=== PATIENT | male | born 1990 | race Caucasian/White ===

== ENCOUNTER 2016-10-19 13:28 | Observation (INO) | payer OTHER ==
[2016-10-19] MEDS ORDERED: SODIUM CHLORIDE 0.9% 1,000 ML IV STA ×2 (14:02)
[2016-10-19] MEDS ORDERED: ONDANSETRON 4 MG/2 ML VIAL IVP STA (14:02)
[2016-10-19] MEDS ORDERED: HYDROmorphone 1 MG/ML 1 ML SYRINGE IVP STA ×2 (14:02→15:07)
--- NOTE | 2016-10-19 14:09 | ED ---
General Adult HPI - General Chief complaint: Abdominal Pain Stated complaint: poss kidney stones-revisit Time Seen by Provider: 10/19/16 14:00 Source: patient, family, RN notes reviewed, old records reviewed Mode of arrival: ambulatory Limitations: no limitations - History of Present Illness Initial comments: Patient is a 26-year-old male significant past medical history for hemophilia A , who presents emergency room today with chief complaint of a kidney stone increased pain. He does admit that he's been having hematuria and increased left-sided flank pain. States he had a CAT scan performed recently showing kidney stone. Patient admits to symptoms of nausea vomiting. He denies any other complaints currently. Patient denies any recent fever, chills, shortness of breath, chest pain, numbness or tingling, dysuria, constipation or diarrhea, headaches or visual changes, or any other complaints. - Related Data Previous Rx's Medication Instructions Recorded HYDROcodone/APAP 10-325MG [[place] 1 tab PO Q4HR PRN #30 tab 10/10/16 10-325] Ondansetron Odt [Zofran Odt] 4 mg PO Q8HR PRN #20 tab 10/10/16 Tamsulosin HCl [Flomax] 0.4 mg PO DAILY #30 cap.er.24h 10/10/16 Allergies Allergy/AdvReac Type Severity Reaction Status Date / Time aspirin AdvReac Unknown Verified 10/19/16 13:46 NSAIDS (Non-Steroidal AdvReac Unknown Verified 10/19/16 13:46 Anti-Inflamma Review of Systems ROS Statement: Those systems with pertinent positive or pertinent negative responses have been documented in the HPI. ROS Other: All systems not noted in ROS Statement are negative. Past Medical History Additional Past Medical History / Comment(s): hemophelia A History of Any Multi-Drug Resistant Organisms: None Reported Past Surgical History: No Surgical Hx Reported Additional Past Surgical History / Comment(s): HEMOPHILIA Past Psychological History: ADD/ADHD, Anxiety, Bipolar, Depression Smoking Status: Current every day smoker Past Alcohol Use History: None Reported Additional Past Alcohol Use History / Comment(s): Patient is a smoker of 2 packs per day since he was 13 years of age. He uses marijuana all the time and does not have a medical marijuana card. He states he has used methamphetamines at 15 years of age and heroin one time 6 months ago. He states he drinks 1-2 drinks about 1 time per month. Past Drug Use History: None Reported - Past Family History Father Additional Family Medical History / Comment(s): Father is 37 years of age and patient does not know any medical history on him. Mother Additional Family Medical History / Comment(s): Mother is alive at age 49 with history of pulmonary hypertension. Brother(s) Additional Family Medical History / Comment(s): He has 2 brothers with no major medical problems. He has 6 sisters with no major medical problems. He has a grandfather and cousins with hemophilia. General Exam - General Exam Comments Initial Comments: General: The patient is awake and alert, in mild distress unable to find comfortable position. Eye: Pupils are equal, round and reactive to light, extra-ocular movements are intact. No nystagmus. There is normal conjunctiva bilaterally. No signs of icterus. Ears, nose, mouth and throat: There are moist mucous membranes and no oral lesions. Neck: The neck is supple, there is no tenderness or JVD. Cardiovascular: There is a regular rate and rhythm. No murmur, rub or gallop is appreciated. Respiratory: Lungs are clear to auscultation, respirations are non-labored, breath sounds are equal. No wheezes, stridor, rales, or rhonchi. Gastrointestinal: Normal appearance abdomen. Normal bowel sounds. Abdomen soft on palpation. Does have tenderness across the lower abdomen and left flank. No rebound tenderness. Musculoskeletal: Normal ROM, no tenderness. Strength 5/5. Sensation intact. Pulses equal bilaterally 2+. Neurological: A&O x 3. CN II-XII intact, There are no obvious motor or sensory deficits. Coordination appears grossly intact. Speech is normal. Skin: Skin is warm and dry and no rashes or lesions are noted. Psychiatric: Cooperative, appropriate mood & affect, normal judgment. Limitations: no limitations Course Vital Signs 10/19/16 10/19/16 13:45 15:22 Temperature 97.8 F 97.6 F Pulse Rate 73 67 Respiratory 20 16 Rate Blood Pressure 128/91 138/87 O2 Sat by Pulse 100 97 Oximetry Medical Decision Making - Medical Decision Making Patient reexamined at this time feeling better after pain medication. Patient' s labs been reviewed stable hemoglobin. Patient's urinalysis does show large amount of blood. Patient admits to hematuria over the last 2 days. Patient does have a 5 mm stone left side seen a CAT scan performed on 10/10/2016. Case discussed and seen by attending physician Dr. Barragan who did discuss case with on -call urologist Dr. Rodriguez who will admit the patient for his pain. - Lab Data Result diagrams: 10/19/16 14:35 10/19/16 14:35 Lab Results 10/19/16 10/19/16 10/19/16 Range/Units 14:35 14:35 14:35 WBC 9.3 (3.8-10.6) k/uL RBC 4.57 (4.30-5.90) m/uL Hgb 14.3 (13.0-17.5) gm/dL Hct 43.3 (39.0-53.0) % MCV 94.6 (80.0-100.0) fL MCH 31.2 (25.0-35.0) pg MCHC 33.0 (31.0-37.0) g/dL RDW 12.4 (11.5-15.5) % Plt Count 206 (150-450) k/uL Neutrophils % 73 % Lymphocytes % 18 % Monocytes % 6 % Eosinophils % 2 % Basophils % 0 % Neutrophils # 6.8 (1.3-7.7) k/uL Lymphocytes # 1.7 (1.0-4.8) k/uL Monocytes # 0.5 (0-1.0) k/uL Eosinophils # 0.2 (0-0.7) k/uL Basophils # 0.0 (0-0.2) k/uL PT 11.8 (9.0-12.0) sec INR 1.2 (<1.1) APTT 64.3 H (22.0-30.0) sec Sodium 143 (137-145) mmol/L Potassium 4.0 (3.5-5.1) mmol/L Chloride 105 (98-107) mmol/L Carbon Dioxide 28 (22-30) mmol/L Anion Gap 10 mmol/L BUN 16 (9-20) mg/dL Creatinine 0.94 (0.66-1.25) mg/dL Est GFR (MDRD) Af Amer >60 (>60 ml/min/1.73 sqM) Est GFR (MDRD) Non-Af >60 (>60 ml/min/1.73 sqM) Glucose 99 (74-99) mg/dL Calcium 9.6 (8.4-10.2) mg/dL Total Bilirubin 1.0 (0.2-1.3) mg/dL AST 30 (17-59) U/L ALT 46 (21-72) U/L Alkaline Phosphatase 81 (38-126) U/L Total Protein 7.6 (6.3-8.2) g/dL Albumin 4.5 (3.5-5.0) g/dL Amylase <30 L (30-110) U/L Lipase 30 (23-300) U/L Urine Color Urine Appearance (Clear) Urine pH (5.0-8.0) Ur Specific [place] (1.001-1.035) Urine Protein (Negative) Urine Glucose (UA) (Negative) Urine Ketones (Negative) Urine Blood (Negative) Urine Nitrate (Negative) Urine Bilirubin (Negative) Urine Urobilinogen (<2.0) mg/dL Ur Leukocyte Esterase (Negative) Urine RBC (0-5) /hpf Urine Mucus (None) /hpf 10/19/16 Range/Units 14:35 WBC (3.8-10.6) k/uL RBC (4.30-5.90) m/uL Hgb (13.0-17.5) gm/dL Hct (39.0-53.0) % MCV (80.0-100.0) fL MCH (25.0-35.0) pg MCHC (31.0-37.0) g/dL RDW (11.5-15.5) % Plt Count (150-450) k/uL Neutrophils % % Lymphocytes % % Monocytes % % Eosinophils % % Basophils % % Neutrophils # (1.3-7.7) k/uL Lymphocytes # (1.0-4.8) k/uL Monocytes # (0-1.0) k/uL Eosinophils # (0-0.7) k/uL Basophils # (0-0.2) k/uL PT (9.0-12.0) sec INR (<1.1) APTT (22.0-30.0) sec Sodium (137-145) mmol/L Potassium (3.5-5.1) mmol/L Chloride (98-107) mmol/L Carbon Dioxide (22-30) mmol/L Anion Gap mmol/L BUN (9-20) mg/dL Creatinine (0.66-1.25) mg/dL Est GFR (MDRD) Af Amer (>60 ml/min/1.73 sqM) Est GFR (MDRD) Non-Af (>60 ml/min/1.73 sqM) Glucose (74-99) mg/dL Calcium (8.4-10.2) mg/dL Total Bilirubin (0.2-1.3) mg/dL AST (17-59) U/L ALT (21-72) U/L Alkaline Phosphatase (38-126) U/L Total Protein (6.3-8.2) g/dL Albumin (3.5-5.0) g/dL Amylase (30-110) U/L Lipase (23-300) U/L Urine Color Light Red Urine Appearance Cloudy (Clear) Urine pH 8.5 H (5.0-8.0) Ur Specific [place] 1.015 (1.001-1.035) Urine Protein 1+ H (Negative) Urine Glucose (UA) Negative (Negative) Urine Ketones Negative (Negative) Urine Blood Large H (Negative) Urine Nitrate Negative (Negative) Urine Bilirubin Negative (Negative) Urine Urobilinogen <2.0 (<2.0) mg/dL Ur Leukocyte Esterase Negative (Negative) Urine RBC >182 H (0-5) /hpf Urine Mucus Rare H (None) /hpf Disposition Clinical Impression: Hemophilia, Kidney stone on left side, Nausea & vomiting, Intractable pain Disposition: ADMITTED IP TO THIS [facility] Condition: Stable Time of Disposition: 15:38
[2016-10-19 14:53] LABS: Basophils % (A) 0 %; Eosinophils # (A) 0.2 k/uL (0-0.7); Eosinophils % (A) 2 %; HCT 43.3 % (39.0-53.0); HDW 2.52; HGB 14.3 gm/dL (13.0-17.5); Luc # (Auto) 0.16; Luc % (Auto) 2; Lymphocytes # (A) 1.7 k/uL (1.0-4.8); Lymphocytes % (A) 18 %; MCH 31.2 pg (25.0-35.0); MCV 94.6 fL (80.0-100.0); Mean Platelet Volume 7.3; Monocytes # (A) 0.5 k/uL (0-1.0); Monocytes % (A) 6 %; Neutrophils # (A) 6.8 k/uL (1.3-7.7); Neutrophils % (A) 73 %; RBC 4.57 m/uL (4.30-5.90); RDW 12.4 % (11.5-15.5); WBC 9.3 k/uL (3.8-10.6)
[2016-10-19 14:58] LABS: Appearance,Urine Cloudy (Clear); Bilirubin,Urine Negative (Negative); Glucose,Urine (UA) Negative (Negative); Ketones,Urine Negative (Negative); Leukocyte Esterase,Urine Negative (Negative); Mucus,Urine Rare /hpf; Nitrite,Urine Negative (Negative); PH, Urine 8.5 (5.0-8.0); Particle Count 12235; Protein,Urine 1+ (Negative); RBC,Urine >182 /hpf (0-5); Specific Gravity,Urine 1.015 (1.001-1.035); UA Billing (MACRO vs. MICRO) MICRO; Urobilinogen,Urine <2.0 mg/dL (<2.0)
[2016-10-19 15:01] LABS: ALT 46 U/L (21-72); AST 30 U/L (17-59); Alkaline Phosphatase 81 U/L (38-126); Amylase <30 U/L (30-110); Anion Gap 10 mmol/L; Blood Urea Nitrogen 16 mg/dL (9-20); Calcium 9.6 mg/dL (8.4-10.2); Carbon Dioxide 28 mmol/L (22-30); Chloride 105 mmol/L (98-107); Glucose 99 mg/dL (74-99); Non-African American GFR(MDRD) >60 (>60 ml/min/1.73 sqM); Sodium 143 mmol/L (137-145); Total Protein 7.6 g/dL (6.3-8.2)
--- NOTE | 2016-10-19 15:04 | XR ---
EXAMINATION TYPE: XR KUB DATE OF EXAM: 10/19/2016 2:57 PM CLINICAL HISTORY: Increasing abdominal pain worse on left side. Known bilateral kidney stones. TECHNIQUE: Single supine KUB image of the abdomen is obtained. COMPARISON: Abdominal x-ray and CT abdomen and pelvis from October 10, 2016 FINDINGS: Scattered gas is seen in non-distended small bowel loops. Gas and fecal material is seen in non-distended colon. Small calculi seen on recent CT are less well seen on plain films is small si ze. There is probable stable 3 mm calculus lower pole level right kidney at inferior L2 vertebral bod y level . Left mid ureter calculus on CT is not definitively seen on plain films. Increasing overlie fecal material is seen on today's study making evaluation suboptimal. Lung bases are clear. Osseous structures are intact. IMPRESSION: Stable lower pole 3 mm right renal calculus. Additional renal and left ureter calculi are less well s een on plain films due to small size and overlying fecal debris.
[2016-10-19 15:32] LABS: INR 1.2 (<1.1); Prothrombin Time 11.8 sec (9.0-12.0)
[2016-10-19 15:35] LABS: Partial Thromboplastin Time 64.3 sec (22.0-30.0)
[2016-10-19] MEDS ORDERED: SODIUM CHLORIDE 0.9% 1,000 ML IV ONE (15:38)
[2016-10-19] MEDS ORDERED: ONDANSETRON 4 MG/2 ML VIAL IVP PRN (15:38)
[2016-10-19] MEDS ORDERED: HYDROmorphone 1 MG/ML 1 ML SYRINGE IV PRN (15:38)
[2016-10-19] MEDS ORDERED: NALOXONE 0.4 MG/ML 1 ML VIAL IV PRN (15:38)
[2016-10-19 16:18] VITALS: RESP 18
[2016-10-19 16:32] VITALS: BMI 20.8
[2016-10-19] MEDS: LORazepam 2 MG/ML SYRINGE IV PRN ×2 (16:54→22:44)
[2016-10-19] MEDS: HYDROmorphone 1 MG/ML 1 ML SYRINGE IV PRN ×3 (20:16→23:46)
[2016-10-19] MEDS ORDERED: TAMSULOSIN 0.4 MG CAP.ER.24H PO STA (20:58)
[2016-10-20] MEDS: HYDROmorphone 1 MG/ML 1 ML SYRINGE IV PRN ×4 (01:43→08:22)
[2016-10-20] MEDS: LORazepam 2 MG/ML SYRINGE IV PRN (03:44)
[2016-10-20 07:28] VITALS: BP 111/56; PULSE 68; TEMP 97.8
[2016-10-20 07:31] LABS: Basophils % (A) 0 %; CHCM 33.3; Eosinophils # (A) 0.2 k/uL (0-0.7); Eosinophils % (A) 3 %; Luc % (Auto) 3
[2016-10-20 07:38] LABS: INR 1.2 (<1.1); Prothrombin Time 11.9 sec (9.0-12.0)
[2016-10-20 08:16] LABS: ALT 38 U/L (21-72); AST 18 U/L (17-59); Alkaline Phosphatase 68 U/L (38-126); Anion Gap 7 mmol/L; Blood Urea Nitrogen 13 mg/dL (9-20); CH 31.3; Calcium 9.1 mg/dL (8.4-10.2); Carbon Dioxide 28 mmol/L (22-30); Chloride 108 mmol/L (98-107); Glucose 90 mg/dL (74-99); HCT 37.1 % (39.0-53.0); HDW 2.49; HGB 12.5 gm/dL (13.0-17.5); Lymphocytes # (A) 2.7 k/uL (1.0-4.8); Lymphocytes % (A) 33 %; MCH 31.7 pg (25.0-35.0); MCHC 33.5 g/dL (31.0-37.0); MCV 94.4 fL (80.0-100.0); Mean Platelet Volume 6.7; Monocytes # (A) 0.5 k/uL (0-1.0); Monocytes % (A) 6 %; Neutrophils # (A) 4.5 k/uL (1.3-7.7); Neutrophils % (A) 55 %; Non-African American GFR(MDRD) >60 (>60 ml/min/1.73 sqM); Potassium 4.3 mmol/L (3.5-5.1); RBC 3.93 m/uL (4.30-5.90); RDW 12.4 % (11.5-15.5); Sodium 143 mmol/L (137-145); Total Protein 6.2 g/dL (6.3-8.2); WBC 8.1 k/uL (3.8-10.6); WBC (Perox) 8.51
[2016-10-20] MEDS ORDERED: TAMSULOSIN 0.4 MG CAP.ER.24H PO SCH (11:00)
--- NOTE | 2016-10-20 13:21 | HP ---
DATE OF ADMISSION: 10/19/2016 ADMITTING DIAGNOSIS: Left ureteral calculus with left flank pain. Patient is a 26-year-old male admitted through the emergency room yesterday afternoon for treatment of severe left flank pain secondary to a left ureteral calculus. The patient's pain began on 10/09 and was located in his left flank and was associated with nausea and vomiting. He presented to the emergency room on 10/10 where he was evaluated and a noncontrast CT scan of the abdomen and pelvis identified a 3.5 x 4 x 5 mm calculus in the left ureter at approximately the L5 level. The patient's pain improved and he was discharged on Flomax and [place]. He says that his pain was tolerable with [place] until yesterday when it increased again in severity. The pain initially was in the left flank, but has now switched somewhat to the left lower quadrant. The patient did have some gross hematuria on 10/18 and 10/19, but this has resolved today. He continues to have severe left flank and left lower quadrant pain which he describes as a 7 to 10/10. He no longer has nausea or vomiting. Patient has had no fever or chills. He has no previous history of urolithiasis and there is no family history of kidney stones. 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 basis. He has a history of ADD/ADHD, anxiety and bipolar disease. He was on no medications prior to 10/10. He has no allergies, but has been instructed not to take aspirin or NSAIDs due to his hemophilia. He has never undergone a surgical procedure. There is no history of rheumatic fever, tuberculosis or hepatitis. However, the patient says that he has a girlfriend with hepatitis C. REVIEW OF SYSTEMS: No history of seizures, asthma, shortness of breath, chest pains, palpitations, or rectal bleeding. He says his bowels have been moving normally. SOCIAL HISTORY: Patient is single and says he lives with his parents. He has smoked for approximately 10 years and currently smokes 1-1/2 packs per day. He says he does not drink alcoholic beverages and denies IV drug use. FAMILY HISTORY: A cousin has hemophilia. Physical exam reveals a well-developed, 26-year-old male who appears to be in moderate discomfort, afebrile. Blood pressure 110/56. HEENT: No scleral icterus. No supraclavicular or cervical adenopathy. CHEST: Clear bilaterally. CARDIAC: Regular rhythm. No murmur. ABDOMEN: Soft. No hepatosplenomegaly. No suprapubic tenderness. No significant left flank pain to palpation. GENITALIA: Both testicles are descended. No hernias noted. Laboratory evaluation includes a hemoglobin of 9,300. BUN 16, creatinine 0.94. Urinalysis showed greater than 182 red blood cells per high-powered field. I personally reviewed the patient's CT scan. In addition to the left ureteral calculus, he has at least 2 nonobstructive calculi in the left kidney measuring less than 1 mm in size. He has a 2.5 to 3 mm calculus in the lower pole of the right kidney and 2 calculi in the mid-portion of the right kidney measuring approximately 1.5 and 2.5 to 3 mm in diameter. IMPRESSION: 1. Left flank pain secondary to left ureteral calculus-the patient's pain location has changed somewhat since the onset and it is possible that his calculus is migrating closer to his bladder. 2. Hemophilia A. 3. Attention Deficit Disorder/Attention Deficit Hyperactivity Disorder syndrome. 4. Bipolar disorder. PLAN: Patient will be continued on analgesics and Flomax in hopes that the calculus will pass spontaneously but if it does not by tomorrow, then left ureteroscopy with lithotripsy may be considered. Due to the patient's history of hemophilia A, it is likely that he will require a dose of recombinant antihemophilia factor prior to elective surgery. KRANTHI
--- NOTE | 2016-12-02 20:46 | P.DS ---
Providers Date of admission: 10/19/16 15:38 Attending physician: Lev Rodriguez Consults: 10/19/16 23:02 Consult Physician Routine Consulting Provider: Dale Alarcon Consult Reason/Comments: Hemophilic meds Do you want consulting provider notified?: Yes, Notify in am Primary care physician: Stated None Patient Condition at Discharge: Stable Plan - Discharge Summary Discharge Medication List HYDROcodone/APAP 10-325MG [[place] 10-325] 1 tab PO Q4HR PRN #30 tab 10/10/16 [Rx] Ondansetron Odt [Zofran Odt] 4 mg PO Q8HR PRN #20 tab 10/10/16 [Rx] Tamsulosin HCl [Flomax] 0.4 mg PO DAILY #30 cap.er.24h 10/10/16 [Rx] Recombinate 3,200 units IV DAILY PRN 10/19/16 [History] Follow up Appointment(s)/Referral(s): None,Stated [Primary Care Provider] - 1-2 days Discharge Disposition: Left Against Medical Advice
== END 2016-10-20 10:35 | disposition left against medical advice (07) ==
LOC: EC 13:28 → 3OBS 15:38
PROVIDERS: ADMIT Urology; ATTEND Urology
DX: N20.1 Calculus of ureter (principal); D66 Hereditary factor VIII deficiency; F90.9 Attention-deficit hyperactivity disorder, unspecified type; F31.9 Bipolar disorder, unspecified; F17.200 Nicotine dependence, unspecified, uncomplicated; F41.9 Anxiety disorder, unspecified; F12.90 Cannabis use, unspecified, uncomplicated; Z79.899 Other long term (current) drug therapy
CPT/HCPCS: 99285; 96374; 96375; 96376; 96361; 36415; 80053 ×2; 82150; 83690; 85025 ×2; 85610 ×2; 85730; 81001; 87086; 74000; G0378 ×2; J2060 ×2; J2405; J1170 ×2

== ENCOUNTER 2016-12-30 08:52 | Inpatient (IN) | payer OTHER ==
[2016-12-30] MEDS ORDERED: ONDANSETRON 4 MG/2 ML VIAL IVP STA (09:02)
[2016-12-30] MEDS ORDERED: SODIUM CHLORIDE 0.9% 1,000 ML IV STA ×2 (09:02)
--- NOTE | 2016-12-30 09:04 | ED ---
General Adult HPI <Brian Boateng - Last Filed: 12/30/16 12:28> - General Source: patient, RN notes reviewed Mode of arrival: ambulatory Limitations: no limitations <Landon Wiggins - Last Filed: 12/30/16 12:37> - General Chief complaint: Abdominal Pain Stated complaint: eye pain Time Seen by Provider: 12/30/16 08:59 - History of Present Illness Initial comments: Patient 26-year-old male significant past medical history for hemophilia A, who presents emergency room today with chief complaint of abdominal pain with nausea vomiting over the last 2 days. Patient does admit to a pressure-like pain middle of his abdomen. Currently rates as 03/22. Denies any radiation. Patient states that his had several episodes of nausea vomiting. Denies any signs of blood in the emesis. States never had similar symptoms in the past. Patient mother at bedside stating that she's noticed that his skin appears to be a yellow color. Patient denies any recent fever, chills, shortness of breath , chest pain, back pain, numbness or tingling, dysuria or hematuria, constipation or diarrhea, headaches or visual changes, or any other complaints. (Landon Wiggins) - Related Data Home Medications Medication Instructions Recorded Confirmed Recombinate 2,500 - 3,200 units IV MOTH PRN 10/19/16 12/30/16 Acetaminophen [Tylenol] 500 mg PO Q4-6H PRN 12/30/16 12/30/16 Allergies Allergy/AdvReac Type Severity Reaction Status Date / Time aspirin AdvReac Unknown Verified 12/30/16 09:20 NSAIDS (Non-Steroidal AdvReac Unknown Verified 12/30/16 09:20 Anti-Inflamma Review of Systems ROS Other: All systems not noted in ROS Statement are negative. <Brian Boateng - Last Filed: 12/30/16 12:28> ROS Other: All systems not noted in ROS Statement are negative. <Landon Wiggins - Last Filed: 12/30/16 12:37> ROS Statement: Those systems with pertinent positive or pertinent negative responses have been documented in the HPI. Past Medical History Past Medical History: Hyperlipidemia Additional Past Medical History / Comment(s): hemophelia A History of Any Multi-Drug Resistant Organisms: None Reported Past Surgical History: No Surgical Hx Reported Additional Past Surgical History / Comment(s): HEMOPHILIA Past Psychological History: ADD/ADHD, Anxiety, Bipolar, Depression Smoking Status: Current every day smoker Past Alcohol Use History: Rare Additional Past Alcohol Use History / Comment(s): Patient is a smoker of 2 packs per day since he was 13 years of age. He uses marijuana all the time and does not have a medical marijuana card. He states he has used methamphetamines at 15 years of age and heroin one time 6 months ago. He states he drinks 1-2 drinks about 1 time per month. Past Drug Use History: None Reported - Past Family History Father Additional Family Medical History / Comment(s): Father is 37 years of age and patient does not know any medical history on him. Mother Additional Family Medical History / Comment(s): Mother is alive at age 49 with history of pulmonary hypertension. Brother(s) Additional Family Medical History / Comment(s): He has 2 brothers with no major medical problems. He has 6 sisters with no major medical problems. He has a grandfather and cousins with hemophilia. <Landon Wiggins - Last Filed: 12/30/16 12:37> General Exam <Brian Boateng - Last Filed: 12/30/16 12:28> Limitations: no limitations <Landon Wiggins - Last Filed: 12/30/16 12:37> - General Exam Comments Initial Comments: General: The patient is awake and alert, in no distress, and does not appear acutely ill. Eye: Pupils are equal, round and reactive to light, extra-ocular movements are intact. No nystagmus. There is normal conjunctiva bilaterally. + icterus. Ears, nose, mouth and throat: There are moist mucous membranes and no oral lesions. Neck: The neck is supple, there is no tenderness or JVD. Cardiovascular: There is a regular rate and rhythm. No murmur, rub or gallop is appreciated. Respiratory: Lungs are clear to auscultation, respirations are non-labored, breath sounds are equal. No wheezes, stridor, rales, or rhonchi. Gastrointestinal: Soft, non-distended, non-tender abdomen without masses or organomegaly noted. There is no rebound or guarding present. No CVA tenderness. Bowel sounds are unremarkable. Musculoskeletal: Normal ROM, no tenderness. Strength 5/5. Sensation intact. Pulses equal bilaterally 2+. Neurological: A&O x 3. CN II-XII intact, There are no obvious motor or sensory deficits. Coordination appears grossly intact. Speech is normal. Skin: Skin is warm and dry and no rashes or lesions are noted. Mild jaundice Psychiatric: Cooperative, appropriate mood & affect, normal judgment. (Landon Wiggins) Course <Brian Boateng - Last Filed: 12/30/16 12:28> <Landon Wiggins - Last Filed: 12/30/16 12:37> Vital Signs 12/30/16 12/30/16 12/30/16 08:54 11:26 12:34 Temperature 99.0 F 97.4 F L Pulse Rate 73 62 62 Respiratory 20 18 18 Rate Blood Pressure 143/87 127/57 113/68 O2 Sat by Pulse 98 96 97 Oximetry - Reevaluation(s) Reevaluation #1: 12/30/16 12:28 Patient reexamined by myself, Dr. Boateng. Patient does have a jaundiced appearance. Abdomen is soft with right upper quadrant tenderness. Patient updated on results and plan. Case discussed with surgery, Dr. Maria who recommends medical admission and GI consult. Dr. Dugan has been paged for admission. (Brian Boateng) Medical Decision Making - Lab Data Result diagrams: 12/30/16 09:25 12/30/16 09:25 <Brian Boateng - Last Filed: 12/30/16 12:28> - Lab Data Result diagrams: 12/30/16 09:25 12/30/16 09:25 <Landon Wiggins - Last Filed: 12/30/16 12:37> - Lab Data Lab Results 12/30/16 12/30/16 Range/Units 09:25 09:25 WBC 7.5 (3.8-10.6) k/uL RBC 5.06 (4.30-5.90) m/uL Hgb 15.3 (13.0-17.5) gm/dL Hct 48.7 (39.0-53.0) % MCV 96.2 (80.0-100.0) fL MCH 30.3 (25.0-35.0) pg MCHC 31.5 (31.0-37.0) g/dL RDW 14.5 (11.5-15.5) % Plt Count 267 (150-450) k/uL Neutrophils % (Manual) 61.0 % Lymphocytes % (Manual) 29.0 % Monocytes % (Manual) 7.0 % Eosinophils % (Manual) 3.0 % Neutrophils # (Manual) 4.6 (1.3-7.7) k/uL Lymphocytes # (Manual) 2.2 (1.0-4.8) k/uL Monocytes # (Manual) 0.5 (0-1.0) k/uL Eosinophils # (Manual) 0.2 (0-0.7) k/uL Nucleated RBCs 0 (0-0) /100 WBC Poikilocytosis (manual Present Anisocytosis (manual) Present Target Cells Present Sodium 139 (137-145) mmol/L Potassium 4.4 (3.5-5.1) mmol/L Chloride 100 (98-107) mmol/L Carbon Dioxide 28 (22-30) mmol/L Anion Gap 11 mmol/L BUN 13 (9-20) mg/dL Creatinine 0.83 (0.66-1.25) mg/dL Est GFR (MDRD) Af Amer >60 (>60 ml/min/1.73 sqM) Est GFR (MDRD) Non-Af >60 (>60 ml/min/1.73 sqM) Glucose 102 H (74-99) mg/dL Calcium 9.4 (8.4-10.2) mg/dL Total Bilirubin 8.8 H (0.2-1.3) mg/dL AST 1491 H (17-59) U/L ALT 2549 H (21-72) U/L Alkaline Phosphatase 198 H (38-126) U/L Total Protein 8.2 (6.3-8.2) g/dL Albumin 4.1 (3.5-5.0) g/dL Amylase 53 (30-110) U/L Lipase 55 (23-300) U/L Disposition <Brian Boateng - Last Filed: 12/30/16 12:28> Time of Disposition: 12:27 <Landon Wiggins - Last Filed: 12/30/16 12:37> Clinical Impression: Acute cholecystitis, Elevated liver enzymes Disposition: ADMITTED IP TO THIS [facility] Condition: Stable
[2016-12-30 09:40] LABS: Aty Lym Flag Slight; CH 30.5; CHCM 31.9; HCT 48.7 % (39.0-53.0); HDW 2.27; HGB 15.3 gm/dL (13.0-17.5); MCH 30.3 pg (25.0-35.0); MCHC 31.5 g/dL (31.0-37.0); MCV 96.2 fL (80.0-100.0); Mean Platelet Volume 6.6; RBC 5.06 m/uL (4.30-5.90); RDW 14.5 % (11.5-15.5); WBC 7.5 k/uL (3.8-10.6); WBC (Perox) 7.54
--- NOTE | 2016-12-30 09:44 | XR ---
EXAMINATION TYPE: XR KUB DATE OF EXAM: 12/30/2016 9:37 AM CLINICAL HISTORY: Increased abdominal pain worse on left side. Only diagnosed bilateral kidney stones per patient. TECHNIQUE: 2 upright KUB images of the abdomen are obtained. COMPARISON: CT abdomen and pelvis October 10, 2016. Abdominal x-ray October 19, 2016 FINDINGS: Scattered gas is seen in non-distended small bowel loops. Gas and fecal material is seen in non-distended colon. There is stable 3 mm calculus lower pole level right kidney. Smaller calculi scattered throughout left kidney are less well seen on x-ray. Lung bases are clear. Visualized osseo us structures are intact. IMPRESSION: Stable 3 mm lower pole right renal calculus. There are smaller but more numerous calculi in left kidn ey on recent CT not clearly seen on x-ray due to size and overlying colonic fecal material.
[2016-12-30 09:51] LABS: Alkaline Phosphatase 198 U/L (38-126); Amylase 53 U/L (30-110); Anion Gap 11 mmol/L; Blood Urea Nitrogen 13 mg/dL (9-20); Calcium 9.4 mg/dL (8.4-10.2); Carbon Dioxide 28 mmol/L (22-30); Chloride 100 mmol/L (98-107); Glucose 102 mg/dL (74-99); Non-African American GFR(MDRD) >60 (>60 ml/min/1.73 sqM); Potassium 4.4 mmol/L (3.5-5.1); Sodium 139 mmol/L (137-145); Total Bilirubin 8.8 mg/dL (0.2-1.3); Total Protein 8.2 g/dL (6.3-8.2)
[2016-12-30 10:41] LABS: ALT 2549 U/L (21-72); AST 1491 U/L (17-59)
[2016-12-30 10:52] LABS: Add Differential Manual Differential
[2016-12-30 10:55] LABS: Nucleated Red Blood Cells 0 /100 WBC (0-0); Total Cells Counted 100
[2016-12-30 11:00] LABS: Target Cells Present
--- NOTE | 2016-12-30 11:45 | US ---
EXAMINATION TYPE: US abdomen limited DATE OF EXAM: 12/30/2016 11:11 AM COMPARISON: NONE CLINICAL HISTORY: Pain. EXAM MEASUREMENTS: Liver Length: 15.4 cm Gallbladder Wall: 1.2 cm CBD: 0.5 cm Right Kidney: 11.0 x 4.2 x 5.2 cm TECHNOLOGIST IMPRESSION: Very tender abdomen, Pancreas: Tail obscured by overlying bowel gas Liver: wnl Gallbladder: Thick edematous wall, no stones seen, suggestive of acute cholecystitis Evidence for sonographic Villalobos's sign: Patient entire abdomen very tender CBD: wnl Right Kidney: inferior pole not seen There is no ascites. IMPRESSION: Markedly thickened gallbladder wall is indeterminate, correlate for cholecystitis. Limite d exam.
[2016-12-30] MEDS ORDERED: HYDROmorphone 1 MG/ML 1 ML SYRINGE IVP STA ×2 (11:48→13:11)
[2016-12-30 12:32] LABS: INR 1.3 (<1.1); Prothrombin Time 12.5 sec (9.0-12.0)
[2016-12-30] MEDS ORDERED: AMPICILLIN-SULBACTAM 3 GM in SODIUM CHLORIDE 0.9% 100 ML IVPB STA (12:38)
[2016-12-30] MEDS ORDERED: ONDANSETRON 4 MG/2 ML VIAL IVP PRN (12:38)
[2016-12-30] MEDS ORDERED: NALOXONE 0.4 MG/ML 1 ML VIAL IV PRN (12:38)
[2016-12-30] MEDS ORDERED: SODIUM CHLORIDE 0.9% 1,000 ML IV ONE (12:38)
[2016-12-30] MEDS ORDERED: LORazepam 2 MG/ML SYRINGE IV STA (13:49)
[2016-12-30 14:12] LABS: Hepatitis C Virus IgG Ab Reactive (Negative)
[2016-12-30 14:53] LABS: Hepatitis B Surface Ag Index 0.12
[2016-12-30 14:59] LABS: Hepatitis B Core IgM Index 0.07
[2016-12-30] MEDS: LORazepam 2 MG/ML SYRINGE IV PRN ×2 (15:45→20:30)
--- NOTE | 2016-12-30 15:51 | P.GSCN ---
History of Present Illness Consult date: 12/30/16 Reason for Consult: Jaundice and gallbladder wall thickening History of present illness: The patient is a 26-year-old man who has not been feeling well for several days. He had chills and malaise. "He had been laying around on the couch". He admits his niece was ill with nausea and vomiting and thought perhaps it was a virus. This morning when he woke up he noticed he was low and was concerned about jaundice so went into the emergency room. He's had some nausea and vomiting. Discomfort in the middle of his abdomen. No radiation to the chest or back. Previous episodes of anything like this. While doing his review of systems he does admit that his girlfriend has hepatitis C. Denies any knowledge that he's had hepatitis C in the past. Denies any previous testing well. He also admits to IV drug use from time to time and that he and his girlfriend "try not to do blood to blood". 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 He received blood when he was around 9 yrs old. Past Psychological History: ADD/ADHD, Anxiety, Bipolar, Depression Additional Psychological History / Comment(s): Pt resides with his mother. He has a 9 month old son. He does not drive due to his anxiety-he states he misses appts often. He has depression and past suicidal thoughts and attempt but denies thoughts or plans of suicide or harming himself at this time. "My anxiety is more of my issue right now." Smoking Status: Current every day smoker Past Alcohol Use History: Rare Additional Past Alcohol Use History / Comment(s): Patient is a smoker of 2 packs per day since he was 13 years of age. He uses marijuana on occasion but not daily. He states he has used methamphetamines at 15 years of age and heroin in the past. He states he relapsed with heroin 2 months ago but has not used it since. He states he drinks 1-2 drinks about 1 time per month. Past Drug Use History: None Reported - Past Family History Father History Unknown: Yes Additional Family Medical History / Comment(s): Father is 37 years of age and patient does not know any medical history on him. Mother Additional Family Medical History / Comment(s): Mother is alive at age 49 with history of pulmonary hypertension. Brother(s) Additional Family Medical History / Comment(s): He has 2 brothers with no major medical problems. He has 6 sisters with no major medical problems. He has a grandfather and cousins with hemophilia. Medications and Allergies Home Medications Medication Instructions Recorded Confirmed Type Recombinate 2,500 - 3,200 units IV MOTH PRN 10/19/16 12/30/16 History Acetaminophen [Tylenol] 500 mg PO Q4-6H PRN 12/30/16 12/30/16 History Allergies Allergy/AdvReac Type Severity Reaction Status Date / Time aspirin AdvReac Unknown Verified 12/30/16 09:20 NSAIDS (Non-Steroidal AdvReac Unknown Verified 12/30/16 09:20 Anti-Inflamma Surgical - Exam Osteopathic Statement: *. No significant issues noted on an osteopathic structural exam other than those noted in the History and Physical/Consult. Vital Signs Temp Pulse Resp BP Pulse Ox 99.0 F 73 20 143/87 98 12/30/16 08:54 12/30/16 08:54 12/30/16 08:54 12/30/16 08:54 12/30/16 08:54 - General Anxious, tremulous moderate distress - Eyes normal ocular movement - ENT normal mucosa, no hearing loss - Neck There is some scarring and nodularity in the right neck which may be due to some chronic acne. trachea midline - Respiratory normal respiratory effort, clear to auscultation - Cardiovascular Rhythm: regular - Abdomen Abdomen: soft, tender (Epigastric and right upper quadrant), no organomegaly, no surgical scars, no distended Hernia: no umbilical - Psychiatric oriented to time, oriented to person, oriented to place, other (Anxious) Results - Labs Comments: Total bilirubin and transaminases are elevated. Alkaline phosphatase is mildly elevated. Amylase and lipase are within normal range. Hepatitis A and B are negative. Hepatitis C is reactive. PT is modestly elevated. His PTT is elevated at 74. 12/30/16 09:25 12/30/16 09:25 - Imaging US - abdomen: report reviewed, image reviewed Assessment and Plan (1) Elevated liver enzymes Status: Acute (2) Nausea & vomiting Status: Acute (3) Hepatitis C Status: Acute (4) Acute cholecystitis Status: Acute Plan: Likely this is an acute onset hepatitis C. The gallbladder wall was very thickened but there is no stones seen. The common bile duct is not dilated. The bilirubin is also quite a bit more elevated than one would expect with an acute cholecystitis. We'll hydrate him, control pain, serial exams. GI consult. We'll follow with you. No plans for cholecystectomy at this point.
[2016-12-30] MEDS: HYDROmorphone 1 MG/ML 1 ML SYRINGE IV PRN ×3 (16:45→23:02)
[2016-12-30 17:14] LABS: Appearance,Urine Cloudy (Clear); Bacteria,Urine Rare /hpf; Bilirubin,Urine 2+ (Negative); Calcium Oxalate Crystals,Urine Rare /hpf; Glucose,Urine (UA) Negative (Negative); Ketones,Urine Trace (Negative); Leukocyte Esterase,Urine Negative (Negative); Nitrite,Urine Negative (Negative); PH, Urine 6.5 (5.0-8.0); Particle Count 1992; Protein,Urine Negative (Negative); RBC,Urine 1 /hpf (0-5); Specific Gravity,Urine 1.018 (1.001-1.035); UA Billing (MACRO vs. MICRO) MICRO; WBC,Urine 2 /hpf (0-5)
[2016-12-30] MEDS: AMPICILLIN-SULBACTAM 3 GM in SODIUM CHLORIDE 0.9% 100 ML IVPB SCH (20:30)
[2016-12-31] MEDS: HYDROmorphone 1 MG/ML 1 ML SYRINGE IV PRN ×3 (03:45→12:38)
[2016-12-31] MEDS: AMPICILLIN-SULBACTAM 3 GM in SODIUM CHLORIDE 0.9% 100 ML IVPB SCH ×2 (04:21→12:37)
[2016-12-31 08:04] VITALS: RESP 20
[2016-12-31 08:51] LABS: Alkaline Phosphatase 163 U/L (38-126); Anion Gap 9 mmol/L; Bilirubin, Delta 2.2 mg/dL (0.0-0.2); Blood Urea Nitrogen 10 mg/dL (9-20); Calcium 9.1 mg/dL (8.4-10.2); Carbon Dioxide 29 mmol/L (22-30); Chloride 103 mmol/L (98-107); Glucose 103 mg/dL (74-99); Non-African American GFR(MDRD) >60 (>60 ml/min/1.73 sqM); Potassium 5.1 mmol/L (3.5-5.1); Sodium 141 mmol/L (137-145); Total Protein 7.4 g/dL (6.3-8.2)
[2016-12-31 09:17] LABS: Aty Lym Flag Slight; CH 30.1; CHCM 30.8; HCT 43.5 % (39.0-53.0); HDW 2.21; HGB 13.7 gm/dL (13.0-17.5); Hypochromasia Slight; MCH 30.8 pg (25.0-35.0); MCHC 31.4 g/dL (31.0-37.0); RBC 4.44 m/uL (4.30-5.90); RDW 14.6 % (11.5-15.5); WBC 6.7 k/uL (3.8-10.6)
[2016-12-31] MEDS: LORazepam 2 MG/ML SYRINGE IV PRN (09:48)
[2016-12-31 10:37] LABS: Add Differential Manual Differential
[2016-12-31 10:39] LABS: Manual Review Performed; Nucleated Red Blood Cells 0 /100 WBC (0-0); Target Cells Present; Total Cells Counted 100
--- NOTE | 2016-12-31 11:21 | P.CONS ---
History of Present Illness - Reason for Consult Consult date: 12/31/16 Elevated liver enzymes hepatitis Requesting physician: Apurva Dugan - History of Present Illness 26-year-old male with a history of IVDA heroin 2-4 months ago, recent Suboxone usage, hemophilia A, bipolar depression, ADHD, nicotine cigarette dependency, and hyperlipidemia. Patient presented with acute right upper quadrant abdominal pain, yellow skin, dark urine, and feelings of generalized weakness 2 days. Consultation requested for elevated liver enzymes hepatitis C. Admission white count 7.5. Hemoglobin 15.3. INR 1.3. Total bilirubin 8.8. AST 1491. ALT 2549. Alkaline Phosphatase 198. Lipase 55. Repeat total bilirubin today is 8.0. Conjugated 4.3. AST ALT pending. Urinalysis detected opiates benzodiazepines and marijuana. Hepatitis panel reactive for hepatitis C antibody only. Upon review of liver enzymes in October 2016 there were within normal limits. Patient has no history of known hepatitis C until this admission. He is in a relationship with a woman who has hepatitis C. Again he states his last intravenous dose of heroin was between 2 and 4 months ago. Denies aspirin or NSAID usage prior to admission. No changes in his medications with the exception of taking a one third tablet of Suboxone for about a week prior to admission. Denies fever, chills but reports hot flashes. No history of hepatitis or liver disorders. Abdominal ultrasound reported a thickened gallbladder wall without stones. CBD 0.5 cm. Review of Systems Constitutional: Denies fever, chills, sweats, weight gain, or loss. HEENT: Negative for migraines, blurred vision or loss, earaches, drainage, tinnitus, oral mucosal lesions, dysphagia, or odynophagia. Cardiac: Negative for chest pain, arrhythmias, or palpitation. Respiratory: Nicotine cigarette dependency. Negative for shortness of breath, hemoptysis, cough, or sputum production. Gastrointestinal: See HPI for pertinent findings. Genitourinary: Negative for hematuria, urgency, frequency, polyuria, dysuria, or penile discharge. Musculoskeletal: Negative for muscle aches, swelling, arthritis, and arthralgias. Neurologic: Negative for stroke or TIA. Hematology: Hemophilia A. Endocrine: Negative for thyroid problems. Skin: Negative for rash or itching. Psychiatric: I polio depression. ADHD. and anxiety All systems: negative (See HPI) Past Medical History Past Medical History: Hyperlipidemia Additional Past Medical History / Comment(s): hemophelia A History of Any Multi-Drug Resistant Organisms: None Reported Past Surgical History: No Surgical Hx Reported Additional Past Surgical History / Comment(s): HEMOPHILIA Additional Past Anesthesia/Blood Transfusion Reaction / Comm: Pt has never had anesthesia. He received blood when he was around 9 yrs old. Past Psychological History: ADD/ADHD, Anxiety, Bipolar, Depression Additional Psychological History / Comment(s): Pt resides with his mother. He has a 9 month old son. He does not drive due to his anxiety-he states he misses appts often. He has depression and past suicidal thoughts and attempt but denies thoughts or plans of suicide or harming himself at this time. "My anxiety is more of my issue right now." Smoking Status: Current every day smoker Past Alcohol Use History: Rare Additional Past Alcohol Use History / Comment(s): Patient is a smoker of 2 packs per day since he was 13 years of age. He uses marijuana on occasion but not daily. He states he has used methamphetamines at 15 years of age and heroin in the past. He states he relapsed with heroin 2 months ago but has not used it since. He states he drinks 1-2 drinks about 1 time per month. Past Drug Use History: None Reported - Past Family History Father History Unknown: Yes Additional Family Medical History / Comment(s): Father is 37 years of age and patient does not know any medical history on him. Mother Additional Family Medical History / Comment(s): Mother is alive at age 49 with history of pulmonary hypertension. Brother(s) Additional Family Medical History / Comment(s): He has 2 brothers with no major medical problems. He has 6 sisters with no major medical problems. He has a grandfather and cousins with hemophilia. Medications and Allergies Home Medications Medication Instructions Recorded Confirmed Type Recombinate 2,500 - 3,200 units IV MOTH PRN 10/19/16 12/30/16 History Acetaminophen [Tylenol] 500 mg PO Q4-6H PRN 12/30/16 12/30/16 History Allergies Allergy/AdvReac Type Severity Reaction Status Date / Time aspirin AdvReac Unknown Verified 12/30/16 09:20 NSAIDS (Non-Steroidal AdvReac Unknown Verified 12/30/16 09:20 Anti-Inflamma Physical Exam Vitals: Vital Signs Temp Pulse Pulse Pulse Resp BP BP 12/31/16 07:00 97.9 F 61 20 116/72 12/31/16 00:00 18 12/30/16 23:00 97.8 F 84 18 139/77 12/30/16 16:56 62 19 12/30/16 15:00 99 F 62 19 12/30/16 14:38 98.2 F 67 18 132/71 12/30/16 14:04 98.1 F 68 18 130/82 12/30/16 13:23 62 18 125/71 BP Pulse Ox 12/31/16 07:00 97 12/31/16 00:00 12/30/16 23:00 94 L 12/30/16 16:56 12/30/16 15:00 143/85 97 12/30/16 14:38 97 12/30/16 14:04 96 12/30/16 13:23 96 Intake and Output 12/30/16 12/31/16 12/31/16 22:59 06:59 14:59 Intake Total 0 0 Balance 0 0 Intake: Oral 0 0 Other: Voiding Method Toilet Toilet # Voids 1 General appearance: The patient is alert, oriented, in no acute distress. Jaundice. HET: Head is normocephalic and atraumatic. Pupils are equal and reactive. Sclerae icterus. Oropharynx is clear without lesions. Neck: Supple without lymphadenopathy. Trachea midline. Heart: S1 S2. Regular rate and rhythm. Lungs: No crackles or wheezes are heard. Abdomen: Soft, very mild right upper quadrant tenderness, nondistended with bowel sounds. No peritoneal signs. No palpable organomegaly or masses. Extremities: Normal skin color and turgor. No cyanosis, rash, ulceration, clubbing, or edema. Radial and pedal pulses are 2/4 bilaterally. Neurological: No focal deficits. Strength and sensation are grossly intact. Results CBC & Chem 7: 12/31/16 08:09 12/31/16 08:09 Labs: Abnormal Lab Results - Last 24 Hours (Table) 12/30/16 12/31/16 12/31/16 Range/Units 16:00 03:45 08:09 Glucose 103 H (74-99) mg/dL Total Bilirubin 8.0 H (0.2-1.3) mg/dL Conjugated Bilirubin 4.3 H (0.0-0.3) mg/dL Unconjugated Bilirubin 1.5 H (0.0-1.1) mg/dL Delta Bilirubin 2.2 H (0.0-0.2) mg/dL Alkaline Phosphatase 163 H (38-126) U/L Urine Ketones Trace H (Negative) Urine Bilirubin 2+ H (Negative) Calcium Oxalate Crystal Rare H (None) /hpf Urine Bacteria Rare H (None) /hpf Urine Opiates Screen Detected H (NotDetected) U Benzodiazepines Scrn Detected H (NotDetected) U Marijuana (THC) Screen Detected H (NotDetected) US - abdomen: report reviewed (Reviewed by Dr. Pineda) Assessment and Plan (1) Acute hepatitis Narrative/Plan: Suspect toxic hepatitis with suspected underlying hepatitis C infection secondary to intravenous heroin drug abuse. Status: Acute (2) Hepatitis C antibody positive in blood Status: Acute (3) Heroin abuse Status: Acute (4) Elevated liver enzymes Status: Acute (5) Jaundice Status: Acute Plan: 1. Close observation of PT/INR and liver enzymes; if they continue to worsen will need to consider transfer to tertiary care center for close observation by a liver transplant team. 2. Diet as tolerated. 3. Will obtain CMV/EPV/quantitative hepatitis C/genotype serology. Thank you for this kind referral and the opportunity to participate in the care of your patient. This consultation was discussed with Dr. Pineda. The impression and plan of care have been directed as dictated.
[2016-12-31] MEDS ORDERED: [UNRECOGNIZED DRUG - OTHER] IV ONE (12:00)
[2016-12-31 12:06] LABS: INR 1.3 (<1.1); Prothrombin Time 12.9 sec (9.0-12.0)
[2016-12-31 12:15] LABS: ALT 1977 U/L (21-72); AST 1090 U/L (17-59)
[2016-12-31] MEDS ORDERED: SODIUM CHLORIDE 0.9% 1,000 ML IV SCH (12:30)
--- NOTE | 2016-12-31 13:15 | P.PN ---
Subjective The patient is seen on rounds. He says he is feeling about the same. Maybe some diminished pain versus yesterday. No nausea or vomiting. He's tolerating a clear liquid diet. Objective - Vital Signs Vital signs: Vital Signs Temp 97.9 F 12/31/16 07:00 Pulse 61 12/31/16 07:00 Resp 20 12/31/16 07:00 BP 116/72 12/31/16 07:00 Pulse Ox 97 12/31/16 07:00 Intake & Output 12/30/16 12/31/16 12/31/16 18:59 06:59 18:59 Intake Total 0 Balance 0 Intake: Oral 0 Other: Voiding Method Toilet Toilet # Voids 1 - Constitutional Constitutional Comment(s): Appears much less anxious than yesterday. Not is tremulous. General appearance: Present: cooperative, no acute distress - Respiratory Respiratory: bilateral: CTA - Cardiovascular Rhythm: regular - Gastrointestinal General gastrointestinal: Present: normal bowel sounds, soft, tenderness ( Epigastric without guarding or rebound) - Integumentary Integumentary: Present: jaundiced - Labs CBC & Chem 7: 12/31/16 08:09 12/31/16 08:09 Labs: Abnormal Lab Results - Last 24 Hours (Table) 12/30/16 12/31/16 12/31/16 Range/Units 16:00 03:45 08:09 PT (9.0-12.0) sec Glucose 103 H (74-99) mg/dL Total Bilirubin 8.0 H (0.2-1.3) mg/dL Conjugated Bilirubin 4.3 H (0.0-0.3) mg/dL Unconjugated Bilirubin 1.5 H (0.0-1.1) mg/dL Delta Bilirubin 2.2 H (0.0-0.2) mg/dL AST 1090 H (17-59) U/L ALT 1977 H (21-72) U/L Alkaline Phosphatase 163 H (38-126) U/L Urine Ketones Trace H (Negative) Urine Bilirubin 2+ H (Negative) Calcium Oxalate Crystal Rare H (None) /hpf Urine Bacteria Rare H (None) /hpf Urine Opiates Screen Detected H (NotDetected) U Benzodiazepines Scrn Detected H (NotDetected) U Marijuana (THC) Screen Detected H (NotDetected) 12/31/16 Range/Units 11:32 PT 12.9 H (9.0-12.0) sec Glucose (74-99) mg/dL Total Bilirubin (0.2-1.3) mg/dL Conjugated Bilirubin (0.0-0.3) mg/dL Unconjugated Bilirubin (0.0-1.1) mg/dL Delta Bilirubin (0.0-0.2) mg/dL AST (17-59) U/L ALT (21-72) U/L Alkaline Phosphatase (38-126) U/L Urine Ketones (Negative) Urine Bilirubin (Negative) Calcium Oxalate Crystal (None) /hpf Urine Bacteria (None) /hpf Urine Opiates Screen (NotDetected) U Benzodiazepines Scrn (NotDetected) U Marijuana (THC) Screen (NotDetected) Assessment and Plan (1) Elevated liver enzymes Status: Acute (2) Nausea & vomiting Status: Acute (3) Hepatitis C Status: Acute (4) Acute cholecystitis Status: Acute Plan: Patient's currently nonsurgical. Continue medical workup for his acute hepatitis. We will follow up on a when necessary basis.
--- NOTE | 2016-12-31 13:42 | HP ---
DATE OF ADMISSION: CHIEF COMPLAINT: Abdominal pain and jaundice. HISTORY OF PRESENT ILLNESS: This 26-year-old gentleman with a past history of hemophilia A, history of hyperlipidemia, history of anxiety, bipolar, depression, ADD, ADHD being followed by no primary physician in the outpatient setting was admitted to [facility] with complaints of abdominal pain, which is mostly in the right upper quadrant. The patient apparently also had history of IV heroin abuse and relapsed about 2 months ago. Patient's girlfriend is apparently hepatitis positive also. The patient was found to have elevated LFTs with bilirubin going up to 8.8, AST 1491 and ALT 2549, alkaline phosphatase 198. Hepatitis C IgG antibody was positive. He was admitted for further evaluation and treatment. Ultrasound of the abdomen was also taken which showed markedly thickened gallbladder, indeterminate, possibly cholecystitis. There is no history of cholelithiasis. There is no history of any fever, rigors, chills. No history of headache, loss of consciousness or seizures. PAST MEDICAL HISTORY: History of hypertension, history of hemophilia A, ADD, ADHD, anxiety, bipolar, depression. History of IV drug abuse. Medications are: 1. Tylenol 500 mg q.4 p.r.n. 2. Recombinate 2500 to 3200 IV monthly p.r.n. ALLERGIES: ASPIRIN, NSAIDS. FAMILY HISTORY: No history of heart disease or strokes in the family. SOCIAL HISTORY: History of smoking, alcohol occasionally and no history of current alcohol intake. REVIEW OF SYSTEMS: ENT: No diminished hearing or vision. CARDIOVASCULAR: No angina or palpitations. RESPIRATORY: No cough. GI: As mentioned earlier. : No dysuria. NERVOUS SYSTEM: No numbness or weakness. ALLERGY/IMMUNOLOGY: No asthma or hayfever. MUSCULOSKELETAL: As mentioned earlier. HEMATOLOGY/ONCOLOGY: No history of anemia. ENDOCRINE: No history of diabetes mellitus or hypothyroidism. CONSTITUTIONAL: As mentioned earlier. DERMATOLOGY: Negative. RHEUMATOLOGY: Negative. PSYCHIATRY: As mentioned earlier. PHYSICAL EXAMINATION: The patient is alert, oriented x3. Pulse is 67, blood pressure 132/71, respirations 18, temperature 98.2, pulse ox 97% on room air. HEENT: Conjunctivae normal. Oral mucosa moist. NECK: No jugular venous distention. No carotid bruit. No lymph node enlargement. CARDIOVASCULAR: S1 and S2, muffled. No S3, no S4. RESPIRATORY: Breath sounds diminished at the bases. A few rhonchi, no crackles. ABDOMEN: Soft, otherwise, mild diffuse tenderness in the right upper quadrant. No guarding, no rigidity. No mass palpable. No ascites. Bowel sounds present. LEGS: No edema, no swelling. NERVOUS SYSTEM: Higher function as mentioned. Moves all 4 limbs. No focal motor deficits. LYMPHATICS: No lymphadenopathy of neck, axillae or groin. SKIN: No ulcers, rashes or bleeding. LABS: CBC within normal limits. INR 1.3. Glucose 102. Total bilirubin is 8.8. AST is 1491 and ALT is 2549, alkaline phosphatase 198. ASSESSMENT: 1. Acute abdominal pain, possible acute cholecystitis. 2. Acute hepatitis. 3. Increased bilirubin. 4. Increased AST, ALT and alkaline phosphatase. 5. Increased random blood sugar. 6. History of IV drug abuse. 7. Hyperlipidemia. 8. History of hemophilia A. 9. History of attention deficit disorder, attention deficit hyperactivity disorder. 10. Anxiety, bipolar, depression. 11. History of nicotine dependence. RECOMMENDATIONS AND DISCUSSION: This 26-year-old gentleman present with multiple complex medical issues, we will monitor the patient closely. Continue the current medications, continue with symptomatic treatment. I would recommend closely follow with Surgery and as well as Gastroenterology. Repeat labs in the morning. Other than that, will also recommend conjugated bilirubin also and delta bilirubin as well. Otherwise, the prognosis is guarded because of the multiple complex medical issues. Further recommendations to follow. Broad-spectrum IV antibiotics initiated. Further recommendations to follow. I also recommend the patient to followup with Gastroenterology and as well as primary physician closely after discharge. The patient understands and agrees.
--- NOTE | 2016-12-31 14:53 | P.CN ---
Psychiatric Consult - . Consult date: 12/31/16 Consult:: IDENTIFYING DATA: Mr. Ochoa is a 26-year-old single male who has a history of a hemophilia. HISTORY OF PRESENT ILLNESS: Medicine consult psychiatry due to complaints of depression and anxiety. I reviewed the medical record and interviewed Mr. Ochoa. [facility] with complaint of right upper quadrant abdominal pain, dark urine, feeling weak and developing a yellowing of the eyes over the last few days prior to admission. He's been diagnosed with acute hepatitis most likely due to hepatitis C infection. He complained of a generalized sense of anxiety was present throughout most of day and fluctuates in intensity. The anxiety contributes to feelings of fatigue , restlessness, social isolation and difficulty concentrating. He gave several reasons for the anxiety including chronic pain from his hemophilia. His difficulty obtaining prescriptions for pain medications because of his history of drug use. His inability to live independently from his family and his inability to support his girlfriend. He complains that he is also feeling anxious because he is receiving Dilaudid and he "knows" that he will not be prescribed when he leaves the hospital. He alleged that he finds no relief with the current dose of lorazepam. He also complains of depression associated with feelings of hopelessness, helplessness and worthlessness. The depression and anxiety fluctuates in intensity and worsens when he is in pain. He described "fleeting" thoughts of suicide but denied sustained thoughts of suicide, suicidal intent or plan. He denied periods of increased anxiety consistent with panic attacks. He denied obsessions or compulsions. He denied psychotic symptoms such as auditory or visual hallucinations, ideas reference, thought insertion, thought broadcasting or thought control. He is been purchasing Suboxone over the last 2 months for the treatment of pain and opiate withdrawal symptoms. Before he began purchasing Suboxone he was injecting heroin. He alleged that he started using heroin about 6 months ago. He alleged that he used heroin for approximately 4 months. He's been able to maintain abstinence from heroin with the Suboxone. He takes, on the average, one 8 mg tablet of Suboxone per day. He alleged that he is purchasing the Suboxone because has been unable to find a Suboxone prescriber. He denied the recent use of other drugs with the exception of marijuana including cocaine, crack cocaine, methamphetamine, other stimulant medications, hallucinogens etc. PAST PSYCHIATRIC HISTORY: He is a history of mental health treatment beginning in adolescence with admission to [facility]. Both admissions were related to depression and suicidal ideation. In 2010 he attempted suicide by hanging himself with a belt following breakup with a girlfriend. He is admitted to our psychiatric unit in February 2016. His discharge diagnoses included unspecified depressive disorder, polysubstance use and personality disorder. We referred him to [facility]. He stated that he kept his initial appointment with did not return because "the doctors discontinued the medication U prescribed except for trazodone and Seroquel." SUBSTANCE USE HISTORY: He began smoking marijuana abuse 13 years old. He smokes marijuana on a near daily basis. He also has a history of benzodiazepine abuse beginning at age 20. He alleged that he takes oral opiate pain medications for relief of pain only. His use of heroin as described above. FAMILY PSYCHIATRIC/SUBSTANCE USE HISTORY: He is unaware of family history of mental illness. SOCIAL HISTORY: According to record he is 1 of 9 children. His father is reportedly in jail in [place]. He attended regular school through the ninth grade and graduated from special education. He had behavioral problems in school including fighting and suspensions. He was under juvenile supervision at age 16 due to aggressive and and fighting. He is unemployed and receives Social Security disability. He is single and has no children. MENTAL STATUS EXAM: He presented as a disheveled-appearing 26-year-old male lying comfortably in hospital bed. He is wearing a baseball cap and blue jeans. He maintained eye contact and appeared to attend to interview. He severe facial acne scarring and multiple tattoos on his arms. He had a depressed facial expression. He is alert and oriented to person, place and time. He showed psychomotor retardation but no abnormal involuntary movements. His speech was spontaneous with normal rate, rhythm and volume. His affect was depressed and he cried during the interview. He denied suicidal ideation or wishes. He denied homicidal ideation. He expressed depressive cognitions including hopelessness, helplessness and worthlessness. He ruminated on his chronic pain and anxiety. He did not express ideas reference or paranoid ideation. His thinking was concrete but his associations were coherent and logical. He denied hallucinations and did not appear to be responding to internal stimuli. IMPRESSIONS: He is a 26-year-old man with history of a hemophilia. He presented to the Medical Center with acute hepatitis possibly related to a new hepatitis C infection. His history is significant for early onset of depression and conduct/behavioral problems. He is had several psychiatric hospitalizations for depression and suicidal ideation. He complains of severe symptoms of depression and anxiety but denies suicidal ideation, plan or intent. In addition, he has history of abuse of marijuana, benzodiazepines and most recently opiates. He was injecting heroin for 4 months up until 2 months prior to admission when he began buying Suboxone for the treatment of opiate withdrawal and pain. He complains of the difficulty has obtaining prescriptions for opiate medications for pain control. He would benefit from referral to a Suboxone provider or a methadone maintenance program. The nearest methadone maintenance clinic is at [place] [facility] and drive from his home in [place] would be prohibitive. He may benefit from inpatient psychiatric care once he is medically stable. DIAGNOSIS: Unspecified depressive disorder, rule out major depressive disorder, unspecified anxiety disorder, opiate use disorder severe (dependence), history of benzodiazepine use disorder, cannabis use disorder, hemophilia, acute hepatitis, hepatitis C RECOMMENDATION: Transferred to the psychiatric unit once medically stable. 12/31/16 14:46
[2016-12-31 15:24] VITALS: BP 126/75; TEMP 98.3
[2016-12-31 15:48] VITALS: PULSE 62
--- NOTE | 2016-12-31 22:30 | PN ---
DATE OF SERVICE: 12/31/2016 This 26 -year-old gentleman, admitted with abdominal pain, jaundice is being closely monitored. Patient had elevated LFTs. No fever. No cough. On exam, alert and oriented x three. Pulse is 62, blood pressure 116/72 respiratory rate 21. Temperature 97.7, pulse ox 97% on room air. HEENT: Conjunctivae normal. Oral mucosa moist. NECK: No jugular venous distention. No carotid bruit. No lymph node enlargement. CARDIOVASCULAR: S1, S2 muffled. RESPIRATORY: Breath sounds diminished at the bases. A few scattered and no crackles. ABDOMEN: Soft. Mild diffuse tenderness in the right upper quadrant. No mass palpable. LEGS: No edema. No swelling. CENTRAL NERVOUS SYSTEM: No focal deficits. Labs are CBC within normal limits. Total bilirubin 8.8. Conjugate is 4.3. Other labs are noted. ASSESSMENT: 1. Acute abdominal pain, possible acute cholecystitis or hepatitis. 2. Acute hepatitis, etiology, indeterminate. 3. Increased bilirubin. 4. Increased AST, ALT, alkaline phosphatase, hepatitis C positive. 5. Increased random blood sugar. 6. History of IV drug abuse. 7. Hyperlipidemia. 8. History hemophilia A. 10. History of anxiety, bipolar depression. 11. History of nicotine dependence. 12. FULL CODE. RECOMMENDATIONS AND DISCUSSION: In this 26-year-old gentleman who presented with multiple complex medical issues, we will monitor the patient closely, continue the current medications, continue symptomatic treatment, I would also recommend closely follow with gastroenterology and surgery. Guarded prognosis. Further recommendations to follow. Empiric antibiotics. The patient understands and agrees. The patient will need further evaluation and continued follow-up in the outpatient setting also. The patient understands and agrees. KRANTHI
[2017-01-01 05:13] LABS: EBV - EA (IgG) <5.0 U/mL (<9.0); EBV - VCA (IgG) 68.9 U/mL (<18.0); EBV - VCA IgM 11.6 U/mL (<36.0)
--- NOTE | 2017-01-01 15:12 | DS ---
DATE OF ADMISSION: 12/30/2016 DATE OF DISCHARGE: 12/31/2016 FINAL DIAGNOSIS(ES): 1. Acute abdominal pain, possible acute cholecystitis or acute hepatitis. 2. Acute hepatitis C. 3. Increased bilirubin secondary to acute hepatitis of undetermined etiology. 4. Increased AST, ALT, alkaline phosphatase. 5. Increased random blood sugar. 6. IV drug abuse. 7. Hyperlipidemia. 8. History of hemophilia A. 9. History of attention deficit disorder/ attention deficit hyperactivity disorder. 10. Anxiety, bipolar depression. 11. History nicotine dependence. DISCHARGE DISPOSITION: The patient left the hospital AGAINST MEDICAL ADVICE. HISTORY OF PRESENT ILLNESS: This 25-year-old gentleman with past medical history of multiple medical problems was admitted with chest pain. closely monitored. However, the patient was not willing to stay. Patient left the hospital AGAINST MEDICAL ADVICE. Seen by multiple consultants including Dr. Sharp. Please refer to the previous dictations and consultations, H&P for further details. Once again the prognosis is guarded and the patient left the hospital AGAINST MEDICAL ADVICE despite explanation. KRANTHI
[2017-01-03 14:40] LABS: HCV Qualitative Result DETECTED (Not detected)
== END 2016-12-31 17:05 | disposition left against medical advice (07) | DRG 441 ==
LOC: EC 08:52 → 4MS4W 13:00
PROVIDERS: ADMIT Hospitalist; ATTEND Hospitalist
DX: B17.10 Acute hepatitis C without hepatic coma (principal); D66 Hereditary factor VIII deficiency; K81.0 Acute cholecystitis; I10 Essential (primary) hypertension; E78.5 Hyperlipidemia, unspecified; F11.10 Opioid abuse, uncomplicated; F12.90 Cannabis use, unspecified, uncomplicated; F41.9 Anxiety disorder, unspecified; F90.9 Attention-deficit hyperactivity disorder, unspecified type; F32.9 Major depressive disorder, single episode, unspecified; F17.210 Nicotine dependence, cigarettes, uncomplicated; R73.9 Hyperglycemia, unspecified; Z88.6 Allergy status to analgesic agent
CPT/HCPCS: 36415; 74000; 76705; 80053; 80074; 80306; 81001; 82150; 82248; 83520; 83690; 85025; 85610; 85730; 86644; 86645; 86663; 86664; 86665; 87522; 87902; 96361; 96365; 96375; 96376; 99285

== ENCOUNTER 2017-02-19 07:46 | Emergency (ER) | payer OTHER ==
[2017-02-19] MEDS ORDERED: SODIUM CHLORIDE 0.9% 1,000 ML IV STA (08:07)
[2017-02-19] MEDS ORDERED: ONDANSETRON 4 MG/2 ML VIAL IVP STA (08:07)
[2017-02-19] MEDS ORDERED: HYDROmorphone 1 MG/ML 1 ML SYRINGE IVP STA ×2 (08:07→08:30)
[2017-02-19 08:25] LABS: Basophils % (A) 1 %; CH 31.8; Eosinophils # (A) 0.2 k/uL (0-0.7); Eosinophils % (A) 2 %; HCT 42.6 % (39.0-53.0); HDW 2.67; HGB 14.3 gm/dL (13.0-17.5); Luc # (Auto) 0.21; Luc % (Auto) 3; Lymphocytes # (A) 2.1 k/uL (1.0-4.8); Lymphocytes % (A) 28 %; MCH 31.7 pg (25.0-35.0); MCHC 33.7 g/dL (31.0-37.0); Mean Platelet Volume 6.9; Monocytes # (A) 0.3 k/uL (0-1.0); Monocytes % (A) 3 %; Neutrophils # (A) 4.8 k/uL (1.3-7.7); Neutrophils % (A) 63 %; RBC 4.53 m/uL (4.30-5.90); RDW 14.3 % (11.5-15.5); WBC 7.6 k/uL (3.8-10.6); WBC (Perox) 7.28
--- NOTE | 2017-02-19 08:31 | ED ---
Abdominal Pain HPI - General Chief Complaint: Abdominal Pain Stated Complaint: rt side pain Time Seen by Provider: 02/19/17 08:06 Source: patient, RN notes reviewed Mode of arrival: ambulatory Limitations: no limitations - History of Present Illness Initial Comments: 26-year-old male present emergency department to complaint of right flank pain. Patient states he This morning a urinated and shortly after go again and felt the pain that started. Patient states that he has had kidney stones in the past and feels exactly the same. Patient's been nauseated and has had some vomiting. Patient denies any fever, chills. Denies diarrhea constipation. Patient states nothing makes the pain feel better or worse at this time. - Related Data Home Medications Medication Instructions Recorded Confirmed Recombinate 2,500 - 3,200 units IV MOTH PRN 10/19/16 02/19/17 Previous Rx's Medication Instructions Recorded Hydrocodone/Acetaminophen [[place] 1 tab PO Q6HR PRN #15 tab 02/19/17 5-325] Allergies Allergy/AdvReac Type Severity Reaction Status Date / Time aspirin AdvReac Unknown Verified 02/19/17 08:38 NSAIDS (Non-Steroidal AdvReac Unknown Verified 02/19/17 08:38 Anti-Inflamma Review of Systems ROS Statement: Those systems with pertinent positive or pertinent negative responses have been documented in the HPI. ROS Other: All systems not noted in ROS Statement are negative. Past Medical History Past Medical History: Hyperlipidemia Additional Past Medical History / Comment(s): hemophelia A kidney stones History of Any Multi-Drug Resistant Organisms: None Reported Past Surgical History: No Surgical Hx Reported Additional Past Surgical History / Comment(s): HEMOPHILIA Additional Past Anesthesia/Blood Transfusion Reaction / Comment(s): Pt has never had anesthesia. He received blood when he was around 9 yrs old. Past Psychological History: ADD/ADHD, Anxiety, Bipolar, Depression Additional Psychological History / Comment(s): Pt resides with his mother. He has a 9 month old son. He does not drive due to his anxiety-he states he misses appts often. He has depression and past suicidal thoughts and attempt but denies thoughts or plans of suicide or harming himself at this time. "My anxiety is more of my issue right now." Smoking Status: Current every day smoker Past Alcohol Use History: Rare Additional Past Alcohol Use History / Comment(s): Patient is a smoker of 2 packs per day since he was 13 years of age. He uses marijuana on occasion but not daily. He states he has used methamphetamines at 15 years of age and heroin in the past. He states he relapsed with heroin 2 months ago but has not used it since. He states he drinks 1-2 drinks about 1 time per month. Past Drug Use History: Marijuana - Past Family History Father History Unknown: Yes Additional Family Medical History / Comment(s): Father is 37 years of age and patient does not know any medical history on him. Mother Additional Family Medical History / Comment(s): Mother is alive at age 49 with history of pulmonary hypertension. Brother(s) Additional Family Medical History / Comment(s): He has 2 brothers with no major medical problems. He has 6 sisters with no major medical problems. He has a grandfather and cousins with hemophilia. General Exam Limitations: no limitations General appearance: alert, in no apparent distress Respiratory exam: Present: normal lung sounds bilaterally. Absent: respiratory distress, wheezes, rales, rhonchi, stridor Cardiovascular Exam: Present: regular rate, normal rhythm, normal heart sounds. Absent: systolic murmur, diastolic murmur, rubs, gallop, clicks GI/Abdominal exam: Present: soft, tenderness (minimal right-sided), normal bowel sounds. Absent: distended, guarding, rebound, rigid Back exam: Absent: CVA tenderness (R), CVA tenderness (L) Course Vital Signs 02/19/17 07:47 Temperature 98.0 F Pulse Rate 74 Respiratory 18 Rate Blood Pressure 149/75 O2 Sat by Pulse 100 Oximetry Medical Decision Making - Medical Decision Making 26-year-old male presented for right flank pain. Patient has history kidney stones. There is nephrolithiasis on x-ray. Patient has hematuria consistent with kidney stone. Patient is feeling improved after pain medication. Patient was discharged with pain meds return parameters were discussed. - Lab Data Result diagrams: 02/19/17 07:55 02/19/17 07:55 Lab Results 02/19/17 02/19/17 02/19/17 Range/Units 07:55 07:55 07:55 WBC 7.6 (3.8-10.6) k/uL RBC 4.53 (4.30-5.90) m/uL Hgb 14.3 (13.0-17.5) gm/dL Hct 42.6 (39.0-53.0) % MCV 94.0 (80.0-100.0) fL MCH 31.7 (25.0-35.0) pg MCHC 33.7 (31.0-37.0) g/dL RDW 14.3 (11.5-15.5) % Plt Count 213 (150-450) k/uL Neutrophils % 63 % Lymphocytes % 28 % Monocytes % 3 % Eosinophils % 2 % Basophils % 1 % Neutrophils # 4.8 (1.3-7.7) k/uL Lymphocytes # 2.1 (1.0-4.8) k/uL Monocytes # 0.3 (0-1.0) k/uL Eosinophils # 0.2 (0-0.7) k/uL Basophils # 0.0 (0-0.2) k/uL Sodium 143 (137-145) mmol/L Potassium 3.8 (3.5-5.1) mmol/L Chloride 105 (98-107) mmol/L Carbon Dioxide 29 (22-30) mmol/L Anion Gap 9 mmol/L BUN 10 (9-20) mg/dL Creatinine 0.72 (0.66-1.25) mg/dL Est GFR (MDRD) Af Amer >60 (>60 ml/min/1.73 sqM) Est GFR (MDRD) Non-Af >60 (>60 ml/min/1.73 sqM) Glucose 113 H (74-99) mg/dL Calcium 9.7 (8.4-10.2) mg/dL Total Bilirubin 1.0 (0.2-1.3) mg/dL AST 29 (17-59) U/L ALT 227 H (21-72) U/L Alkaline Phosphatase 103 (38-126) U/L Total Protein 8.6 H (6.3-8.2) g/dL Albumin 4.6 (3.5-5.0) g/dL Amylase 70 (30-110) U/L Lipase 50 (23-300) U/L Urine Color Light Red Urine Appearance Clear (Clear) Urine pH 6.0 (5.0-8.0) Ur Specific [place] 1.018 (1.001-1.035) Urine Protein 1+ H (Negative) Urine Glucose (UA) Negative (Negative) Urine Ketones Negative (Negative) Urine Blood Large H (Negative) Urine Nitrite Negative (Negative) Urine Bilirubin Negative (Negative) Urine Urobilinogen <2.0 (<2.0) mg/dL Ur Leukocyte Esterase Trace H (Negative) Urine RBC >182 H (0-5) /hpf Urine WBC 4 (0-5) /hpf Urine Bacteria Rare H (None) /hpf Urine Mucus Rare H (None) /hpf Disposition Clinical Impression: Kidney stone Disposition: HOME SELF-CARE Condition: Stable Instructions: Kidney Stones (ED) Additional Instructions: Please return to the Emergency Department if symptoms worsen or any other concerns. Prescriptions: Hydrocodone/Acetaminophen [[place] 5-325] 1 tab PO Q6HR PRN #15 tab PRN Reason: Pain Time of Disposition: 09:29
[2017-02-19 08:38] LABS: Appearance,Urine Clear (Clear); Bacteria,Urine Rare /hpf; Bilirubin,Urine Negative (Negative); Glucose,Urine (UA) Negative (Negative); Ketones,Urine Negative (Negative); Leukocyte Esterase,Urine Trace (Negative); Mucus,Urine Rare /hpf; Nitrite,Urine Negative (Negative); Particle Count 4102; Protein,Urine 1+ (Negative); RBC,Urine >182 /hpf (0-5); Specific Gravity,Urine 1.018 (1.001-1.035); UA Billing (MACRO vs. MICRO) MICRO; Urobilinogen,Urine <2.0 mg/dL (<2.0); WBC,Urine 4 /hpf (0-5)
[2017-02-19 08:39] LABS: ALT 227 U/L (21-72); AST 29 U/L (17-59); Alkaline Phosphatase 103 U/L (38-126); Amylase 70 U/L (30-110); Anion Gap 9 mmol/L; Blood Urea Nitrogen 10 mg/dL (9-20); Calcium 9.7 mg/dL (8.4-10.2); Carbon Dioxide 29 mmol/L (22-30); Chloride 105 mmol/L (98-107); Glucose 113 mg/dL (74-99); Non-African American GFR(MDRD) >60 (>60 ml/min/1.73 sqM); Potassium 3.8 mmol/L (3.5-5.1); Sodium 143 mmol/L (137-145); Total Protein 8.6 g/dL (6.3-8.2)
--- NOTE | 2017-02-19 08:53 | XR ---
Abdomen HISTORY: Abdominal pain, right flank pain, kidney stones Frontal view of the abdomen on 2 images Right-sided kidney stones are present, lower pole calculus measures approximately 3 mm. Smaller upper pole calculi are present, there are 2-3 calculi present measuring approximately 1 to 2 mm. Left-side d renal calculi may be obscured by overlying bowel gas. Lung bases are clear. No pneumoperitoneum or bowel obstruction. IMPRESSION: Right-sided nephrolithiasis.
[2017-02-19 09:41] VITALS: BP 133/81; PULSE 65; RESP 16; TEMP 97.5
== END 2017-02-19 09:40 | disposition home or self-care (01) ==
LOC: EC 07:46
DX: N20.0 Calculus of kidney (principal); F17.200 Nicotine dependence, unspecified, uncomplicated; Z88.6 Allergy status to analgesic agent
CPT/HCPCS: 36415; 80053; 82150; 83690; 85025; 81001; 74000; 99284; 96374; 96375; 96376; 96361; J2405; J1170

== ENCOUNTER 2017-02-20 16:29 | Emergency (ER) | payer OTHER ==
[2017-02-20] MEDS ORDERED: HYDROmorphone 1 MG/ML 1 ML SYRINGE IVP STA ×2 (17:37→18:35)
[2017-02-20] MEDS ORDERED: ONDANSETRON 4 MG/2 ML VIAL IVP STA (17:37)
[2017-02-20] MEDS ORDERED: SODIUM CHLORIDE 0.9% 1,000 ML IV STA (17:37)
[2017-02-20 17:49] LABS: Basophils # (A) 0.1 k/uL (0-0.2); Basophils % (A) 1 %; CH 31.7; CHCM 34.5; Eosinophils # (A) 0.2 k/uL (0-0.7); Eosinophils % (A) 3 %; HCT 40.1 % (39.0-53.0); HDW 2.63; HGB 13.6 gm/dL (13.0-17.5); Luc # (Auto) 0.24; Luc % (Auto) 3; Lymphocytes # (A) 3.4 k/uL (1.0-4.8); Lymphocytes % (A) 39 %; MCH 31.2 pg (25.0-35.0); MCHC 33.8 g/dL (31.0-37.0); MCV 92.2 fL (80.0-100.0); Mean Platelet Volume 7.1; Monocytes # (A) 0.4 k/uL (0-1.0); Monocytes % (A) 5 %; Neutrophils # (A) 4.3 k/uL (1.3-7.7); Neutrophils % (A) 50 %; RBC 4.35 m/uL (4.30-5.90); RDW 14.1 % (11.5-15.5); WBC 8.7 k/uL (3.8-10.6); WBC (Perox) 8.46
--- NOTE | 2017-02-20 17:56 | ED ---
Nausea/Vomiting/Diarrhea HPI - General Chief complaint: Nausea/Vomiting/Diarrhea Stated complaint: Kidney Stones/Vomiting Time Seen by Provider: 02/20/17 17:31 Source: patient, RN notes reviewed Mode of arrival: ambulatory Limitations: no limitations - History of Present Illness Initial comments: 26-year-old male presents to the emergency department chief complaint of right flank pain with nausea and vomiting. Patient was seen here yesterday and diagnosed with kidney stones. Patient was sent home. He is not given nausea medication. He was not nauseous at that time. Patient states his pain is continued analysis become nauseous. Patient denies any fever chills with this. Patient states the pain is exactly how it was yesterday. Patient states that he hasn't noticed any changes in his urine. Patient states he just needs something to help him with the nausea. Patient states this is much like his normal kidney stone. Patient denies any patient states he is not currently having any other complaints at this time. Patient denies any recent fever, chills, shortness of breath, chest pain, back pain, numbness or tingling, dysuria or hematuria, constipation or diarrhea, headaches or visual changes, or any other current symptoms. - Related Data Home Medications Medication Instructions Recorded Confirmed Recombinate 2,500 - 3,200 units IV MOTH PRN 10/19/16 02/20/17 Previous Rx's Medication Instructions Recorded Hydrocodone/Acetaminophen [[place] 1 tab PO Q6HR PRN #15 tab 02/19/17 5-325] Ondansetron Odt [Zofran ODT] 4 mg PO Q8HR PRN #20 tab 02/20/17 Allergies Allergy/AdvReac Type Severity Reaction Status Date / Time aspirin AdvReac Unknown Verified 02/20/17 17:29 NSAIDS (Non-Steroidal AdvReac Unknown Verified 02/20/17 17:29 Anti-Inflamma Review of Systems ROS Statement: Those systems with pertinent positive or pertinent negative responses have been documented in the HPI. ROS Other: All systems not noted in ROS Statement are negative. Past Medical History Past Medical History: Hyperlipidemia Additional Past Medical History / Comment(s): hemophelia A kidney stones History of Any Multi-Drug Resistant Organisms: None Reported Past Surgical History: No Surgical Hx Reported Additional Past Surgical History / Comment(s): HEMOPHILIA Additional Past Anesthesia/Blood Transfusion Reaction / Comment(s): Pt has never had anesthesia. He received blood when he was around 9 yrs old. Past Psychological History: ADD/ADHD, Anxiety, Bipolar, Depression Additional Psychological History / Comment(s): Pt resides with his mother. He has a 9 month old son. He does not drive due to his anxiety-he states he misses appts often. He has depression and past suicidal thoughts and attempt but denies thoughts or plans of suicide or harming himself at this time. "My anxiety is more of my issue right now." Smoking Status: Current every day smoker Past Alcohol Use History: Rare Additional Past Alcohol Use History / Comment(s): Patient is a smoker of 2 packs per day since he was 13 years of age. He uses marijuana on occasion but not daily. He states he has used methamphetamines at 15 years of age and heroin in the past. He states he relapsed with heroin 2 months ago but has not used it since. He states he drinks 1-2 drinks about 1 time per month. Past Drug Use History: Marijuana - Past Family History Father History Unknown: Yes Additional Family Medical History / Comment(s): Father is 37 years of age and patient does not know any medical history on him. Mother Additional Family Medical History / Comment(s): Mother is alive at age 49 with history of pulmonary hypertension. Brother(s) Additional Family Medical History / Comment(s): He has 2 brothers with no major medical problems. He has 6 sisters with no major medical problems. He has a grandfather and cousins with hemophilia. General Exam Limitations: no limitations General appearance: alert, in no apparent distress ENT exam: Present: normal exam, mucous membranes moist Neck exam: Present: normal inspection. Absent: tenderness, meningismus, lymphadenopathy Respiratory exam: Present: normal lung sounds bilaterally. Absent: respiratory distress, wheezes, rales, rhonchi, stridor Cardiovascular Exam: Present: regular rate, normal rhythm, normal heart sounds. Absent: systolic murmur, diastolic murmur, rubs, gallop, clicks GI/Abdominal exam: Present: soft, tenderness (Right sided CVA tenderness), normal bowel sounds. Absent: distended, guarding, rebound, rigid Back exam: Present: normal inspection Neurological exam: Present: alert, oriented X3 Psychiatric exam: Present: normal affect, normal mood Skin exam: Present: warm, dry, intact, normal color. Absent: rash Course Vital Signs 02/20/17 16:37 Temperature 98.0 F Pulse Rate 90 Respiratory 20 Rate Blood Pressure 146/94 O2 Sat by Pulse 98 Oximetry Medical Decision Making - Medical Decision Making 26-year-old male presents for nausea. He was diagnosed kidney stones yesterday. At this time patient's mother is reviewed kidney function appears to be stable. This time we discussed patient's pain is most likely still from a possible stone. At this time we did discuss follow-up with the urologist and he is given information. We will add Zofran to the patient's regimen for home. We did discuss return parameters and all his questions. He stated he understood and he is in agreement with plan. He will be discharged. - Lab Data Result diagrams: 02/20/17 17:38 02/20/17 17:38 Lab Results 02/20/17 02/20/17 02/20/17 Range/Units 17:38 17:38 17:38 WBC 8.7 (3.8-10.6) k/uL RBC 4.35 (4.30-5.90) m/uL Hgb 13.6 (13.0-17.5) gm/dL Hct 40.1 (39.0-53.0) % MCV 92.2 (80.0-100.0) fL MCH 31.2 (25.0-35.0) pg MCHC 33.8 (31.0-37.0) g/dL RDW 14.1 (11.5-15.5) % Plt Count 256 (150-450) k/uL Neutrophils % 50 % Lymphocytes % 39 % Monocytes % 5 % Eosinophils % 3 % Basophils % 1 % Neutrophils # 4.3 (1.3-7.7) k/uL Lymphocytes # 3.4 (1.0-4.8) k/uL Monocytes # 0.4 (0-1.0) k/uL Eosinophils # 0.2 (0-0.7) k/uL Basophils # 0.1 (0-0.2) k/uL Sodium 143 (137-145) mmol/L Potassium 3.7 (3.5-5.1) mmol/L Chloride 104 (98-107) mmol/L Carbon Dioxide 29 (22-30) mmol/L Anion Gap 10 mmol/L BUN 8 L (9-20) mg/dL Creatinine 0.74 (0.66-1.25) mg/dL Est GFR (MDRD) Af Amer >60 (>60 ml/min/1.73 sqM) Est GFR (MDRD) Non-Af >60 (>60 ml/min/1.73 sqM) Glucose 86 (74-99) mg/dL Calcium 9.7 (8.4-10.2) mg/dL Total Bilirubin 1.2 (0.2-1.3) mg/dL AST 33 (17-59) U/L ALT 161 H (21-72) U/L Alkaline Phosphatase 95 (38-126) U/L Total Protein 8.3 H (6.3-8.2) g/dL Albumin 4.5 (3.5-5.0) g/dL Urine Color Light Yellow Urine Appearance Clear (Clear) Urine pH 6.5 (5.0-8.0) Ur Specific [place] 1.005 (1.001-1.035) Urine Protein Negative (Negative) Urine Glucose (UA) Negative (Negative) Urine Ketones Negative (Negative) Urine Blood Negative (Negative) Urine Nitrite Negative (Negative) Urine Bilirubin Negative (Negative) Urine Urobilinogen <2.0 (<2.0) mg/dL Ur Leukocyte Esterase Small H (Negative) Urine RBC <1 (0-5) /hpf Urine WBC 8 H (0-5) /hpf Ur Squamous Epith Cells <1 (0-4) /hpf Amorphous Sediment Rare H (None) /hpf Disposition Clinical Impression: Right flank pain Disposition: HOME SELF-CARE Condition: Stable Instructions: Flank Pain (ED) Additional Instructions: Please use medication as discussed. Please follow up with family doctor if symptoms have not improved over the next two days. Please return to the emergency room if your symptoms increase or worsen or for any other concerns. Prescriptions: Ondansetron Odt [Zofran ODT] 4 mg PO Q8HR PRN #20 tab PRN Reason: Nausea Referrals: Juan Laura MD [STAFF PHYSICIAN] - 1-2 days
[2017-02-20 18:14] LABS: Amorphous Sediment,Urine Rare /hpf; Appearance,Urine Clear (Clear); Bilirubin,Urine Negative (Negative); Glucose,Urine (UA) Negative (Negative); Ketones,Urine Negative (Negative); Leukocyte Esterase,Urine Small (Negative); Nitrite,Urine Negative (Negative); PH, Urine 6.5 (5.0-8.0); Particle Count 318; Protein,Urine Negative (Negative); RBC,Urine <1 /hpf (0-5); Specific Gravity,Urine 1.005 (1.001-1.035); Squamous Epithelial Cell,Urine <1 /hpf (0-4); UA Billing (MACRO vs. MICRO) MICRO; Urobilinogen,Urine <2.0 mg/dL (<2.0); WBC,Urine 8 /hpf (0-5)
[2017-02-20 18:16] LABS: ALT 161 U/L (21-72); AST 33 U/L (17-59); Alkaline Phosphatase 95 U/L (38-126); Anion Gap 10 mmol/L; Blood Urea Nitrogen 8 mg/dL (9-20); Calcium 9.7 mg/dL (8.4-10.2); Carbon Dioxide 29 mmol/L (22-30); Chloride 104 mmol/L (98-107); Glucose 86 mg/dL (74-99); Non-African American GFR(MDRD) >60 (>60 ml/min/1.73 sqM); Potassium 3.7 mmol/L (3.5-5.1); Sodium 143 mmol/L (137-145); Total Bilirubin 1.2 mg/dL (0.2-1.3); Total Protein 8.3 g/dL (6.3-8.2)
--- NOTE | 2017-02-20 18:30 | XR ---
EXAMINATION TYPE: XR KUB DATE OF EXAM: 02/20/2017 6:26 PM COMPARISON: Yesterday HISTORY: Nausea and vomiting TECHNIQUE: 2 views FINDINGS: 2 upright views were obtained. There is a 4 mm calcification over the lower pole right kidn ey. There is no sign of intestinal obstruction or pneumoperitoneum. Fecal pattern is normal. Lung bas es are clear. There is no sign of a mass. IMPRESSION: Right renal calculus. Nonacute abdomen. No change.
[2017-02-20 19:07] VITALS: BP 131/72; PULSE 76; RESP 18; TEMP 98.9
== END 2017-02-20 19:08 | disposition home or self-care (01) ==
LOC: EC 16:29
DX: R10.9 Unspecified abdominal pain (principal); R11.2 Nausea with vomiting, unspecified; F17.200 Nicotine dependence, unspecified, uncomplicated; Z88.6 Allergy status to analgesic agent
CPT/HCPCS: 36415; 80053; 85025; 81001; 87086; 74000; 99284; 96374; 96376; 96375; 96361; J2405; J1170

== ENCOUNTER 2017-03-05 16:09 | Emergency (ER) | payer OTHER ==
[2017-03-05 16:45] VITALS: BP 132/91; PULSE 119; RESP 16; TEMP 98.8
--- NOTE | 2017-03-05 17:16 | XR ---
EXAMINATION TYPE: XR foot complete RT DATE OF EXAM: 03/05/2017 5:11 PM COMPARISON: NONE HISTORY: Pain TECHNIQUE: 3 views FINDINGS: I see no fracture nor dislocation. Metatarsals are intact. There is some cystic change and spurring at the ankle joint. IMPRESSION: Osteoarthritis in the ankle joint. No fracture seen.
--- NOTE | 2017-03-05 17:18 | XR ---
EXAMINATION TYPE: XR ankle complete RT DATE OF EXAM: 03/05/2017 5:14 PM COMPARISON: 04/17/2015 HISTORY: Pain TECHNIQUE: 3 views FINDINGS: There is narrowing of ankle joint space. There is moderate cystic change and sclerosis on b oth sides of the ankle joint. I see no fracture. There is spurring of the anterior and posterior mall eolus. IMPRESSION: There is evidence of moderately severe posttraumatic osteoarthritis. No fracture seen. No change compared to old exam.
[2017-03-05] MEDS ORDERED: HYDROmorphone 1 MG/ML 1 ML SYRINGE IVP STA (17:44)
[2017-03-05] MEDS ORDERED: ONDANSETRON 4 MG/2 ML VIAL IVP STA (17:44)
--- NOTE | 2017-03-05 18:01 | ED ---
General Adult HPI - General Chief complaint: Extremity Injury, Lower Stated complaint: Ankle Injury/Med Refill Time Seen by Provider: 03/05/17 16:47 Source: patient, RN notes reviewed Mode of arrival: wheelchair Limitations: no limitations - History of Present Illness Initial comments: patient is a 26-year-old male with significant past medical history for hemophilia, who presents emergency room today with a chief complaint of an injury to his right ankle that occurred this morning around 8 AM. Patient states his walking in the backyard and rolled his right ankle. Does admit that he's had increased pain swelling to this area. Patient states he was unable take his recombinant medication at home as he had a difficult time establishing IV access. Patient does admit to increased pain with the swelling. He denies any other complaints or symptoms at this time. Patient does state he didn't bring his medication to be given to him as this hospital does not have his medicine. Patient denies any recent fever, chills, shortness of breath, chest pain, back pain, abdominal pain, nausea or vomiting, dysuria or hematuria, constipation or diarrhea, headaches or visual changes, or any other complaints. - Related Data Home Medications Medication Instructions Recorded Confirmed Recombinate 32,000 units IV MOTH PRN 10/19/16 03/05/17 Previous Rx's Medication Instructions Recorded Hydrocodone/Acetaminophen [Cartwright 1 each PO Q6HR PRN #10 tab 03/05/17 5-325] Allergies Allergy/AdvReac Type Severity Reaction Status Date / Time aspirin AdvReac Unknown Verified 03/05/17 16:46 NSAIDS (Non-Steroidal AdvReac Unknown Verified 03/05/17 16:46 Anti-Inflamma Review of Systems ROS Statement: Those systems with pertinent positive or pertinent negative responses have been documented in the HPI. ROS Other: All systems not noted in ROS Statement are negative. Past Medical History Past Medical History: Hyperlipidemia Additional Past Medical History / Comment(s): hemophelia A kidney stones, Hep C History of Any Multi-Drug Resistant Organisms: None Reported Past Surgical History: No Surgical Hx Reported Additional Past Surgical History / Comment(s): HEMOPHILIA, Additional Past Anesthesia/Blood Transfusion Reaction / Comment(s): Pt has never had anesthesia. He received blood when he was around 9 yrs old. Past Psychological History: ADD/ADHD, Anxiety, Bipolar, Depression Additional Psychological History / Comment(s): Pt resides with his mother. He has a 9 month old son. He does not drive due to his anxiety-he states he misses appts often. He has depression and past suicidal thoughts and attempt but denies thoughts or plans of suicide or harming himself at this time. "My anxiety is more of my issue right now." Smoking Status: Current every day smoker Past Alcohol Use History: Rare Additional Past Alcohol Use History / Comment(s): Patient is a smoker of 2 packs per day since he was 13 years of age. He uses marijuana on occasion but not daily. He states he has used methamphetamines at 15 years of age and heroin in the past. He states he relapsed with heroin 2 months ago but has not used it since. He states he drinks 1-2 drinks about 1 time per month. Past Drug Use History: Marijuana - Past Family History Father History Unknown: Yes Additional Family Medical History / Comment(s): Father is 37 years of age and patient does not know any medical history on him. Mother Additional Family Medical History / Comment(s): Mother is alive at age 49 with history of pulmonary hypertension. Brother(s) Additional Family Medical History / Comment(s): He has 2 brothers with no major medical problems. He has 6 sisters with no major medical problems. He has a grandfather and cousins with hemophilia. General Exam - General Exam Comments Initial Comments: General: The patient is awake and alert, in no distress, and does not appear acutely ill. Eye: Pupils are equal, round and reactive to light, extra-ocular movements are intact. No nystagmus. There is normal conjunctiva bilaterally. No signs of icterus. Ears, nose, mouth and throat: There are moist mucous membranes and no oral lesions. Neck: The neck is supple, there is no tenderness or JVD. Cardiovascular: There is a regular rate and rhythm. No murmur, rub or gallop is appreciated. Respiratory: Lungs are clear to auscultation, respirations are non-labored, breath sounds are equal. No wheezes, stridor, rales, or rhonchi. Musculoskeletal: does have moderate swelling down into the right ankle. Mild tenderness over the lateral malleolus with increased tenderness in the ATFL. Strength 5/5. Sensation intact. Pulses equal bilaterally 2+. Neurological: A&O x 3. CN II-XII intact, There are no obvious motor or sensory deficits. Coordination appears grossly intact. Speech is normal. Skin: Skin is warm and dry and no rashes or lesions are noted. Psychiatric: Cooperative, appropriate mood & affect, normal judgment. Limitations: no limitations Course Vital Signs 03/05/17 16:41 Temperature 98.8 F Pulse Rate 119 H Respiratory 16 Rate Blood Pressure 132/91 O2 Sat by Pulse 97 Oximetry Medical Decision Making - Medical Decision Making patient's 41, and medication was administered by nursing staff here in the emergency room as he didn't bring his medication. Patient's x-ray reviewed and shows no evidence of a fracture. Patient given short prescription of pain medication go home with advise follow-up family doctor over the next 2 days. Also advised to follow-up in 7-10 days if symptoms persist for repeat x-rays. Disposition Clinical Impression: Ankle sprain Disposition: HOME SELF-CARE Condition: Good Instructions: Ankle Sprain (ED) Additional Instructions: Please follow-up the family doctor in the next 1-2 days. Please continue to ice elevate the affected area use pain medication as prescribed and return to emergency room if any symptoms increase or worsen. Prescriptions: Hydrocodone/Acetaminophen [Cartwright 5-325] 1 each PO Q6HR PRN #10 tab PRN Reason: Pain Referrals: None,Stated [Primary Care Provider] - 1-2 days Time of Disposition: 17:59
== END 2017-03-05 18:16 | disposition home or self-care (01) ==
LOC: EC 16:09
DX: S93.401A Sprain of unspecified ligament of right ankle, initial encounter (principal); F17.200 Nicotine dependence, unspecified, uncomplicated; Z88.6 Allergy status to analgesic agent; X50.1XXA Overexertion from prolonged static or awkward postures, initial encounter; Y92.89 Other specified places as the place of occurrence of the external cause
CPT/HCPCS: 73610; 73630; 99283; 96374; 96375; J2405; J1170

== ENCOUNTER 2017-03-18 16:01 | Emergency (ER) | payer OTHER ==
[2017-03-18] MEDS ORDERED: SODIUM CHLORIDE 0.9% 1,000 ML IV STA ×2 (16:36)
[2017-03-18] MEDS ORDERED: HYDROmorphone 1 MG/ML 1 ML SYRINGE IVP STA ×4 (16:36→20:19)
--- NOTE | 2017-03-18 16:39 | ED ---
General Adult HPI - General Source: EMS, RN notes reviewed Mode of arrival: EMS Limitations: no limitations <Landon Wiggins - Last Filed: 03/18/17 16:38> <Zach Barragan - Last Filed: 03/18/17 20:21> - General Chief complaint: Abdominal Pain Stated complaint: kidney stone Time Seen by Provider: 03/18/17 16:31 - History of Present Illness Initial comments: Patient is a 26-year-old male significant past medical history for kidney stones , hemophilia, who presents emergency room today with a chief complaint of increased right-sided flank pain. Patient does admit that he had lithotripsy done yesterday morning. He states around 11 PM last night began having increased pain. Patient does admit to symptoms of nausea. He denies any other complaints. Currently rates pain 8/10 located in the right flank. Patient denies any recent fever, chills, shortness of breath, chest pain, numbness or tingling, dysuria or hematuria, constipation or diarrhea, headaches or visual changes, or any other complaints. (Landon Wiggins) - Related Data Home Medications Medication Instructions Recorded Confirmed Recombinate 3,200 units IV MOTH PRN 10/19/16 03/18/17 Acetaminophen [Tylenol] 1,000 mg PO DAILY PRN 03/18/17 03/18/17 Previous Rx's Medication Instructions Recorded Ondansetron Odt [Zofran Odt] 4 mg PO Q8HR PRN #10 tab 03/18/17 Allergies Allergy/AdvReac Type Severity Reaction Status Date / Time aspirin AdvReac Unknown Verified 03/18/17 16:18 NSAIDS (Non-Steroidal AdvReac Unknown Verified 03/18/17 16:18 Anti-Inflamma Review of Systems ROS Other: All systems not noted in ROS Statement are negative. <Landon Wiggins - Last Filed: 03/18/17 16:38> ROS Other: All systems not noted in ROS Statement are negative. <Zach Barragan - Last Filed: 03/18/17 20:21> ROS Statement: Those systems with pertinent positive or pertinent negative responses have been documented in the HPI. Past Medical History Past Medical History: Hyperlipidemia Additional Past Medical History / Comment(s): hemophelia A, kidney stones, Hep C History of Any Multi-Drug Resistant Organisms: None Reported Past Surgical History: No Surgical Hx Reported Additional Past Surgical History / Comment(s): HEMOPHILIA, lithotripsy Additional Past Anesthesia/Blood Transfusion Reaction / Comment(s): Pt has never had anesthesia. He received blood when he was around 9 yrs old. Past Psychological History: ADD/ADHD, Anxiety, Bipolar, Depression Additional Psychological History / Comment(s): Pt resides with his mother. He has a 9 month old son. He does not drive due to his anxiety-he states he misses appts often. He has depression and past suicidal thoughts and attempt but denies thoughts or plans of suicide or harming himself at this time. "My anxiety is more of my issue right now." Smoking Status: Current every day smoker Past Alcohol Use History: Rare Additional Past Alcohol Use History / Comment(s): Patient is a smoker of 2 packs per day since he was 13 years of age. He uses marijuana on occasion but not daily. He states he has used methamphetamines at 15 years of age and heroin in the past. He states he relapsed with heroin 2 months ago but has not used it since. He states he drinks 1-2 drinks about 1 time per month. Past Drug Use History: Heroin, Marijuana - Past Family History Father History Unknown: Yes Additional Family Medical History / Comment(s): Father is 37 years of age and patient does not know any medical history on him. Mother Additional Family Medical History / Comment(s): Mother is alive at age 49 with history of pulmonary hypertension. Brother(s) Additional Family Medical History / Comment(s): He has 2 brothers with no major medical problems. He has 6 sisters with no major medical problems. He has a grandfather and cousins with hemophilia. <Landon Wiggins - Last Filed: 03/18/17 16:38> General Exam Limitations: no limitations <Landon Wiggins - Last Filed: 03/18/17 16:38> <Zach Barragan - Last Filed: 03/18/17 20:21> - General Exam Comments Initial Comments: General: The patient is awake and alert, in no distress, and does not appear acutely ill. Eye: Pupils are equal, round and reactive to light, extra-ocular movements are intact. No nystagmus. There is normal conjunctiva bilaterally. No signs of icterus. Ears, nose, mouth and throat: There are moist mucous membranes and no oral lesions. Neck: The neck is supple, there is no tenderness or JVD. Cardiovascular: There is a regular rate and rhythm. No murmur, rub or gallop is appreciated. Respiratory: Lungs are clear to auscultation, respirations are non-labored, breath sounds are equal. No wheezes, stridor, rales, or rhonchi. Gastrointestinal: appearance of the abdomen. Normal bowel sounds. Abdomen soft on palpation. Patient does have tenderness in the right flank on palpation. No rebound tenderness. No guarding. No ecchymosis bruising or swelling. Musculoskeletal: Normal ROM, no tenderness. Strength 5/5. Sensation intact. Pulses equal bilaterally 2+. Neurological: A&O x 3. CN II-XII intact, There are no obvious motor or sensory deficits. Coordination appears grossly intact. Speech is normal. Skin: Skin is warm and dry and no rashes or lesions are noted. Psychiatric: Cooperative, appropriate mood & affect, normal judgment. (Landon Wiggins) Medical Decision Making <Landon Wiggins - Last Filed: 03/18/17 16:38> - Lab Data Result diagrams: 03/18/17 16:54 03/18/17 16:54 <Zach Barragan - Last Filed: 03/18/17 20:21> - Medical Decision Making Medical decision making patient has hemophilia a he was on medications as administered here. The patient's original temperature on arrival was 100.2 at medications K no 99.5. The patient had lithotripsy yesterday. Complaining of discomfort to the right flank where he had a lithotripsy. Patient's labs show white count of 12.6 hemoglobin 12.6 hemoglobin 36. The patient's hemoglobin was 13.6 approximately one month ago. INR is 1.2 PT 9.9 potassium 3.6 BUN is 12 creatinine 0.75 the GFR greater than 60. Urine shows large amount of blood normal WBCs 25 rbc's greater than 180. Case discussed Dr. Robertson the patient's urologist. We reviewed all labs. He recommends more analgesia at this time and whenthe patient is comfortable can go home and follow up in office. Dr. Yung Kapoor was given another half dose of Dilaudid. Advised to take home medications as directed. He is to call follow up with Dr. Robertson if he has problems (Zach Barragan) - Lab Data Lab Results 03/18/17 03/18/17 03/18/17 Range/Units 16:54 16:54 16:54 WBC 12.6 H (3.8-10.6) k/uL RBC 3.96 L (4.30-5.90) m/uL Hgb 12.6 L (13.0-17.5) gm/dL Hct 36.4 L (39.0-53.0) % MCV 92.1 (80.0-100.0) fL MCH 31.8 (25.0-35.0) pg MCHC 34.6 (31.0-37.0) g/dL RDW 13.0 (11.5-15.5) % Plt Count 226 (150-450) k/uL Neutrophils % 83 % Lymphocytes % 9 % Monocytes % 5 % Eosinophils % 2 % Basophils % 0 % Neutrophils # 10.5 H (1.3-7.7) k/uL Lymphocytes # 1.1 (1.0-4.8) k/uL Monocytes # 0.7 (0-1.0) k/uL Eosinophils # 0.2 (0-0.7) k/uL Basophils # 0.0 (0-0.2) k/uL PT 11.6 (9.0-12.0) sec INR 1.2 (<1.1) APTT 59.9 H (22.0-30.0) sec Sodium 138 (137-145) mmol/L Potassium 3.6 (3.5-5.1) mmol/L Chloride 105 (98-107) mmol/L Carbon Dioxide 24 (22-30) mmol/L Anion Gap 9 mmol/L BUN 12 (9-20) mg/dL Creatinine 0.75 (0.66-1.25) mg/dL Est GFR (MDRD) Af Amer >60 (>60 ml/min/1.73 sqM) Est GFR (MDRD) Non-Af >60 (>60 ml/min/1.73 sqM) Glucose 98 (74-99) mg/dL Calcium 8.6 (8.4-10.2) mg/dL Total Bilirubin 1.3 (0.2-1.3) mg/dL AST 18 (17-59) U/L ALT 22 (21-72) U/L Alkaline Phosphatase 72 (38-126) U/L Total Protein 7.0 (6.3-8.2) g/dL Albumin 3.8 (3.5-5.0) g/dL Lipase 44 (23-300) U/L Urine Color Urine Appearance (Clear) Urine pH (5.0-8.0) Ur Specific [place] (1.001-1.035) Urine Protein (Negative) Urine Glucose (UA) (Negative) Urine Ketones (Negative) Urine Blood (Negative) Urine Nitrite (Negative) Urine Bilirubin (Negative) Urine Urobilinogen (<2.0) mg/dL Ur Leukocyte Esterase (Negative) Urine RBC (0-5) /hpf Urine WBC (0-5) /hpf 03/18/17 Range/Units 17:36 WBC (3.8-10.6) k/uL RBC (4.30-5.90) m/uL Hgb (13.0-17.5) gm/dL Hct (39.0-53.0) % MCV (80.0-100.0) fL MCH (25.0-35.0) pg MCHC (31.0-37.0) g/dL RDW (11.5-15.5) % Plt Count (150-450) k/uL Neutrophils % % Lymphocytes % % Monocytes % % Eosinophils % % Basophils % % Neutrophils # (1.3-7.7) k/uL Lymphocytes # (1.0-4.8) k/uL Monocytes # (0-1.0) k/uL Eosinophils # (0-0.7) k/uL Basophils # (0-0.2) k/uL PT (9.0-12.0) sec INR (<1.1) APTT (22.0-30.0) sec Sodium (137-145) mmol/L Potassium (3.5-5.1) mmol/L Chloride (98-107) mmol/L Carbon Dioxide (22-30) mmol/L Anion Gap mmol/L BUN (9-20) mg/dL Creatinine (0.66-1.25) mg/dL Est GFR (MDRD) Af Amer (>60 ml/min/1.73 sqM) Est GFR (MDRD) Non-Af (>60 ml/min/1.73 sqM) Glucose (74-99) mg/dL Calcium (8.4-10.2) mg/dL Total Bilirubin (0.2-1.3) mg/dL AST (17-59) U/L ALT (21-72) U/L Alkaline Phosphatase (38-126) U/L Total Protein (6.3-8.2) g/dL Albumin (3.5-5.0) g/dL Lipase (23-300) U/L Urine Color Light Red Urine Appearance Clear (Clear) Urine pH 6.0 (5.0-8.0) Ur Specific [place] 1.008 (1.001-1.035) Urine Protein 1+ H (Negative) Urine Glucose (UA) Negative (Negative) Urine Ketones Negative (Negative) Urine Blood Large H (Negative) Urine Nitrite Negative (Negative) Urine Bilirubin Negative (Negative) Urine Urobilinogen <2.0 (<2.0) mg/dL Ur Leukocyte Esterase Small H (Negative) Urine RBC >182 H (0-5) /hpf Urine WBC 25 H (0-5) /hpf Disposition <Landon Wiggins - Last Filed: 03/18/17 16:38> Time of Disposition: 20:21 <Zach Barragan - Last Filed: 03/18/17 20:21> Clinical Impression: Ureterolithiasis, Renal colic on right side Disposition: HOME SELF-CARE Condition: Fair Instructions: Kidney Stones (ED), Renal Colic (ED) Additional Instructions: Increase fluid, use medication for nausea and pain medication as directed follow up with Dr. Robertson, call office if you have problems Prescriptions: Ondansetron Odt [Zofran Odt] 4 mg PO Q8HR PRN #10 tab PRN Reason: nausea vomiting Referrals: None,Stated [Primary Care Provider] - 1-2 days
--- NOTE | 2017-03-18 17:01 | XR ---
EXAMINATION TYPE: XR KUB DATE OF EXAM: 03/18/2017 COMPARISON: 02/20/2017 HISTORY: Flank pain TECHNIQUE: 2 views FINDINGS: Bowel gas pattern is normal. There is no sign of intestinal obstruction or pneumoperitoneum . There are no pathologic calcifications over the left kidney. There is a faint 2 mm calcification ov er the right kidney. IMPRESSION: Tiny right renal calculus is smaller compared to last exam. Nonacute abdomen.
[2017-03-18 17:04] LABS: Basophils % (A) 0 %; CHCM 34.9; Eosinophils # (A) 0.2 k/uL (0-0.7); Eosinophils % (A) 2 %; HCT 36.4 % (39.0-53.0); HDW 2.61; HGB 12.6 gm/dL (13.0-17.5); Luc # (Auto) 0.15; Luc % (Auto) 1; Lymphocytes # (A) 1.1 k/uL (1.0-4.8); Lymphocytes % (A) 9 %; MCH 31.8 pg (25.0-35.0); MCHC 34.6 g/dL (31.0-37.0); MCV 92.1 fL (80.0-100.0); Mean Platelet Volume 6.5; Monocytes # (A) 0.7 k/uL (0-1.0); Monocytes % (A) 5 %; Neutrophils # (A) 10.5 k/uL (1.3-7.7); Neutrophils % (A) 83 %; RBC 3.96 m/uL (4.30-5.90); WBC 12.6 k/uL (3.8-10.6); WBC (Perox) 13.21
[2017-03-18 17:22] LABS: ALT 22 U/L (21-72); AST 18 U/L (17-59); Alkaline Phosphatase 72 U/L (38-126); Anion Gap 9 mmol/L; Blood Urea Nitrogen 12 mg/dL (9-20); Calcium 8.6 mg/dL (8.4-10.2); Carbon Dioxide 24 mmol/L (22-30); Chloride 105 mmol/L (98-107); Glucose 98 mg/dL (74-99); Non-African American GFR(MDRD) >60 (>60 ml/min/1.73 sqM); Potassium 3.6 mmol/L (3.5-5.1); Sodium 138 mmol/L (137-145); Total Bilirubin 1.3 mg/dL (0.2-1.3)
[2017-03-18] MEDS ORDERED: ACETAMINOPHEN TAB 325 MG TAB PO STA (17:38)
[2017-03-18 17:46] LABS: Partial Thromboplastin Time 59.9 sec (22.0-30.0)
[2017-03-18 17:48] LABS: INR 1.2 (<1.1); Prothrombin Time 11.6 sec (9.0-12.0)
[2017-03-18 17:56] LABS: Appearance,Urine Clear (Clear); Bilirubin,Urine Negative (Negative); Glucose,Urine (UA) Negative (Negative); Ketones,Urine Negative (Negative); Leukocyte Esterase,Urine Small (Negative); Nitrite,Urine Negative (Negative); Particle Count 9433; Protein,Urine 1+ (Negative); RBC,Urine >182 /hpf (0-5); Specific Gravity,Urine 1.008 (1.001-1.035); UA Billing (MACRO vs. MICRO) MICRO; Urobilinogen,Urine <2.0 mg/dL (<2.0); WBC,Urine 25 /hpf (0-5)
[2017-03-18 17:58] VITALS: RESP 18
[2017-03-18 20:47] VITALS: BP 139/91; PULSE 66; TEMP 98.4
== END 2017-03-18 20:47 | disposition home or self-care (01) ==
LOC: EC 16:01
DX: N20.1 Calculus of ureter (principal); F17.200 Nicotine dependence, unspecified, uncomplicated; Z88.6 Allergy status to analgesic agent; Z98.890 Other specified postprocedural states
CPT/HCPCS: 36415; 80053; 83690; 85025; 85610; 85730; 81001; 87086; 74000; 99284; 96374; 96376 ×2; 96361 ×4; J1170

== ENCOUNTER → 2017-03-21 | Outpatient (CLI) | payer OTHER ==
--- NOTE | 2017-03-21 11:11 | XR ---
EXAMINATION TYPE: XR KUB DATE OF EXAM ORDERED: 03/21/2017 HISTORY: N20.0 renal calculus. COMPARISON: Previous study dated 03/18/2017. FINDINGS: The abdominal gas pattern is normal. There is a questionable 3.6 mm calculus overlying the upper pole of the right kidney. No other definite renal calcifications are seen. There are no calcif ications within the expected course of either ureter. There is a moderate stool burden. IMPRESSION: QUESTIONABLE 3.6 MM RIGHT RENAL CALCULUS.
== END | disposition home or self-care (01) ==
LOC: RADXRMAIN 10:04
PROVIDERS: ATTEND Urology
DX: N20.0 Calculus of kidney (principal)
CPT/HCPCS: 74000

== ENCOUNTER 2017-04-12 04:42 | Emergency (ER) | payer OTHER ==
[2017-04-12 04:51] VITALS: BP 134/77; PULSE 95; RESP 18; TEMP 98
--- NOTE | 2017-04-12 04:52 | ED ---
General Adult HPI - General Stated complaint: heroin use Time Seen by Provider: 04/12/17 04:45 Source: patient, EMS, RN notes reviewed, old records reviewed Mode of arrival: EMS - History of Present Illness Initial comments: This is a 26-year-old male here for evaluation. Basically upper evaluation regarding illicit heroin overdose. Her opiate use. Patient states he was sleeping and believes girlfriend called PD and, denies doing heroin tonight. Patient currently awake alert has no complaints. Was at [facility] heroin overdose - Related Data Home Medications Medication Instructions Recorded Confirmed Recombinate 3,200 units IV MOTH PRN 10/19/16 03/18/17 Acetaminophen [Tylenol] 1,000 mg PO DAILY PRN 03/18/17 03/18/17 Previous Rx's Medication Instructions Recorded Ondansetron Odt [Zofran Odt] 4 mg PO Q8HR PRN #10 tab 03/18/17 Allergies Allergy/AdvReac Type Severity Reaction Status Date / Time aspirin AdvReac Unknown Verified 03/18/17 16:18 NSAIDS (Non-Steroidal AdvReac Unknown Verified 03/18/17 16:18 Anti-Inflamma Review of Systems ROS Statement: Those systems with pertinent positive or pertinent negative responses have been documented in the HPI. ROS Other: All systems not noted in ROS Statement are negative. Past Medical History Past Medical History: Hyperlipidemia Additional Past Medical History / Comment(s): hemophelia A, kidney stones, Hep C History of Any Multi-Drug Resistant Organisms: None Reported Past Surgical History: No Surgical Hx Reported Additional Past Surgical History / Comment(s): HEMOPHILIA, lithotripsy Additional Past Anesthesia/Blood Transfusion Reaction / Comment(s): Pt has never had anesthesia. He received blood when he was around 9 yrs old. Past Psychological History: ADD/ADHD, Anxiety, Bipolar, Depression Smoking Status: Current every day smoker Past Alcohol Use History: Rare Past Drug Use History: Heroin, Marijuana - Past Family History Father History Unknown: Yes Additional Family Medical History / Comment(s): Father is 37 years of age and patient does not know any medical history on him. Mother Additional Family Medical History / Comment(s): Mother is alive at age 49 with history of pulmonary hypertension. Brother(s) Additional Family Medical History / Comment(s): He has 2 brothers with no major medical problems. He has 6 sisters with no major medical problems. He has a grandfather and cousins with hemophilia. General Exam General appearance: alert, in no apparent distress Head exam: Present: atraumatic, normocephalic, normal inspection Eye exam: Present: normal appearance, PERRL, EOMI. Absent: scleral icterus, conjunctival injection, periorbital swelling ENT exam: Present: normal exam, mucous membranes moist Neck exam: Present: normal inspection. Absent: tenderness, meningismus, lymphadenopathy Respiratory exam: Present: normal lung sounds bilaterally. Absent: respiratory distress, wheezes, rales, rhonchi, stridor Cardiovascular Exam: Present: regular rate, normal rhythm, normal heart sounds. Absent: systolic murmur, diastolic murmur, rubs, gallop, clicks GI/Abdominal exam: Present: soft, normal bowel sounds. Absent: distended, tenderness, guarding, rebound, rigid Extremities exam: Present: normal inspection, full ROM, normal capillary refill. Absent: tenderness, pedal edema, joint swelling, calf tenderness Back exam: Present: normal inspection Neurological exam: Present: alert, oriented X3, CN II-XII intact Psychiatric exam: Present: normal affect, normal mood Skin exam: Present: warm, dry, intact, normal color. Absent: rash Course Vital Signs 04/12/17 04:45 Temperature 98.0 F Pulse Rate 95 Respiratory 18 Rate Blood Pressure 134/77 O2 Sat by Pulse 95 Oximetry - Reevaluation(s) Reevaluation #1: 04/12/17 04:51 Patient is in no distress, awake and alert, Medical Decision Making - Medical Decision Making 26 male to the ER for evaluation regarding possible opiate ingestion, opiate overdose, patient's awake alert, we'll look to be discharged home. Patient no complaints Disposition Clinical Impression: Heroin abuse Disposition: HOME SELF-CARE Condition: Good Instructions: Opioid Dependence (ED), Opioid Overdose (ED) Referrals: Ki Choe MD [Primary Care Provider] - 1-2 days
== END 2017-04-12 05:12 | disposition home or self-care (01) ==
LOC: EC 04:42
DX: F11.10 Opioid abuse, uncomplicated (principal); F17.200 Nicotine dependence, unspecified, uncomplicated; Z88.6 Allergy status to analgesic agent
CPT/HCPCS: 99284

== ENCOUNTER 2017-04-13 09:13 | Emergency (ER) | payer OTHER ==
[2017-04-13] MEDS ORDERED: SODIUM CHLORIDE 0.9% 1,000 ML IV STA (09:23)
--- NOTE | 2017-04-13 09:27 | ED ---
General Adult HPI - General Chief complaint: Recheck/Abnormal Lab/Rx Stated complaint: chest sore,sore ankles Time Seen by Provider: 04/13/17 09:19 Source: patient, RN notes reviewed Mode of arrival: wheelchair Limitations: no limitations - History of Present Illness Initial comments: 26-year-old male presents to the emergency department with a chief complaint of bilateral equal soreness in the sore spot to the left chest. Patient states he woke this morning with these complaints. Patient states he also had bleeding from one of his teeth last night while he was sleeping. Patient states she does suffer from poor dentition. 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 Patient states he hasn't had any falls or traumas that he is aware of. Patient states that he does use heroin. Patient states he was concerned due to the blood on his pillow as well as his ankle pain and his bump to his left chest. Patient states she's never had anything like this before. Patient denies any nausea vomiting fever chills with this. Patient denies any recent fever, chills , shortness of breath, chest pain, back pain, abdominal pain, nausea vomiting, numbness or tingling, dysuria or hematuria, constipation or diarrhea, headaches or visual changes, or any other current symptoms. - Related Data Home Medications Medication Instructions Recorded Confirmed Recombinate 3,200 units IV TUFR PRN 10/19/16 04/13/17 Allergies Allergy/AdvReac Type Severity Reaction Status Date / Time aspirin AdvReac Unknown Verified 04/13/17 12:15 NSAIDS (Non-Steroidal AdvReac Unknown Verified 04/13/17 12:15 Anti-Inflamma Review of Systems ROS Statement: Those systems with pertinent positive or pertinent negative responses have been documented in the HPI. ROS Other: All systems not noted in ROS Statement are negative. Past Medical History Past Medical History: Hyperlipidemia Additional Past Medical History / Comment(s): hemophelia A, kidney stones, Hep C History of Any Multi-Drug Resistant Organisms: None Reported Past Surgical History: No Surgical Hx Reported Additional Past Surgical History / Comment(s): HEMOPHILIA, lithotripsy Additional Past Anesthesia/Blood Transfusion Reaction / Comment(s): Pt has never had anesthesia. He received blood when he was around 9 yrs old. Past Psychological History: ADD/ADHD, Anxiety, Bipolar, Depression Smoking Status: Current every day smoker Past Alcohol Use History: Rare Past Drug Use History: Heroin, Marijuana - Past Family History Father History Unknown: Yes Additional Family Medical History / Comment(s): Father is 37 years of age and patient does not know any medical history on him. Mother Additional Family Medical History / Comment(s): Mother is alive at age 49 with history of pulmonary hypertension. Brother(s) Additional Family Medical History / Comment(s): He has 2 brothers with no major medical problems. He has 6 sisters with no major medical problems. He has a grandfather and cousins with hemophilia. General Exam - General Exam Comments Initial Comments: General: The patient is awake and alert, in no distress, and does not appear acutely ill. Eye: Pupils are equal, round and reactive to light, extra-ocular movements are intact; there is normal conjunctiva bilaterally. No signs of icterus. Ears, nose, mouth and throat: There are moist mucous membranes and no oral lesions. Poor dentition throughout no active bleeding noted. Neck: The neck is supple, there is no tenderness. Cardiovascular: There is a regular rate and rhythm. No murmur, rub or gallop is appreciated. Respiratory: Lungs are clear to auscultation, respirations are non-labored, breath sounds are equal. No wheezes, stridor, rales, or rhonchi. A small lump to the left lateral chest that is tender to touch Gastrointestinal: Soft, non-distended, non-tender abdomen without masses or organomegaly noted. There is no rebound or guarding present. No CVA tenderness. Bowel sounds are unremarkable. Back: There is no tenderness to palpation in the midline. There is no obvious deformity. No rashes noted. Musculoskeletal: Normal ROM, diffuse tenderness to bilateral ankles, There is no pedal edema. There is no calf tenderness or swelling. Sensation intact. Pulses equal bilaterally 2+. Neurological: CN II-XII intact, There are no obvious motor or sensory deficits. Coordination appears grossly intact. Speech is normal. Skin: Skin is warm and dry and no rashes or lesions are noted. Psychiatric: Cooperative, appropriate mood & affect, normal judgment. Limitations: no limitations Course Vital Signs 04/13/17 09:14 Temperature 98.4 F Pulse Rate 87 Respiratory 16 Rate Blood Pressure 166/95 O2 Sat by Pulse 100 Oximetry Medical Decision Making - Medical Decision Making 26-year-old male presents with multiple complaints. At this time imaging is reviewed. This time patient does admit to overdosing twice on heroin yesterday. There is a question if he had CPR the cause of him. Patient does not remember. He states that he does remember waking up in the ambulance so there is a question regarding if he gets up. Today we do not see any here. At this time we did discuss close follow-up with his doctor we did discuss return parameters we did discuss the importance of not using narcotics. The patient stated that he understood at this time we will be discharged. - Lab Data Result diagrams: 04/13/17 09:50 04/13/17 09:50 Lab Results 04/13/17 04/13/17 04/13/17 Range/Units 09:50 09:50 09:50 WBC 8.2 (3.8-10.6) k/uL RBC 4.61 (4.30-5.90) m/uL Hgb 14.4 (13.0-17.5) gm/dL Hct 42.9 (39.0-53.0) % MCV 92.9 (80.0-100.0) fL MCH 31.2 (25.0-35.0) pg MCHC 33.6 (31.0-37.0) g/dL RDW 13.4 (11.5-15.5) % Plt Count 232 (150-450) k/uL Neutrophils % 73 % Lymphocytes % 20 % Monocytes % 4 % Eosinophils % 1 % Basophils % 0 % Neutrophils # 6.1 (1.3-7.7) k/uL Lymphocytes # 1.6 (1.0-4.8) k/uL Monocytes # 0.3 (0-1.0) k/uL Eosinophils # 0.1 (0-0.7) k/uL Basophils # 0.0 (0-0.2) k/uL PT 11.9 (9.0-12.0) sec INR 1.2 (<1.1) APTT 62.0 H (22.0-30.0) sec Sodium 142 (137-145) mmol/L Potassium 4.4 (3.5-5.1) mmol/L Chloride 104 (98-107) mmol/L Carbon Dioxide 24 (22-30) mmol/L Anion Gap 14 mmol/L BUN 14 (9-20) mg/dL Creatinine 0.63 L (0.66-1.25) mg/dL Est GFR (MDRD) Af Amer >60 (>60 ml/min/1.73 sqM) Est GFR (MDRD) Non-Af >60 (>60 ml/min/1.73 sqM) Glucose 99 (74-99) mg/dL Calcium 9.7 (8.4-10.2) mg/dL Total Bilirubin 1.5 H (0.2-1.3) mg/dL AST 24 (17-59) U/L ALT 27 (21-72) U/L Alkaline Phosphatase 82 (38-126) U/L Total Protein 7.8 (6.3-8.2) g/dL Albumin 4.4 (3.5-5.0) g/dL Urine Color Urine Appearance (Clear) Urine pH (5.0-8.0) Ur Specific [place] (1.001-1.035) Urine Protein (Negative) Urine Glucose (UA) (Negative) Urine Ketones (Negative) Urine Blood (Negative) Urine Nitrite (Negative) Urine Bilirubin (Negative) Urine Urobilinogen (<2.0) mg/dL Ur Leukocyte Esterase (Negative) Urine Opiates Screen (NotDetected) Ur Oxycodone Screen (NotDetected) Urine Methadone Screen (NotDetected) Ur Propoxyphene Screen (NotDetected) Ur Barbiturates Screen (NotDetected) U Tricyclic Antidepress (NotDetected) Ur Phencyclidine Scrn (NotDetected) Ur Amphetamines Screen (NotDetected) U Methamphetamines Scrn (NotDetected) U Benzodiazepines Scrn (NotDetected) Urine Cocaine Screen (NotDetected) U Marijuana (THC) Screen (NotDetected) 04/13/17 04/13/17 Range/Units 11:53 11:53 WBC (3.8-10.6) k/uL RBC (4.30-5.90) m/uL Hgb (13.0-17.5) gm/dL Hct (39.0-53.0) % MCV (80.0-100.0) fL MCH (25.0-35.0) pg MCHC (31.0-37.0) g/dL RDW (11.5-15.5) % Plt Count (150-450) k/uL Neutrophils % % Lymphocytes % % Monocytes % % Eosinophils % % Basophils % % Neutrophils # (1.3-7.7) k/uL Lymphocytes # (1.0-4.8) k/uL Monocytes # (0-1.0) k/uL Eosinophils # (0-0.7) k/uL Basophils # (0-0.2) k/uL PT (9.0-12.0) sec INR (<1.1) APTT (22.0-30.0) sec Sodium (137-145) mmol/L Potassium (3.5-5.1) mmol/L Chloride (98-107) mmol/L Carbon Dioxide (22-30) mmol/L Anion Gap mmol/L BUN (9-20) mg/dL Creatinine (0.66-1.25) mg/dL Est GFR (MDRD) Af Amer (>60 ml/min/1.73 sqM) Est GFR (MDRD) Non-Af (>60 ml/min/1.73 sqM) Glucose (74-99) mg/dL Calcium (8.4-10.2) mg/dL Total Bilirubin (0.2-1.3) mg/dL AST (17-59) U/L ALT (21-72) U/L Alkaline Phosphatase (38-126) U/L Total Protein (6.3-8.2) g/dL Albumin (3.5-5.0) g/dL Urine Color Yellow Urine Appearance Clear (Clear) Urine pH 6.5 (5.0-8.0) Ur Specific [place] 1.017 (1.001-1.035) Urine Protein Negative (Negative) Urine Glucose (UA) Negative (Negative) Urine Ketones 3+ H (Negative) Urine Blood Negative (Negative) Urine Nitrite Negative (Negative) Urine Bilirubin Negative (Negative) Urine Urobilinogen 2.0 (<2.0) mg/dL Ur Leukocyte Esterase Negative (Negative) Urine Opiates Screen Not Detected (NotDetected) Ur Oxycodone Screen Not Detected (NotDetected) Urine Methadone Screen Not Detected (NotDetected) Ur Propoxyphene Screen Not Detected (NotDetected) Ur Barbiturates Screen Not Detected (NotDetected) U Tricyclic Antidepress Not Detected (NotDetected) Ur Phencyclidine Scrn Not Detected (NotDetected) Ur Amphetamines Screen Not Detected (NotDetected) U Methamphetamines Scrn Not Detected (NotDetected) U Benzodiazepines Scrn Detected H (NotDetected) Urine Cocaine Screen Not Detected (NotDetected) U Marijuana (THC) Screen Detected H (NotDetected) - Radiology Data Radiology results: report reviewed, image reviewed Disposition Clinical Impression: Ankle pain, Swelling, mass, or lump in chest, Narcotic abuse, Hemophilia Disposition: HOME SELF-CARE Condition: Stable Instructions: Hemophilia (ED) Additional Instructions: Please use medication as discussed. Please follow up with family doctor if symptoms have not improved over the next two days. Please return to the emergency room if your symptoms increase or worsen or for any other concerns. Referrals: Ki Choe MD [Primary Care Provider] - 1-2 days Time of Disposition: 12:58
[2017-04-13 10:06] LABS: Basophils % (A) 0 %; CH 31.9; CHCM 34.5; Eosinophils # (A) 0.1 k/uL (0-0.7); Eosinophils % (A) 1 %; HCT 42.9 % (39.0-53.0); HDW 2.63; HGB 14.4 gm/dL (13.0-17.5); Luc # (Auto) 0.13; Luc % (Auto) 2; Lymphocytes # (A) 1.6 k/uL (1.0-4.8); Lymphocytes % (A) 20 %; MCH 31.2 pg (25.0-35.0); MCHC 33.6 g/dL (31.0-37.0); MCV 92.9 fL (80.0-100.0); Mean Platelet Volume 6.7; Monocytes # (A) 0.3 k/uL (0-1.0); Monocytes % (A) 4 %; Neutrophils # (A) 6.1 k/uL (1.3-7.7); Neutrophils % (A) 73 %; RBC 4.61 m/uL (4.30-5.90); RDW 13.4 % (11.5-15.5); WBC 8.2 k/uL (3.8-10.6); WBC (Perox) 7.83
--- NOTE | 2017-04-13 10:09 | XR ---
EXAMINATION TYPE: XR chest 2V DATE OF EXAM: 04/13/2017 COMPARISON: NONE INDICATION: Difficulty breathing, chest pain TECHNIQUE: Frontal and lateral views of the chest are obtained. FINDINGS: The heart size is normal. The pulmonary vasculature is normal. The lungs are clear. IMPRESSION: 1. No acute pulmonary process.
[2017-04-13 10:33] LABS: ALT 27 U/L (21-72); AST 24 U/L (17-59); Alkaline Phosphatase 82 U/L (38-126); Anion Gap 14 mmol/L; Blood Urea Nitrogen 14 mg/dL (9-20); Calcium 9.7 mg/dL (8.4-10.2); Carbon Dioxide 24 mmol/L (22-30); Chloride 104 mmol/L (98-107); Glucose 99 mg/dL (74-99); Non-African American GFR(MDRD) >60 (>60 ml/min/1.73 sqM); Potassium 4.4 mmol/L (3.5-5.1); Sodium 142 mmol/L (137-145); Total Bilirubin 1.5 mg/dL (0.2-1.3); Total Protein 7.8 g/dL (6.3-8.2)
[2017-04-13 10:36] LABS: INR 1.2 (<1.1); Prothrombin Time 11.9 sec (9.0-12.0)
--- NOTE | 2017-04-13 11:24 | US ---
EXAMINATION TYPE: US mass soft tissue chest/back DATE OF EXAM: 04/13/2017 COMPARISON: NONE CLINICAL HISTORY: Pain. Left chest palp lump x 1 day. Patient states overdosing yesterday and had CP R performed Area of palpable lump scanned. No prominent mass identified. Contralateral images taken with muscl e appearing echogenic with possible surrounding fluid. IMPRESSION: 1. No suspicious ultrasound abnormality at the palpable region. Follow-up can be performed as clinica lly indicated.
[2017-04-13] MEDS ORDERED: ACETAMINOPHEN TAB 500 MG TAB PO STA (11:32)
[2017-04-13 12:17] LABS: Appearance,Urine Clear (Clear); Bilirubin,Urine Negative (Negative); Glucose,Urine (UA) Negative (Negative); Ketones,Urine 3+ (Negative); Leukocyte Esterase,Urine Negative (Negative); Nitrite,Urine Negative (Negative); PH, Urine 6.5 (5.0-8.0); Protein,Urine Negative (Negative); Specific Gravity,Urine 1.017 (1.001-1.035); UA Billing (MACRO vs. MICRO) CHEM
[2017-04-13 13:20] VITALS: BP 138/77; PULSE 89; RESP 14; TEMP 98.9
== END 2017-04-13 13:13 | disposition home or self-care (01) ==
LOC: EC 09:13
DX: F11.10 Opioid abuse, uncomplicated (principal); M25.571 Pain in right ankle and joints of right foot; M25.572 Pain in left ankle and joints of left foot; R22.2 Localized swelling, mass and lump, trunk; D66 Hereditary factor VIII deficiency; Z53.20 Procedure and treatment not carried out because of patient's decision for unspecified reasons; F17.200 Nicotine dependence, unspecified, uncomplicated; Z88.6 Allergy status to analgesic agent
CPT/HCPCS: 36415; 51798; 71020; 80053; 80306; 81003; 85025; 85610; 85730; 87040; 93005; 96360; 99284

== ENCOUNTER 2017-04-27 00:21 | Observation (INO) | payer OTHER ==
[2017-04-27] MEDS ORDERED: ACETAMINOPHEN TAB 500 MG TAB PO STA (00:40)
[2017-04-27] MEDS ORDERED: SODIUM CHLORIDE 0.9% 1,000 ML IV ONE (00:41)
[2017-04-27 01:01] LABS: Basophils % (A) 0 %; CH 31.6; CHCM 32.7; Eosinophils % (A) 1 %; HDW 3.41; Hypochromasia Slight; Luc # (Auto) 0.16; Luc % (Auto) 3; Lymphocytes # (A) 1.7 k/uL (1.0-4.8); Lymphocytes % (A) 27 %; MCH 31.6 pg (25.0-35.0); MCHC 32.4 g/dL (31.0-37.0); MCV 97.7 fL (80.0-100.0); Macrocytosis Slight; Mean Platelet Volume 8.7; Monocytes # (A) 0.4 k/uL (0-1.0); Monocytes % (A) 6 %; Neutrophils % (A) 63 %; Poikilocytosis Slight; RBC 1.59 m/uL (4.30-5.90); RDW 15.8 % (11.5-15.5); WBC 6.4 k/uL (3.8-10.6); WBC (Perox) 6.76
--- NOTE | 2017-04-27 01:06 | ED ---
General Adult HPI - General Chief complaint: Recheck/Abnormal Lab/Rx Stated complaint: bleeding Time Seen by Provider: 04/27/17 00:27 Source: patient, EMS, RN notes reviewed Mode of arrival: EMS Limitations: no limitations - History of Present Illness Initial comments: This a 26-year-old male presents emergency Department with chief complaint of bleeding gums, palpitations. Patient states that he's had on-and-off bleeding of his gums her last 2 weeks. Patient states is a hemophiliac and states he did use return last week and which helped for short period time. He does have medication but states does not have supplies to give it. Patient states that his heart racing throughout the day and states he exited symptoms today prior. Patient denies any pain associated with. Denies any shortness of breath. Patient states that he has no joint pain or joint swelling denies taking anything for his fever. Patient states that he has very poor dentition states that he cannot find a dentist to help because of his hemophilia. Patient has not tried mouthwash. - Related Data Home Medications Medication Instructions Recorded Confirmed Recombinate 3,200 units IV TUFR PRN 10/19/16 04/13/17 Allergies Allergy/AdvReac Type Severity Reaction Status Date / Time aspirin AdvReac Unknown Verified 04/27/17 00:31 NSAIDS (Non-Steroidal AdvReac Unknown Verified 04/27/17 00:31 Anti-Inflamma Review of Systems ROS Statement: Those systems with pertinent positive or pertinent negative responses have been documented in the HPI. ROS Other: All systems not noted in ROS Statement are negative. Past Medical History Past Medical History: Hyperlipidemia Additional Past Medical History / Comment(s): hemophelia A, kidney stones, Hep C History of Any Multi-Drug Resistant Organisms: None Reported Past Surgical History: No Surgical Hx Reported Additional Past Surgical History / Comment(s): HEMOPHILIA, lithotripsy Additional Past Anesthesia/Blood Transfusion Reaction / Comment(s): Pt has never had anesthesia. He received blood when he was around 9 yrs old. Past Psychological History: ADD/ADHD, Anxiety, Bipolar, Depression Smoking Status: Current every day smoker Past Alcohol Use History: Rare Past Drug Use History: Heroin, Marijuana - Past Family History Father History Unknown: Yes Additional Family Medical History / Comment(s): Father is 37 years of age and patient does not know any medical history on him. Mother Additional Family Medical History / Comment(s): Mother is alive at age 49 with history of pulmonary hypertension. Brother(s) Additional Family Medical History / Comment(s): He has 2 brothers with no major medical problems. He has 6 sisters with no major medical problems. He has a grandfather and cousins with hemophilia. General Exam Limitations: no limitations General appearance: alert, in no apparent distress Head exam: Present: atraumatic, normocephalic, normal inspection Eye exam: Present: normal appearance, PERRL, EOMI. Absent: scleral icterus, conjunctival injection, periorbital swelling ENT exam: Present: mucous membranes moist, TM's normal bilaterally, normal external ear exam. Absent: normal exam, normal oropharynx (Edentulous, bleeding gingiva is noted to the right side of the mouth) Neck exam: Present: normal inspection, full ROM. Absent: tenderness, meningismus, lymphadenopathy Respiratory exam: Present: normal lung sounds bilaterally. Absent: respiratory distress, wheezes, rales, rhonchi, stridor Cardiovascular Exam: Present: normal rhythm, tachycardia, normal heart sounds. Absent: systolic murmur, diastolic murmur, rubs, gallop, clicks GI/Abdominal exam: Present: soft, normal bowel sounds. Absent: distended, tenderness, guarding, rebound, rigid Neurological exam: Present: alert, oriented X3, CN II-XII intact Skin exam: Present: warm, dry, intact, normal color. Absent: rash Course Vital Signs 04/27/17 04/27/17 04/27/17 00:29 00:59 01:29 Temperature 100.1 F H Pulse Rate 129 H 121 H 118 H Respiratory 18 18 18 Rate Blood Pressure 132/58 120/65 121/68 O2 Sat by Pulse 100 100 100 Oximetry EKG Findings - EKG Comments: EKG Findings:: EKG performed at 0:54 sinus tachycardia with a rate of 122. AK interval 1:30 QRS duration 88 QT/QTC 320/456 Medical Decision Making - Medical Decision Making 26-year-old male present emergency department for bleeding gums, hemophilia. Patient did have low-grade temperature. Patient's hemoglobin is 5. Patient be transfused at this time. Patient was given supplies for his return, night which he gave here. Patient does have supplies for more. Patient already admitted at this time for recheck H&H and IV clindamycin for dental infection. - Lab Data Result diagrams: 04/27/17 00:45 04/27/17 00:45 Lab Results 04/27/17 04/27/17 Range/Units 00:45 00:45 WBC 6.4 (3.8-10.6) k/uL RBC 1.59 L (4.30-5.90) m/uL Hgb 5.0 L* D (13.0-17.5) gm/dL Hct 15.5 L* (39.0-53.0) % MCV 97.7 (80.0-100.0) fL MCH 31.6 (25.0-35.0) pg MCHC 32.4 (31.0-37.0) g/dL RDW 15.8 H (11.5-15.5) % Plt Count 215 (150-450) k/uL Neutrophils % 63 % Lymphocytes % 27 % Monocytes % 6 % Eosinophils % 1 % Basophils % 0 % Neutrophils # 4.0 (1.3-7.7) k/uL Lymphocytes # 1.7 (1.0-4.8) k/uL Monocytes # 0.4 (0-1.0) k/uL Eosinophils # 0.0 (0-0.7) k/uL Basophils # 0.0 (0-0.2) k/uL Hypochromasia Slight Poikilocytosis Slight Macrocytosis Slight Sodium 139 (137-145) mmol/L Potassium 3.8 (3.5-5.1) mmol/L Chloride 108 H (98-107) mmol/L Carbon Dioxide 22 (22-30) mmol/L Anion Gap 9 mmol/L BUN 18 (9-20) mg/dL Creatinine 0.80 (0.66-1.25) mg/dL Est GFR (MDRD) Af Amer >60 (>60 ml/min/1.73 sqM) Est GFR (MDRD) Non-Af >60 (>60 ml/min/1.73 sqM) Glucose 104 H (74-99) mg/dL Calcium 9.3 (8.4-10.2) mg/dL Total Bilirubin 0.4 (0.2-1.3) mg/dL AST 99 H (17-59) U/L ALT 149 H (21-72) U/L Alkaline Phosphatase 53 (38-126) U/L Total Protein 5.5 L (6.3-8.2) g/dL Albumin 3.2 L (3.5-5.0) g/dL Disposition Clinical Impression: Hemophilia, Bleeding gums, Anemia, Dental infection Disposition: ADMITTED IP TO THIS [facility] Condition: Fair Referrals: None,Stated [Primary Care Provider] - 1-2 days
[2017-04-27 01:08] LABS: HCT 15.5 % (39.0-53.0)
--- NOTE | 2017-04-27 01:25 | XR ---
EXAM: XR Chest, 2 Views CLINICAL HISTORY: Irregular heartbeat. TECHNIQUE: Frontal and lateral views of the chest. COMPARISON: No relevant prior studies available. FINDINGS: Lungs: Unremarkable. No consolidation. Pleural space: Unremarkable. No pneumothorax. Heart: Unremarkable. No cardiomegaly. Mediastinum: Unremarkable. Bones/joints: Unremarkable. IMPRESSION: Normal chest x-rays.
[2017-04-27 01:28] LABS: ALT 149 U/L (21-72); AST 99 U/L (17-59); Alkaline Phosphatase 53 U/L (38-126); Anion Gap 9 mmol/L; Blood Urea Nitrogen 18 mg/dL (9-20); Calcium 9.3 mg/dL (8.4-10.2); Carbon Dioxide 22 mmol/L (22-30); Chloride 108 mmol/L (98-107); Glucose 104 mg/dL (74-99); Non-African American GFR(MDRD) >60 (>60 ml/min/1.73 sqM); Potassium 3.8 mmol/L (3.5-5.1); Sodium 139 mmol/L (137-145); Total Bilirubin 0.4 mg/dL (0.2-1.3); Total Protein 5.5 g/dL (6.3-8.2)
[2017-04-27] MEDS ORDERED: LORazepam 2 MG/ML SYRINGE IV PRN (01:56)
[2017-04-27] MEDS ORDERED: ONDANSETRON 4 MG/2 ML VIAL IVP PRN (01:56)
[2017-04-27] MEDS ORDERED: MORPHINE SULFATE 4 MG/ML SYRINGE IV PRN (01:56)
[2017-04-27] MEDS ORDERED: ACETAMINOPHEN TAB 325 MG TAB PO PRN (01:56)
[2017-04-27] MEDS ORDERED: NALOXONE 0.4 MG/ML 1 ML VIAL IV PRN (01:56)
[2017-04-27] MEDS ORDERED: HYDROcodone/APAP 5-325MG 1 EACH TAB PO PRN (01:56)
[2017-04-27] MEDS ORDERED: CLINDAMYCIN 600 MG in DEXTROSE 5% IN WATER 50 ML IVPB STA ×2 (01:59)
[2017-04-27] MEDS: SODIUM CHLORIDE 0.9% 1,000 ML IV SCH ×2 (02:25→16:38)
[2017-04-27 06:43] VITALS: RESP 16
[2017-04-27] MEDS: CLINDAMYCIN 600 MG in DEXTROSE 5% IN WATER 50 ML IVPB SCH ×4 (08:18→16:38)
[2017-04-27 08:53] LABS: Appearance,Urine Clear (Clear); Bilirubin,Urine Negative (Negative); Glucose,Urine (UA) Negative (Negative); Ketones,Urine Negative (Negative); Leukocyte Esterase,Urine Negative (Negative); Nitrite,Urine Negative (Negative); PH, Urine 6.5 (5.0-8.0); Protein,Urine Negative (Negative); UA Billing (MACRO vs. MICRO) CHEM; Urobilinogen,Urine <2.0 mg/dL (<2.0)
[2017-04-27 10:09] LABS: Anisocytosis Slight; Basophils % (A) 1 %; CH 30.1; CHCM 32.5; Eosinophils # (A) 0.1 k/uL (0-0.7); Eosinophils % (A) 2 %; HDW 3.78; Hypochromasia Slight; Luc # (Auto) 0.14; Luc % (Auto) 2; Lymphocytes # (A) 1.4 k/uL (1.0-4.8); Lymphocytes % (A) 25 %; MCHC 34.1 g/dL (31.0-37.0); MCV 93.9 fL (80.0-100.0); Macrocytosis Slight; Mean Platelet Volume 7.6; Monocytes # (A) 0.4 k/uL (0-1.0); Monocytes % (A) 8 %; Neutrophils # (A) 3.6 k/uL (1.3-7.7); Neutrophils % (A) 63 %; Poikilocytosis Slight; RBC 1.88 m/uL (4.30-5.90); RDW 18.7 % (11.5-15.5); WBC 5.7 k/uL (3.8-10.6); WBC (Perox) 5.72
[2017-04-27 10:12] LABS: HCT 17.6 % (39.0-53.0)
[2017-04-27] MEDS ORDERED: DESMOPRESSIN IVPB ONE (12:00)
[2017-04-27] MEDS ORDERED: SODIUM CHLORIDE 0.9% IVPB ONE (12:00)
[2017-04-27] MEDS: HYDROcodone/APAP 5-325MG 1 EACH TAB PO PRN ×2 (12:39→17:16)
--- NOTE | 2017-04-27 14:12 | P.HPIM ---
History of Present Illness -year-old [facility] with bleeding gums leading to swallowing of blood and dark stools secondary to that. Patient denied any bright red blood per rectum his symptoms presently improved patient does have history of hemophilia a and does take factor VIII twice a week and as-needed basis. Patient was also running a palpitations generalized tiredness and weakness all of which improved a little bit but not to his baseline yet and patient received 1 L of blood transfusion hemoglobin on admission was 5 has gone up to 6 with transfusing couple more units of PRBC and patient will be given desmopressin. If patient is feeling well after that patient will be discharged today. To follow up with Dr. Alarcon as an outpatient. Dr. Alarcon in the past asked him to follow-up in [facility] but patient did not go to [place]. Review of Systems REVIEW OF SYSTEMS: CONSTITUTIONAL: No fever, as per HPI HEENT: No recent visual problems or hearing problems. Denied any sore throat. CARDIOVASCULAR: No chest pain, orthopnea, PND, no palpitations, no syncope. PULMONARY: No shortness of breath, no cough, no hemoptysis. GASTROINTESTINAL: No diarrhea, no nausea, no vomiting, no abdominal pain. Normoactive bowel sounds. NEUROLOGICAL: No headaches, no weakness, no numbness. HEMATOLOGICAL: Denies any bleeding or petechiae. GENITOURINARY: Denies any burning micturition, frequency, or urgency. MUSCULOSKELETAL/RHEUMATOLOGICAL: Denies any joint pain, swelling, or any muscle pain. ENDOCRINE: Denies any polyuria or polydipsia. The rest of the 14-point review of systems is negative. Past Medical History Past Medical History: Hyperlipidemia Additional Past Medical History / Comment(s): hemophilia A, kidney stones, Hep C History of Any Multi-Drug Resistant Organisms: None Reported Past Surgical History: No Surgical Hx Reported Additional Past Surgical History / Comment(s): lithotripsy Past Anesthesia/Blood Transfusion Reactions: No Reported Reaction Additional Past Anesthesia/Blood Transfusion Reaction / Comment(s): Pt has never had anesthesia. He received blood when he was around 9 yrs old. Past Psychological History: ADD/ADHD, Anxiety, Bipolar, Depression Additional Psychological History / Comment(s): Pt resides with his sister. He has a son. He does not drive due to his anxiety-he states he misses appts often. He has depression and past suicidal thoughts and attempt but denies thoughts or plans of suicide or harming himself at this time. Smoking Status: Current every day smoker Past Alcohol Use History: Rare Past Drug Use History: Heroin, Marijuana - Past Family History Father History Unknown: Yes Additional Family Medical History / Comment(s): patient does not know any medical history on him. Mother Additional Family Medical History / Comment(s): Mother is alive at age 50 with history of pulmonary hypertension. Brother(s) Additional Family Medical History / Comment(s): He has 2 brothers with no major medical problems. He has 6 sisters with no major medical problems. He has a grandfather and cousins with hemophilia. Medications and Allergies Home Medications Medication Instructions Recorded Confirmed Type Recombinate 3,200 units IV TUFR PRN 10/19/16 04/27/17 History Allergies Allergy/AdvReac Type Severity Reaction Status Date / Time aspirin AdvReac Unknown Verified 04/27/17 07:41 NSAIDS (Non-Steroidal AdvReac Unknown Verified 04/27/17 07:41 Anti-Inflamma Physical Exam Vitals: Vital Signs Temp Pulse Pulse Resp BP BP Pulse Ox 04/27/17 06:35 98.5 F 91 16 109/65 100 04/27/17 04:53 98.4 F 86 17 109/61 98 04/27/17 04:23 98.4 F 99 17 102/73 100 04/27/17 04:13 98.7 F 96 17 105/54 100 04/27/17 04:00 98.5 F 105 H 17 119/72 100 04/27/17 02:36 98.7 F 103 H 18 124/62 98 04/27/17 01:59 98.7 F 112 H 18 106/57 100 04/27/17 01:29 118 H 18 121/68 100 04/27/17 00:59 121 H 18 120/65 100 04/27/17 00:29 100.1 F H 129 H 18 132/58 100 Intake and Output 04/26/17 04/27/17 04/27/17 22:59 06:59 14:59 Intake Total 535 237 Output Total 300 Balance 535 -63 Intake: IV 225 Sodium Chloride 0.9% 1, 225 000 ml @ 75 mls/hr IV . [id number] [facility] Rx#:[id number] Oral 237 Blood Product 310 Rc As-1 Unit 310 [id number] Output: Urine 300 Other: Voiding Method Toilet # Voids 1 Weight 72.8 kg PHYSICAL EXAMINATION: GENERAL: The patient is alert and oriented x3, not in any acute distress. Well developed, well nourished. HEENT: Pupils are round and equally reacting to light. EOMI. No scleral icterus. Patient has conjunctival pallor. Normocephalic, atraumatic. No pharyngeal erythema. No thyromegaly. CARDIOVASCULAR: S1 and S2 present. No murmurs, rubs, or gallops. PULMONARY: Chest is clear to auscultation, no wheezing or crackles. ABDOMEN: Soft, nontender, nondistended, normoactive bowel sounds. No palpable organomegaly. MUSCULOSKELETAL: No joint swelling or deformity. EXTREMITIES: No cyanosis, clubbing, or pedal edema. NEUROLOGICAL: Gross neurological examination did not reveal any focal deficits. SKIN: No rashes. Results CBC & Chem 7: 04/27/17 09:31 04/27/17 00:45 Labs: Abnormal Lab Results - Last 24 Hours (Table) 04/27/17 04/27/17 04/27/17 Range/Units 00:45 00:45 00:45 RBC 1.59 L (4.30-5.90) m/uL Hgb 5.0 L* D (13.0-17.5) gm/dL Hct 15.5 L* (39.0-53.0) % RDW 15.8 H (11.5-15.5) % Chloride 108 H (98-107) mmol/L Glucose 104 H (74-99) mg/dL AST 99 H (17-59) U/L ALT 149 H (21-72) U/L Total Protein 5.5 L (6.3-8.2) g/dL Albumin 3.2 L (3.5-5.0) g/dL U Marijuana (THC) Screen (NotDetected) Crossmatch See Detail 04/27/17 04/27/17 Range/Units 08:35 09:31 RBC 1.88 L (4.30-5.90) m/uL Hgb 6.0 L* (13.0-17.5) gm/dL Hct 17.6 L* (39.0-53.0) % RDW 18.7 H (11.5-15.5) % Chloride (98-107) mmol/L Glucose (74-99) mg/dL AST (17-59) U/L ALT (21-72) U/L Total Protein (6.3-8.2) g/dL Albumin (3.5-5.0) g/dL U Marijuana (THC) Screen Detected H (NotDetected) Crossmatch Thrombosis Risk Factor Assmnt - Choose All That Apply Any of the Below Risk Factors Present?: No Other Risk Factors: No Other congenital or acquired thrombophilia - If yes, enter type in comment: No Thrombosis Risk Factor Assessment Level: Very Low Risk Assessment and Plan Plan: 1 acute blood loss anemia from gum bleeding: Patient does not appear to have a GI bleed the dock stools resolved and patient complaining resolved and the S patient is swallowing the blood patient had dark stools yesterday. Patient was transfused 2 more units for symptomatic anemia SHIREEN P and patient was asked to take his own factor VIII concentrate and patient will be discharged today. 2 hemophilia a management as mentioned above. #3 symptomatic anemia #4 anxiety.
--- NOTE | 2017-04-27 14:13 | P.DS ---
Providers Date of admission: 04/27/17 02:04 Attending physician: Apurva Dugan Consults: 04/27/17 01:56 Consult Physician Stat Consulting Provider: Dale Alarcon Consult Reason/Comments: Hemophilia Do you want consulting provider notified?: Yes, Notify in am Primary care physician: Stated None Hospital Course: Please refer to HPI Patient Condition at Discharge: Fair Plan - Discharge Summary New Discharge Prescriptions: No Action Recombinate 3,200 units IV TUFR PRN PRN Reason: Bleeding Discharge Medication List Recombinate 3,200 units IV TUFR PRN 10/19/16 [History] Follow up Appointment(s)/Referral(s): None,Stated [Primary Care Provider] - 3 Days Discharge Disposition: HOME SELF-CARE
[2017-04-27 16:54] VITALS: BP 108/63; PULSE 93; TEMP 98.1
[2017-04-27 19:09] LABS: Anisocytosis Slight; Basophils % (A) 1 %; CHCM 32.7; Eosinophils # (A) 0.1 k/uL (0-0.7); Eosinophils % (A) 2 %; HDW 4.08; Hypochromasia Slight; Luc % (Auto) 3; Lymphocytes # (A) 2.1 k/uL (1.0-4.8); Lymphocytes % (A) 35 %; MCH 31.1 pg (25.0-35.0); MCHC 32.4 g/dL (31.0-37.0); Macrocytosis Slight; Mean Platelet Volume 8.6; Monocytes # (A) 0.5 k/uL (0-1.0); Monocytes % (A) 8 %; Neutrophils % (A) 51 %; Poikilocytosis Moderate; WBC (Perox) 5.87
[2017-04-27 19:33] LABS: HGB 7.8 gm/dL (13.0-17.5)
== END 2017-04-27 19:03 | disposition home or self-care (01) ==
LOC: EC 00:21 → INTOOBSV 02:04 → 6SEL 02:04
PROVIDERS: ADMIT Hospitalist; ATTEND Hospitalist
PROC: 30233N1 Transfusion of Nonautologous Red Blood Cells into Peripheral Vein, Percutaneous Approach (ICD-10-PCS; principal; 2017-04-27)
DX: D64.9 Anemia, unspecified (principal); K06.8 Other specified disorders of gingiva and edentulous alveolar ridge; D66 Hereditary factor VIII deficiency; F41.8 Other specified anxiety disorders; R00.0 Tachycardia, unspecified; R00.2 Palpitations; R53.1 Weakness; E78.5 Hyperlipidemia, unspecified; F17.200 Nicotine dependence, unspecified, uncomplicated; Z87.442 Personal history of urinary calculi; B19.20 Unspecified viral hepatitis C without hepatic coma; Z88.6 Allergy status to analgesic agent; F31.9 Bipolar disorder, unspecified
CPT/HCPCS: 96365; 96367; 96361; 99285; 36415; 93005; 86900; 86901; 80053; 85025; 86850; 86920; 81003; 80306; 71020; G0378; P9016; J2060; J2597; 96360

== ENCOUNTER 2017-08-21 10:49 | Emergency (ER) | payer OTHER ==
[2017-08-21 11:06] VITALS: RESP 20
--- NOTE | 2017-08-21 11:20 | ED ---
General Adult HPI - General Chief complaint: Extremity Injury, Upper Stated complaint: left hand swollen Time Seen by Provider: 08/21/17 11:00 Source: patient, RN notes reviewed Mode of arrival: ambulatory Limitations: no limitations - History of Present Illness Initial comments: This is a 26-year-old male who presents emergency Department complaining of left posterior hand pain. Patient states last evening it actually got slammed in a door. Patient states the wind caught the door and slammed against his hand. Patient's pain is mostly in the third metacarpal and third proximal phalanx. But he does have tenderness in the fourth metacarpal and 4 and second metacarpal as well. Patient denies any wrist pain patient denies elbow pain patient denies any other injury at this time. - Related Data Home Medications Medication Instructions Recorded Confirmed Recombinate 3,200 units IV TUFR PRN 10/19/16 08/21/17 Previous Rx's Medication Instructions Recorded traMADol HCl [Ultram] 50 mg PO Q6H PRN #20 tab 08/21/17 Allergies Allergy/AdvReac Type Severity Reaction Status Date / Time aspirin AdvReac Unknown Verified 08/21/17 11:12 NSAIDS (Non-Steroidal AdvReac Unknown Verified 08/21/17 11:12 Anti-Inflamma Review of Systems ROS Statement: Those systems with pertinent positive or pertinent negative responses have been documented in the HPI. ROS Other: All systems not noted in ROS Statement are negative. Past Medical History Past Medical History: Hyperlipidemia Additional Past Medical History / Comment(s): hemophilia A, kidney stones, Hep C History of Any Multi-Drug Resistant Organisms: None Reported Past Surgical History: No Surgical Hx Reported Additional Past Surgical History / Comment(s): lithotripsy Past Anesthesia/Blood Transfusion Reactions: No Reported Reaction Additional Past Anesthesia/Blood Transfusion Reaction / Comment(s): Pt has never had anesthesia. He received blood when he was around 9 yrs old. Past Psychological History: ADD/ADHD, Anxiety, Bipolar, Depression Smoking Status: Current every day smoker Past Alcohol Use History: Rare Past Drug Use History: Heroin, Marijuana - Past Family History Father History Unknown: Yes Additional Family Medical History / Comment(s): patient does not know any medical history on him. Mother Additional Family Medical History / Comment(s): Mother is alive at age 50 with history of pulmonary hypertension. Brother(s) Additional Family Medical History / Comment(s): He has 2 brothers with no major medical problems. He has 6 sisters with no major medical problems. He has a grandfather and cousins with hemophilia. General Exam - General Exam Comments Initial Comments: GENERAL Patient is well-developed and well-nourished. Patient is in mild distress. EYES Patient's pupils are equal and round. Extraocular motion is intact SKIN Unremarkable NEURO The patient is alert and oriented 3 PYSCH Patient has normal interpersonal interactions. MUSCULOSKELETAL Patient's hand is swollen posteriorly very tender at the second third and fourth metacarpal as well as the proximal phalanx on the third finger Limitations: no limitations Course Vital Signs 08/21/17 11:04 Temperature 97.5 F L Pulse Rate 90 Respiratory 20 Rate Blood Pressure 141/79 O2 Sat by Pulse 99 Oximetry Medical Decision Making - Medical Decision Making X-ray showed no acute abnormality Disposition Clinical Impression: Hand contusion Disposition: HOME SELF-CARE Condition: Good Instructions: Contusion in Adults (ED) Prescriptions: traMADol HCl [Ultram] 50 mg PO Q6H PRN #20 tab PRN Reason: When necessary for pain Referrals: Raudel Begum MD [Medical Doctor] - 1-2 days
--- NOTE | 2017-08-21 12:00 | XR ---
EXAMINATION TYPE: XR hand complete LT DATE OF EXAM: 08/21/2017 COMPARISON: NONE HISTORY: 26-year-old male left hand pain, greater at the third MCP joint TECHNIQUE: 3 views FINDINGS: No acute fracture, subluxation, or dislocation. There is dorsal soft tissue swelling noted. IMPRESSION: Soft tissue swelling without acute osseous abnormality seen.
[2017-08-21 12:36] VITALS: BP 135/56; PULSE 77; TEMP 98
== END 2017-08-21 12:35 | disposition home or self-care (01) ==
LOC: EC 10:49
DX: S60.222A Contusion of left hand, initial encounter (principal); F17.200 Nicotine dependence, unspecified, uncomplicated; Z88.6 Allergy status to analgesic agent; W23.0XXA Caught, crushed, jammed, or pinched between moving objects, initial encounter
CPT/HCPCS: 99283

== ENCOUNTER 2018-02-27 09:20 | Emergency (ER) | payer OTHER ==
[2018-02-27 09:38] VITALS: RESP 16
--- NOTE | 2018-02-27 09:57 | ED ---
Lower Extremity Injury HPI - General Chief Complaint: Extremity Injury, Lower Stated Complaint: rt foot injury Time Seen by Provider: 02/27/18 09:42 Source: patient, RN notes reviewed, old records reviewed Mode of arrival: wheelchair Limitations: no limitations - History of Present Illness Initial Comments: Patient is a 27-year-old male presents emergency Department chief complaint of right foot pain. He reports that he kicked a wheeled wheelchair and has pain over the fourth and fifth metatarsals. Patient states is been painful to bear weight over his foot. He denies any significant swelling at this time. 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 He states that if he has to use his recombinant medication he has severe swelling initially and will use it. Patient states that he has had no other symptoms related to this. Denies any numbness or tingling, foot. - Related Data Home Medications Medication Instructions Recorded Confirmed Recombinate 3,200 units IV TUFR PRN 10/19/16 02/27/18 Acetaminophen Tab [Tylenol Tab] 1,000 mg PO Q6HR PRN 02/27/18 02/27/18 Allergies Allergy/AdvReac Type Severity Reaction Status Date / Time aspirin AdvReac Unknown Verified 02/27/18 10:02 NSAIDS (Non-Steroidal AdvReac Unknown Verified 02/27/18 10:02 Anti-Inflamma Review of Systems ROS Statement: Those systems with pertinent positive or pertinent negative responses have been documented in the HPI. ROS Other: All systems not noted in ROS Statement are negative. Past Medical History Past Medical History: Hyperlipidemia Additional Past Medical History / Comment(s): hemophilia A, kidney stones, Hep C History of Any Multi-Drug Resistant Organisms: None Reported Past Surgical History: No Surgical Hx Reported Additional Past Surgical History / Comment(s): lithotripsy Past Anesthesia/Blood Transfusion Reactions: No Reported Reaction Additional Past Anesthesia/Blood Transfusion Reaction / Comment(s): Pt has never had anesthesia. He received blood when he was around 9 yrs old. Past Psychological History: ADD/ADHD, Anxiety, Bipolar, Depression Smoking Status: Current every day smoker Past Alcohol Use History: Rare Past Drug Use History: Heroin, Marijuana - Past Family History Father History Unknown: Yes Additional Family Medical History / Comment(s): patient does not know any medical history on him. Mother Additional Family Medical History / Comment(s): Mother is alive at age 50 with history of pulmonary hypertension. Brother(s) Additional Family Medical History / Comment(s): He has 2 brothers with no major medical problems. He has 6 sisters with no major medical problems. He has a grandfather and cousins with hemophilia. General Exam - General Exam Comments Initial Comments: 27-year-old male. Alert and oriented. No acute distress. Limitations: no limitations General appearance: alert, in no apparent distress Head exam: Present: atraumatic, normocephalic, normal inspection Eye exam: Present: normal appearance, PERRL, EOMI. Absent: scleral icterus, conjunctival injection, periorbital swelling ENT exam: Present: normal exam, mucous membranes moist Neck exam: Present: normal inspection. Absent: tenderness, meningismus, lymphadenopathy Respiratory exam: Present: normal lung sounds bilaterally. Absent: respiratory distress, wheezes, rales, rhonchi, stridor Cardiovascular Exam: Present: regular rate, normal rhythm, normal heart sounds. Absent: systolic murmur, diastolic murmur, rubs, gallop, clicks GI/Abdominal exam: Present: soft, normal bowel sounds. Absent: distended, tenderness, guarding, rebound, rigid Right Lower Leg exam: Present: normal inspection, full ROM Ankle exam: Present: normal inspection, full ROM Foot/Toe exam: Present: normal inspection, tenderness, swelling (Patient has some tenderness and swelling over the fourth and fifth metatarsals.). Absent: full ROM Course Vital Signs 02/27/18 09:35 Temperature 97.6 F Pulse Rate 105 H Respiratory 16 Rate Blood Pressure 129/80 O2 Sat by Pulse 99 Oximetry Medical Decision Making - Medical Decision Making 27-year-old male presents emergency Department chief complaint of right foot pain after he hit it on a chair. Patient has a history of hemophilia A. He states that at this time with the seventh and she decided to use it. Patient x- ray was obtained. No evidence of any fracture. Patient will be discharged at this time. Discussed I will put him in an Rg wrap. Ankle stirrup splint. Patient can follow-up with PCP. All questions answered and return parameters were discussed. - Radiology Data Radiology results: report reviewed No acute fracture dislocation of the foot. His symptoms persist follow-up in 7- 10 days he we obtained. Severe arthropathy within the ankle joint. This is occasionally associated with osteonecrosis of the talus and a dedicated ankle series recommended chronic similar to the exam of 03/05/2017. Disposition Clinical Impression: Foot contusion, Ankle arthropathy Disposition: HOME SELF-CARE Condition: Good Instructions: Foot Contusion (ED) Additional Instructions: Patient was to apply ice over the foot as much as possible. Use the Rg wrap. Return to emergency department if any alarming signs or symptoms occur. Is patient prescribed a controlled substance at d/c from ED?: No If prescribed controlled substance>3 days was MAPS reviewed?: No When asked, does pt state using other controlled substances?: No Referrals: None,Stated [Primary Care Provider] - 1-2 days Time of Disposition: 10:36
--- NOTE | 2018-02-27 10:16 | XR ---
EXAMINATION TYPE: XR foot complete RT DATE OF EXAM: 02/27/2018 COMPARISON: 03/05/2017 HISTORY: Pain TECHNIQUE: Three views are submitted. FINDINGS: The osseous structures are intact. There is no acute fracture or dislocation. There is severe arth ropathy of the ankle joint. IMPRESSION: 1. No acute fracture or dislocation. If symptoms persist, follow-up exam in 7 to 10 days could be ob tained. 2. There is severe arthropathy of the ankle joint. This can occasionally be associated with osteonecr osis of the talus in the dedicated ankle series is recommended findings appear similar to the exam of 03/05/2017
[2018-02-27] MEDS ORDERED: ACET/COD 300 MG/30 MG STARTER PACK 6 TAB BTL PO STA (10:36)
[2018-02-27 10:47] VITALS: BP 124/80; PULSE 100; TEMP 98
== END 2018-02-27 10:47 | disposition home or self-care (01) ==
LOC: EC 09:20
DX: S90.31XA Contusion of right foot, initial encounter (principal); M36.2 Hemophilic arthropathy; M90.571 Osteonecrosis in diseases classified elsewhere, right ankle and foot; D66 Hereditary factor VIII deficiency; F17.200 Nicotine dependence, unspecified, uncomplicated; Z88.6 Allergy status to analgesic agent; Z83.2 Family history of diseases of the blood and blood-forming organs and certain disorders involving the immune mechanism; W22.8XXA Striking against or struck by other objects, initial encounter; Y92.009 Unspecified place in unspecified non-institutional (private) residence as the place of occurrence of the external cause
CPT/HCPCS: 29515; 99284

== ENCOUNTER 2018-04-24 10:07 | Emergency (ER) | payer OTHER ==
[2018-04-24 10:25] VITALS: BP 130/84; PULSE 120; RESP 18; TEMP 98.2
--- NOTE | 2018-04-24 11:28 | XR ---
EXAMINATION TYPE: XR ankle complete LT DATE OF EXAM: 04/24/2018 COMPARISON: NONE HISTORY: Pain TECHNIQUE: 3 views of the left ankle are submitted for evaluation. FINDINGS: There is no evidence for fracture or dislocation. Ankle mortise is intact. Degenerative tim rowing ankle mortise. Mild surrounding soft tissue swelling. IMPRESSION: 1. No evidence for acute fracture.
--- NOTE | 2018-04-24 11:34 | ED ---
Lower Extremity Injury HPI - General Chief Complaint: Extremity Injury, Lower Stated Complaint: Ankle injury Time Seen by Provider: 04/24/18 10:58 Source: patient Mode of arrival: wheelchair Limitations: physical limitation - History of Present Illness Initial Comments: This 27-year-old white male presents with a complaint of some left ankle pain. He states that he was going down a step when he developed the pain. He denies any significant twisting. He states that the pain is both medially, laterally and posteriorly and the ankle. He does relate a significant history of previous problems to his ankle. He has had previous surgeries. He denies any other injuries or complaints or modifying factors. This just happened shortly prior to arrival. - Related Data Home Medications Medication Instructions Recorded Confirmed Recombinate 3,200 units IV TUFR 10/19/16 04/24/18 Previous Rx's Medication Instructions Recorded predniSONE 20 mg PO BID #10 tab 04/24/18 Allergies Allergy/AdvReac Type Severity Reaction Status Date / Time aspirin AdvReac Unknown Verified 04/24/18 10:37 NSAIDS (Non-Steroidal AdvReac Unknown Verified 04/24/18 10:37 Anti-Inflamma Review of Systems ROS Statement: Those systems with pertinent positive or pertinent negative responses have been documented in the HPI. ROS Other: All systems not noted in ROS Statement are negative. Past Medical History Past Medical History: Hyperlipidemia Additional Past Medical History / Comment(s): hemophilia A, kidney stones, Hep C History of Any Multi-Drug Resistant Organisms: None Reported Past Surgical History: No Surgical Hx Reported Additional Past Surgical History / Comment(s): lithotripsy Past Anesthesia/Blood Transfusion Reactions: No Reported Reaction Additional Past Anesthesia/Blood Transfusion Reaction / Comment(s): Pt has never had anesthesia. He received blood when he was around 9 yrs old. Past Psychological History: ADD/ADHD, Anxiety, Bipolar, Depression Smoking Status: Current every day smoker Past Alcohol Use History: Rare Past Drug Use History: Heroin, Marijuana - Past Family History Father History Unknown: Yes Additional Family Medical History / Comment(s): patient does not know any medical history on him. Mother Additional Family Medical History / Comment(s): Mother is alive at age 50 with history of pulmonary hypertension. Brother(s) Additional Family Medical History / Comment(s): He has 2 brothers with no major medical problems. He has 6 sisters with no major medical problems. He has a grandfather and cousins with hemophilia. General Exam Limitations: physical limitation Extremities exam: Present: tenderness (There is tenderness noted to the left ankle just inferior to the medial and lateral malleolus. There is some tenderness slightly posteriorly. There is no significant swelling identified. There is pain with any attempted range of motion of the left ankle. There is no rash or ecchymosis.) Neurological exam: Present: alert, oriented X3. Absent: motor sensory deficit Psychiatric exam: Present: normal affect, normal mood Skin exam: Present: intact. Absent: rash Course Vital Signs 04/24/18 10:22 Temperature 98.2 F Pulse Rate 120 H Respiratory 18 Rate Blood Pressure 130/84 O2 Sat by Pulse 99 Oximetry Medical Decision Making - Medical Decision Making The patient was seen and examined. All diagnostics were reviewed. An x-ray was taken and this does show severe degenerative changes of the left ankle. It almost appears as though his ankles fusing due to the severe degenerative changes. There is no fracture identified. He is placed in a 3 inch Ortho- Glass custom molded splint by myself. This is a short leg splint. Excellent post-splint neurovascular status is identified. It is felt as though he would benefit from follow-up with orthopedic surgeon for further evaluation. He does have crutches to utilize at home. He understands agrees with findings disposition and leaves in no distress. He does receive some prednisone as well as some Tylenol. Disposition Clinical Impression: Left ankle sprain, Osteoarthritis Disposition: HOME SELF-CARE Condition: Good Instructions: Ankle Sprain (ED), Arthritis (ED) Prescriptions: predniSONE 20 mg PO BID #10 tab Is patient prescribed a controlled substance at d/c from ED?: No Referrals: None,Stated [Primary Care Provider] - 1-2 days Cele Oliveira, PAC [PHYSICIAN COLOR BLENDER] - As Soon As Possible Time of Disposition: 11:46
[2018-04-24] MEDS ORDERED: ACETAMINOPHEN TAB 500 MG TAB PO STA (11:37)
[2018-04-24] MEDS ORDERED: predniSONE 20 MG TAB PO STA (11:37)
== END 2018-04-24 12:07 | disposition home or self-care (01) ==
LOC: EC 10:07
DX: S93.402A Sprain of unspecified ligament of left ankle, initial encounter (principal); M19.072 Primary osteoarthritis, left ankle and foot; D66 Hereditary factor VIII deficiency; Z86.19 Personal history of other infectious and parasitic diseases; F17.200 Nicotine dependence, unspecified, uncomplicated; Z79.899 Other long term (current) drug therapy; Z88.6 Allergy status to analgesic agent; X50.9XXA Other and unspecified overexertion or strenuous movements or postures, initial encounter; Y92.89 Other specified places as the place of occurrence of the external cause
CPT/HCPCS: 99283; 29515; 73610; J7512

== ENCOUNTER 2018-05-20 23:23 | Emergency (ER) | payer OTHER ==
[2018-05-21 00:14] VITALS: RESP 18
--- NOTE | 2018-05-21 01:14 | XR ---
EXAMINATION TYPE: XR ankle complete RT DATE OF EXAM: 05/21/2018 COMPARISON: 03/05/2017 HISTORY: Ankle swelling TECHNIQUE: 3 views FINDINGS: There is narrowing and subchondral cystic change on both sides of the ankle joint. I see no fracture nor dislocation. There is also some cystic change in the distal fibula. Subtalar joint appe ars normal. There is spurring of the anterior and posterior malleolus. IMPRESSION: Moderately severe osteoarthritis. No acute fracture seen. No adverse change overall sadia red to old exam.
[2018-05-21] MEDS ORDERED: MORPHINE SULFATE 4 MG/ML SYRINGE IM STA (02:05)
[2018-05-21] MEDS ORDERED: ONDANSETRON 4 MG/2 ML VIAL IVP STA (02:08)
[2018-05-21] MEDS ORDERED: MORPHINE SULFATE 4 MG/ML SYRINGE IVP STA (02:08)
[2018-05-21] MEDS ORDERED: SODIUM CHLORIDE 0.9% 1,000 ML IV STA (02:22)
[2018-05-21 02:46] LABS: Basophils # (A) 0.1 k/uL (0-0.2); Basophils % (A) 1 %; Eosinophils # (A) 0.3 k/uL (0-0.7); Eosinophils % (A) 3 %; HCT 37.9 % (39.0-53.0); HGB 12.8 gm/dL (13.0-17.5); Lymphocytes # (A) 3.4 k/uL (1.0-4.8); Lymphocytes % (A) 31 %; MCH 30.4 pg (25.0-35.0); MCHC 33.8 g/dL (31.0-37.0); MCV 89.9 fL (80.0-100.0); Monocytes # (A) 0.7 k/uL (0-1.0); Monocytes % (A) 6 %; Neutrophils # (A) 6.2 k/uL (1.3-7.7); Neutrophils % (A) 56 %; Platelet Count 283 k/uL (150-450); RBC 4.22 m/uL (4.30-5.90); RDW 14.1 % (11.5-15.5)
[2018-05-21 02:57] LABS: ALT 33 U/L (21-72); AST 27 U/L (17-59); Albumin 4.1 g/dL (3.5-5.0); Alkaline Phosphatase 75 U/L (38-126); Anion Gap 9 mmol/L; Blood Urea Nitrogen 22 mg/dL (9-20); Calcium 9.4 mg/dL (8.4-10.2); Carbon Dioxide 26 mmol/L (22-30); Chloride 105 mmol/L (98-107); Glucose 97 mg/dL (74-99); Potassium 4.1 mmol/L (3.5-5.1); Sodium 140 mmol/L (137-145); Total Bilirubin 0.5 mg/dL (0.2-1.3); Total Protein 7.6 g/dL (6.3-8.2)
[2018-05-21] MEDS ORDERED: NALOXONE 0.4 MG/ML 1 ML VIAL IV PRN (03:13)
[2018-05-21] MEDS ORDERED: HYDROmorphone 0.5 MG/0.5 ML SYRINGE IVP PRN (03:13)
[2018-05-21] MEDS ORDERED: LORazepam 2 MG/ML INJ IV PRN (03:13)
[2018-05-21] MEDS ORDERED: HYDROcodone/APAP 5-325MG 1 EACH TAB PO PRN (03:13)
[2018-05-21] MEDS ORDERED: ONDANSETRON 4 MG/2 ML VIAL IVP PRN (03:13)
[2018-05-21] MEDS ORDERED: MORPHINE SULFATE 4 MG/ML SYRINGE IV PRN (03:13)
[2018-05-21] MEDS ORDERED: SODIUM CHLORIDE 0.9% 1,000 ML IV SCH (03:15)
--- NOTE | 2018-05-21 03:18 | ED ---
General Adult HPI - General Chief complaint: Extremity Injury, Lower Stated complaint: ANKLE SWELLING Time Seen by Provider: 05/21/18 00:52 Source: patient, RN notes reviewed Mode of arrival: wheelchair Limitations: no limitations - History of Present Illness Initial comments: 27 year old male presents to the emergency department for a chief complaint of right ankle swelling. Patient states he has a history of hemophilia a and is experiencing bleeding into the ankle. Patient states he twisted his ankle last week and the swelling has been persistent since that time. Patient states it is very painful to walk on. Patient denies any fevers or chills at home. Patient denies any other injuries. Patient states he saw Dr. Potts earlier today and was told if it worsens to come to the emergency department. Patient states he does have a deburrer strip that he sees regularly. Patient states he did take his factor on Friday as well as last . Patient has no other complaints at this time including shortness of breath, chest pain, abdominal pain, nausea or vomiting, headache, or visual changes. - Related Data Home Medications Medication Instructions Recorded Confirmed Recombinate 3,200 units IV TUFR 10/19/16 04/24/18 Previous Rx's Medication Instructions Recorded predniSONE 20 mg PO BID #10 tab 04/24/18 Allergies Allergy/AdvReac Type Severity Reaction Status Date / Time aspirin AdvReac Unknown Verified 05/21/18 00:14 NSAIDS (Non-Steroidal AdvReac Unknown Verified 05/21/18 00:14 Anti-Inflamma Review of Systems ROS Statement: Those systems with pertinent positive or pertinent negative responses have been documented in the HPI. ROS Other: All systems not noted in ROS Statement are negative. Past Medical History Past Medical History: Hyperlipidemia Additional Past Medical History / Comment(s): hemophilia A, kidney stones, Hep C History of Any Multi-Drug Resistant Organisms: None Reported Past Surgical History: No Surgical Hx Reported Additional Past Surgical History / Comment(s): lithotripsy Past Anesthesia/Blood Transfusion Reactions: No Reported Reaction Additional Past Anesthesia/Blood Transfusion Reaction / Comment(s): Pt has never had anesthesia. He received blood when he was around 9 yrs old. Past Psychological History: ADD/ADHD, Anxiety, Bipolar, Depression Smoking Status: Current every day smoker Past Alcohol Use History: Rare Past Drug Use History: Heroin, Marijuana - Past Family History Father History Unknown: Yes Additional Family Medical History / Comment(s): patient does not know any medical history on him. Mother Additional Family Medical History / Comment(s): Mother is alive at age 50 with history of pulmonary hypertension. Brother(s) Additional Family Medical History / Comment(s): He has 2 brothers with no major medical problems. He has 6 sisters with no major medical problems. He has a grandfather and cousins with hemophilia. General Exam Limitations: no limitations General appearance: alert, in no apparent distress Head exam: Present: atraumatic, normocephalic, normal inspection Eye exam: Present: normal appearance. Absent: scleral icterus, conjunctival injection ENT exam: Present: normal exam, mucous membranes moist Neck exam: Present: normal inspection, full ROM. Absent: tenderness, meningismus, lymphadenopathy Respiratory exam: Present: normal lung sounds bilaterally. Absent: respiratory distress, wheezes, rales, rhonchi, stridor Cardiovascular Exam: Present: regular rate, normal rhythm, normal heart sounds. Absent: systolic murmur, diastolic murmur, rubs, gallop, clicks Extremities exam: Present: full ROM (Full range of motion of the right foot/ ankle including digits), tenderness (Tenderness over the lateral and medial right ankle ), normal capillary refill (Capillary refill less than 2 seconds in the right lower extremity), joint swelling (Patient does have moderate swelling of the right ankle, nonpitting. ), other (Sensation intact in the right lower extremity). Absent: pedal edema Course Vital Signs 05/21/18 05/21/18 00:12 03:46 Temperature 98.3 F 98 F Pulse Rate 111 H 68 Respiratory 18 18 Rate Blood Pressure 128/77 112/56 O2 Sat by Pulse 99 98 Oximetry Medical Decision Making - Medical Decision Making 27-year-old male presents to the emergency department for a chief complaint of right ankle swelling 1 week. Patient twisted his ankle one week ago. Patient has a history of hemophilia A and states he is experiencing bleeding into the ankle as he has before. Patient states it is painful to walk on. Neurovascular intact in the right lower extremity. There is also moderate swelling of the right ankle consistent with hemarthrosis. X-ray shows osteoarthritis of the ankle, no fractures or dislocations. CBC and CMP unremarkable. I did offer admission to patient for pain management as well as to have orthopedics see him. Patient refuses at this time. He states he would rather go home and follow up with his deburrer strip. Patient states he will wait in the waiting room until he has a ride. He was dropped off earlier by his brother and his sister will be picking him up on her way home from work at 5 AM. - Lab Data Result diagrams: 05/21/18 02:22 05/21/18 02:22 Lab Results 05/21/18 05/21/18 Range/Units 02:22 02:22 WBC 11.0 H (3.8-10.6) k/uL RBC 4.22 L (4.30-5.90) m/uL Hgb 12.8 L (13.0-17.5) gm/dL Hct 37.9 L (39.0-53.0) % MCV 89.9 (80.0-100.0) fL MCH 30.4 (25.0-35.0) pg MCHC 33.8 (31.0-37.0) g/dL RDW 14.1 (11.5-15.5) % Plt Count 283 (150-450) k/uL Neutrophils % 56 % Lymphocytes % 31 % Monocytes % 6 % Eosinophils % 3 % Basophils % 1 % Neutrophils # 6.2 (1.3-7.7) k/uL Lymphocytes # 3.4 (1.0-4.8) k/uL Monocytes # 0.7 (0-1.0) k/uL Eosinophils # 0.3 (0-0.7) k/uL Basophils # 0.1 (0-0.2) k/uL Sodium 140 (137-145) mmol/L Potassium 4.1 (3.5-5.1) mmol/L Chloride 105 (98-107) mmol/L Carbon Dioxide 26 (22-30) mmol/L Anion Gap 9 mmol/L BUN 22 H (9-20) mg/dL Creatinine 0.70 (0.66-1.25) mg/dL Est GFR (CKD-EPI)AfAm >90 (>60 ml/min/1.73 sqM) Est GFR (CKD-EPI)NonAf >90 (>60 ml/min/1.73 sqM) Glucose 97 (74-99) mg/dL Calcium 9.4 (8.4-10.2) mg/dL Total Bilirubin 0.5 (0.2-1.3) mg/dL AST 27 (17-59) U/L ALT 33 (21-72) U/L Alkaline Phosphatase 75 (38-126) U/L Total Protein 7.6 (6.3-8.2) g/dL Albumin 4.1 (3.5-5.0) g/dL Disposition Clinical Impression: Hemarthrosis, Ankle swelling Disposition: HOME SELF-CARE Condition: Good Instructions: Swollen Ankle Joint (ED) Additional Instructions: Please follow up with your deburrer strip tomorrow. Follow up with Dr Potts as well. Please return to the emergency department if you have any worsening symptoms. Is patient prescribed a controlled substance at d/c from ED?: No Referrals: Carlyle Potts MD [Primary Care Provider] - 1-2 days Time of Disposition: 03:45
[2018-05-21 03:47] VITALS: BP 112/56; PULSE 68; TEMP 98
== END 2018-05-21 04:15 | disposition home or self-care (01) ==
LOC: EC 23:23
DX: M25.071 Hemarthrosis, right ankle (principal); D66 Hereditary factor VIII deficiency; F17.200 Nicotine dependence, unspecified, uncomplicated; Z79.899 Other long term (current) drug therapy; Z88.6 Allergy status to analgesic agent; X50.1XXA Overexertion from prolonged static or awkward postures, initial encounter
CPT/HCPCS: 99284; 96374; 96375 ×3; 96361; 36415; 80053; 85025; 73610; J2060; J2270; J2405; J1170

== ENCOUNTER 2018-11-28 19:37 | Observation (INO) | payer OTHER ==
[2018-11-28 20:05] VITALS: RESP 18
--- NOTE | 2018-11-28 20:25 | XR ---
Left hip 2 views. History hip pain and swelling. Comparison 08/29/2011. FINDINGS: I see no fracture nor dislocation. Hip joint space is normal. There is no sign of hip dysplasia. Sacr oiliac joint appears normal. IMPRESSION: Negative left hip exam.
[2018-11-28 20:34] LABS: Basophils # (A) 0.1 k/uL (0-0.2); Basophils % (A) 0 %; Eosinophils # (A) 0.3 k/uL (0-0.7); Eosinophils % (A) 2 %; HCT 41.6 % (39.0-53.0); HGB 13.8 gm/dL (13.0-17.5); Lymphocytes # (A) 2.6 k/uL (1.0-4.8); Lymphocytes % (A) 20 %; MCH 31.3 pg (25.0-35.0); MCHC 33.3 g/dL (31.0-37.0); MCV 93.9 fL (80.0-100.0); Mean Platelet Volume 6.8; Monocytes # (A) 0.7 k/uL (0-1.0); Monocytes % (A) 5 %; Neutrophils % (A) 71 %; Platelet Count 243 k/uL (150-450); RBC 4.43 m/uL (4.30-5.90); RDW 13.3 % (11.5-15.5); WBC 12.8 k/uL (3.8-10.6)
[2018-11-28] MEDS ORDERED: MORPHINE SULFATE 4 MG/ML SYRINGE IVP STA (20:34)
[2018-11-28 20:45] LABS: ALT 109 U/L (21-72); AST 40 U/L (17-59); Albumin 4.5 g/dL (3.5-5.0); Alkaline Phosphatase 88 U/L (38-126); Anion Gap 9 mmol/L; Blood Urea Nitrogen 13 mg/dL (9-20); Calcium 9.4 mg/dL (8.4-10.2); Carbon Dioxide 23 mmol/L (22-30); Chloride 108 mmol/L (98-107); Glucose 129 mg/dL (74-99); Sodium 140 mmol/L (137-145); Total Protein 8.2 g/dL (6.3-8.2)
--- NOTE | 2018-11-28 21:04 | ED ---
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 Patient states that this pain is severe, increased his ambulation and weightbearing. He denies any fever or chills or night sweats. Patient states that it is identical to when he had hemarthrosis in the past. Patient states he usually butterflies himself giving factor VIII 3200 international units every 12 hour for the first day then 3200 IU for subsequent days. She states he is out of his factor VIII currently. Patient is followed by heat treat inspector Dr. Alarcon. She denies any headache, dizziness, nausea, abdominal pain, melena, hematochezia. Patient denies any petechiae. Patient is a falls or recent trauma. Patient denies any numbness tingling or loss sensation of the lower extremity. Remaining review of systems negative, patient denies any recent fever, chills, shortness of breath, chest pain, back pain, dysuria or hematuria , constipation or diarrhea, headaches or visual changes, or any other complaints. Upon arrival patient appears uncomfortable. VS within acceptable limits. 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 Patient does not have factor VIII available, he does have family member with factor VIII who will bring this to the emergency department. Did discuss case with hematology on-call Dr. Bowden, recommends factor replacement at 100% which is between 3200- 3400 for this patient. She recommends initial dose given in the emergency department. Patient will be admitted for pain control, he will be evaluated by hematology in the morning and they will determine if patient requires additional doses. Patient admitted to internal medicine, accepting physician Dr. Topete. (Jorge Franklin) - Related Data Home Medications Medication Instructions Recorded Confirmed Recombinate 3,200 units IV TUFR 10/19/16 04/24/18 Previous Rx's Medication Instructions Recorded predniSONE 20 mg PO BID #10 tab 04/24/18 Allergies Allergy/AdvReac Type Severity Reaction Status Date / Time aspirin AdvReac Unknown Verified 11/28/18 20:05 NSAIDS (Non-Steroidal AdvReac Unknown Verified 11/28/18 20:05 Anti-Inflamma Review of Systems ROS Other: All systems not noted in ROS Statement are negative. <Abeba Ramos - Last Filed: 11/28/18 21:25> ROS Other: All systems not noted in ROS Statement are negative. <Jorge Franklin - Last Filed: 11/28/18 21:34> ROS Statement: Those systems with pertinent positive or pertinent negative responses have been documented in the HPI. Past Medical History Past Medical History: Hyperlipidemia Additional Past Medical History / Comment(s): hemophilia A, kidney stones, Hep C History of Any Multi-Drug Resistant Organisms: None Reported Past Surgical History: No Surgical Hx Reported Additional Past Surgical History / Comment(s): lithotripsy Past Anesthesia/Blood Transfusion Reactions: No Reported Reaction Additional Past Anesthesia/Blood Transfusion Reaction / Comment(s): Pt has never had anesthesia. He received blood when he was around 9 yrs old. Past Psychological History: ADD/ADHD, Anxiety, Bipolar, Depression Smoking Status: Current every day smoker Past Alcohol Use History: Rare Past Drug Use History: Heroin, Marijuana - Past Family History Father History Unknown: Yes Additional Family Medical History / Comment(s): patient does not know any medical history on him. Mother Additional Family Medical History / Comment(s): Mother is alive at age 50 with history of pulmonary hypertension. Brother(s) Additional Family Medical History / Comment(s): He has 2 brothers with no major medical problems. He has 6 sisters with no major medical problems. He has a grandfather and cousins with hemophilia. <Abeba Ramos - Last Filed: 11/28/18 21:25> General Exam Limitations: no limitations <Abeba Ramos - Last Filed: 11/28/18 21:25> <Jorge Franklin - Last Filed: 11/28/18 21:34> - General Exam Comments Initial Comments: General: The patient is awake and alert appears uncomfortable. Eye: Pupils are equal, round and reactive to light, extra-ocular movements are intact. No nystagmus. There is normal conjunctiva bilaterally. No signs of icterus. Ears, nose, mouth and throat: There are moist mucous membranes and no oral lesions. Neck: The neck is supple, there is no tenderness or JVD. Cardiovascular: There is a regular rate and rhythm. No murmur, rub or gallop is appreciated. Respiratory: Lungs are clear to auscultation, respirations are non-labored, breath sounds are equal. No wheezes, stridor, rales, or rhonchi. Musculoskeletal: Normal inspection of left hip. No ecchymosis petechiae or erythema. Patient is able to range at the left hip however this is extremely painful for patient. Normal range of motion at the right hip.. Strength 5/5 of the lower extremities from the knees and below, pt refuses to strenght test left hip secondary tot pain. Sensation intact of the LE equal in comparison bilaterally. DP pulses equal bilaterally 2+. Capillary refill <2 seconds. Neurological: A&O x 3. CN II-XII intact, There are no obvious motor or sensory deficits. Coordination appears grossly intact. Speech is normal. Skin: Skin is warm and dry and no rashes or lesions are noted. Psychiatric: Cooperative, appropriate mood & affect, normal judgment. (Abeba Ramos) Vital Signs 11/28/18 20:03 Temperature 99.0 F Pulse Rate 83 Respiratory 18 Rate Blood Pressure 137/80 O2 Sat by Pulse 97 Oximetry Medical Decision Making - Lab Data Result diagrams: 11/28/18 20:25 11/28/18 20:25 <Abeba Ramos - Last Filed: 11/28/18 21:25> - Lab Data Result diagrams: 11/28/18 20:25 11/28/18 20:25 <Jorge Franklin - Last Filed: 11/28/18 21:34> - Medical Decision Making 28-year-old male presenting for left hip pain with history of hemophilia A and previous hip hemarthrosis. Patient states she is out of factor VIII at home. Patient is followed by heat treat inspector . Patient states pain is identical to previous hemarthrosis. At this time feel this is most likely diagnosis. Patient's PTT is 69.9. Patient given morphine for pain management. Contacted inpatient pharmacy however we do not have factor VIII. Contacted laboratory who does not have factor VIII either. We did contact patient's heat treat inspector Dr. Alarcon's performance improvement consultant physician, she recommended admission, patient family who also has hemophilia A will bring outside Factor VIII for administration, heat treat inspector recommended initial does of 3200 IU and she will reassess in the morning. Patient be admitted to medicine with hematology on consult. (Abeba Ramos) - Lab Data Lab Results 11/28/18 11/28/18 11/28/18 Range/Units 20:25 20:25 20:25 WBC 12.8 H (3.8-10.6) k/uL RBC 4.43 (4.30-5.90) m/uL Hgb 13.8 (13.0-17.5) gm/dL Hct 41.6 (39.0-53.0) % MCV 93.9 (80.0-100.0) fL MCH 31.3 (25.0-35.0) pg MCHC 33.3 (31.0-37.0) g/dL RDW 13.3 (11.5-15.5) % Plt Count 243 (150-450) k/uL Neutrophils % 71 % Lymphocytes % 20 % Monocytes % 5 % Eosinophils % 2 % Basophils % 0 % Neutrophils # 9.0 H (1.3-7.7) k/uL Lymphocytes # 2.6 (1.0-4.8) k/uL Monocytes # 0.7 (0-1.0) k/uL Eosinophils # 0.3 (0-0.7) k/uL Basophils # 0.1 (0-0.2) k/uL APTT 69.6 H (22.0-30.0) sec Sodium 140 (137-145) mmol/L Potassium 4.0 (3.5-5.1) mmol/L Chloride 108 H (98-107) mmol/L Carbon Dioxide 23 (22-30) mmol/L Anion Gap 9 mmol/L BUN 13 (9-20) mg/dL Creatinine 0.68 (0.66-1.25) mg/dL Est GFR (CKD-EPI)AfAm >90 (>60 ml/min/1.73 sqM) Est GFR (CKD-EPI)NonAf >90 (>60 ml/min/1.73 sqM) Glucose 129 H (74-99) mg/dL Calcium 9.4 (8.4-10.2) mg/dL Total Bilirubin 1.0 (0.2-1.3) mg/dL AST 40 (17-59) U/L ALT 109 H (21-72) U/L Alkaline Phosphatase 88 (38-126) U/L Total Protein 8.2 (6.3-8.2) g/dL Albumin 4.5 (3.5-5.0) g/dL Disposition Is patient prescribed a controlled substance at d/c from ED?: No Time of Disposition: 21:13 Decision to Admit Reason: Admit from EC Decision Date: 11/28/18 Decision Time: 21:14 <Abeba Ramos - Last Filed: 11/28/18 21:25> <Jorge Franklin - Last Filed: 11/28/18 21:34> Clinical Impression: Hemarthrosis, Hemophilia A Disposition: ADMITTED IP TO THIS [facility] Condition: Good Referrals: None,Stated [Primary Care Provider] - 1-2 days
[2018-11-28] MEDS ORDERED: NALOXONE 0.4 MG/ML 1 ML VIAL IV PRN (21:14)
[2018-11-28] MEDS ORDERED: SODIUM CHLORIDE 0.9% 1,000 ML IV SCH (21:15)
[2018-11-28] MEDS: HYDROmorphone 1 MG/ML 1 ML SYRINGE IVP PRN (21:34)
--- NOTE | 2018-11-28 23:36 | P.HPIM ---
History of Present Illness H&P Date: 11/28/18 The patient is a 28-year-old male with a PMH of hemophilia A, bipolar disorder, and hepatitis C who presented to the ED for severe left hip pain. The patient notes that he gets episodes of hemarthrosis once monthly, usually in the elbows , hip, or ankles, for which he self administers 3200 IU factor VIII q12h on first day and then 3200 international units once daily on day 2 and day 3 after which the episodes usually resolve. The patient notes that this episode of hip pain is very similar to that his previous episodes. The patient follows with Dr. Alarcon previously prescribed in the factor VIII, though he notes he has run out of the medication for the last 2 weeks since his insurance has lapsed. Hethe pain started earlier today upon awakening and is 10 out of 10, nonradiating. He denied chest pain, shortness of breath, fever, chills, cough, nausea, vomiting, diarrhea. He denied any additional bleeding including nosebleeds, gum bleeding, bruising, or joint pain elsewhere. The patient does not have a PCP and has not followed with a physician about a year. The ED physician contacted hematology bathroom tiling professional, who recommended administration of 3200- 3400 factor VIII international units. In the emergency room, the patient underwent a comprehensive workup with WBC count 12.8, hemoglobin 13.8, platelets 243, PTT 69.6, hip x-ray unremarkable, creatinine 0.68. The pharmacy at our hospital does not carry factor VIII. The patient was initially admitted with impression that the patient's family will bring factor VIII which could then be administered to the patient. The family however brought his cousins medications which were different dosages and the pharmacy thereby could not formulate the medication to be 3018-1323 units and thus could not be administered. Review of Systems Pertinent positives and negatives as discussed in HPI, a complete review of systems was performed and all other systems are negative. Past Medical History Past Medical History: Hyperlipidemia Additional Past Medical History / Comment(s): hemophilia A, kidney stones, Hep C History of Any Multi-Drug Resistant Organisms: None Reported Past Surgical History: No Surgical Hx Reported Additional Past Surgical History / Comment(s): lithotripsy Past Anesthesia/Blood Transfusion Reactions: No Reported Reaction Additional Past Anesthesia/Blood Transfusion Reaction / Comment(s): Pt has never had anesthesia. He received blood when he was around 9 yrs old. Past Psychological History: ADD/ADHD, Anxiety, Bipolar, Depression Smoking Status: Current every day smoker Past Alcohol Use History: Rare Past Drug Use History: Heroin, Marijuana - Past Family History Father History Unknown: Yes Additional Family Medical History / Comment(s): patient does not know any medical history on him. Mother Additional Family Medical History / Comment(s): Mother is alive at age 50 with history of pulmonary hypertension. Brother(s) Additional Family Medical History / Comment(s): He has 2 brothers with no major medical problems. He has 6 sisters with no major medical problems. He has a grandfather and cousins with hemophilia. Medications and Allergies Home Medications Medication Instructions Recorded Confirmed Type Recombinate 3,200 units IV TUFR 10/19/16 11/28/18 History Allergies Allergy/AdvReac Type Severity Reaction Status Date / Time aspirin AdvReac Unknown Verified 11/28/18 21:34 NSAIDS (Non-Steroidal AdvReac Unknown Verified 11/28/18 21:34 Anti-Inflamma Physical Exam Vitals: Vital Signs Temp Pulse Resp BP Pulse Ox 11/28/18 20:03 99.0 F 83 18 137/80 97 Intake and Output 11/28/18 11/28/18 11/29/18 14:59 22:59 06:59 Other: Weight 68.039 kg General: non toxic, in moderate distress from pain, appears at stated age, normal weight Derm: no unusual rashes/lesions mild bruising over shoulders bilaterally, warm, dry Head: atraumatic, normocephalic, symmetric Eyes: EOMI, no lid lag, anicteric sclera, pupils equal round reactive to light ENT: Nose and ears atraumatic, no thrush, no pharyngeal erythema Neck: No thyromegaly, no cervical lymphadenopathy, trachea midline, supple Mouth: no lip lesion, mucus membranes moist Cardiovascular: S1S2 reg, no murmur, positive posterior tibial pulse bilateral, no edema, capillary refill less than 2 seconds Lungs: CTA bilateral, no rhonchi, no rales , no accessory muscle use Abdominal: soft, nontender to palpation, no guarding, no appreciable organomegaly, normal bowel sounds Ext: muscle strength 5 out of 5 in all extremities grossly except left hip due to severe pain, limited range of motion of left hip due to pain, normal range of motion of left knee and left ankle no contractures, no overlying left hip bruising or other skin abnormalities noted Neuro: CN II-XI grossly intact, light touch intact all 4 extremities, finger to nose within normal limits, Psych: Alert, oriented, appropriate affect Results CBC & Chem 7: 11/28/18 20:25 11/28/18 20:25 Labs: Abnormal Lab Results - Last 24 Hours (Table) 11/28/18 11/28/18 11/28/18 Range/Units 20:25 20:25 20:25 WBC 12.8 H (3.8-10.6) k/uL Neutrophils # 9.0 H (1.3-7.7) k/uL APTT 69.6 H (22.0-30.0) sec Chloride 108 H (98-107) mmol/L Glucose 129 H (74-99) mg/dL ALT 109 H (21-72) U/L Assessment and Plan Plan: Left hip pain likely secondary to left hip hemarthrosis -Patient will require factor VIII administration -Since our pharmacy does not carry the medication, we'll transfer the patient to [facility] -Continue with pain control with morphine Bipolar disorder -Patient does not follow-up with a psychiatrist and hasn't taken any psychiatric medications for several years Hepatitis C -Patient does not follow with a GI. Will need outpatient follow-up
[2018-11-28] MEDS ORDERED: traMADol 50 MG TAB PO STA (23:46)
[2018-11-29 00:01] VITALS: BP 123/70; PULSE 69; TEMP 98.5
[2018-11-29] MEDS: HYDROmorphone 1 MG/ML 1 ML SYRINGE IVP PRN (00:40)
--- NOTE | 2018-11-29 04:25 | P.DS ---
Providers Date of admission: 11/28/18 21:14 Expected date of discharge: 11/28/18 Attending physician: Bharat Topete MD Consults: 11/28/18 21:14 Consult Physician Stat Consulting Provider: Dale Alarcon Consult Reason/Comments: hemophilia A left hip hemarthrosis, Do you want consulting provider notified?: Already Contacted Primary care physician: Stated None Hospital Course: The patient is a 28-year-old male with a PMH of hemophilia A, bipolar disorder, and hepatitis C who presented to the ED for severe left hip pain. The patient notes that he gets episodes of hemarthrosis once monthly, usually in the elbows , hip, or ankles, for which he self administers 3200 IU factor VIII q12h on first day and then 3200 international units once daily on day 2 and day 3 after which the episodes usually resolve. The patient notes that this episode of hip pain is very similar to that his previous episodes. The patient notes he has run out of the medication for the last 2 weeks since his insurance has lapsed. He notes that the pain started earlier today upon awakening and is 10 out of 10 , nonradiating. He denied chest pain, shortness of breath, fever, chills, cough , nausea, vomiting, diarrhea. He denied any additional bleeding including nosebleeds, gum bleeding, bruising, or joint pain elsewhere. The patient does not have a PCP and has not followed with a physician about a year. The ED physician contacted hematology fire prevention forester, who recommended administration of 3200- 3400 factor VIII international units. In the emergency room, the patient underwent a comprehensive workup with WBC count 12.8, hemoglobin 13.8, platelets 243, PTT 69.6, hip x-ray unremarkable, creatinine 0.68. The pharmacy at our hospital does not carry factor VIII. The patient was initially admitted with impression that the patient's family will bring factor VIII which could then be administered to the patient. The family however brought his cousins medications which were different dosages and the pharmacy thereby could not formulate the medication to be 9403-6977 units and thus could not be administered. The patient was presented to [facility] and accepted under Dr Dougherty. Patient Condition at Discharge: Undetermined Plan - Discharge Summary New Discharge Prescriptions: No Action Recombinate 3,200 units IV TUFR Discharge Medication List Recombinate 3,200 units IV TUFR 10/19/16 [History] Follow up Appointment(s)/Referral(s): None,Stated [Primary Care Provider] - 1-2 days Discharge Disposition: DISCH/TRANS TO A [facility]
[2018-12-01] MEDS ORDERED: ANTIHEMOPHILIC FACTOR IV SCH (22:41)
== END 2018-11-29 02:32 ==
LOC: EC 19:37 → 4MS4W 21:14
PROVIDERS: ADMIT Internal Medicine; ATTEND Internal Medicine
DX: M25.052 Hemarthrosis, left hip (principal); D66 Hereditary factor VIII deficiency; F31.9 Bipolar disorder, unspecified; B19.20 Unspecified viral hepatitis C without hepatic coma; F17.200 Nicotine dependence, unspecified, uncomplicated; T45.8X6A Underdosing of other primarily systemic and hematological agents, initial encounter; Z91.128 Patient's intentional underdosing of medication regimen for other reason; Z91.19 Patient's noncompliance with other medical treatment and regimen; Z87.442 Personal history of urinary calculi; Z82.49 Family history of ischemic heart disease and other diseases of the circulatory system; Z88.6 Allergy status to analgesic agent; Z88.8 Allergy status to other drugs, medicaments and biological substances
CPT/HCPCS: 96376; 96374; 96375; 99285; 36415; 80053; 85025; 85730; 73502; G0378 ×2; J2270; J1170 ×2

== ENCOUNTER 2019-03-30 19:16 | Emergency (ER) | payer OTHER ==
[2019-03-30 19:25] VITALS: BP 139/89; PULSE 105; RESP 16; TEMP 98.7
[2019-03-30] MEDS ORDERED: HYDROcodone/APAP 5-325MG 1 EACH TAB PO STA (19:31)
--- NOTE | 2019-03-30 19:40 | ED ---
General Adult HPI - General Chief complaint: Extremity Injury, Lower Stated complaint: Rt Ankle Swelling Time Seen by Provider: 03/30/19 19:26 Source: patient, RN notes reviewed Mode of arrival: wheelchair Limitations: physical limitation - History of Present Illness Initial comments: 28-year-old male presents to the emergency department for chief complaint of right ankle pain. Patient states that he was walking in the [place] yesterday when he twisted his right ankle. States that he also has hemophilia a he believes this is contributing to the pain. Patient states that Dr. Desai is coming in the mail tomorrow for him by until then he wanted to have something for pain and to make sure nothing else was wrong with his ankle. Patient has no other complaints at this time including shortness of breath, chest pain, abdominal pain, nausea or vomiting, headache, or visual changes. - Related Data Home Medications Medication Instructions Recorded Confirmed Recombinate 3,200 units IV TUFR 10/19/16 11/28/18 Allergies Allergy/AdvReac Type Severity Reaction Status Date / Time aspirin AdvReac Unknown Verified 03/30/19 19:25 NSAIDS (Non-Steroidal AdvReac Unknown Verified 03/30/19 19:25 Anti-Inflamma Review of Systems ROS Statement: Those systems with pertinent positive or pertinent negative responses have been documented in the HPI. ROS Other: All systems not noted in ROS Statement are negative. Past Medical History Past Medical History: Hyperlipidemia Additional Past Medical History / Comment(s): hemophilia A, kidney stones, Hep C History of Any Multi-Drug Resistant Organisms: None Reported Past Surgical History: No Surgical Hx Reported Additional Past Surgical History / Comment(s): lithotripsy Past Anesthesia/Blood Transfusion Reactions: No Reported Reaction Additional Past Anesthesia/Blood Transfusion Reaction / Comment(s): Pt has never had anesthesia. He received blood when he was around 9 yrs old. Past Psychological History: ADD/ADHD, Anxiety, Bipolar, Depression Smoking Status: Current every day smoker Past Alcohol Use History: Rare Past Drug Use History: Heroin, Marijuana - Past Family History Father History Unknown: Yes Additional Family Medical History / Comment(s): patient does not know any medical history on him. Mother Additional Family Medical History / Comment(s): Mother is alive at age 50 with history of pulmonary hypertension. Brother(s) Additional Family Medical History / Comment(s): He has 2 brothers with no major medical problems. He has 6 sisters with no major medical problems. He has a grandfather and cousins with hemophilia. General Exam Limitations: physical limitation General appearance: alert, in no apparent distress Head exam: Present: atraumatic, normocephalic, normal inspection Eye exam: Present: normal appearance, PERRL, EOMI. Absent: scleral icterus, conjunctival injection, periorbital swelling ENT exam: Present: normal exam, mucous membranes moist Neck exam: Present: normal inspection, full ROM. Absent: tenderness, meningismus, lymphadenopathy Respiratory exam: Present: normal lung sounds bilaterally. Absent: respiratory distress, wheezes, rales, rhonchi, stridor Cardiovascular Exam: Present: regular rate, normal rhythm, normal heart sounds. Absent: systolic murmur, diastolic murmur, rubs, gallop, clicks Extremities exam: Present: normal inspection, full ROM (Full range of motion of the right ankle), tenderness (Tenderness noted to the lateral malleolus of the right ankle), normal capillary refill (Capillary refill less than 2 seconds, DP pulse 2+ in the right lower extremity), joint swelling (She does have some mild edema noted to the right ankle essentially along the lateral malleolus, no ecchymosis present.). Absent: pedal edema, calf tenderness Neurological exam: Present: alert, oriented X3, CN II-XII intact Psychiatric exam: Present: normal affect, normal mood Course Vital Signs 03/30/19 19:23 Temperature 98.7 F Pulse Rate 105 H Respiratory 16 Rate Blood Pressure 139/89 O2 Sat by Pulse 98 Oximetry Medical Decision Making - Medical Decision Making 28-year-old male with a past medical history of hemophilia presents for right ankle pain after twisting it yesterday. Mild edema noted to the lateral ankle. No significant contusion or ecchymosis present. X-ray shows significant osteoarthritis. No fracture. No significant change compared to old exam. Patient states he has factor VIII coming tomorrow. Patient given [place] here in the emergency department. Patient will follow-up with manager golf and primary care. Will return here for any worsening symptoms. Disposition Clinical Impression: Hemophilia A, Ankle pain, right Disposition: HOME SELF-CARE Condition: Good Instructions (If sedation given, give patient instructions): Swollen Joint (ED) Additional Instructions: Please keep Rg wrap on ankle. Please take Tylenol for pain. Use factor VIII tomorrow when it arrives. Follow-up with primary care and hematology tomorrow. Return here for any worsening symptoms. Is patient prescribed a controlled substance at d/c from ED?: No Referrals: Carlyle Potts MD [Primary Care Provider] - 1-2 days Time of Disposition: 20:36
--- NOTE | 2019-03-30 20:01 | XR ---
EXAMINATION TYPE: XR ankle complete RT DATE OF EXAM: 03/30/2019 COMPARISON: 05/21/2018 HISTORY: Ankle pain and swelling TECHNIQUE: 3 views FINDINGS: There is some narrowing of the ankle joint space with extensive subchondral cystic change o n both sides of the ankle joint. There is spurring of the anterior and posterior malleolus. I see no fracture. Subtalar joint is intact. IMPRESSION: Significant osteoarthritis of the ankle joint with subchondral cystic change. No fracture . No significant change compared to old exam.
[2019-03-30] MEDS ORDERED: ACET/COD 300 MG/30 MG STARTER PACK 6 TAB BTL PO STA (20:41)
== END 2019-03-30 21:28 | disposition home or self-care (01) ==
LOC: EC 19:16
DX: M25.571 Pain in right ankle and joints of right foot (principal); D66 Hereditary factor VIII deficiency; M19.071 Primary osteoarthritis, right ankle and foot; F17.200 Nicotine dependence, unspecified, uncomplicated; Z88.6 Allergy status to analgesic agent
CPT/HCPCS: 99283

== ENCOUNTER 2019-06-21 08:20 | Emergency (ER) | payer OTHER ==
--- NOTE | 2019-06-21 08:51 | ED ---
General Adult HPI - General Chief complaint: Recheck/Abnormal Lab/Rx Stated complaint: swelling to ribs Time Seen by Provider: 06/21/19 08:34 Source: patient, family, RN notes reviewed Mode of arrival: ambulatory Limitations: no limitations - History of Present Illness Initial comments: Patient is a pleasant 28-year-old male presenting to the emergency Department with complaints of swelling to the right anterior lower ribs. Onset of symptoms was yesterday. Symptoms have somewhat worsened since that time. Patient states the area does feel somewhat swollen. Patient has discomfort of the ribs. Discomfort increases with deep breaths and movements. No erythema. No fevers. No history of similar symptoms previously. Mother does question if he could have a small amount of bleeding in this area secondary to his history of hemophilia. - Related Data Home Medications Medication Instructions Recorded Confirmed Recombinate 3,200 units IV TUFR 10/19/16 06/21/19 Allergies Allergy/AdvReac Type Severity Reaction Status Date / Time aspirin AdvReac Unknown Verified 06/21/19 08:55 NSAIDS (Non-Steroidal AdvReac Unknown Verified 06/21/19 08:55 Anti-Inflamma Review of Systems ROS Statement: Those systems with pertinent positive or pertinent negative responses have been documented in the HPI. ROS Other: All systems not noted in ROS Statement are negative. Constitutional: Denies: fever Eyes: Denies: eye pain ENT: Denies: ear pain Respiratory: Denies: cough, dyspnea Cardiovascular: Reports: as per HPI Endocrine: Denies: fatigue Gastrointestinal: Denies: abdominal pain Genitourinary: Denies: dysuria Musculoskeletal: Denies: back pain Skin: Denies: rash Neurological: Denies: weakness Past Medical History Past Medical History: Hyperlipidemia Additional Past Medical History / Comment(s): hemophilia A, kidney stones, Hep C History of Any Multi-Drug Resistant Organisms: None Reported Past Surgical History: No Surgical Hx Reported Additional Past Surgical History / Comment(s): lithotripsy Past Anesthesia/Blood Transfusion Reactions: No Reported Reaction Additional Past Anesthesia/Blood Transfusion Reaction / Comment(s): Pt has never had anesthesia. He received blood when he was around 9 yrs old. Past Psychological History: ADD/ADHD, Anxiety, Bipolar, Depression Smoking Status: Current every day smoker Past Alcohol Use History: Rare Past Drug Use History: Heroin, Marijuana - Past Family History Father History Unknown: Yes Additional Family Medical History / Comment(s): patient does not know any medical history on him. Mother Additional Family Medical History / Comment(s): Mother is alive at age 50 with history of pulmonary hypertension. Brother(s) Additional Family Medical History / Comment(s): He has 2 brothers with no major medical problems. He has 6 sisters with no major medical problems. He has a grandfather and cousins with hemophilia. General Exam Limitations: no limitations General appearance: alert, in no apparent distress Head exam: Present: atraumatic Eye exam: Present: normal appearance Neck exam: Present: normal inspection Respiratory exam: Present: normal lung sounds bilaterally, chest wall tenderness (Right anterior chest lateral to the sternum with area of 3 x 4 cm of soft tissue swelling with tenderness. No fluctuance. No warmth. No erythema.) Cardiovascular Exam: Present: regular rate, normal rhythm GI/Abdominal exam: Present: soft. Absent: tenderness Extremities exam: Present: normal inspection Neurological exam: Present: alert Psychiatric exam: Present: normal affect, normal mood Skin exam: Present: normal color Course Vital Signs 06/21/19 08:27 Temperature 97.5 F L Pulse Rate 101 H Respiratory 18 Rate Blood Pressure 136/87 O2 Sat by Pulse 100 Oximetry - Reevaluation(s) Reevaluation #1: 06/21/19 08:50 Patient states he does take his factor VIII replacement twice weekly. Patient states when he does have some bleeding he increases his dose. Patient states he will do this. Medical Decision Making - Medical Decision Making Patient reevaluated and resting comfortably in bed. Patient and mother updated on results and need for follow-up. Patient states he does have prescription for his factor VIII, and will take this. Patient states we do not have this medication at her pharmacy here. I did check this and was unable to order it through ER prescription. Patient is comfortable with discharge and taking his medication as directed. Patient does add that he may have lifted something yesterday that could lead to this problem. Patient will return if symptoms worsen. Patient also advised to look for redness or warmth. Disposition Clinical Impression: Strain of chest wall Disposition: HOME SELF-CARE Condition: Stable Instructions (If sedation given, give patient instructions): Hemophilia (ED), Muscle Strain (ED) Additional Instructions: Please have your factor VIII filled and take as soon as possible. Please follow-up with your oracle fusion developer this week. Return for increased pain, increased swelling, fever, redness, warmth, worsening symptoms or other concerns. Is patient prescribed a controlled substance at d/c from ED?: No Referrals: Carlyle Potts MD [Primary Care Provider] - 1-2 days Time of Disposition: 09:26
--- NOTE | 2019-06-21 09:08 | XR ---
EXAMINATION TYPE: XR ribs RT w pa chest xray DATE OF EXAM: 06/21/2019 COMPARISON: NONE HISTORY: Pain TECHNIQUE: Single view of the chest 4 views of the ribs are submitted. FINDINGS: The lungs are clear. No Evidence for pneumothorax. No evidence for focal contusion. Medi astinal structures are midline. Evaluation of the ribs fails to demonstrate evidence for displaced r ib fracture or secondary sign of rib fracture. IMPRESSION: Negative study
[2019-06-21] MEDS ORDERED: HYDROcodone/APAP 5-325MG 1 EACH TAB PO STA (09:23)
[2019-06-21 09:43] VITALS: BP 132/76; PULSE 97; RESP 17; TEMP 98
== END 2019-06-21 09:43 | disposition home or self-care (01) ==
LOC: EC 08:20
DX: S29.011A Strain of muscle and tendon of front wall of thorax, initial encounter (principal); D66 Hereditary factor VIII deficiency; F17.200 Nicotine dependence, unspecified, uncomplicated; Z88.6 Allergy status to analgesic agent; Z79.899 Other long term (current) drug therapy; X58.XXXA Exposure to other specified factors, initial encounter
CPT/HCPCS: 99283

== ENCOUNTER 2019-08-22 23:19 | Emergency (ER) | payer OTHER ==
[2019-08-22 23:25] VITALS: RESP 18
[2019-08-22] MEDS ORDERED: Acetaminophen-Codeine 300-30mg TAB PO STA (23:29)
--- NOTE | 2019-08-22 23:31 | ED ---
General Adult HPI - General Chief complaint: Extremity Injury, Upper Stated complaint: Lt Elbow Injury Time Seen by Provider: 08/22/19 23:26 Source: patient Mode of arrival: ambulatory Limitations: no limitations - History of Present Illness Initial comments: Patient is a 28-year-old male with a chief complaint of left elbow pain. Patient reports yesterday he was sweeping when he felt a "pop" and a gradual loss of the pain. Patient reports when he woke up this morning the pain has increased in severity along with swelling of the left elbow. Patient reports limited range of motion due to pain. Patient denies any numbness or tingling. Patient reports taking Tylenol with minimal improvement. Patient denies any trauma to the region. - Related Data Home Medications Medication Instructions Recorded Confirmed Recombinate 3,200 units IV TUFR 10/19/16 06/21/19 Allergies Allergy/AdvReac Type Severity Reaction Status Date / Time aspirin AdvReac Unknown Verified 08/22/19 23:25 NSAIDS (Non-Steroidal AdvReac Unknown Verified 08/22/19 23:25 Anti-Inflamma Review of Systems ROS Statement: Those systems with pertinent positive or pertinent negative responses have been documented in the HPI. ROS Other: All systems not noted in ROS Statement are negative. Past Medical History Past Medical History: Hyperlipidemia Additional Past Medical History / Comment(s): hemophilia A, kidney stones, Hep C History of Any Multi-Drug Resistant Organisms: None Reported Past Surgical History: No Surgical Hx Reported Additional Past Surgical History / Comment(s): lithotripsy Past Anesthesia/Blood Transfusion Reactions: No Reported Reaction Additional Past Anesthesia/Blood Transfusion Reaction / Comment(s): Pt has never had anesthesia. He received blood when he was around 9 yrs old. Past Psychological History: ADD/ADHD, Anxiety, Bipolar, Depression Smoking Status: Current every day smoker Past Alcohol Use History: Rare Past Drug Use History: Heroin, Marijuana - Past Family History Father History Unknown: Yes Additional Family Medical History / Comment(s): patient does not know any medical history on him. Mother Additional Family Medical History / Comment(s): Mother is alive at age 50 with history of pulmonary hypertension. Brother(s) Additional Family Medical History / Comment(s): He has 2 brothers with no major medical problems. He has 6 sisters with no major medical problems. He has a grandfather and cousins with hemophilia. General Exam Limitations: no limitations General appearance: alert, in no apparent distress Head exam: Present: atraumatic, normocephalic, normal inspection Eye exam: Present: normal appearance Pupils: Present: normal accommodation ENT exam: Present: normal exam, normal oropharynx, mucous membranes moist Neck exam: Present: normal inspection Respiratory exam: Present: normal lung sounds bilaterally Cardiovascular Exam: Present: regular rate, normal rhythm, normal heart sounds Extremities exam: Present: tenderness (Tenderness along the medial aspect of the left elbow and distal humerus.), normal capillary refill, joint swelling (Left elbow), other (+2 ulnar and radial pulses bilaterally.). Absent: normal inspection (Swelling of the left elbow. No erythema.), full ROM (Limited range of motion due to pain) Back exam: Present: normal inspection, full ROM Neurological exam: Present: alert, oriented X3 Psychiatric exam: Present: normal affect, normal mood Skin exam: Present: warm, dry, intact, normal color Course Vital Signs 08/22/19 08/23/19 23:22 00:21 Temperature 98.2 F 98 F Pulse Rate 103 H 77 Respiratory 18 18 Rate Blood Pressure 149/87 139/79 O2 Sat by Pulse 99 98 Oximetry Medical Decision Making - Medical Decision Making Patient is 28-year-old male presenting to the emergency room with a chief complaint of left elbow pain. There is onset of pain after patient felt a pop. Physical examination there is swelling with limited range of motion in the left elbow. X-rays negative. I suspect the bicep injury which is causing the pain. Patient given a Tylenol 3 starter pack. Patient advised about possible side effects of the medication. She given a sling advised to follow-up with orthopedics. Strict return parameters were thoroughly discussed the patient was understanding and agreeable. Case discussed with physician. Disposition Clinical Impression: Pain and swelling of left elbow Disposition: HOME SELF-CARE Condition: Stable Instructions (If sedation given, give patient instructions): Elbow Sprain (ED) Additional Instructions: Please follow up in computer specialist. Please return to emergency department if symptoms worsen. Alternate between Tylenol and ibuprofen for pain control. Is patient prescribed a controlled substance at d/c from ED?: No Referrals: None,Stated [Primary Care Provider] - 1-2 days Brayan Ramirez DO [Doctor of Osteopathic Medicine] - 1-2 days Time of Disposition: 00:17
--- NOTE | 2019-08-22 23:41 | XR ---
EXAMINATION TYPE: XR elbow complete LT DATE OF EXAM: 08/22/2019 COMPARISON: NONE HISTORY: Elbow pain TECHNIQUE: 3 views FINDINGS: I see no fracture nor dislocation. Joint spaces are fairly normal. There is no sign of elbo w joint effusion. IMPRESSION: Negative left elbow exam.
[2019-08-23] MEDS ORDERED: ACET/COD 300 MG/30 MG STARTER PACK 6 TAB BTL PO STA (00:10)
[2019-08-23 00:21] VITALS: BP 139/79; PULSE 77; TEMP 98
== END 2019-08-23 00:21 | disposition home or self-care (01) ==
LOC: EC 23:19
DX: M25.522 Pain in left elbow (principal); M25.422 Effusion, left elbow; F17.200 Nicotine dependence, unspecified, uncomplicated; Z88.6 Allergy status to analgesic agent
CPT/HCPCS: 99283

== ENCOUNTER 2019-08-23 19:03 | Emergency (ER) | payer OTHER ==
[2019-08-23 19:07] VITALS: TEMP 98.7
[2019-08-23] MEDS ORDERED: HYDROmorphone 1 MG/ML 1 ML SYRINGE IM STA (19:33)
--- NOTE | 2019-08-23 19:35 | ED ---
General Adult HPI - General Chief complaint: Extremity Injury, Upper Stated complaint: elbow pain-revisit Time Seen by Provider: 08/23/19 19:08 Source: patient, RN notes reviewed Mode of arrival: ambulatory Limitations: no limitations - History of Present Illness Initial comments: 28-year-old male with a past medical history of hemophilia a, hepatitis C, hyperlipidemia presents to the emergency department for left elbow pain. Patient had an injury of the left elbow 2 days ago. States that he was doing housework when he felt a pop in his left elbow. States that since that time he has had pain and swelling. Patient states he believes this is related to his hemophilia. he did have an x-ray completed less than 24 hours ago which was negative. There is no sign of joint effusion. No fracture or dislocation was evident. He does have a remote history of IV drug abuse, denies any recent use of IV drugs. Again patient had an x-ray yesterday that did not show any evidence of foreign body in the antecubital area. Patient states that he did take his Factor last night and is scheduled to take it again tonight. States that he is just here for pain management. He denies fevers or chills.Patient has no other complaints at this time including shortness of breath, chest pain, abdominal pain, nausea or vomiting, headache, or visual changes. - Related Data Home Medications Medication Instructions Recorded Confirmed Recombinate 3,200 units IV TUFR 10/19/16 06/21/19 Allergies Allergy/AdvReac Type Severity Reaction Status Date / Time aspirin AdvReac Unknown Verified 08/23/19 19:07 NSAIDS (Non-Steroidal AdvReac Unknown Verified 08/23/19 19:07 Anti-Inflamma Review of Systems ROS Statement: Those systems with pertinent positive or pertinent negative responses have been documented in the HPI. ROS Other: All systems not noted in ROS Statement are negative. Past Medical History Past Medical History: Hyperlipidemia Additional Past Medical History / Comment(s): hemophilia A, kidney stones, Hep C History of Any Multi-Drug Resistant Organisms: None Reported Past Surgical History: No Surgical Hx Reported Additional Past Surgical History / Comment(s): lithotripsy Past Anesthesia/Blood Transfusion Reactions: No Reported Reaction Additional Past Anesthesia/Blood Transfusion Reaction / Comment(s): Pt has never had anesthesia. He received blood when he was around 9 yrs old. Past Psychological History: ADD/ADHD, Anxiety, Bipolar, Depression Smoking Status: Current every day smoker Past Alcohol Use History: Rare Past Drug Use History: Heroin, Marijuana - Past Family History Father History Unknown: Yes Additional Family Medical History / Comment(s): patient does not know any medical history on him. Mother Additional Family Medical History / Comment(s): Mother is alive at age 50 with history of pulmonary hypertension. Brother(s) Additional Family Medical History / Comment(s): He has 2 brothers with no major medical problems. He has 6 sisters with no major medical problems. He has a grandfather and cousins with hemophilia. General Exam Limitations: no limitations General appearance: alert, in no apparent distress Head exam: Present: atraumatic, normocephalic, normal inspection Eye exam: Present: normal appearance, PERRL, EOMI. Absent: scleral icterus, conjunctival injection, periorbital swelling ENT exam: Present: normal exam, mucous membranes moist Neck exam: Present: normal inspection, full ROM. Absent: tenderness, meningismus, lymphadenopathy Respiratory exam: Present: normal lung sounds bilaterally. Absent: respiratory distress, wheezes, rales, rhonchi, stridor Cardiovascular Exam: Present: regular rate, normal rhythm, normal heart sounds. Absent: systolic murmur, diastolic murmur, rubs, gallop, clicks GI/Abdominal exam: Present: normal bowel sounds Extremities exam: Present: tenderness (Generalized tenderness of the left elbow.), normal capillary refill (I believe refill less than 2 seconds, radial pulse 2+ in the left upper extremity.), joint swelling (Patient does have moderate amount of generalized edema noted of the left elbow. No prominence of the olecranon to signify bursitis. This is non-erythematous. Minimally warm to touch. No significant concern for infection.). Absent: full ROM (Limited range of motion of the left elbow. Elbow is held in 90 flexion secondary to pain.) Course Vital Signs 08/23/19 19:05 Temperature 98.7 F Pulse Rate 97 Respiratory 20 Rate Blood Pressure 165/111 O2 Sat by Pulse 100 Oximetry Medical Decision Making - Medical Decision Making X-ray report was reviewed from earlier today which was unremarkable. Neurovascular status intact in the left upper extremity. Patient has an edematous left elbow with minimal warmth, no erythema. Pain is likely related to hemarthrosis secondary to hemophilia. Patient is already taking his factor as needed. He is due for another dose tonight. Patient states he just needs his pain managed here in the emergency department today. She was given IM Di laudid. Patient will follow-up with his primary care provider at his appointment in 2 days. He will return here if he has any worsening symptoms such as signs of infection or worsening swelling which were discussed with him. Disposition Clinical Impression: Elbow pain, left, Hemophilia A Disposition: HOME SELF-CARE Condition: Good Instructions (If sedation given, give patient instructions): Elbow Sprain (ED), Hemarthrosis (ED) Additional Instructions: Please follow-up with primary care doctor at your appointment or tomorrow if possible. Take your factor as directed. Return to the emergency department if you have any worsening symptoms. Is patient prescribed a controlled substance at d/c from ED?: No Referrals: Carlyle Potts MD [Primary Care Provider] - 1-2 days Time of Disposition: 19:39
[2019-08-23] MEDS ORDERED: ACET/COD 300 MG/30 MG STARTER PACK 6 TAB BTL PO STA (19:46)
[2019-08-23 19:53] VITALS: BP 151/104; PULSE 90; RESP 18
== END 2019-08-23 19:51 | disposition home or self-care (01) ==
LOC: EC 19:03
DX: M25.522 Pain in left elbow (principal); D66 Hereditary factor VIII deficiency; F17.200 Nicotine dependence, unspecified, uncomplicated; Z88.6 Allergy status to analgesic agent
CPT/HCPCS: 99283; 96372; J1170

== ENCOUNTER 2019-10-25 18:34 | Emergency (ER) | payer OTHER ==
--- NOTE | 2019-10-25 19:00 | ED ---
Overdose HPI - General Stated Complaint: Overdose Time Seen by Provider: 10/25/19 18:34 Source: patient, EMS, RN notes reviewed Mode of arrival: EMS - History of Present Illness Initial Comments: This is a 29-year-old male history of anxiety disorder as well as heroin abuse and other substance abuse who is brought in by EMS after they were called for an unresponsive male. He was suspected that he overdosed on heroin he does admit to using 3 mg of Xanax to go to sleep earlier today approximately for half hours prior to arrival. He is awake alert oriented history per paramedics. He was given no reversal agents. 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 He denies any current headache dizziness blurry vision nausea vomiting fevers chills sweats chest pain shortness breath palpitations or other symptoms MD Complaint: other - Related Data Home Medications Medication Instructions Recorded Confirmed Recombinate 3,200 units IV TUFR 10/19/16 06/21/19 Allergies Allergy/AdvReac Type Severity Reaction Status Date / Time aspirin AdvReac Unknown Verified 08/23/19 19:07 NSAIDS (Non-Steroidal AdvReac Unknown Verified 08/23/19 19:07 Anti-Inflamma Review of Systems ROS Statement: Those systems with pertinent positive or pertinent negative responses have been documented in the HPI. ROS Other: All systems not noted in ROS Statement are negative. Past Medical History Past Medical History: Hyperlipidemia Additional Past Medical History / Comment(s): hemophilia A, kidney stones, Hep C History of Any Multi-Drug Resistant Organisms: None Reported Past Surgical History: No Surgical Hx Reported Additional Past Surgical History / Comment(s): lithotripsy Past Anesthesia/Blood Transfusion Reactions: No Reported Reaction Additional Past Anesthesia/Blood Transfusion Reaction / Comment(s): Pt has never had anesthesia. He received blood when he was around 9 yrs old. Past Psychological History: ADD/ADHD, Anxiety, Bipolar, Depression Smoking Status: Current every day smoker Past Alcohol Use History: Rare Past Drug Use History: Heroin, Marijuana - Past Family History Father History Unknown: Yes Additional Family Medical History / Comment(s): patient does not know any medical history on him. Mother Additional Family Medical History / Comment(s): Mother is alive at age 50 with history of pulmonary hypertension. Brother(s) Additional Family Medical History / Comment(s): He has 2 brothers with no major medical problems. He has 6 sisters with no major medical problems. He has a grandfather and cousins with hemophilia. General Exam - General Exam Comments Initial Comments: This is a well-developed well-nourished awake alert oriented times 3 male General appearance: alert, in no apparent distress Head exam: Present: atraumatic, normocephalic, normal inspection Eye exam: Present: normal appearance, PERRL, EOMI. Absent: scleral icterus, conjunctival injection, periorbital swelling ENT exam: Present: normal exam, mucous membranes moist Neck exam: Present: normal inspection. Absent: tenderness, meningismus, lymphadenopathy Respiratory exam: Present: normal lung sounds bilaterally. Absent: respiratory distress, wheezes, rales, rhonchi, stridor Cardiovascular Exam: Present: regular rate, normal rhythm, normal heart sounds. Absent: systolic murmur, diastolic murmur, rubs, gallop, clicks GI/Abdominal exam: Present: soft, normal bowel sounds. Absent: distended, tenderness, guarding, rebound, rigid Extremities exam: Present: normal inspection, full ROM, normal capillary refill. Absent: tenderness, pedal edema, joint swelling, calf tenderness Back exam: Present: normal inspection Neurological exam: Present: alert, oriented X3, CN II-XII intact Psychiatric exam: Present: normal affect, normal mood Skin exam: Present: warm, dry, intact, normal color. Absent: rash Medical Decision Making - Medical Decision Making Patient is awake alert oriented 3 with no other complaints at this time and no other issues that he wants addressed he will be discharged he does have a ride home he states. No further workup is indicated at this time. Disposition Clinical Impression: Accidental overdose, Benzodiazepine abuse Disposition: HOME SELF-CARE Condition: Good Instructions (If sedation given, give patient instructions): Benzodiazepine Overdose (ED) Is patient prescribed a controlled substance at d/c from ED?: No Referrals: Carlyle Potts MD [Primary Care Provider] - 1-2 days
[2019-10-25 19:08] VITALS: TEMP 97.4
[2019-10-25 19:27] VITALS: BP 107/83; PULSE 91; RESP 16
== END 2019-10-25 19:25 | disposition home or self-care (01) ==
LOC: EC 18:34
DX: F13.10 Sedative, hypnotic or anxiolytic abuse, uncomplicated (principal); T50.901A Poisoning by unspecified drugs, medicaments and biological substances, accidental (unintentional), initial encounter; F17.200 Nicotine dependence, unspecified, uncomplicated; Z88.6 Allergy status to analgesic agent
CPT/HCPCS: 99284

== ENCOUNTER 2020-12-21 08:09 | Emergency (ER) | payer OTHER ==
[2020-12-21 08:14] VITALS: TEMP 97.8
[2020-12-21] MEDS ORDERED: HYDROmorphone 1 MG/ML 1 ML SYRINGE IM STA ×2 (08:22→09:11)
--- NOTE | 2020-12-21 08:35 | ED ---
General Adult HPI - General Chief complaint: Back Pain/Injury Stated complaint: Lower Back Pain Time Seen by Provider: 12/21/20 08:16 Source: patient, RN notes reviewed, old records reviewed Mode of arrival: wheelchair Limitations: no limitations - History of Present Illness Initial comments: 30-year-old male presents for evaluation of low back pain. Pain began suddenly yesterday while the patient was standing and coughed here pain in his low back, midline. He does have some radiating pain to the right. No weakness. He denies bowel or bladder issues. He states he had a normal bowel movement and urinated normally this morning. He denies saddle anesthesia. He denies fever. 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 Patient denies any specific trauma. Denies fever or chills. Denies abdominal pain nausea vomiting. - Related Data Home Medications Medication Instructions Recorded Confirmed Recombinate 3,200 units IV MOTH 10/19/16 12/21/20 Previous Rx's Medication Instructions Recorded Hydrocodone/Acetaminophen [[place] 1 tab PO Q6HR PRN 3 Days #12 tab 12/21/20 7.5-325] Allergies Allergy/AdvReac Type Severity Reaction Status Date / Time aspirin AdvReac Unknown Verified 12/21/20 08:49 NSAIDS (Non-Steroidal AdvReac Unknown Verified 12/21/20 08:49 Anti-Inflamma Review of Systems ROS Statement: Those systems with pertinent positive or pertinent negative responses have been documented in the HPI. ROS Other: All systems not noted in ROS Statement are negative. Past Medical History Past Medical History: Hyperlipidemia Additional Past Medical History / Comment(s): hemophilia A, kidney stones, Hep C History of Any Multi-Drug Resistant Organisms: None Reported Past Surgical History: No Surgical Hx Reported Additional Past Surgical History / Comment(s): lithotripsy Past Anesthesia/Blood Transfusion Reactions: No Reported Reaction Additional Past Anesthesia/Blood Transfusion Reaction / Comment(s): Pt has never had anesthesia. He received blood when he was around 9 yrs old. Past Psychological History: ADD/ADHD, Anxiety, Bipolar, Depression Smoking Status: Current every day smoker Past Alcohol Use History: Rare Past Drug Use History: Heroin, Marijuana - Past Family History Father History Unknown: Yes Additional Family Medical History / Comment(s): patient does not know any medical history on him. Mother Additional Family Medical History / Comment(s): Mother is alive at age 50 with history of pulmonary hypertension. Brother(s) Additional Family Medical History / Comment(s): He has 2 brothers with no major medical problems. He has 6 sisters with no major medical problems. He has a grandfather and cousins with hemophilia. General Exam Limitations: no limitations General appearance: alert, in no apparent distress Head exam: Present: atraumatic, normocephalic Eye exam: Present: normal appearance, PERRL ENT exam: Present: normal exam Neck exam: Present: normal inspection. Absent: tenderness, meningismus Respiratory exam: Present: normal lung sounds bilaterally. Absent: respiratory distress, wheezes Cardiovascular Exam: Present: regular rate, normal rhythm GI/Abdominal exam: Present: soft. Absent: distended, tenderness, guarding, rebound Extremities exam: Present: normal inspection, normal capillary refill. Absent: pedal edema, calf tenderness Back exam: Present: vertebral tenderness (lumbar) Neurological exam: Present: alert, oriented X3, other (Normal sensation in the lower legs, normal strength, 5 out of 5, normal plantar flexion bilaterally). Absent: motor sensory deficit Psychiatric exam: Present: normal affect, normal mood Skin exam: Present: warm, dry, intact Course Vital Signs 12/21/20 08:10 Temperature 97.8 F Pulse Rate 104 H Respiratory 20 Rate Blood Pressure 149/100 O2 Sat by Pulse 100 Oximetry Medical Decision Making - Medical Decision Making 30-year-old male with low back pain after coughing. Patient has oxycodone prescribed by his electronics processor but has been out for approximately one week. Additionally he is scheduled to receive his Jivi for hemophilia. He states that he typically does run out of his pain medication which I think may be worsening this low back pain. CT is performed, negative for acute fracture or dislocation, there is multilevel bulging disks, no large central herniated disc. I did discuss findings with the patient in the possible need for MRI if symptoms persist. Patient states he is not able to take anti-inflammatories until he receives his hemophilia medication which he currently takes twice weekly. Therefore he is prescribed Dilaudid in the emergency department for pain. His mother who is bedside has been able to contact electronics processor regarding medication refill. Patient will be prescribed short course of [place] for pain he will follow with orthopedics if symptoms persist. He will return to the emergency department with worsening symptoms. Disposition Clinical Impression: Strain of lumbar region Disposition: HOME SELF-CARE Condition: Fair Instructions (If sedation given, give patient instructions): Acute Low Back Pain (ED) Additional Instructions: Please follow with your electronics processor and primary care. Please follow up with orthopedics if symptoms persist. Please return to the emergency department if symptoms worsen or change abruptly. Prescriptions: Hydrocodone/Acetaminophen [[place] 7.5-325] 1 tab PO Q6HR PRN 3 Days #12 tab PRN Reason: Severe Pain Is patient prescribed a controlled substance at d/c from ED?: No Referrals: None,Stated [Primary Care Provider] - 1-2 days Time of Disposition: 09:15
--- NOTE | 2020-12-21 08:57 | CT ---
EXAMINATION TYPE: CT lumbar spine wo con DATE OF EXAM: 12/21/2020 COMPARISON: None HISTORY: 30-year-old male acute Low back pain TECHNIQUE: Contiguous axial scanning of the lumbar spine without IV contrast. Coronal and sagittal re constructions performed. CT DLP: 616.4 mGycm Automated exposure control for dose reduction was used. FINDINGS: Mild bulging discs are present throughout. Vertebral body heights and alignment are preserved. No acute fracture is seen. No large focal disc herniation or significant spinal canal stenosis is identified by CT. Changes appear to contribute to possible mild neural foraminal narrowing on both sides at L4-L5 and L 5-S1. IMPRESSION: 1. BULGING DISKS AT MULTIPLE LEVELS. HOWEVER, NO LARGE FOCAL DISC HERNIATION OR CANAL COMPROMISE IS I DENTIFIED BY CT. 2. BULGING DISKS APPEAR TO CONTRIBUTE TO POSSIBLE MILD NEUROFORAMINAL NARROWING ON BOTH SIDES AT L4-L 5 AND L5-S1. IF SYMPTOMS PERSIST, CONSIDER MRI.
[2020-12-21 09:41] VITALS: BP 120/101; PULSE 75; RESP 17
== END 2020-12-21 09:46 | disposition home or self-care (01) ==
LOC: EC 08:09
DX: S39.012A Strain of muscle, fascia and tendon of lower back, initial encounter (principal); E78.5 Hyperlipidemia, unspecified; F17.200 Nicotine dependence, unspecified, uncomplicated; F32.9 Major depressive disorder, single episode, unspecified; F41.9 Anxiety disorder, unspecified; F12.90 Cannabis use, unspecified, uncomplicated; F15.90 Other stimulant use, unspecified, uncomplicated; X58.XXXA Exposure to other specified factors, initial encounter
CPT/HCPCS: 72131; 99283; 96372; J1170

== ENCOUNTER 2021-04-02 08:58 | Observation (INO) | payer OTHER ==
[2021-04-02] MEDS ORDERED: MORPHINE SULFATE 4 MG/ML SYRINGE IV STA (09:16)
[2021-04-02] MEDS ORDERED: DESMOPRESSIN ACETATE 20 MCG in SODIUM CHLORIDE 0.9% 50 ML IV ONE (09:17)
--- NOTE | 2021-04-02 09:20 | ED ---
General Adult HPI - General Chief complaint: Extremity Problem,Nontraumatic Stated complaint: Lt Elbow Injury Time Seen by Provider: 04/02/21 09:06 Source: patient Mode of arrival: ambulatory Limitations: no limitations - History of Present Illness Initial comments: Dictation was produced using evidanza dictation software. please excuse any grammatical, word or spelling errors. Chief Complaint: 30-year-old male with history of severe hemophilia a History of Present Illness: 30-year-old male he states that he has severe hemophilia. He has type A. Patient sees a hemophilia specialists at [facility]. His morning he woke up with severe elbow pain. He states that this typical of his symptoms hemophilia symptoms. Patient states he's been admitted for hemophilia complications in the past. He has had multiple rounds of hemophilia treatment. He called his hemophilia doctor today and was instructed to come to the emergency department. Patient states he was doing fine yesterday. The ROS documented in this emergency department record has been reviewed and confirmed by me. Those systems with pertinent positive or negative responses have been documented in the HPI. All other systems are other negative and/or noncontributory. PHYSICAL EXAM: General Impression: Alert and oriented x3, acute distress secondary to pain HEENT: Normocephalic atraumatic, extra-ocular movements intact, pupils equal and reactive to light bilaterally, mucous membranes moist. Cardiovascular: Heart regular rate and rhythm Chest: Able to complete full sentences, no retractions, no tachypnea Abdomen: abdomen soft, non-tender, non-distended, no organomegaly Musculoskeletal: Pulses present and equal in all extremities, no peripheral edema Motor: no focal deficits noted Neurological: CN II-XII grossly intact, no focal motor or sensory deficits noted Skin: Intact with no visualized rashes Psych: Normal affect and mood Left elbow: Effusion in the left elbow, nonerythematous overlying skin ED course: 30-year-old male with hemophilia type A presents emergency Department with left elbow pain. As upon arrival shows heart rate 121, rest of vital signs within acceptable limits. Patient clinical presentation concerning for hemarthrosis secondary to hemophilia a. I did call the lab and we do have the factor VIII assay. I did call the pharmacist however who reports that we do not have any factor VIII or factor VIII containing treatments in our hospital. I did speak with just an from the pharmacy who was able to get factor VIII del ivered from outside hospital. He says that this medicine should be available for administration and 4 hours. That would be at approximately 1:30 PM. Patient was given option for transfer to [facility] or to be admitted and wait for the treatment. Patient would prefer to be admitted to our hospital. Hematology will be on consult. Case discussed with sound physician Dr. Richardson. Factor VIII therapy ordered. - Related Data Home Medications Medication Instructions Recorded Confirmed Recombinate 3,200 units IV MOTH 10/19/16 12/21/20 Previous Rx's Medication Instructions Recorded Hydrocodone/Acetaminophen [[place] 1 tab PO Q6HR PRN 3 Days #12 tab 12/21/20 7.5-325] Allergies Allergy/AdvReac Type Severity Reaction Status Date / Time aspirin AdvReac Unknown Verified 04/02/21 09:06 NSAIDS (Non-Steroidal AdvReac Unknown Verified 04/02/21 09:06 Anti-Inflamma Review of Systems ROS Statement: Those systems with pertinent positive or pertinent negative responses have been documented in the HPI. ROS Other: All systems not noted in ROS Statement are negative. Past Medical History Past Medical History: Hyperlipidemia Additional Past Medical History / Comment(s): hemophilia A, kidney stones, Hep C History of Any Multi-Drug Resistant Organisms: None Reported Past Surgical History: No Surgical Hx Reported Additional Past Surgical History / Comment(s): lithotripsy Past Anesthesia/Blood Transfusion Reactions: No Reported Reaction Additional Past Anesthesia/Blood Transfusion Reaction / Comment(s): Pt has never had anesthesia. He received blood when he was around 9 yrs old. Past Psychological History: ADD/ADHD, Anxiety, Bipolar, Depression Smoking Status: Current every day smoker Past Alcohol Use History: Rare Past Drug Use History: Heroin, Marijuana - Past Family History Father History Unknown: Yes Additional Family Medical History / Comment(s): patient does not know any medical history on him. Mother Additional Family Medical History / Comment(s): Mother is alive at age 50 with history of pulmonary hypertension. Brother(s) Additional Family Medical History / Comment(s): He has 2 brothers with no major medical problems. He has 6 sisters with no major medical problems. He has a grandfather and cousins with hemophilia. General Exam Limitations: no limitations Course Vital Signs 04/02/21 09:05 Temperature 98.2 F Pulse Rate 121 H Respiratory 18 Rate Blood Pressure 163/86 O2 Sat by Pulse 99 Oximetry Medical Decision Making - Lab Data Result diagrams: 04/02/21 09:34 Lab Results 04/02/21 Range/Units 09:34 WBC 9.1 (3.8-10.6) k/uL RBC 4.58 (4.30-5.90) m/uL Hgb 14.4 (13.0-17.5) gm/dL Hct 41.9 (39.0-53.0) % MCV 91.6 (80.0-100.0) fL MCH 31.5 (25.0-35.0) pg MCHC 34.3 (31.0-37.0) g/dL RDW 12.5 (11.5-15.5) % Plt Count 265 (150-450) k/uL MPV 7.4 Neutrophils % 71 % Lymphocytes % 22 % Monocytes % 4 % Eosinophils % 2 % Basophils % 0 % Neutrophils # 6.4 (1.3-7.7) k/uL Lymphocytes # 2.0 (1.0-4.8) k/uL Monocytes # 0.4 (0-1.0) k/uL Eosinophils # 0.1 (0-0.7) k/uL Basophils # 0.0 (0-0.2) k/uL Disposition Clinical Impression: Hemarthrosis Disposition: ADMITTED IP TO THIS HOSP Condition: Fair Referrals: None,Stated [Primary Care Provider] - 1-2 days
[2021-04-02] MEDS ORDERED: MD COMMUNICATION TO PHARMACY 1 EACH MISC PO PRN (09:36)
[2021-04-02 09:52] LABS: Basophils % (A) 0 %; Eosinophils # (A) 0.1 k/uL (0-0.7); Eosinophils % (A) 2 %; HCT 41.9 % (39.0-53.0); HGB 14.4 gm/dL (13.0-17.5); Lymphocytes % (A) 22 %; MCH 31.5 pg (25.0-35.0); MCHC 34.3 g/dL (31.0-37.0); MCV 91.6 fL (80.0-100.0); Mean Platelet Volume 7.4; Monocytes # (A) 0.4 k/uL (0-1.0); Monocytes % (A) 4 %; Neutrophils # (A) 6.4 k/uL (1.3-7.7); Neutrophils % (A) 71 %; Platelet Count 265 k/uL (150-450); RBC 4.58 m/uL (4.30-5.90); RDW 12.5 % (11.5-15.5); WBC 9.1 k/uL (3.8-10.6)
[2021-04-02] MEDS ORDERED: NALOXONE 0.4 MG/ML 1 ML VIAL IV PRN (10:09)
[2021-04-02] MEDS ORDERED: ACETAMINOPHEN TAB 325 MG TAB PO PRN (10:09)
[2021-04-02] MEDS ORDERED: MORPHINE SULFATE 4 MG/ML SYRINGE IV PRN (10:09)
[2021-04-02] MEDS ORDERED: SODIUM CHLORIDE 0.9% 1,000 ML IV SCH (10:15)
[2021-04-02 10:19] LABS: African American GFR (CKD) >90 (>60 ml/min/1.73 sqM); Anion Gap 7 mmol/L; Blood Urea Nitrogen 10 mg/dL (9-20); Calcium 9.1 mg/dL (8.4-10.2); Carbon Dioxide 24 mmol/L (22-30); Chloride 110 mmol/L (98-107); Glucose 119 mg/dL (74-99); Non-African American GFR(CKD) >90 (>60 ml/min/1.73 sqM); Sodium 141 mmol/L (137-145)
[2021-04-02 10:35] LABS: Potassium 4.3 mmol/L (3.5-5.1)
[2021-04-02] MEDS ORDERED: MORPHINE SULFATE 2 MG/ML SYRINGE IV PRN (10:39)
[2021-04-02] MEDS ORDERED: HYDROmorphone 1 MG/ML 1 ML SYRINGE IVP STA ×2 (10:42→13:28)
[2021-04-02 10:44] LABS: Partial Thromboplastin Time 52.5 sec (22.0-30.0)
[2021-04-02] MEDS ORDERED: HYDROcodone/APAP 5-325MG 1 EACH TAB PO PRN (11:43)
--- NOTE | 2021-04-02 12:12 | P.HPIM ---
History of Present Illness H&P Date: 04/02/21 Chief Complaint: Left elbow pain This is a 30-year-old male with complex past medical history noted below significant for hemophilia A that presented to the emergency room with left elbow pain and swelling. Patient said he woke up this morning with significant pain in his left elbow associated with swelling and limited range of motion. He said that this is very similar to prior hemarthrosis episode that he had. He does not recall when was the last time he had hemarthrosis in the left elbow. He is having severe pain that he rates as 10 out of 10 despite getting IV pain medication in the ER. Patient was in tears when I saw him. I was able to palpate his radial pulse on the left. Patient is able to move all of his fingers and has good sensation. Factor VIII ordered from blood bank for transfusion and will not arrive until later this afternoon. Review of Systems Review of system: 14 points review of systems were obtained and were negative except to what were mentioned in the HPI. 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 History of Any Multi-Drug Resistant Organisms: None Reported Past Surgical History: No Surgical Hx Reported Additional Past Surgical History / Comment(s): lithotripsy Past Anesthesia/Blood Transfusion Reactions: No Reported Reaction Additional Past Anesthesia/Blood Transfusion Reaction / Comment(s): Pt has never had anesthesia. He received blood in past without reaction. Past Psychological History: ADD/ADHD, Anxiety, Bipolar, Depression Additional Psychological History / Comment(s): Pt resides with his mother. He does not drive due to his anxiety-he states his mother can drive him to appts. He has depression and past suicidal thoughts and attempt but denies thoughts or plans of suicide or harming himself at this time. Smoking Status: Current every day smoker Past Alcohol Use History: Rare Additional Past Alcohol Use History / Comment(s): Pt started smoking in 2002 and is a ppd smoker. Past Drug Use History: Cocaine, Heroin, Marijuana, Methamphetamine Additional Drug Use History / Comment(s): Pt states he smokes marijuana 10 joints a day. He states he has not used other drugs in years. - Past Family History Father History Unknown: Yes Additional Family Medical History / Comment(s): patient does not know any medical history on him. Mother Family Medical History: Respiratory Disorder Additional Family Medical History / Comment(s): Mother is alive at age 56 with history of pulmonary hypertension. Brother(s) Additional Family Medical History / Comment(s): He has 2 brothers with no major medical problems. He has 6 sisters with no major medical problems. He has a grandfather and cousins with hemophilia. Medications and Allergies Home Medications Medication Instructions Recorded Confirmed Type Jivi Recombination Infusion 2,600 units IV MOTH 04/02/21 04/02/21 History oxyCODONE HCL [oxyCODONE HCL (IR)] 10 mg PO TID 04/02/21 04/02/21 History Allergies Allergy/AdvReac Type Severity Reaction Status Date / Time aspirin AdvReac Unknown Verified 04/02/21 09:06 NSAIDS (Non-Steroidal AdvReac Unknown Verified 04/02/21 09:06 Anti-Inflamma Physical Exam Vitals: Vital Signs Temp Pulse Resp BP Pulse Ox 04/02/21 10:48 98.1 F 93 18 137/87 98 04/02/21 09:05 98.2 F 121 H 18 163/86 99 Intake and Output 04/01/21 04/02/21 04/02/21 22:59 06:59 14:59 Other: Weight 66.678 kg General: The patient is awake and alert, in no distress Eye: there is normal conjunctiva bilaterally. Neck: The neck is supple, there is no JVD. Cardiovascular: Normal S1-S2, no S3-S4, no murmurs. Respiratory: Lungs clear to auscultation bilaterally Gastrointestinal: Abdomen is soft, nontender Musculoskeletal: There is no pedal edema. There is significant swelling of the left shoulder with severe tenderness to mild palpation. There is no erythema or warmth. Limited range of motion. Strong radialis pulses on the left. Neurological:. Speech is normal. Skin: Skin is warm and dry Results CBC & Chem 7: 04/02/21 09:34 04/02/21 09:34 Labs: Abnormal Lab Results - Last 24 Hours (Table) 04/02/21 04/02/21 Range/Units 09:34 09:34 APTT 52.5 H (22.0-30.0) sec Chloride 110 H (98-107) mmol/L Creatinine 0.59 L (0.66-1.25) mg/dL Glucose 119 H (74-99) mg/dL Assessment and Plan Assessment: This is a 30-year-old male complex past medical history noted below that presented to the emergency room with severe pain involving his left elbow associated with swelling. Patient was evaluated in the ER and will be placed on observation for further management of his medical problems noted below 1. Spontaneous hemarthrosis of the left elbow: Factor VIII transfusion ordered. No evidence of infection. I would check CRP and ESR. I would also consult orthopedic surgery for further evaluation 2. Hemophilia A: Hematology consulted for further management 3. Chronic medical problems: Underlying bipolar disorder, chronic hepatitis C Today, I reviewed his medication list and lab work results. Pain control with IV morphine and Slick as directed. Place patient on observation. Continue to monitor clinical status closely.
[2021-04-02] MEDS ORDERED: ANTIHEMOPHILIC FACTOR IVP ONE (13:00)
[2021-04-02] MEDS ORDERED: HYDROmorphone 1 MG/ML 1 ML SYRINGE IVP PRN (13:42)
--- NOTE | 2021-04-02 15:24 | XR ---
Left elbow HISTORY: Pain Four views the left elbow correlation prior exam 08/22/2019 There is spurring and joint space loss in the medial compartment of the left elbow, subchondral geode formation, eburnation is noted. Some hypertrophic changes present along the lateral aspect of the di stal left humerus, correlate for history of trauma. There is soft tissue swelling present. Lateral ex am shows possible loose bodies. IMPRESSION: Correlate for remote history of trauma. There may be secondary osteoarthritis, synovial o steochondromatosis. Soft tissue swelling.
[2021-04-02] MEDS ORDERED: MORPHINE SULFATE 2 MG/ML SYRINGE IVP PRN (15:40)
--- NOTE | 2021-04-02 15:44 | P.CONS ---
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 He is seen today for follow-up.Moose continues to manage his hemophilia. On the average he has had 1 to 2 bleeds a week requiring factor infusion. He did not follow up in the office since 11/27. Compliance in the past has also been an issue. Since 11/27, he stated that he has had multiple visits to the ER mainly for anxiety issues, and joint pains. He states that the rt elbow is most affected, and he has been told that he may need surgery. We not not had any information re these visits. Per his mother , he has been diagnosed with bipolar disorder. However, it is not clear as to what treatment , if any,he is receiving. In 11/27, he had been having increased symptoms and recombinate dose was increased. He stated that the increased dose is working for him ( though he also claimed ER visits for joint related issues). He has continued to get refills through this office. He otherwise denies any unusual bleeding. He's not complaining any nosebleeds, hematuria, melena or bright red blood per rectum. He's not had any unusual weight loss. Last seen by myself in January 2020, It was rediscussed and re-enforced - At last office visit with Dr. Alarcon a long discussion was had regarding the need to seek more aggressive care for his complex case at a multidisplinary center. His compliance has been erratic and he has not been seen in two years. Despite many in depth conversations and assistance with setting up appointments for other centers, [facility], he has not followed through. He now calls asking for refill of his medication, even though he has not followed through with the recommendations as of two years prior. The concern is in an emergency situation, appropriate and immediate care will be difficult at the local hospitals without having a set relationship with multidisplinary tertiary center ([facility] or [facility]). In the current picture of our COVID pandemic Dr. Alarcon has agreed to supply him with his needed presciptions, although it was strongly advised he improve overall compliance and follow-through with recommendations as these are imperative to his overall outcomes, especially given an emergency situation. 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 History of Any Multi-Drug Resistant Organisms: None Reported Past Surgical History: No Surgical Hx Reported Additional Past Surgical History / Comment(s): lithotripsy Past Anesthesia/Blood Transfusion Reactions: No Reported Reaction Additional Past Anesthesia/Blood Transfusion Reaction / Comm: Pt has never had anesthesia. He received blood in past without reaction. Past Psychological History: ADD/ADHD, Anxiety, Bipolar, Depression Additional Psychological History / Comment(s): Pt resides with his mother. He does not drive due to his anxiety-he states his mother can drive him to appts. He has depression and past suicidal thoughts and attempt but denies thoughts or plans of suicide or harming himself at this time. Smoking Status: Current every day smoker Past Alcohol Use History: Rare Additional Past Alcohol Use History / Comment(s): Pt started smoking in 2002 and is a ppd smoker. Past Drug Use History: Cocaine, Heroin, Marijuana, Methamphetamine Additional Drug Use History / Comment(s): Pt states he smokes marijuana 10 joints a day. He states he has not used other drugs in years. - Past Family History Father History Unknown: Yes Additional Family Medical History / Comment(s): patient does not know any medical history on him. Mother Family Medical History: Respiratory Disorder Additional Family Medical History / Comment(s): Mother is alive at age 56 with history of pulmonary hypertension. Brother(s) Additional Family Medical History / Comment(s): He has 2 brothers with no major medical problems. He has 6 sisters with no major medical problems. He has a grandfather and cousins with hemophilia. Medications and Allergies Home Medications Medication Instructions Recorded Confirmed Type Jivi Recombination Infusion 2,600 units IV MOTH 04/02/21 04/02/21 History oxyCODONE HCL [oxyCODONE HCL (IR)] 10 mg PO TID 04/02/21 04/02/21 History Allergies Allergy/AdvReac Type Severity Reaction Status Date / Time aspirin AdvReac Unknown Verified 04/02/21 09:06 NSAIDS (Non-Steroidal AdvReac Unknown Verified 04/02/21 09:06 Anti-Inflamma Physical Exam Vitals: Vital Signs Temp Pulse Resp BP Pulse Ox 04/02/21 14:15 61 18 98 04/02/21 13:53 68 18 128/97 98 04/02/21 10:48 98.1 F 93 18 137/87 98 04/02/21 09:05 98.2 F 121 H 18 163/86 99 Intake and Output 04/02/21 04/02/21 04/02/21 06:59 14:59 22:59 Other: Weight 66.678 kg - Constitutional General appearance: cooperative, no acute distress - EENT Eyes: EOMI, PERRLA ENT: NA/AT, normal oropharynx - Neck Neck: normal ROM - Respiratory Respiratory: bilateral: CTA - Cardiovascular Rhythm: regularly irregular - Gastrointestinal General gastrointestinal: soft, tenderness - Integumentary Leftelbow swelling - Neurologic Neurologic: CNII-XII intact - Musculoskeletal Musculoskeletal: generalized weakness, strength equal bilaterally - Psychiatric Psychiatric: A&O x's 3, appropriate affect Results CBC & Chem 7: 04/02/21 09:34 04/02/21 15:42 Labs: Abnormal Lab Results - Last 24 Hours (Table) 04/02/21 04/02/21 04/02/21 Range/Units 09:34 09:34 09:34 APTT 52.5 H (22.0-30.0) sec Chloride 110 H (98-107) mmol/L Creatinine 0.59 L (0.66-1.25) mg/dL Glucose 119 H (74-99) mg/dL C-Reactive Protein 1.2 H (<1.0) mg/dL Assessment and Plan (1) Hemophilia A Status: Acute Code(s): D66 - HEREDITARY FACTOR VIII DEFICIENCY SNOMED Code(s): 24078437 (2) Left elbow pain Status: Acute Code(s): M25.522 - PAIN IN LEFT ELBOW SNOMED Code(s): 30089832 Plan: Assessment and Recommendations: Hemophilia A: - Factor VIII ordered and awaiting to administer - If in the interim concern can give Amicar and DDAVP -Check Mixing studies - PTT independantly prolonged Left Elbow swelling Patients ore mixer is out [facility] and because of his complex care required recommend transfer to [facility] Case was discussed with ER physician
[2021-04-02 16:03] LABS: ALT 41 U/L (4-49); AST 27 U/L (17-59); African American GFR (CKD) >90 (>60 ml/min/1.73 sqM); Albumin 4.2 g/dL (3.5-5.0); Albumin/Globulin Ratio 1.5; Alkaline Phosphatase 65 U/L (38-126); Anion Gap 6 mmol/L; Blood Urea Nitrogen 10 mg/dL (9-20); Calcium 8.9 mg/dL (8.4-10.2); Carbon Dioxide 29 mmol/L (22-30); Chloride 108 mmol/L (98-107); Globulin 2.8 g/dL; Glucose 92 mg/dL (74-99); Non-African American GFR(CKD) >90 (>60 ml/min/1.73 sqM); Potassium 4.1 mmol/L (3.5-5.1); Sodium 143 mmol/L (137-145); Total Bilirubin 0.5 mg/dL (0.2-1.3)
[2021-04-02 17:08] VITALS: BP 121/71; PULSE 53; RESP 19; TEMP 97.9
--- NOTE | 2021-04-02 17:37 | P.DS ---
Providers Date of admission: 04/02/21 10:09 Expected date of discharge: 04/02/21 Attending physician: Mj Richardson Consults: 04/02/21 09:38 Consult Physician Stat Consulting Provider: Josef Meeks Consult Reason/Comments: hemophilia, hemearthrosis Do you want consulting provider notified?: Yes 04/02/21 11:42 Consult Physician Routine Consulting Provider: Jairo Fink Consult Reason/Comments: Hemarthrosis with severe pain Do you want consulting provider notified?: Yes Primary care physician: Stated None Hospital Course: Patient left the hospital AGAINST MEDICAL ADVICE Patient was complaining of uncontrolled pain and was not satisfied with his pain despite receiving IV Dilaudid, IV morphine, and oral [place]. He was clearly exhibiting pain medication seeking behavior. After receiving factor VIII transfusion he decided to leave the hospital AGAINST MEDICAL ADVICE. He verbalizes understanding the risk of leaving prior to complete evaluation. For further details about this hospitalization please refer to the electronic chart. Patient Condition at Discharge: Poor Plan - Discharge Summary Discharge Rx Participant: No New Discharge Prescriptions: No Action oxyCODONE HCL [oxyCODONE HCL (IR)] 10 mg PO TID Jivi Recombination Infusion 2,600 units IV MOTH Discharge Medication List Jivi Recombination Infusion 2,600 units IV MOTH 04/02/21 [History] oxyCODONE HCL [oxyCODONE HCL (IR)] 10 mg PO TID 04/02/21 [History] Follow up Appointment(s)/Referral(s): None,Stated [Primary Care Provider] - 1-2 days
--- NOTE | 2021-04-02 18:17 | P.DS ---
Providers Date of admission: 04/02/21 10:09 Expected date of discharge: 04/02/21 Attending physician: Mj Richardson Consults: 04/02/21 09:38 Consult Physician Stat Consulting Provider: Josef Meeks Consult Reason/Comments: hemophilia, hemearthrosis Do you want consulting provider notified?: Yes 04/02/21 11:42 Consult Physician Routine Consulting Provider: Jairo Fink Consult Reason/Comments: Hemarthrosis with severe pain Do you want consulting provider notified?: Yes Primary care physician: Stated None Hospital Course: This is a 30-year-old male complex past medical history noted below that presented to the emergency room with severe pain involving his left elbow associated with swelling. Patient was evaluated in the ER and will be placed on observation for further management of his medical problems noted below 1. Spontaneous hemarthrosis of the left elbow: Factor VIII transfed. No evidence of infection. CRP and ESR normal. Seen and evaluated by orthopedic. No intervention needed at this time. 2. Hemophilia A: Hematology consulted 3. Chronic medical problems: Underlying bipolar disorder, chronic hepatitis C Patient will be discharged home in a stable condition. He will follow-up with [facility] hematology clinic as directed. Patient Condition at Discharge: Poor Plan - Discharge Summary Discharge Rx Participant: No New Discharge Prescriptions: Continue oxyCODONE HCL [oxyCODONE HCL (IR)] 10 mg PO TID Jivi Recombination Infusion 2,600 units IV MOTH Discharge Medication List Jivi Recombination Infusion 2,600 units IV MOTH 04/02/21 [History] oxyCODONE HCL [oxyCODONE HCL (IR)] 10 mg PO TID 04/02/21 [History] Follow up Appointment(s)/Referral(s): None,Stated [Primary Care Provider] - 1-2 days Discharge Disposition: HOME SELF-CARE
[2021-04-03 01:02] LABS: Albumin 4.2 g/dL (3.80-4.90); Albumin/Globulin Ratio 1.5 (1.60-3.17); Bilirubin, Conjugated 0.3 mg/dL (0.20-0.40); Bilirubin,Unconjugated 0.4 mg/dL; Globulin 2.8 g/dL (1.6-3.3); Total Bilirubin 0.7 mg/dL (0.2-1.2)
== END 2021-04-02 19:02 | disposition home or self-care (01) ==
LOC: EC 08:58 → 5NMEDONC 10:09 → INTOOBSV 10:09 → 5NMEDONC 11:39 → UNDODISIN 19:02
PROVIDERS: ADMIT Internal Medicine; ATTEND Internal Medicine
DX: M25.022 Hemarthrosis, left elbow (principal); D66 Hereditary factor VIII deficiency; B18.2 Chronic viral hepatitis C; F31.9 Bipolar disorder, unspecified; E78.5 Hyperlipidemia, unspecified; H91.92 Unspecified hearing loss, left ear; M19.90 Unspecified osteoarthritis, unspecified site; F90.9 Attention-deficit hyperactivity disorder, unspecified type; F41.9 Anxiety disorder, unspecified; F17.210 Nicotine dependence, cigarettes, uncomplicated; Z20.822 Contact with and (suspected) exposure to COVID-19; Z91.19 Patient's noncompliance with other medical treatment and regimen; Z87.442 Personal history of urinary calculi; Z91.5 Personal history of self-harm; Z79.891 Long term (current) use of opiate analgesic; Z79.899 Other long term (current) drug therapy; Z88.8 Allergy status to other drugs, medicaments and biological substances; Z88.6 Allergy status to analgesic agent; Z82.49 Family history of ischemic heart disease and other diseases of the circulatory system; Z83.2 Family history of diseases of the blood and blood-forming organs and certain disorders involving the immune mechanism
CPT/HCPCS: 96376 ×2; 96365; 96375; 99284; 36415; 86900; 86901; 80053; 80048; 80076; 85652; 85025; 85610; 85730; 86850; 86140; 87635; 73080; G0378; J2270 ×2; J1170; J2597; J7192; 99285

== ENCOUNTER 2021-07-29 07:50 | Emergency (ER) | payer OTHER ==
[2021-07-29 07:54] VITALS: BP 140/88; PULSE 124; RESP 18; TEMP 97.9
[2021-07-29] MEDS ORDERED: SODIUM CHLORIDE 0.9% 1,000 ML IV STA (08:19)
[2021-07-29] MEDS ORDERED: MORPHINE SULFATE 4 MG/ML SYRINGE IVP STA (08:19)
[2021-07-29 08:32] LABS: Basophils % (A) 0 %; Eosinophils # (A) 0.1 k/uL (0-0.7); Eosinophils % (A) 1 %; HCT 44.4 % (39.0-53.0); HGB 14.8 gm/dL (13.0-17.5); Lymphocytes # (A) 2.2 k/uL (1.0-4.8); Lymphocytes % (A) 31 %; MCH 31.6 pg (25.0-35.0); MCHC 33.3 g/dL (31.0-37.0); MCV 94.8 fL (80.0-100.0); Monocytes # (A) 0.3 k/uL (0-1.0); Monocytes % (A) 4 %; Neutrophils # (A) 4.2 k/uL (1.3-7.7); Neutrophils % (A) 61 %; Platelet Count 282 k/uL (150-450); RBC 4.68 m/uL (4.30-5.90); RDW 13.1 % (11.5-15.5); WBC 6.9 k/uL (3.8-10.6)
[2021-07-29 08:43] LABS: Appearance,Urine Cloudy (Clear); Bacteria,Urine Few /hpf; Bilirubin,Urine Negative (Negative); Blood,Urine Small (Negative); Color,Urine Light Yellow; Glucose,Urine (UA) Negative (Negative); Ketones,Urine Negative (Negative); Leukocyte Esterase,Urine Large (Negative); Nitrite,Urine Negative (Negative); PH, Urine 7.5 (5.0-8.0); Protein,Urine Negative (Negative); RBC,Urine 5 /hpf (0-5); Specific Gravity,Urine 1.008 (1.001-1.035); Squamous Epithelial Cell,Urine <1 /hpf (0-4); Urobilinogen,Urine <2.0 mg/dL (<2.0); WBC,Urine >182 /hpf (0-5)
[2021-07-29 09:01] LABS: ALT 50 U/L (4-49); AST 35 U/L (17-59); African American GFR (CKD) >90 (>60 ml/min/1.73 sqM); Albumin 3.9 g/dL (3.5-5.0); Alkaline Phosphatase 71 U/L (38-126); Anion Gap 9 mmol/L; Blood Urea Nitrogen 10 mg/dL (9-20); Calcium 9.3 mg/dL (8.4-10.2); Carbon Dioxide 25 mmol/L (22-30); Chloride 107 mmol/L (98-107); Glucose 166 mg/dL (74-99); Non-African American GFR(CKD) >90 (>60 ml/min/1.73 sqM); Potassium 4.1 mmol/L (3.5-5.1); Sodium 141 mmol/L (137-145); Total Bilirubin 0.6 mg/dL (0.2-1.3); Total Protein 7.4 g/dL (6.3-8.2)
--- NOTE | 2021-07-29 09:20 | ED ---
Male Urogenital HPI - General Chief complaint: Urogenital Stated complaint: Poss kidney stone Time Seen by Provider: 07/29/21 08:06 Source: patient, RN notes reviewed, old records reviewed Mode of arrival: ambulatory Limitations: no limitations - History of Present Illness Initial comments: Patient is a 30-year-old male with history of liver disease, hemophilia, presenting to the emergency department complaining of dysuria, left groin pain. He admits that the dysuria and burning has been going on for the past 4 days and then the groin pain started today. He denies any fevers or chills. He has had kidney stones in the past and this frayed this is another one or possibly STD. Does admit to unprotected intercourse. Denies any nausea or vomiting, no fevers or chills, no chest pain or shortness of breath. He has no further complaints at this time. Upon arrival to the ER, he is afebrile, pulse is 120, rest of vitals normal. - Related Data Home Medications Medication Instructions Recorded Confirmed Jivi Recombination Infusion 2,600 units IV MOTH 04/02/21 04/02/21 oxyCODONE HCL [oxyCODONE HCL (IR)] 10 mg PO TID 04/02/21 04/02/21 Previous Rx's Medication Instructions Recorded Cephalexin [Keflex] 500 mg PO Q6HR 7 Days #28 cap 07/29/21 Allergies Allergy/AdvReac Type Severity Reaction Status Date / Time aspirin AdvReac Unknown Verified 07/29/21 07:54 NSAIDS (Non-Steroidal AdvReac Unknown Verified 07/29/21 07:54 Anti-Inflamma Review of Systems ROS Statement: Those systems with pertinent positive or pertinent negative responses have been documented in the HPI. ROS Other: All systems not noted in ROS Statement are negative. 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 History of Any Multi-Drug Resistant Organisms: None Reported Past Surgical History: No Surgical Hx Reported Additional Past Surgical History / Comment(s): lithotripsy Past Anesthesia/Blood Transfusion Reactions: No Reported Reaction Additional Past Anesthesia/Blood Transfusion Reaction / Comment(s): Pt has never had anesthesia. He received blood in past without reaction. Past Psychological History: ADD/ADHD, Anxiety, Bipolar, Depression Smoking Status: Current every day smoker Past Alcohol Use History: Rare Past Drug Use History: Cocaine, Heroin, Marijuana, Methamphetamine - Past Family History Father History Unknown: Yes Additional Family Medical History / Comment(s): patient does not know any medical history on him. Mother Family Medical History: Respiratory Disorder Additional Family Medical History / Comment(s): Mother is alive at age 56 with history of pulmonary hypertension. Brother(s) Additional Family Medical History / Comment(s): He has 2 brothers with no major medical problems. He has 6 sisters with no major medical problems. He has a grandfather and cousins with hemophilia. General Exam - General Exam Comments Initial Comments: GENERAL: Patient is well-developed and well-nourished. Patient is nontoxic and in mild distress. HEAD: Atraumatic, normocephalic. EYES: Pupils equal round and reactive to light, extraocular movements intact, sclera anicteric, conjunctiva are normal. Eyelids were unremarkable. ENT: Moist mucous membranes. NECK: Normal range of motion, supple without lymphadenopathy or JVD. LUNGS: Unlabored respirations. Breath sounds clear to auscultation bilaterally and equal. No wheezes rales or rhonchi. HEART: Regular rate and rhythm without murmurs, rubs or gallops. ABDOMEN: Soft, mildly tender suprapubic area,, normoactive bowel sounds. No guarding, no rebound. No masses appreciated. : Deferred MUSCULOSKELETAL: Normal extremities with adequate strength and normal range of motion, no pitting or edema. No clubbing or cyanosis. NEUROLOGICAL: Patient is alert and oriented x 3. SKIN: Warm, Dry, normal turgor, no rashes or lesions noted. Limitations: no limitations Course Vital Signs 07/29/21 07:52 Temperature 97.9 F Pulse Rate 124 H Respiratory 18 Rate Blood Pressure 140/88 O2 Sat by Pulse 99 Oximetry Medical Decision Making - Medical Decision Making Patient is a 30-year-old male presenting with dysuria, left groin pain. Dysuria is going on for 4 days, groin pains started today. He does have history of kidney stones. Also concerned for possible STDs. No fevers, he was tachycardic upon arrival however this is most likely due to severe pain. Labs show a normal white count, kidney function is normal, urine does show large amount of wbc's in clumps. Small amount of blood. Gonorrhea, chlamydia, trichomonas are all pending at this time. KUB shows no stones, constipation. I discussed these findings with the patient. Patient obese treated with 1 g of Rocephin, azithromycin here in the ER he will be continued on Keflex for UTI. Urine c ulture is pending. He is agreeable to this plan of care. Return parameters were discussed with him and he verbalized understanding. Case discussed with Dr. Serrano. - Lab Data Result diagrams: 07/29/21 08:25 07/29/21 08:25 Lab Results 07/29/21 07/29/21 07/29/21 Range/Units 08:25 08:25 08:25 WBC 6.9 (3.8-10.6) k/uL RBC 4.68 (4.30-5.90) m/uL Hgb 14.8 (13.0-17.5) gm/dL Hct 44.4 (39.0-53.0) % MCV 94.8 (80.0-100.0) fL MCH 31.6 (25.0-35.0) pg MCHC 33.3 (31.0-37.0) g/dL RDW 13.1 (11.5-15.5) % Plt Count 282 (150-450) k/uL MPV 7.0 Neutrophils % 61 % Lymphocytes % 31 % Monocytes % 4 % Eosinophils % 1 % Basophils % 0 % Neutrophils # 4.2 (1.3-7.7) k/uL Lymphocytes # 2.2 (1.0-4.8) k/uL Monocytes # 0.3 (0-1.0) k/uL Eosinophils # 0.1 (0-0.7) k/uL Basophils # 0.0 (0-0.2) k/uL Sodium 141 (137-145) mmol/L Potassium 4.1 (3.5-5.1) mmol/L Chloride 107 (98-107) mmol/L Carbon Dioxide 25 (22-30) mmol/L Anion Gap 9 mmol/L BUN 10 (9-20) mg/dL Creatinine 0.49 L (0.66-1.25) mg/dL Est GFR (CKD-EPI)AfAm >90 (>60 ml/min/1.73 sqM) Est GFR (CKD-EPI)NonAf >90 (>60 ml/min/1.73 sqM) Glucose 166 H (74-99) mg/dL Calcium 9.3 (8.4-10.2) mg/dL Total Bilirubin 0.6 (0.2-1.3) mg/dL AST 35 (17-59) U/L ALT 50 H (4-49) U/L Alkaline Phosphatase 71 (38-126) U/L Total Protein 7.4 (6.3-8.2) g/dL Albumin 3.9 (3.5-5.0) g/dL Urine Color Light Yellow Urine Appearance Cloudy (Clear) Urine pH 7.5 (5.0-8.0) Ur Specific [place] 1.008 (1.001-1.035) Urine Protein Negative (Negative) Urine Glucose (UA) Negative (Negative) Urine Ketones Negative (Negative) Urine Blood Small H (Negative) Urine Nitrite Negative (Negative) Urine Bilirubin Negative (Negative) Urine Urobilinogen <2.0 (<2.0) mg/dL Ur Leukocyte Esterase Large H (Negative) Urine RBC 5 (0-5) /hpf Urine WBC >182 H (0-5) /hpf Urine WBC Clumps Many H (None) /hpf Ur Squamous Epith Cells <1 (0-4) /hpf Urine Bacteria Few H (None) /hpf Disposition Clinical Impression: UTI (urinary tract infection), Dysuria Disposition: HOME SELF-CARE Condition: Stable Instructions (If sedation given, give patient instructions): Urinary Tract Infection in Men (ED) Additional Instructions: Please return to the Emergency Department if symptoms worsen or any other concerns. Take antibiotics as prescribed. Finish entire course. Follow up with your primary. Prescriptions: Cephalexin [Keflex] 500 mg PO Q6HR 7 Days #28 cap Is patient prescribed a controlled substance at d/c from ED?: No Referrals: None,Stated [Primary Care Provider] - 1-2 days Time of Disposition: 10:01
--- NOTE | 2021-07-29 09:29 | XR ---
EXAMINATION TYPE: XR KUB DATE OF EXAM: 07/29/2021 COMPARISON: NONE HISTORY: 30 years Male. STUDY INDICATION GIVEN: left groin pain, possible stone . TECHNIQUE: Upright abdominal radiograph IMPRESSION: There is a large colonic stool burden. There is no evidence for intestinal obstruction. No abnormal calcifications identified. No evidence for organomegaly. Lung bases are clear. The heart is not enlarged. The bones and soft tissue are grossly unremarkable.
[2021-07-29] MEDS ORDERED: MORPHINE SULFATE 2 MG/ML SYRINGE IVP ONE (10:00)
[2021-07-29] MEDS ORDERED: cefTRIAXone IN SWFI 1,000 MG/10 ML SYRINGE IVP STA (10:00)
[2021-07-29] MEDS ORDERED: AZITHROMYCIN 250 MG TAB PO STA (10:00)
[2021-07-31 08:57] LABS: C. trachomatis,PCR Negative (Neg,Equiv); Chlamydia trachomatis Source Urine; N. gonorrhoeae,PCR Negative (Neg,Equiv); Neisseria Source Urine
== END 2021-07-29 10:26 | disposition home or self-care (01) ==
LOC: EC 07:50
DX: N39.0 Urinary tract infection, site not specified (principal); E78.5 Hyperlipidemia, unspecified; F31.9 Bipolar disorder, unspecified; M19.90 Unspecified osteoarthritis, unspecified site; F17.200 Nicotine dependence, unspecified, uncomplicated; F15.90 Other stimulant use, unspecified, uncomplicated; F14.90 Cocaine use, unspecified, uncomplicated; F12.90 Cannabis use, unspecified, uncomplicated; F11.90 Opioid use, unspecified, uncomplicated
CPT/HCPCS: 36415; 80053; 85025; 81001; 87491; 87591; 87086; 74018; 96374; 96375; 96376; 96361; 99284; J2270 ×2; J0696; 87661

== ENCOUNTER 2021-08-27 18:22 | Emergency (ER) | payer OTHER ==
[2021-08-27 18:57] VITALS: TEMP 98.4
--- NOTE | 2021-08-27 19:19 | XR ---
EXAMINATION TYPE: XR chest 2V DATE OF EXAM: 08/27/2021 COMPARISON: NONE HISTORY: Chest pain TECHNIQUE: 2 views FINDINGS: Heart and mediastinum are normal. Lungs are clear. Diaphragm is normal. Bony thorax is inta ct. The pulmonary vascularity is normal. IMPRESSION: Normal chest.
[2021-08-27 19:41] LABS: Basophils % (A) 0 %; Eosinophils # (A) 0.1 k/uL (0-0.7); Eosinophils % (A) 1 %; HCT 42.3 % (39.0-53.0); HGB 14.9 gm/dL (13.0-17.5); Lymphocytes # (A) 3.4 k/uL (1.0-4.8); Lymphocytes % (A) 41 %; MCH 32.5 pg (25.0-35.0); MCHC 35.3 g/dL (31.0-37.0); MCV 92.1 fL (80.0-100.0); Mean Platelet Volume 7.1; Monocytes # (A) 0.3 k/uL (0-1.0); Monocytes % (A) 4 %; Neutrophils # (A) 4.2 k/uL (1.3-7.7); Neutrophils % (A) 51 %; Platelet Count 221 k/uL (150-450); RBC 4.59 m/uL (4.30-5.90); RDW 13.6 % (11.5-15.5); WBC 8.2 k/uL (3.8-10.6)
[2021-08-27 19:56] LABS: ALT 73 U/L (4-49); AST 45 U/L (17-59); African American GFR (CKD) >90 (>60 ml/min/1.73 sqM); Albumin 4.3 g/dL (3.5-5.0); Alkaline Phosphatase 58 U/L (38-126); Anion Gap 9 mmol/L; Blood Urea Nitrogen 10 mg/dL (9-20); Calcium 9.5 mg/dL (8.4-10.2); Carbon Dioxide 26 mmol/L (22-30); Chloride 103 mmol/L (98-107); Glucose 111 mg/dL (74-99); Non-African American GFR(CKD) >90 (>60 ml/min/1.73 sqM); Sodium 138 mmol/L (137-145); Total Bilirubin 0.6 mg/dL (0.2-1.3); Total Protein 7.6 g/dL (6.3-8.2)
[2021-08-27 20:03] LABS: Partial Thromboplastin Time 30.1 sec (22.0-30.0); Prothrombin Time 11.1 sec (9.0-12.0)
--- NOTE | 2021-08-27 21:36 | ED ---
Chest Pain HPI - General Chief Complaint: Chest Pain Stated Complaint: Chest Pain Time Seen by Provider: 08/27/21 20:56 Source: patient Mode of arrival: ambulatory Limitations: no limitations - History of Present Illness Initial Comments: This patient is a 31-year-old man who does self administer IV medication (Factor 8) for hemophilia A. the patient states that over the past approximately 24-36 hours he has noted left chest pain and left arm pain. He describes as an aching, sometimes worse with movement. The patient has not had fever or chills, cough, diaphoresis, nausea or vomiting. No syncope. MD Complaint: chest pain Onset/Timin -: days(s) Onset: during rest Pain Location: left chest Pain Radiation: LUE Severity: severe Quality: aching Consistency: constant Improves With: nothing Worsens With: movement - Related Data Home Medications Medication Instructions Recorded Confirmed Jivi Recombination Infusion 2,500 units IV MOTH 04/02/21 08/27/21 oxyCODONE HCL [oxyCODONE HCL (IR)] 10 mg PO QID PRN 04/02/21 08/27/21 Allergies Allergy/AdvReac Type Severity Reaction Status Date / Time aspirin AdvReac Unknown Verified 08/27/21 22:38 NSAIDS (Non-Steroidal AdvReac Unknown Verified 08/27/21 22:38 Anti-Inflamma Review of Systems ROS Statement: Those systems with pertinent positive or pertinent negative responses have been documented in the HPI. ROS Other: All systems not noted in ROS Statement are negative. Constitutional: Denies: fever, chills, weakness Respiratory: Denies: cough, dyspnea Cardiovascular: Reports: as per HPI, chest pain. Denies: palpitations, orthopnea, edema, syncope Gastrointestinal: Denies: abdominal pain, nausea, vomiting Genitourinary: Denies: dysuria, frequency Musculoskeletal: Reports: myalgia (Left arm). 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 History of Any Multi-Drug Resistant Organisms: None Reported Past Surgical History: No Surgical Hx Reported Additional Past Surgical History / Comment(s): lithotripsy Past Anesthesia/Blood Transfusion Reactions: No Reported Reaction Additional Past Anesthesia/Blood Transfusion Reaction / Comment(s): Pt has never had anesthesia. He received blood in past without reaction. Past Psychological History: ADD/ADHD, Anxiety, Bipolar, Depression Smoking Status: Current every day smoker Past Alcohol Use History: Rare Past Drug Use History: Cocaine, Heroin, Marijuana, Methamphetamine - Past Family History Father History Unknown: Yes Additional Family Medical History / Comment(s): patient does not know any medical history on him. Mother Family Medical History: Respiratory Disorder Additional Family Medical History / Comment(s): Mother is alive at age 56 with history of pulmonary hypertension. Brother(s) Additional Family Medical History / Comment(s): He has 2 brothers with no major medical problems. He has 6 sisters with no major medical problems. He has a grandfather and cousins with hemophilia. General Exam Limitations: no limitations General appearance: alert, in no apparent distress Head exam: Present: atraumatic, normocephalic Eye exam: Present: normal appearance. Absent: scleral icterus, conjunctival injection Neck exam: Present: normal inspection, full ROM Respiratory exam: Present: normal lung sounds bilaterally. Absent: respiratory distress, wheezes, rales, rhonchi, stridor, chest wall tenderness, accessory muscle use Cardiovascular Exam: Present: regular rate, normal rhythm, normal heart sounds. Absent: systolic murmur, diastolic murmur, rubs, gallop GI/Abdominal exam: Present: soft. Absent: distended, tenderness, guarding, rebound, rigid, mass Extremities exam: Present: normal inspection, normal capillary refill. Absent: pedal edema, calf tenderness Back exam: Present: normal inspection. Absent: CVA tenderness (R), CVA tenderness (L) Neurological exam: Present: alert Skin exam: Present: warm, dry, intact, normal color. Absent: rash Course Vital Signs 08/27/21 08/27/21 08/27/21 18:55 20:28 22:00 Temperature 98.4 F Pulse Rate 85 71 57 L Respiratory 16 16 16 Rate Blood Pressure 151/93 139/96 122/78 O2 Sat by Pulse 99 100 98 Oximetry Chest Pain MDM - MDM Patient is 31-year-old man with chest and arm pain. Given his self administration of medicine comprehensive labs are checked including blood c ulture, but patient does not present with any signs of endocarditis. There is no heart murmur. There are no signs of thrombotic process. Discussed appropriate further care and follow-up as well as return parameters. Patient aware that blood cultures will take 24-48 hours to show result. Disposition Clinical Impression: Chest pain Disposition: HOME SELF-CARE Condition: Good Instructions (If sedation given, give patient instructions): Chest Pain (ED) Is patient prescribed a controlled substance at d/c from ED?: No Referrals: None,Stated [Primary Care Provider] - 1-2 days
--- NOTE | 2021-08-27 23:39 | US ---
EXAMINATION TYPE: US venous doppler duplex UE LT DATE OF EXAM: 08/27/2021 COMPARISON: US 2012 CLINICAL HISTORY: LUE pain, possible DVT. No hx of DVT. Pain in left arm. SIDE PERFORMED: Left Left Arm: No evidence of DVT in veins imaged at this time. IMPRESSION: No evidence of deep vein thrombosis in the left arm. There is patency of the subclavian brachial and axillary vein.
[2021-08-28 00:27] VITALS: BP 122/77; PULSE 83; RESP 18
== END 2021-08-28 00:26 | disposition home or self-care (01) ==
LOC: EC 18:22
DX: R07.89 Other chest pain (principal); F17.200 Nicotine dependence, unspecified, uncomplicated; F12.90 Cannabis use, unspecified, uncomplicated; F14.90 Cocaine use, unspecified, uncomplicated; F11.90 Opioid use, unspecified, uncomplicated
CPT/HCPCS: 36415; 71046; 80053; 83735; 84484; 85025; 85379; 85610; 85652; 85730; 87040; 93005; 99285

== ENCOUNTER 2021-09-04 08:49 | Emergency (ER) | payer OTHER ==
--- NOTE | 2021-09-04 10:16 | XR ---
EXAMINATION TYPE: XR elbow complete RT DATE OF EXAM: 09/04/2021 CLINICAL HISTORY: pain TECHNIQUE: Frontal, lateral and oblique images of the right elbow are obtained. COMPARISON: 08/13/2016 FINDINGS: There is no acute fracture/dislocation evident of the elbow. Advanced degenerative change noted throughout the elbow. Mild prominence of the anterior and posterior fat pads. The overlying sof t tissue appears unremarkable. IMPRESSION: There is no acute fracture or dislocation of the elbow. ICD 10 NO FRACTURE, INITIAL EVALUATION
[2021-09-04] MEDS ORDERED: MORPHINE SULFATE 4 MG/ML SYRINGE IM STA (11:09)
--- NOTE | 2021-09-04 11:11 | ED ---
General Adult HPI - General Chief complaint: Extremity Injury, Upper Stated complaint: arm injury Source: patient, RN notes reviewed Mode of arrival: ambulatory Limitations: no limitations - History of Present Illness Initial comments: 31-year-old male was walking his dog yesterday when he injured his right elbow. Patient states it is somewhat swollen. Patient has a history of hemophilia a. He just used his last dose of factor VIII. States he was trying to get a doctor closer to home rather than in [place] so was not following up with his doctor. He does not have anymore doses of factor VIII so came to the emergency room. Patient also requesting pain control. Patient has no other complaints at this time including shortness of breath, chest pain, abdominal pain, nausea or vomiting, headache, or visual changes. - Related Data Home Medications Medication Instructions Recorded Confirmed Jivi Recombination Infusion 2,500 units IV Q14D 04/02/21 09/04/21 Allergies Allergy/AdvReac Type Severity Reaction Status Date / Time aspirin AdvReac Unknown Verified 09/04/21 11:05 NSAIDS (Non-Steroidal AdvReac Unknown Verified 09/04/21 11:05 Anti-Inflamma Review of Systems ROS Statement: Those systems with pertinent positive or pertinent negative responses have been documented in the HPI. ROS Other: All systems not noted in ROS Statement are negative. 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 History of Any Multi-Drug Resistant Organisms: None Reported Past Surgical History: No Surgical Hx Reported Additional Past Surgical History / Comment(s): lithotripsy Past Anesthesia/Blood Transfusion Reactions: No Reported Reaction Additional Past Anesthesia/Blood Transfusion Reaction / Comment(s): Pt has never had anesthesia. He received blood in past without reaction. Past Psychological History: ADD/ADHD, Anxiety, Bipolar, Depression Smoking Status: Current every day smoker Past Alcohol Use History: Rare Past Drug Use History: Cocaine, Heroin, Marijuana, Methamphetamine - Past Family History Father History Unknown: Yes Additional Family Medical History / Comment(s): patient does not know any medical history on him. Mother Family Medical History: Respiratory Disorder Additional Family Medical History / Comment(s): Mother is alive at age 56 with history of pulmonary hypertension. Brother(s) Additional Family Medical History / Comment(s): He has 2 brothers with no major medical problems. He has 6 sisters with no major medical problems. He has a grandfather and cousins with hemophilia. General Exam Limitations: no limitations General appearance: alert, in no apparent distress Head exam: Present: atraumatic Eye exam: Present: normal appearance, PERRL, EOMI. Absent: scleral icterus, conjunctival injection ENT exam: Present: normal exam, mucous membranes moist Neck exam: Present: normal inspection, full ROM. Absent: tenderness Respiratory exam: Present: normal lung sounds bilaterally. Absent: respiratory distress, wheezes Cardiovascular Exam: Present: regular rate, normal rhythm, normal heart sounds GI/Abdominal exam: Present: soft, normal bowel sounds. Absent: distended, tenderness Extremities exam: Present: normal capillary refill (cap refill less than 2 seconds right upper extremity. Radial pulse 2+.). Absent: full ROM (pt has 90 flexion, extension to a nearly neutral position of the right elbow. Mild edema noted of the right elbow.) Neurological exam: Present: alert Course Vital Signs 09/04/21 08:59 Temperature 97.5 F L Pulse Rate 101 H Respiratory 18 Rate Blood Pressure 134/90 O2 Sat by Pulse 99 Oximetry Medical Decision Making - Medical Decision Making Vitals are stable. Patient well-appearing. He does have some mild swelling to the right elbow. Patient does need a dose of factor VIII. Spoke with Ishaan from pharmacy We will do advate. We were both researching the dosing. It looks like for mild to moderate hemorrhage of early hemarthrosis and minor muscle bleed he would do 10-20 units per kilo gram of Advate. Patient was given IM morphine for pain control. Patient is requesting a prescription of her pain medicine however according to he just had 90 Percocet filled 8 days ago. 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 Given fat pads patient will follow up with orthopedics and elbow was placed in a sling. Disposition Clinical Impression: Elbow pain Disposition: HOME SELF-CARE Condition: Good Instructions (If sedation given, give patient instructions): Swollen Joint (ED) Additional Instructions: Take tylenol for pain. Follow-up with your doctor in one to 2 days. Return to the emergency room for any worsening symptoms. Is patient prescribed a controlled substance at d/c from ED?: No Referrals: Brayan Ramirez DO [Doctor of Osteopathic Medicine] - 1-2 days Time of Disposition: 12:00
[2021-09-04] MEDS ORDERED: ANTIHEMOPHILIC FACTOR IVP ONE (11:15)
[2021-09-04] MEDS ORDERED: oxyCODONE-APAP 10-325MG 1 EACH TAB PO STA (12:32)
[2021-09-04 12:48] VITALS: BP 130/77; PULSE 92; RESP 16; TEMP 98
== END 2021-09-04 12:47 | disposition home or self-care (01) ==
LOC: EC 08:49
DX: M25.521 Pain in right elbow (principal); F17.200 Nicotine dependence, unspecified, uncomplicated; F12.90 Cannabis use, unspecified, uncomplicated; F14.90 Cocaine use, unspecified, uncomplicated; F15.90 Other stimulant use, unspecified, uncomplicated
CPT/HCPCS: 73080; 99283; 96374; 96372; J2270; J7192

== ENCOUNTER 2021-12-07 02:01 | Emergency (ER) | payer OTHER ==
[2021-12-07 02:08] VITALS: BP 147/85; PULSE 83; RESP 22; TEMP 97.7
[2021-12-07] MEDS ORDERED: DEXAMETHASONE SOD PHOSPHATE 10 MG/ML 1 ML VIAL IM STA (02:36)
[2021-12-07] MEDS ORDERED: PENICILLIN V POTASSIUM 250 MG TAB PO STA (02:36)
[2021-12-07] MEDS ORDERED: Acetaminophen-Codeine 300-30mg TAB PO STA (02:36)
[2021-12-07] MEDS ORDERED: PENICILLIN VK 500MG STARTER 4 TAB BTL PO STA (02:41)
[2021-12-07] MEDS ORDERED: ACET/COD 300 MG/30 MG STARTER PACK 6 TAB BTL PO STA (02:41)
--- NOTE | 2021-12-07 02:47 | ED ---
ENT HPI - General Chief complaint: Dental/Oral Stated complaint: dental abscess Time Seen by Provider: 12/07/21 02:26 Source: patient, RN notes reviewed, old records reviewed Mode of arrival: ambulatory Limitations: no limitations - History of Present Illness Initial comments: This is a 31-year-old male DF for evaluation patient presents with tooth pain and facial swelling. Patient has a significant history of dental disease and dental caries with multiple missing teeth fracture teeth. Patient states he symptoms just began today he is without fever. Able to eat and drink. Patient has had multiple tooth infections in the past but this is a 40 feels like the most painful MD complaint: tooth pain -: hour(s) Location: tooth # (Right upper) Severity: moderate Severity scale (1-10): 7 Quality: aching Consistency: constant Improves with: none Worsens with: none Context- Dental: history of dental caries Associated Symptoms: toothache, other (non) - Related Data Home Medications Medication Instructions Recorded Confirmed Jivi Recombination Infusion 2,500 units IV Q14D 04/02/21 09/04/21 Previous Rx's Medication Instructions Recorded Penicillin V Potassium [Pen Vee K] 500 mg PO QID #40 tablet 12/07/21 Allergies Allergy/AdvReac Type Severity Reaction Status Date / Time aspirin AdvReac Unknown Verified 12/07/21 02:07 NSAIDS (Non-Steroidal AdvReac Unknown Verified 12/07/21 02:07 Anti-Inflamma Review of Systems ROS Statement: Those systems with pertinent positive or pertinent negative responses have been documented in the HPI. ROS Other: All systems not noted in ROS Statement are negative. 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 History of Any Multi-Drug Resistant Organisms: None Reported Past Surgical History: No Surgical Hx Reported Additional Past Surgical History / Comment(s): lithotripsy Past Anesthesia/Blood Transfusion Reactions: No Reported Reaction Additional Past Anesthesia/Blood Transfusion Reaction / Comment(s): Pt has never had anesthesia. He received blood in past without reaction. Past Psychological History: ADD/ADHD, Anxiety, Bipolar, Depression Smoking Status: Current every day smoker Past Alcohol Use History: Rare Past Drug Use History: Cocaine, Heroin, Marijuana, Methamphetamine - Past Family History Father History Unknown: Yes Additional Family Medical History / Comment(s): patient does not know any medical history on him. Mother Family Medical History: Respiratory Disorder Additional Family Medical History / Comment(s): Mother is alive at age 56 with history of pulmonary hypertension. Brother(s) Additional Family Medical History / Comment(s): He has 2 brothers with no major medical problems. He has 6 sisters with no major medical problems. He has a grandfather and cousins with hemophilia. General Exam Limitations: no limitations General appearance: alert, in no apparent distress Head exam: Present: atraumatic, normocephalic, normal inspection Eye exam: Present: normal appearance, PERRL, EOMI. Absent: scleral icterus, conjunctival injection, periorbital swelling ENT exam: Present: normal exam, mucous membranes moist Neck exam: Present: normal inspection, other (Significant dental caries without dental abscess right-sided cheek swelling). Absent: tenderness, meningismus, lymphadenopathy Respiratory exam: Present: normal lung sounds bilaterally. Absent: respiratory distress, wheezes, rales, rhonchi, stridor Cardiovascular Exam: Present: regular rate, normal rhythm, normal heart sounds. Absent: systolic murmur, diastolic murmur, rubs, gallop, clicks GI/Abdominal exam: Present: soft, normal bowel sounds. Absent: distended, tenderness, guarding, rebound, rigid Extremities exam: Present: normal inspection, full ROM, normal capillary refill. Absent: tenderness, pedal edema, joint swelling, calf tenderness Back exam: Present: normal inspection Neurological exam: Present: alert, oriented X3, CN II-XII intact Psychiatric exam: Present: normal affect, normal mood Skin exam: Present: warm, dry, intact, normal color. Absent: rash Course Vital Signs 12/07/21 02:03 Temperature 97.7 F Pulse Rate 83 Respiratory 22 Rate Blood Pressure 147/85 O2 Sat by Pulse 100 Oximetry - Reevaluation(s) Reevaluation #1: 12/07/21 02:45 Medical record is reviewed Reevaluation #2: 12/07/21 02:45 patient symptoms are improved here in the ER Reevaluation #3: 12/07/21 02:46 Patient is informed of results, follow-up with our emergency Department if symptoms worsen or facial surgery oral surgery Medical Decision Making - Medical Decision Making 31 male to the emergency department with significant history of dental disease and dental caries coming in with dental pain and swelling to the cheek area. Patient does have dental abscess, follow-up with maxillofacial surgery or a dentist for evaluation treatment per some antibiotics Disposition Clinical Impression: Dental abscess, Dental caries Disposition: HOME SELF-CARE Condition: Good Instructions (If sedation given, give patient instructions): Dental Abscess (ED), Toothache (ED) Prescriptions: Penicillin V Potassium [Pen Vee K] 500 mg PO QID #40 tablet Is patient prescribed a controlled substance at d/c from ED?: No Referrals: None,Stated [Primary Care Provider] - 1-2 days
== END 2021-12-07 02:58 | disposition home or self-care (01) ==
LOC: EC 02:01
DX: K04.7 Periapical abscess without sinus (principal); K02.9 Dental caries, unspecified; E78.5 Hyperlipidemia, unspecified; M19.90 Unspecified osteoarthritis, unspecified site; F41.9 Anxiety disorder, unspecified; F31.9 Bipolar disorder, unspecified; F90.9 Attention-deficit hyperactivity disorder, unspecified type; F17.200 Nicotine dependence, unspecified, uncomplicated; Z72.89 Other problems related to lifestyle; F12.90 Cannabis use, unspecified, uncomplicated
CPT/HCPCS: 99283; 96372; J1100

== ENCOUNTER 2022-03-03 20:19 | Emergency (ER) | payer OTHER ==
[2022-03-03 20:59] VITALS: RESP 18; TEMP 98
[2022-03-03] MEDS ORDERED: ACETAMINOPHEN TAB 500 MG TAB PO STA (20:59)
--- NOTE | 2022-03-03 21:14 | XR ---
Result: History: Pain. Comparison: 04/02/2021. Technique: Frontal, lateral and oblique views of the left elbow. Findings: Bone mineralization is appropriate for age. No acute fracture or dislocation is seen. The visualized osseous structures are in anatomic alignmen t. There is moderate osteoarthritis of the elbow joint most notable of the ulnohumeral joint. There is no significant elbow joint effusion. Impression: Degenerative changes without acute osseous abnormality.
--- NOTE | 2022-03-03 22:58 | ED ---
Extremity Problem HPI - General Chief complaint: Extremity Problem,Nontraumatic Stated complaint: L arm pain Time Seen by Provider: 03/03/22 22:51 Source: patient, RN notes reviewed, old records reviewed Mode of arrival: ambulatory Limitations: no limitations - History of Present Illness Initial comments: This is a 31-year-old male DF for evaluation. Patient's a known hemophilia A. Multiple history of joint hemarthrosis. Specific injury noted Dese no head injury was complaining of severe left elbow pain he states usually the pain feels like it's inside his elbow this pain feels like it surrounding his elbow but he does have tenderness severely at the elbow joint. Decreased range of motion. Patient has no other complaints. Patient states he usually does carry his factors with him although he has been without them for some time. MD Complaint: extremity pain, extremity swelling, joint swelling, joint pain, other (Left elbow pain) -: hour(s) Location: left, upper extremity, elbow History of Same: Yes -: Yes myalgia, Yes arthralgia Radiation: proximal, distal Severity scale (1-10): 7 Quality: aching Consistency: constant Improves with: nothing Worsens with: nothing Associated Symptoms: myalgias, arthralgias - Related Data Home Medications Medication Instructions Recorded Confirmed Jivi Recombination Infusion 2,500 units IV Q14D 04/02/21 09/04/21 Previous Rx's Medication Instructions Recorded Penicillin V Potassium [Pen Vee K] 500 mg PO QID #40 tablet 12/07/21 Allergies Allergy/AdvReac Type Severity Reaction Status Date / Time aspirin AdvReac Unknown Verified 03/03/22 20:59 NSAIDS (Non-Steroidal AdvReac Unknown Verified 03/03/22 20:59 Anti-Inflamma Review of Systems ROS Statement: Those systems with pertinent positive or pertinent negative responses have been documented in the HPI. ROS Other: All systems not noted in ROS Statement are negative. 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 History of Any Multi-Drug Resistant Organisms: None Reported Past Surgical History: No Surgical Hx Reported Additional Past Surgical History / Comment(s): lithotripsy Past Anesthesia/Blood Transfusion Reactions: No Reported Reaction Additional Past Anesthesia/Blood Transfusion Reaction / Comment(s): Pt has never had anesthesia. He received blood in past without reaction. Past Psychological History: ADD/ADHD, Anxiety, Bipolar, Depression Smoking Status: Current every day smoker Past Alcohol Use History: Rare Past Drug Use History: Cocaine, Heroin, Marijuana, Methamphetamine - Past Family History Father History Unknown: Yes Additional Family Medical History / Comment(s): patient does not know any medical history on him. Mother Family Medical History: Respiratory Disorder Additional Family Medical History / Comment(s): Mother is alive at age 56 with history of pulmonary hypertension. Brother(s) Additional Family Medical History / Comment(s): He has 2 brothers with no major medical problems. He has 6 sisters with no major medical problems. He has a grandfather and cousins with hemophilia. General Exam General appearance: alert, in no apparent distress Head exam: Present: atraumatic, normocephalic, normal inspection Eye exam: Present: normal appearance, PERRL, EOMI. Absent: scleral icterus, conjunctival injection, periorbital swelling ENT exam: Present: normal exam, mucous membranes moist Neck exam: Present: normal inspection. Absent: tenderness, meningismus, lymphadenopathy Respiratory exam: Present: normal lung sounds bilaterally. Absent: respiratory distress, wheezes, rales, rhonchi, stridor Cardiovascular Exam: Present: regular rate, normal rhythm, normal heart sounds. Absent: systolic murmur, diastolic murmur, rubs, gallop, clicks GI/Abdominal exam: Present: soft, normal bowel sounds. Absent: distended, tenderness, guarding, rebound, rigid Extremities exam: Present: tenderness, normal capillary refill, other (Significant swelling of the left elbow). Absent: full ROM, pedal edema, joint swelling, calf tenderness Back exam: Present: normal inspection Neurological exam: Present: alert, oriented X3, CN II-XII intact Psychiatric exam: Present: normal affect, normal mood Skin exam: Present: warm, dry, intact, normal color. Absent: rash Course Vital Signs 03/03/22 20:54 Temperature 98 F Pulse Rate 90 Respiratory 18 Rate Blood Pressure 147/90 O2 Sat by Pulse 99 Oximetry - Reevaluation(s) Reevaluation #1: 03/03/22 23:06 medical records reviewed Reevaluation #2: 03/03/22 23:06 he is given factors here in the ER Reevaluation #3: 03/03/22 23:07 Patient feeling improved after pain control, Medical Decision Making - Medical Decision Making 31 male to the ER for evaluation of left elbow pain and swelling. Patient is given his factor VIII here in the ER, pain control. X-ray negative for fracture and can be discharged home - Radiology Data Radiology results: report reviewed (XR left elbow negative for acute disease), image reviewed Disposition Clinical Impression: Intractable pain, Left elbow pain, Hemarthrosis, left elbow, Hemophilia A Disposition: HOME SELF-CARE Condition: Good Instructions (If sedation given, give patient instructions): Hemarthrosis (ED), Swollen Joint (ED) Is patient prescribed a controlled substance at d/c from ED?: No Referrals: None,Stated [Primary Care Provider] - 1-2 days
[2022-03-03] MEDS ORDERED: MORPHINE SULFATE 4 MG/ML SYRINGE IVP STA (23:01)
[2022-03-03] MEDS ORDERED: SODIUM CHLORIDE 0.9% 500 ML 500 ML IV STA (23:04)
[2022-03-03] MEDS ORDERED: ANTIHEMOPHILIC FACTOR IVP ONE (23:04)
[2022-03-03] MEDS ORDERED: ACET/COD 300 MG/30 MG STARTER PACK 6 TAB BTL PO STA (23:09)
[2022-03-04 00:54] VITALS: BP 126/90; PULSE 60
== END 2022-03-04 01:04 | disposition home or self-care (01) ==
LOC: EC 20:19
DX: M25.022 Hemarthrosis, left elbow (principal); D66 Hereditary factor VIII deficiency; F17.200 Nicotine dependence, unspecified, uncomplicated; F14.90 Cocaine use, unspecified, uncomplicated; F12.90 Cannabis use, unspecified, uncomplicated; F15.90 Other stimulant use, unspecified, uncomplicated; F11.90 Opioid use, unspecified, uncomplicated
CPT/HCPCS: 73080; 99283; 96374; 96375; J2270; J7192

== ENCOUNTER 2022-04-03 16:43 | Emergency (ER) | payer OTHER ==
--- NOTE | 2022-04-03 18:19 | XR ---
EXAMINATION TYPE: XR elbow complete LT DATE OF EXAM: 04/03/2022 COMPARISON: NONE HISTORY: Left elbow pain TECHNIQUE: 4 views FINDINGS: There is some mild spurring at the radial head. No evidence of joint effusion. There is sean e narrowing of the elbow joint spaces. No fracture seen. IMPRESSION: There are some arthritic changes in the elbow joint. No fracture seen. No sign of elbow j oint effusion.
[2022-04-03 19:49] VITALS: BP 163/99; PULSE 86; RESP 18; TEMP 98.9
--- NOTE | 2022-04-03 20:11 | ED ---
Upper Extremity HPI - General Chief Complaint: Extremity Injury, Upper Stated Complaint: Fall, Lt Elbow Pain Time Seen by Provider: 04/03/22 19:52 Source: patient, RN notes reviewed Mode of arrival: ambulatory Limitations: no limitations - History of Present Illness Initial Comments: This is a pleasant 31-year-old male who had a mechanical fall and landed on his left elbow. She complains of pain to the ole[place]ranon area. Awaiting on for quite some time now notices that he has a little bit of soft tissue swelling to his right ankle as well. No bony point tenderness. Hip and relates without difficulty. 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 Patient states he needs trait for any injuries even minor. No headache, no fever or chills, no changes in vision or hearing, no sore throat or difficulty with speech, no neck pain, no chest pain or shortness of breath, no abdominal pain, no nausea or vomiting, no changes in urination or bowel movements, no numbness or tingling,, no skin rashes or lesions. - Related Data Home Medications Medication Instructions Recorded Confirmed Jivi Recombination Infusion 2,500 units IV Q14D 04/02/21 09/04/21 Previous Rx's Medication Instructions Recorded Penicillin V Potassium [Pen Vee K] 500 mg PO QID #40 tablet 12/07/21 HYDROcodone/APAP 5-325MG [[place] 1 tab PO Q6HR PRN 3 Days #12 tab 04/03/22 5-325] Allergies Allergy/AdvReac Type Severity Reaction Status Date / Time aspirin AdvReac Unknown Verified 04/03/22 19:49 NSAIDS (Non-Steroidal AdvReac Unknown Verified 04/03/22 19:49 Anti-Inflamma Review of Systems ROS Statement: Those systems with pertinent positive or pertinent negative responses have been documented in the HPI. ROS Other: All systems not noted in ROS Statement are negative. 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 History of Any Multi-Drug Resistant Organisms: None Reported Past Surgical History: No Surgical Hx Reported Additional Past Surgical History / Comment(s): lithotripsy Past Anesthesia/Blood Transfusion Reactions: No Reported Reaction Additional Past Anesthesia/Blood Transfusion Reaction / Comment(s): Pt has never had anesthesia. He received blood in past without reaction. Past Psychological History: ADD/ADHD, Anxiety, Bipolar, Depression Smoking Status: Current every day smoker Past Alcohol Use History: Rare Past Drug Use History: Cocaine, Heroin, Marijuana, Methamphetamine - Past Family History Father History Unknown: Yes Additional Family Medical History / Comment(s): patient does not know any medical history on him. Mother Family Medical History: Respiratory Disorder Additional Family Medical History / Comment(s): Mother is alive at age 56 with history of pulmonary hypertension. Brother(s) Additional Family Medical History / Comment(s): He has 2 brothers with no major medical problems. He has 6 sisters with no major medical problems. He has a grandfather and cousins with hemophilia. General Exam Limitations: no limitations General appearance: alert, in no apparent distress Head exam: Present: atraumatic, normocephalic, normal inspection Eye exam: Present: normal appearance, PERRL, EOMI. Absent: scleral icterus, conjunctival injection, periorbital swelling ENT exam: Present: normal exam, normal oropharynx, mucous membranes dry, mucous membranes moist, normal external ear exam Neck exam: Present: normal inspection, full ROM. Absent: tenderness, meningismus, lymphadenopathy Respiratory exam: Present: normal lung sounds bilaterally. Absent: respiratory distress, wheezes, rales, rhonchi, stridor, chest wall tenderness, accessory muscle use Cardiovascular Exam: Present: regular rate, normal rhythm, normal heart sounds. Absent: systolic murmur, diastolic murmur, rubs, gallop, clicks GI/Abdominal exam: Present: soft, normal bowel sounds. Absent: distended, tenderness, guarding, rebound, rigid Extremities exam: Present: normal inspection, full ROM, normal capillary refill. Absent: tenderness, pedal edema, joint swelling, calf tenderness Left Upper Arm exam: Present: normal inspection. Absent: full ROM Elbow exam: Present: full ROM, tenderness. Absent: swelling, abrasion, laceration, ecchymosis, deformity, crepitus, dislocation, erythema, effusion Forearm Wrist exam: Present: normal inspection. Absent: tenderness Neuro motor exam: Present: wrist extension intact, thumb opposition intact, thumb IP flexion intact, thumb adduction intact, fingers 2-5 abduction intact Neurosensory exam: Present: radial nerve intact, ulnar nerve intact Vascular: Present: normal capillary refill. Absent: vascular compromise Back exam: Present: normal inspection Neurological exam: Present: alert, oriented X3, CN II-XII intact Psychiatric exam: Present: normal affect, normal mood Skin exam: Present: warm, dry, intact, normal color. Absent: rash Course Vital Signs 04/03/22 19:47 Temperature 98.9 F Pulse Rate 86 Respiratory 18 Rate Blood Pressure 163/99 O2 Sat by Pulse 99 Oximetry Medical Decision Making - Medical Decision Making Factor VIII dosed at 40 mg/kg for extremity injury. Note that the patient had no evidence of effusion on physical examination. X-rays were negative for fracture. Patient was told he needs to follow-up with hematology soon as possible. However it sounds like the patient got discharged from his practice from his specialist on the [place] area. Patient is also seen hematologists here in [place]. Patient has no primary care provider did provide a physician for him to follow-up with. Patient is released in stable condition. Patient was told to return to the ER for any signs or symptoms worsen. Told to return immediately if any other problems arise. All questions answered. Treatment plan discussed. Patient in agreement Every effort has been made to ensure accuracy of this dictation. However, due to the limitations of electronic medical records and dictation devices, errors in charting still occur. Customer Service Agent, Dr. Gill Disposition Clinical Impression: Contusion of left elbow, Right ankle sprain Disposition: HOME SELF-CARE Condition: Good Additional Instructions: Follow-up with your experimental electronics developer as soon as possible. Follow-up with your regular physician as directed. Return to the ER immediately if any symptoms worsen, new symptoms arise, or any other problems develop. Is patient prescribed a controlled substance at d/c from ED?: No Referrals: Simone Reyes [STAFF PHYSICIAN] - As Soon As Possible (Primary care) Time of Disposition: 22:32
[2022-04-03] MEDS ORDERED: ANTIHEMOPHILIC FACTOR IVP ONE (20:53)
[2022-04-03] MEDS ORDERED: HYDROcodone/APAP 5-325MG 1 EACH TAB PO STA ×2 (20:56→23:33)
[2022-04-03] MEDS ORDERED: ACET/COD 300 MG/30 MG STARTER PACK 6 TAB BTL PO STA (22:31)
== END 2022-04-03 23:47 | disposition home or self-care (01) ==
LOC: EC 16:43
DX: S93.401A Sprain of unspecified ligament of right ankle, initial encounter (principal); S50.02XA Contusion of left elbow, initial encounter; F17.200 Nicotine dependence, unspecified, uncomplicated; Z88.6 Allergy status to analgesic agent; W01.10XA Fall on same level from slipping, tripping and stumbling with subsequent striking against unspecified object, initial encounter
CPT/HCPCS: 73080; 99283; 96374; J7192

== ENCOUNTER 2022-04-13 10:17 | Emergency (ER) | payer OTHER ==
[2022-04-13 10:36] VITALS: RESP 18
--- NOTE | 2022-04-13 11:37 | ED ---
General Adult HPI - General Chief complaint: Extremity Problem,Nontraumatic Stated complaint: rt ankle swelling Time Seen by Provider: 04/13/22 11:11 Source: patient Mode of arrival: wheelchair Limitations: no limitations - History of Present Illness Initial comments: 31 year-old male patient with Hemophilia A presents for evaluation of right ankle swelling and pain starting last night. States pain woke him from sleep and he was unable to get a ride to ER until this morning. States symptoms are consistent with bleeding into his joint, he has had this many times. He has not had any Factor VIII or treatment in the last couple of months due to his pre vious physician dropping him due to missed appointments. He denies any fever or chills. Denies any known injury to the ankle. Denies any redness to the area. Eating and drinking without difficulty. No other concerns. Did take Tylenol for pain earlier, states it did not help. - Related Data Home Medications Medication Instructions Recorded Confirmed Jivi Recombination Infusion 2,500 units IV Q14D 04/02/21 09/04/21 Previous Rx's Medication Instructions Recorded Penicillin V Potassium [Pen Vee K] 500 mg PO QID #40 tablet 12/07/21 HYDROcodone/APAP 5-325MG [[place] 1 tab PO Q6HR PRN 3 Days #12 tab 04/03/22 5-325] Allergies Allergy/AdvReac Type Severity Reaction Status Date / Time aspirin AdvReac Unknown Verified 04/13/22 10:36 NSAIDS (Non-Steroidal AdvReac Unknown Verified 04/13/22 10:36 Anti-Inflamma Review of Systems ROS Statement: Those systems with pertinent positive or pertinent negative responses have been documented in the HPI. ROS Other: All systems not noted in ROS Statement are negative. 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 History of Any Multi-Drug Resistant Organisms: None Reported Past Surgical History: No Surgical Hx Reported Additional Past Surgical History / Comment(s): lithotripsy Past Anesthesia/Blood Transfusion Reactions: No Reported Reaction Additional Past Anesthesia/Blood Transfusion Reaction / Comment(s): Pt has never had anesthesia. He received blood in past without reaction. Past Psychological History: ADD/ADHD, Anxiety, Bipolar, Depression Smoking Status: Current every day smoker Past Alcohol Use History: Rare Past Drug Use History: Cocaine, Heroin, Marijuana, Methamphetamine - Past Family History Father History Unknown: Yes Additional Family Medical History / Comment(s): patient does not know any medical history on him. Mother Family Medical History: Respiratory Disorder Additional Family Medical History / Comment(s): Mother is alive at age 56 with history of pulmonary hypertension. Brother(s) Additional Family Medical History / Comment(s): He has 2 brothers with no major medical problems. He has 6 sisters with no major medical problems. He has a grandfather and cousins with hemophilia. General Exam Limitations: no limitations General appearance: alert, in no apparent distress, other (This is a well- developed, well-nourished adult male in no acute distress.) Eye exam: Present: normal appearance, PERRL, EOMI. Absent: scleral icterus, conjunctival injection, periorbital swelling ENT exam: Present: normal exam, normal oropharynx, mucous membranes moist Respiratory exam: Present: normal lung sounds bilaterally. Absent: respiratory distress, wheezes, rales, rhonchi, stridor Cardiovascular Exam: Present: regular rate, normal rhythm, normal heart sounds. Absent: systolic murmur, diastolic murmur, rubs, gallop, clicks GI/Abdominal exam: Present: soft, normal bowel sounds. Absent: distended, tenderness, guarding, rebound, rigid Extremities exam: Present: full ROM, normal capillary refill, other (right ankle swelling especially over medial and lateral malleolus. Joint is hot to touch. Skin is pink and dry. Joint is tender. Pedal posttibial pulses 2+.). Absent: tenderness, pedal edema, joint swelling, calf tenderness Neurological exam: Present: alert, oriented X3, CN II-XII intact Psychiatric exam: Present: normal affect, normal mood Skin exam: Present: warm, dry, intact, normal color. Absent: rash Course Vital Signs 04/13/22 04/13/22 04/13/22 10:33 13:24 14:40 Temperature 98.3 F Pulse Rate 84 60 70 Respiratory 18 18 18 Rate Blood Pressure 141/96 127/78 126/84 O2 Sat by Pulse 96 98 98 Oximetry 04/13/22 16:17 Temperature 98.9 F Pulse Rate 53 L Respiratory 18 Rate Blood Pressure 119/99 O2 Sat by Pulse 97 Oximetry - Reevaluation(s) Reevaluation #1: 04/13/22 13:[address] Bowden hematology/oncology regarding patient condition. She advised giving Factor VIII here in ER. Also advised follow up, stated we could give their phone number then they would hopefully be able to co- manage with a hemophilia center. Medical Decision Making - Medical Decision Making 31-year-old male patient presents to the emergency department today for evaluation of right ankle pain and swelling. Symptoms are consistent with hemarthrosis consistent with his history of hemophilia A. I did discuss the ca se with physician in private practice Dr. Bowden recommendation to give dose of Factor VIII (Advate). She also recommended patient repeat the dose tomorrow. Labs were reviewed and did exhibit elevated PTT. He was given pain medication and ice application to the right ankle. Vital signs were unremarkable. Unfortunately we are unable to send him with a dose of the Advate for self administration tomorrow so he is instructed to return to the ER for additional dose as our outpatient infusion center is closed. I did explain this to him, he is in agreement. He is given follow-up with Dr. Bowden. Return parameters were discussed in detail. He verbalizes understanding and agrees with this plan. My attending is Dr. Cuevas. - Lab Data Result diagrams: 04/13/22 13:24 04/13/22 13:24 Lab Results 04/13/22 04/13/22 04/13/22 Range/Units 13:24 13:24 13:24 WBC 9.3 (3.8-10.6) k/uL RBC 4.82 (4.30-5.90) m/uL Hgb 15.6 (13.0-17.5) gm/dL Hct 46.4 (39.0-53.0) % MCV 96.2 (80.0-100.0) fL MCH 32.3 (25.0-35.0) pg MCHC 33.5 (31.0-37.0) g/dL RDW 12.7 (11.5-15.5) % Plt Count 213 (150-450) k/uL MPV 7.8 Neutrophils % 65 % Lymphocytes % 27 % Monocytes % 5 % Eosinophils % 0 % Basophils % 1 % Neutrophils # 6.1 (1.3-7.7) k/uL Lymphocytes # 2.5 (1.0-4.8) k/uL Monocytes # 0.4 (0-1.0) k/uL Eosinophils # 0.0 (0-0.7) k/uL Basophils # 0.1 (0-0.2) k/uL PT 11.6 (9.0-12.0) sec INR 1.1 (<1.2) APTT 65.6 H (22.0-30.0) sec Sodium 142 (137-145) mmol/L Potassium 4.1 (3.5-5.1) mmol/L Chloride 109 H (98-107) mmol/L Carbon Dioxide 24 (22-30) mmol/L Anion Gap 9 mmol/L BUN 11 (9-20) mg/dL Creatinine 0.70 (0.66-1.25) mg/dL Est GFR (CKD-EPI)AfAm >90 (>60 ml/min/1.73 sqM) Est GFR (CKD-EPI)NonAf >90 (>60 ml/min/1.73 sqM) Glucose 95 (74-99) mg/dL Calcium 9.2 (8.4-10.2) mg/dL Total Bilirubin 0.9 (0.2-1.3) mg/dL AST 28 (17-59) U/L ALT 56 H (4-49) U/L Alkaline Phosphatase 78 (38-126) U/L Total Protein 7.8 (6.3-8.2) g/dL Albumin 4.6 (3.5-5.0) g/dL Disposition Clinical Impression: Hemarthrosis, right ankle Disposition: HOME SELF-CARE Condition: Good Instructions (If sedation given, give patient instructions): Antihemophilic Factor (By injection), Hemarthrosis (ED) Additional Instructions: Follow-up with hematology on Friday, call for an appointment. Return to the emergency department if symptoms or swelling worsens. Is patient prescribed a controlled substance at d/c from ED?: No Referrals: None,Stated [Primary Care Provider] - 1-2 days Wen Bowden MD [Medical Doctor] - 1-2 days Time of Disposition: 15:25
[2022-04-13] MEDS ORDERED: MORPHINE SULFATE 4 MG/ML SYRINGE IVP STA ×2 (12:22→13:14)
[2022-04-13] MEDS ORDERED: ONDANSETRON 4 MG/2 ML VIAL IVP STA (12:22)
[2022-04-13] MEDS ORDERED: ACETAMINOPHEN TAB 500 MG TAB PO STA (13:15)
[2022-04-13 13:45] LABS: Basophils # (A) 0.1 k/uL (0-0.2); Basophils % (A) 1 %; Eosinophils % (A) 0 %; HCT 46.4 % (39.0-53.0); HGB 15.6 gm/dL (13.0-17.5); Lymphocytes # (A) 2.5 k/uL (1.0-4.8); Lymphocytes % (A) 27 %; MCH 32.3 pg (25.0-35.0); MCHC 33.5 g/dL (31.0-37.0); MCV 96.2 fL (80.0-100.0); Mean Platelet Volume 7.8; Monocytes # (A) 0.4 k/uL (0-1.0); Monocytes % (A) 5 %; Neutrophils # (A) 6.1 k/uL (1.3-7.7); Neutrophils % (A) 65 %; Platelet Count 213 k/uL (150-450); RBC 4.82 m/uL (4.30-5.90); RDW 12.7 % (11.5-15.5); WBC 9.3 k/uL (3.8-10.6)
[2022-04-13 13:49] LABS: ALT 56 U/L (4-49); AST 28 U/L (17-59); African American GFR (CKD) >90 (>60 ml/min/1.73 sqM); Albumin 4.6 g/dL (3.5-5.0); Alkaline Phosphatase 78 U/L (38-126); Anion Gap 9 mmol/L; Blood Urea Nitrogen 11 mg/dL (9-20); Calcium 9.2 mg/dL (8.4-10.2); Carbon Dioxide 24 mmol/L (22-30); Chloride 109 mmol/L (98-107); Glucose 95 mg/dL (74-99); Non-African American GFR(CKD) >90 (>60 ml/min/1.73 sqM); Potassium 4.1 mmol/L (3.5-5.1); Sodium 142 mmol/L (137-145); Total Bilirubin 0.9 mg/dL (0.2-1.3); Total Protein 7.8 g/dL (6.3-8.2)
[2022-04-13] MEDS ORDERED: ANTIHEMOPHILIC FACTOR IVP ONE (14:00)
[2022-04-13 14:11] LABS: INR 1.1 (<1.2); Prothrombin Time 11.6 sec (9.0-12.0)
[2022-04-13 14:16] LABS: Partial Thromboplastin Time 65.6 sec (22.0-30.0)
[2022-04-13] MEDS ORDERED: ACET/COD 300 MG/30 MG STARTER PACK 6 TAB BTL PO STA (15:28)
[2022-04-13 16:23] VITALS: BP 119/99; PULSE 53; TEMP 98.9
[2022-04-13] MEDS ORDERED: HYDROcodone/APAP 10-325MG 1 EACH TAB PO ONE (16:24)
== END 2022-04-13 16:35 | disposition home or self-care (01) ==
LOC: EC 10:17
DX: M25.061 Hemarthrosis, right knee (principal); E78.5 Hyperlipidemia, unspecified; F17.200 Nicotine dependence, unspecified, uncomplicated; Z88.6 Allergy status to analgesic agent
CPT/HCPCS: 36415; 80053; 85025; 85610; 85730; 99283; 96374; 96375; 96376; J2270; J2405; J7192

== ENCOUNTER 2022-05-11 11:33 | Emergency (ER) | payer OTHER ==
[2022-05-11 11:37] VITALS: BP 135/91; PULSE 60; RESP 18; TEMP 98.2
--- NOTE | 2022-05-11 12:09 | ED ---
Extremity Problem HPI - General Chief complaint: Extremity Problem,Nontraumatic Stated complaint: Rt Ankle Pain Time Seen by Provider: 05/11/22 11:35 Source: patient, RN notes reviewed, old records reviewed Mode of arrival: wheelchair Limitations: no limitations - History of Present Illness Initial comments: Patient is a 31-year-old male presents the emergency room after having increased ankle pain and swelling for approximately 1 hour. He reports he stepped in a pot hole and rolled his ankle slightly. Since that time he had developed immediate swelling and pain. He is a hemophiliac who is not currently following with hematology and did not have any factor VIII available for him at home or any pain management. He was seen in the emergency room on 04/13/2022 with a hemarthosis to same joint. He responded well to pain management and fac tor VIII infusion at that time. He was supposed to return to the emergency room for a second dose of factor VIII; unfortunately was unable to find a ride to bring him back to the hospital for infusion. He denies any other bleeding or bruising event this time. In addition to his hemophilia a status he has a past medical history significant for hepatitis see, chronic liver disease, hyperlipidemia, bipolar depression, anxiety, and hard of hearing in his left ear. He denies any other complaints or concerns at this time. - Related Data Home Medications Medication Instructions Recorded Confirmed Jivi Recombination Infusion 2,500 units IV Q14D 04/02/21 09/04/21 Previous Rx's Medication Instructions Recorded Penicillin V Potassium [Pen Vee K] 500 mg PO QID #40 tablet 12/07/21 HYDROcodone/APAP 5-325MG [[place] 1 tab PO Q6HR PRN 3 Days #12 tab 04/03/22 5-325] Allergies Allergy/AdvReac Type Severity Reaction Status Date / Time aspirin AdvReac Unknown Verified 05/11/22 11:37 NSAIDS (Non-Steroidal AdvReac Unknown Verified 05/11/22 11:37 Anti-Inflamma Review of Systems ROS Statement: Those systems with pertinent positive or pertinent negative responses have been documented in the HPI. ROS Other: All systems not noted in ROS Statement are negative. 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 History of Any Multi-Drug Resistant Organisms: None Reported Past Surgical History: No Surgical Hx Reported Additional Past Surgical History / Comment(s): lithotripsy Past Anesthesia/Blood Transfusion Reactions: No Reported Reaction Additional Past Anesthesia/Blood Transfusion Reaction / Comment(s): Pt has never had anesthesia. He received blood in past without reaction. Past Psychological History: ADD/ADHD, Anxiety, Bipolar, Depression Smoking Status: Current every day smoker Past Alcohol Use History: Rare Past Drug Use History: Cocaine, Heroin, Marijuana, Methamphetamine - Past Family History Father History Unknown: Yes Additional Family Medical History / Comment(s): patient does not know any medical history on him. Mother Family Medical History: Respiratory Disorder Additional Family Medical History / Comment(s): Mother is alive at age 56 with history of pulmonary hypertension. Brother(s) Additional Family Medical History / Comment(s): He has 2 brothers with no major medical problems. He has 6 sisters with no major medical problems. He has a grandfather and cousins with hemophilia. General Exam Limitations: no limitations General appearance: alert, in no apparent distress Head exam: Present: atraumatic, normocephalic, normal inspection Eye exam: Present: normal appearance, PERRL, EOMI. Absent: scleral icterus, conjunctival injection, periorbital swelling ENT exam: Present: normal exam, mucous membranes moist Neck exam: Present: normal inspection. Absent: tenderness, meningismus, lym phadenopathy Respiratory exam: Present: normal lung sounds bilaterally. Absent: respiratory distress, wheezes, rales, rhonchi, stridor Cardiovascular Exam: Present: regular rate, normal rhythm, normal heart sounds. Absent: systolic murmur, diastolic murmur, rubs, gallop, clicks GI/Abdominal exam: Present: soft, normal bowel sounds. Absent: distended, tenderness, guarding, rebound, rigid Right Upper Leg exam: Present: normal inspection Knee exam: Present: normal inspection Lower Leg exam: Present: normal inspection Ankle exam: Present: tenderness, swelling. Absent: full ROM, abrasion, laceration, ecchymosis, deformity, crepitus Foot/Toe exam: Present: normal inspection Neurovascular tendon exam: Present: no vascular compromise Back exam: Present: normal inspection Neurological exam: Present: alert, oriented X3, CN II-XII intact Psychiatric exam: Present: normal affect, normal mood Skin exam: Present: warm, dry, intact, normal color. Absent: rash Course Vital Signs 05/11/22 11:34 Temperature 98.2 F Pulse Rate 60 Respiratory 18 Rate Blood Pressure 135/91 O2 Sat by Pulse 98 Oximetry Medical Decision Making - Medical Decision Making Hemophilia with minor right ankle trauma. Will check x-ray of the right ankle. Will discuss case with on-call hematology to verify no further treatment plan is needed for treatment. Will check PTT, PT/INR along with CBC. After x-ray will treat with factor VIII 40 units/kg for Hemoarthritosis imaging can IV morphine for pain control. Case discussed with Dr. Garcia who is covering for the local [facility] cancer sister group but does not see patients here in the [place] region. She recommends treatment as outlined above and follow-up with local hematology group. No further diagnostic imaging is recommended by Dr. Garcia at this time Continued pain with one dose of IV morphine. Will give second dose; discussed with patient that primary recommendation is observation admission for pain con trol so that he may have better can pain control and obtain his second dose of factor VIII tomorrow after 24 hours. Unfortunately he is unable to coordinate care of his PET and does not wish to stay in the hospital overnight due to this. Discussed concerns regarding need for follow-up as he did not return for his second dose of factor VIII for his k Hemoarthritosis to the same joint approximately one month ago. Patient encouraged to return to the emergency room tomorrow for second dose of factor VIII. Will give Tylenol 3 starter pack to help with pain. Needs avoidance of NSAIDs. Due tomorrow no earlier than is 20 units/kg (1440 units). Case discussed with Dr. Soliz. - Lab Data Result diagrams: 05/11/22 12:17 Lab Results 05/11/22 05/11/22 Range/Units 12:17 12:17 WBC 6.9 (3.8-10.6) k/uL RBC 4.92 (4.30-5.90) m/uL Hgb 15.3 (13.0-17.5) gm/dL Hct 47.2 (39.0-53.0) % MCV 95.9 (80.0-100.0) fL MCH 31.1 (25.0-35.0) pg MCHC 32.4 (31.0-37.0) g/dL RDW 12.7 (11.5-15.5) % Plt Count 208 (150-450) k/uL MPV 7.3 Neutrophils % 51 % Lymphocytes % 39 % Monocytes % 6 % Eosinophils % 1 % Basophils % 1 % Neutrophils # 3.5 (1.3-7.7) k/uL Lymphocytes # 2.7 (1.0-4.8) k/uL Monocytes # 0.4 (0-1.0) k/uL Eosinophils # 0.1 (0-0.7) k/uL Basophils # 0.0 (0-0.2) k/uL PT 11.3 (9.0-12.0) sec INR 1.0 (<1.2) APTT 55.6 H (22.0-30.0) sec - Radiology Data Radiology results: report reviewed, image reviewed Disposition Clinical Impression: Hemarthrosis Disposition: HOME SELF-CARE Condition: Stable Instructions (If sedation given, give patient instructions): Hemophilia (ED) Additional Instructions: Please return to the emergency department tomorrow for second dose of factor VIII. Starter pack of Tylenol 3 provided please utilize as needed for pain control. Please schedule an appointment with hematology. Local melt helper prescription information provided. Please follow-up with your primary care prov ider. Please return to the Emergency Department if symptoms worsen or any other concerns. Is patient prescribed a controlled substance at d/c from ED?: No Referrals: None,Stated [Primary Care Provider] - 1-2 days Dale Alarcon MD [STAFF PHYSICIAN] - 1-2 days Time of Disposition: 15:36
[2022-05-11] MEDS ORDERED: MORPHINE SULFATE 4 MG/ML SYRINGE IVP STA ×2 (12:10→14:22)
[2022-05-11 12:33] LABS: Basophils % (A) 1 %; Eosinophils # (A) 0.1 k/uL (0-0.7); Eosinophils % (A) 1 %; HCT 47.2 % (39.0-53.0); HGB 15.3 gm/dL (13.0-17.5); Lymphocytes # (A) 2.7 k/uL (1.0-4.8); Lymphocytes % (A) 39 %; MCH 31.1 pg (25.0-35.0); MCHC 32.4 g/dL (31.0-37.0); MCV 95.9 fL (80.0-100.0); Mean Platelet Volume 7.3; Monocytes # (A) 0.4 k/uL (0-1.0); Monocytes % (A) 6 %; Neutrophils # (A) 3.5 k/uL (1.3-7.7); Neutrophils % (A) 51 %; Platelet Count 208 k/uL (150-450); RBC 4.92 m/uL (4.30-5.90); RDW 12.7 % (11.5-15.5); WBC 6.9 k/uL (3.8-10.6)
--- NOTE | 2022-05-11 12:35 | XR ---
EXAMINATION TYPE: XR ankle complete RT DATE OF EXAM: 05/11/2022 COMPARISON: 03/30/2019 HISTORY: Ankle pain rolled ankle TECHNIQUE: Three-view right ankle FINDINGS: There are advanced degenerative changes at the talotibial junction. Subchondral cyst format ion appears to be present to the joint space. There is narrowing of the joint space and deformity of the talar dome and distal tibia. Some tibial spurring is present anteriorly. The ankle mortise otherwise appears intact. No displaced fractures are identified. Follow-up studies can be performed as clinically indicated. IMPRESSION: 1. No acute osseous abnormality. 2. Advanced degenerative changes to the ankle joint space. This appears slightly progressed from comp arison dated
[2022-05-11] MEDS ORDERED: ANTIHEMOPHILIC FACTOR IVP ONE (13:00)
[2022-05-11 13:11] LABS: Partial Thromboplastin Time 55.6 sec (22.0-30.0); Prothrombin Time 11.3 sec (9.0-12.0)
[2022-05-11] MEDS ORDERED: ACET/COD 300 MG/30 MG STARTER PACK 6 TAB BTL PO STA (15:36)
== END 2022-05-11 15:42 | disposition home or self-care (01) ==
LOC: EC 11:33
DX: M25.071 Hemarthrosis, right ankle (principal); F17.200 Nicotine dependence, unspecified, uncomplicated; Z88.6 Allergy status to analgesic agent
CPT/HCPCS: 36415; 85025; 85610; 85730; 73610; 99284; 96374; 96376; J2270; J7192; 96375

== ENCOUNTER 2022-05-12 12:18 | Emergency (ER) | payer OTHER ==
[2022-05-12 12:24] VITALS: BP 147/86; PULSE 86; RESP 20; TEMP 98.3
[2022-05-12] MEDS ORDERED: ACET/COD 300 MG/30 MG STARTER PACK 6 TAB BTL PO STA (13:05)
--- NOTE | 2022-05-12 13:09 | ED ---
General Adult HPI - General Chief complaint: Recheck/Abnormal Lab/Rx Stated complaint: revisit - Factor 8 Time Seen by Provider: 05/12/22 12:41 Source: patient, RN notes reviewed Mode of arrival: ambulatory Limitations: no limitations - History of Present Illness Initial comments: This a 31-year-old male presents emergency Department when right ankle pain. Patient is here for second dose of advate. Patient did receive his first injection yesterday for right ankle pain. Patient is known hematology for factor 8 Patient has recurrent joint pain, bleeds. Patient states his pain is much better today states it's for a 10 pain. No new trauma states swelling has improved. - Related Data Home Medications Medication Instructions Recorded Confirmed Jivi Recombination Infusion 2,500 units IV Q14D 04/02/21 09/04/21 Previous Rx's Medication Instructions Recorded Penicillin V Potassium [Pen Vee K] 500 mg PO QID #40 tablet 12/07/21 HYDROcodone/APAP 5-325MG [[place] 1 tab PO Q6HR PRN 3 Days #12 tab 04/03/22 5-325] Allergies Allergy/AdvReac Type Severity Reaction Status Date / Time aspirin AdvReac Unknown Verified 05/12/22 12:24 NSAIDS (Non-Steroidal AdvReac Unknown Verified 05/12/22 12:24 Anti-Inflamma Review of Systems ROS Statement: Those systems with pertinent positive or pertinent negative responses have been documented in the HPI. ROS Other: All systems not noted in ROS Statement are negative. 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 History of Any Multi-Drug Resistant Organisms: None Reported Past Surgical History: No Surgical Hx Reported Additional Past Surgical History / Comment(s): lithotripsy Past Anesthesia/Blood Transfusion Reactions: No Reported Reaction Additional Past Anesthesia/Blood Transfusion Reaction / Comment(s): Pt has never had anesthesia. He received blood in past without reaction. Past Psychological History: ADD/ADHD, Anxiety, Bipolar, Depression Smoking Status: Current every day smoker Past Alcohol Use History: Rare Past Drug Use History: Cocaine, Heroin, Marijuana, Methamphetamine - Past Family History Father History Unknown: Yes Additional Family Medical History / Comment(s): patient does not know any medical history on him. Mother Family Medical History: Respiratory Disorder Additional Family Medical History / Comment(s): Mother is alive at age 56 with history of pulmonary hypertension. Brother(s) Additional Family Medical History / Comment(s): He has 2 brothers with no major medical problems. He has 6 sisters with no major medical problems. He has a grandfather and cousins with hemophilia. General Exam Limitations: no limitations General appearance: alert, in no apparent distress Head exam: Present: atraumatic, normocephalic, normal inspection Neck exam: Present: normal inspection. Absent: tenderness, meningismus, lymphadenopathy Respiratory exam: Present: normal lung sounds bilaterally. Absent: respiratory distress, wheezes, rales, rhonchi, stridor Cardiovascular Exam: Present: regular rate, normal rhythm, normal heart sounds. Absent: systolic murmur, diastolic murmur, rubs, gallop, clicks Extremities exam: Present: other (Mental pain and swelling to the right ankle neurovascular intact) Course Vital Signs 05/12/22 12:23 Temperature 98.3 F Pulse Rate 86 Respiratory 20 Rate Blood Pressure 147/86 O2 Sat by Pulse 99 Oximetry Medical Decision Making - Medical Decision Making Patient did get his second dose of advate. Symptoms have improved from yesterday. Patient be discharged will follow-up with hematology return paramete rs were discussed. Disposition Clinical Impression: Hemophilia, Hemarthrosis, right ankle Disposition: HOME SELF-CARE Condition: Stable Instructions (If sedation given, give patient instructions): Hemarthrosis (ED) Additional Instructions: Please return to the Emergency Department if symptoms worsen or any other concerns. Is patient prescribed a controlled substance at d/c from ED?: No Referrals: None,Stated [Primary Care Provider] - 1-2 days Time of Disposition: 13:07
[2022-05-12] MEDS ORDERED: ANTIHEMOPHILIC FACTOR IVP ONE (13:45)
== END 2022-05-12 13:49 | disposition home or self-care (01) ==
LOC: EC 12:18
DX: D66 Hereditary factor VIII deficiency (principal); M25.071 Hemarthrosis, right ankle; F17.200 Nicotine dependence, unspecified, uncomplicated; Z88.6 Allergy status to analgesic agent
CPT/HCPCS: 99283; 96374; J7192

== ENCOUNTER 2022-05-16 19:38 | Emergency (ER) | payer OTHER ==
[2022-05-16 21:07] VITALS: BP 145/75; PULSE 98; RESP 16; TEMP 98.6
[2022-05-16] MEDS ORDERED: AMOXIC-POT CLAV 875-125MG 1 EACH TAB PO STA (21:54)
[2022-05-16] MEDS ORDERED: HYDROcodone/APAP 5-325MG 1 EACH TAB PO STA (21:54)
--- NOTE | 2022-05-16 21:59 | ED ---
General Adult HPI - General Chief complaint: Skin/Abscess/Foreign Body Stated complaint: Oral pain Source: patient, RN notes reviewed Mode of arrival: ambulatory Limitations: no limitations - History of Present Illness Initial comments: 31-year-old male presents to the emergency Department with complaints of left- sided facial pain and swelling. Patient states he suspects this is due to a dental infection as he has few teeth and poor dental care. Did not take anything for pain prior to arrival. Has a history of hemophilia therefore does not take NSAIDs. Denies fever, chills, facial trauma or injury, nasal drainage or congestion, or difficulty swallowing. - Related Data Home Medications Medication Instructions Recorded Confirmed Jivi Recombination Infusion 2,500 units IV Q14D 04/02/21 09/04/21 Previous Rx's Medication Instructions Recorded Penicillin V Potassium [Pen Vee K] 500 mg PO QID #40 tablet 12/07/21 HYDROcodone/APAP 5-325MG [[place] 1 tab PO Q6HR PRN 3 Days #12 tab 04/03/22 5-325] Amoxic-Pot Clav 875-125Mg 1 tab PO Q12HR 1 Days #20 tab 05/16/22 [Augmentin 875-125] Allergies Allergy/AdvReac Type Severity Reaction Status Date / Time aspirin AdvReac Unknown Verified 05/16/22 21:04 NSAIDS (Non-Steroidal AdvReac Unknown Verified 05/16/22 21:04 Anti-Inflamma Review of Systems ROS Statement: Those systems with pertinent positive or pertinent negative responses have been documented in the HPI. ROS Other: All systems not noted in ROS Statement are negative. 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 History of Any Multi-Drug Resistant Organisms: None Reported Past Surgical History: No Surgical Hx Reported Additional Past Surgical History / Comment(s): lithotripsy Past Anesthesia/Blood Transfusion Reactions: No Reported Reaction Additional Past Anesthesia/Blood Transfusion Reaction / Comment(s): Pt has never had anesthesia. He received blood in past without reaction. Past Psychological History: ADD/ADHD, Anxiety, Bipolar, Depression Smoking Status: Current every day smoker Past Alcohol Use History: Rare Past Drug Use History: Cocaine, Heroin, Marijuana, Methamphetamine - Past Family History Father History Unknown: Yes Additional Family Medical History / Comment(s): patient does not know any medical history on him. Mother Family Medical History: Respiratory Disorder Additional Family Medical History / Comment(s): Mother is alive at age 56 with history of pulmonary hypertension. Brother(s) Additional Family Medical History / Comment(s): He has 2 brothers with no major medical problems. He has 6 sisters with no major medical problems. He has a grandfather and cousins with hemophilia. General Exam Limitations: no limitations (Well-developed, well-nourished male in no acute distress. Initial temperature 98.6, pulse 90, respirations 16, blood pressure 145/75, pulse ox 99% on room air.) General appearance: alert, in no apparent distress Head exam: Present: atraumatic, normocephalic Eye exam: Present: normal appearance. Absent: scleral icterus, conjunctival injection ENT exam: Present: mucous membranes moist, TM's normal bilaterally, other (Left- sided facial swelling left maxilla; soft with no localized area of firmness or fluctuance. Tenderness upon palpation.) Expanded Mouth exam: Present: tongue normal. Absent: trismus, muffled voice Teeth exam: Present: dental caries, other (Multiple missing teeth) Throat exam: normal inspection. negative: tonsillar erythema, tonsillomegaly Neck exam: Present: normal inspection, full ROM. Absent: tenderness, meningismus, lymphadenopathy Respiratory exam: Present: normal lung sounds bilaterally. Absent: respiratory distress, wheezes, rales, rhonchi, stridor Cardiovascular Exam: Present: regular rate, normal rhythm, normal heart sounds. Absent: systolic murmur, diastolic murmur, rubs, gallop, clicks GI/Abdominal exam: Present: soft, normal bowel sounds. Absent: distended, tenderness, guarding, rebound, rigid Neurological exam: Present: alert, oriented X3, CN II-XII intact Psychiatric exam: Present: normal affect, normal mood Course Vital Signs 05/16/22 21:05 Temperature 98.6 F Pulse Rate 98 Respiratory 16 Rate Blood Pressure 145/75 O2 Sat by Pulse 99 Oximetry Medical Decision Making - Medical Decision Making This is a 31-year-old male with a past medical history of hemophilia who presents to the emergency department for evaluation of left-sided facial swelling which is evident upon exam. Inspection of oropharynx reveals multiple missing teeth and few decaying teeth. No trismus. Vital signs are stable. He is afebrile. He is given a [place] and Augmentin. Instructed to follow up with a dentist as soon as possible. Prescribed Augmentin for suspected dental infection. Return parameters discussed in detail. Patient verbalizes unders tanding and agrees with this plan. Attending: Martínez. Disposition Clinical Impression: Pain, dental, Left facial swelling Disposition: HOME SELF-CARE Condition: Stable Instructions (If sedation given, give patient instructions): Dental Abscess (ED) Additional Instructions: Take antibiotic as directed. Dental care is important. Please seek out a dentist able to manage your care. Consider asking your healthcare network consultant for suggestions. May take Tylenol if needed for pain. Return to the emergency department with any new, worsening, or concerning symptoms. Prescriptions: Amoxic-Pot Clav 875-125Mg [Augmentin 875-125] 1 tab PO Q12HR 1 Days #20 tab Is patient prescribed a controlled substance at d/c from ED?: No Referrals: None,Stated [Primary Care Provider] - 1-2 days
== END 2022-05-16 22:35 | disposition home or self-care (01) ==
LOC: EC 19:38
DX: K08.89 Other specified disorders of teeth and supporting structures (principal); R22.0 Localized swelling, mass and lump, head; E78.5 Hyperlipidemia, unspecified; M19.90 Unspecified osteoarthritis, unspecified site; F41.9 Anxiety disorder, unspecified; F31.9 Bipolar disorder, unspecified; F17.200 Nicotine dependence, unspecified, uncomplicated; F12.90 Cannabis use, unspecified, uncomplicated; Z88.6 Allergy status to analgesic agent; Z79.899 Other long term (current) drug therapy
CPT/HCPCS: 99283

== ENCOUNTER 2022-05-18 04:10 | Emergency (ER) | payer OTHER ==
[2022-05-18 05:15] VITALS: BP 151/87; PULSE 78; RESP 22; TEMP 98.6
[2022-05-18] MEDS ORDERED: HYDROcodone/APAP 5-325MG 1 EACH TAB PO STA (06:14)
--- NOTE | 2022-05-18 06:24 | ED ---
ENT HPI - General Chief complaint: Dental/Oral Stated complaint: Facial Swelling Time Seen by Provider: 05/18/22 06:03 Source: patient, family, RN notes reviewed, old records reviewed Mode of arrival: ambulatory Limitations: no limitations - History of Present Illness Initial comments: Nontoxic appearing 31-year-old male presents to the emergency room with family member complaining of left-sided upper dental pain for several days. Patient states that he was in the emergency room 2 days ago prescribed Augmentin and Murchison with no relief. He has been unable to to get a dentist to accept him related to his hemophilia. Denies any fevers, no nausea vomiting or diarrhea. MD complaint: tooth pain -: days(s) Quality: constant Consistency: constant Improves with: none Associated Symptoms: other (facial pain) - Related Data Home Medications Medication Instructions Recorded Confirmed Jivi Recombination Infusion 2,500 units IV Q14D 04/02/21 05/18/22 Previous Rx's Medication Instructions Recorded Amoxic-Pot Clav 875-125Mg 1 tab PO Q12HR 1 Days #20 tab 05/16/22 [Augmentin 875-125] Allergies Allergy/AdvReac Type Severity Reaction Status Date / Time aspirin AdvReac Unknown Verified 05/18/22 05:15 NSAIDS (Non-Steroidal AdvReac Unknown Verified 05/18/22 05:15 Anti-Inflamma Review of Systems ROS Statement: Those systems with pertinent positive or pertinent negative responses have been documented in the HPI. ROS Other: All systems not noted in ROS Statement are negative. 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 History of Any Multi-Drug Resistant Organisms: None Reported Past Surgical History: No Surgical Hx Reported Additional Past Surgical History / Comment(s): lithotripsy Past Anesthesia/Blood Transfusion Reactions: No Reported Reaction Additional Past Anesthesia/Blood Transfusion Reaction / Comment(s): Pt has never had anesthesia. He received blood in past without reaction. Past Psychological History: ADD/ADHD, Anxiety, Bipolar, Depression Smoking Status: Current every day smoker Past Alcohol Use History: Rare Past Drug Use History: Cocaine, Heroin, Marijuana, Methamphetamine - Past Family History Father History Unknown: Yes Additional Family Medical History / Comment(s): patient does not know any medical history on him. Mother Family Medical History: Respiratory Disorder Additional Family Medical History / Comment(s): Mother is alive at age 56 with history of pulmonary hypertension. Brother(s) Additional Family Medical History / Comment(s): He has 2 brothers with no major medical problems. He has 6 sisters with no major medical problems. He has a grandfather and cousins with hemophilia. General Exam Limitations: no limitations General appearance: alert, in no apparent distress Head exam: Present: atraumatic ENT exam: Present: mucous membranes moist Expanded Teeth exam: Present: dental caries, other (patient has only 1 tooth in upper left jaw that has severe dental caries, no drainable abscess) Throat exam: negative: tonsillar erythema, tonsillar exudate, R peritonsillar mass, L peritonsillar mass Neck exam: Present: full ROM. Absent: meningismus Respiratory exam: Absent: respiratory distress, accessory muscle use Cardiovascular Exam: Present: regular rate, normal rhythm Extremities exam: Present: normal capillary refill. Absent: pedal edema Neurological exam: Present: alert, oriented X3 Psychiatric exam: Present: normal affect, normal mood Skin exam: Present: warm, dry, normal color. Absent: cyanosis, diaphoretic Course Vital Signs 05/18/22 05:10 Temperature 98.6 F Pulse Rate 78 Respiratory 22 Rate Blood Pressure 151/87 O2 Sat by Pulse 100 Oximetry Medical Decision Making - Medical Decision Making On exam patient complaining of upper left dental pain. Patient has only one tooth left, appears to be tooth #14, and it is with dental cavity. There is no identifiable abscess. No evidence of Mando's angina. Patient is tolerating his own secretions and his speech is clear. He denies any difficulty swallowing, fevers, no nausea or vomiting. He is complaining of left-sided facial pain which is likely related to inflammation. He is unable to take Motrin related to his hemophilia. I expressed to the patient and his family member that it is very important to follow up with dentist. The resolution to his symptoms will be relieved with removal of this tooth. Patient will be discharged home and directed to continue his previously prescribed antibiotics and Murchison. Follow-up with Dr. Lindsay with oral surgery. Case discussed with Dr. Nicolas Disposition Clinical Impression: Dental caries, Pain, dental Disposition: HOME SELF-CARE Condition: Good Instructions (If sedation given, give patient instructions): Toothache (ED) Additional Instructions: Continue taking your antibiotics as previously prescribed. Follow-up with Dr. Lindsay the oral surgeon next week. The resolution of the symptoms is dependent upon you following up with a dentist. Is patient prescribed a controlled substance at d/c from ED?: No Referrals: None,Stated [Primary Care Provider] - 1-2 days Sal Lindsay DDS [STAFF PHYSICIAN] - 1-2 days Time of Disposition: 06:24
== END 2022-05-18 06:34 | disposition home or self-care (01) ==
LOC: EC 04:10
DX: K02.9 Dental caries, unspecified (principal); E78.5 Hyperlipidemia, unspecified; F17.200 Nicotine dependence, unspecified, uncomplicated; Z88.5 Allergy status to narcotic agent; Z88.8 Allergy status to other drugs, medicaments and biological substances

== ENCOUNTER 2022-06-14 23:41 | Emergency (ER) | payer OTHER ==
[2022-06-15 00:07] VITALS: TEMP 98.4
--- NOTE | 2022-06-15 01:21 | XR ---
EXAMINATION TYPE: XR ankle complete RT DATE OF EXAM: 06/15/2022 COMPARISON: 05/11/2022 HISTORY: Swelling and pain TECHNIQUE: 3 views FINDINGS: There is narrowing of the ankle joint space. There is subchondral cystic change and scleros is on both sides of the ankle joint. There is some mild soft tissue swelling around the ankle. There is spurring of the anterior and posterior malleolus. IMPRESSION: Advanced osteoarthritis in the ankle joint. No change compared to old exam.
--- NOTE | 2022-06-15 02:14 | ED ---
General Adult HPI - General Chief complaint: Extremity Injury, Lower Stated complaint: Right Ankle Injury Time Seen by Provider: 06/15/22 01:45 Source: patient, RN notes reviewed, old records reviewed Mode of arrival: wheelchair - History of Present Illness Initial comments: Patient is a 31-year-old male with past medical history remarkable for hemophilia a who presents to the emergency department complaining of right ankle pain. Has a history of polysubstance abuse states he may have bumped his right ankle, and now it is swollen.He is supposed received factor replacement which is why presents. Is also requesting an x-ray. This occurred approximately 3 hours prior to arrival. Endorses mild pain. Denies any other injuries. Denies short of breath, chest pain, abdominal pain, nausea, vomiting. Presents for x-ray and factor replacement. Has been seen here previously for similar complaints. - Related Data Home Medications Medication Instructions Recorded Confirmed Jivi Recombination Infusion 2,500 units IV Q14D 04/02/21 05/18/22 Previous Rx's Medication Instructions Recorded Amoxic-Pot Clav 875-125Mg 1 tab PO Q12HR 1 Days #20 tab 05/16/22 [Augmentin 875-125] Allergies Allergy/AdvReac Type Severity Reaction Status Date / Time aspirin AdvReac Unknown Verified 06/15/22 00:07 NSAIDS (Non-Steroidal AdvReac Unknown Verified 06/15/22 00:07 Anti-Inflamma Review of Systems ROS Statement: Those systems with pertinent positive or pertinent negative responses have been documented in the HPI. Review of Systems: CONST: Denies fever EYES: Denies blurry vision ENT: Denies nasal congestion C/V: Denies Chest pain RESP: Denies shortness of breath GI: Denies abdominal pain : Denies dysuria SKIN: Denies rash. MSK: Endorses right ankle pain NEURO: Denies headache ROS Other: All systems not noted in ROS Statement are negative. 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 History of Any Multi-Drug Resistant Organisms: None Reported Past Surgical History: No Surgical Hx Reported Additional Past Surgical History / Comment(s): lithotripsy Past Anesthesia/Blood Transfusion Reactions: No Reported Reaction Additional Past Anesthesia/Blood Transfusion Reaction / Comment(s): Pt has never had anesthesia. He received blood in past without reaction. Past Psychological History: ADD/ADHD, Anxiety, Bipolar, Depression Smoking Status: Current every day smoker Past Alcohol Use History: Rare Past Drug Use History: Cocaine, Heroin, Marijuana, Methamphetamine - Past Family History Father History Unknown: Yes Additional Family Medical History / Comment(s): patient does not know any medical history on him. Mother Family Medical History: Respiratory Disorder Additional Family Medical History / Comment(s): Mother is alive at age 56 with history of pulmonary hypertension. Brother(s) Additional Family Medical History / Comment(s): He has 2 brothers with no major medical problems. He has 6 sisters with no major medical problems. He has a grandfather and cousins with hemophilia. General Exam - General Exam Comments Initial Comments: General: Appears in no acute distress. HEAD: Normal with no signs of head trauma. EYES: EOMI ENT: Hearing grossly intact RESPIRATORY: No respiratory distress. C/V: Peripheral pulses 2+ and intact throughout. ABD: Nondistended EXT: Decreased range of motion the right ankle secondary to pain over the lateral malleolus. Mild swelling. No obvious deformity. Neurovascular intact. SKIN: No rashes or lesions observed on exposed skin. NEURO: Alert and oriented 4. Neurovascular intact. Course Vital Signs 06/15/22 06/15/22 00:02 03:07 Temperature 98.4 F Pulse Rate 80 69 Respiratory 18 16 Rate Blood Pressure 127/88 125/84 O2 Sat by Pulse 99 98 Oximetry Medical Decision Making - Medical Decision Making Based on the patient's presentation and physical exam, I'm concerned for a right ankle sprain. We'll obtain an x-ray. Cannot rule out hemarthrosis. He is requesting factor VIII replacement which I believe is reasonable. He will be given analgesia medication. X-ray shows no acute injury. I discussed results with the patient. Vital signs are within normal limits. He will receive his factor replacement be discharged home. He was in agreement this plan. Can use home analgesia as needed. I instructed the patient to follow up with their PCP in the next 1-3 days. I explained that the patient should return to the emergency department if they experience any worsening symptoms. Strict return precautions were discussed with the patient. The patient expressed understanding of these instructions. I answered all questions that the patient had. The patient was discharged home in good condition with their prescriptions and follow up information. Disposition Clinical Impression: Right ankle pain, Right ankle swelling, Hemophilia A Narrative: concern for hemarthrosis Disposition: HOME SELF-CARE Condition: Good Instructions (If sedation given, give patient instructions): Ankle Sprain (ED) Is patient prescribed a controlled substance at d/c from ED?: No Referrals: None,Stated [Primary Care Provider] - 1-2 days Time of Disposition: 14:20
[2022-06-15] MEDS ORDERED: ANTIHEMOPHILIC FACTOR IVP ONE ×2 (02:30)
[2022-06-15] MEDS ORDERED: HYDROcodone/APAP 5-325MG 1 EACH TAB PO STA (02:47)
[2022-06-15 03:08] VITALS: BP 125/84; PULSE 69; RESP 16
== END 2022-06-15 03:07 | disposition home or self-care (01) ==
LOC: EC 23:41
DX: M25.571 Pain in right ankle and joints of right foot (principal); D66 Hereditary factor VIII deficiency; E78.5 Hyperlipidemia, unspecified; M19.90 Unspecified osteoarthritis, unspecified site; F17.200 Nicotine dependence, unspecified, uncomplicated; F31.9 Bipolar disorder, unspecified; F41.9 Anxiety disorder, unspecified; F12.90 Cannabis use, unspecified, uncomplicated; F14.10 Cocaine abuse, uncomplicated; F15.10 Other stimulant abuse, uncomplicated; F90.9 Attention-deficit hyperactivity disorder, unspecified type; Z88.6 Allergy status to analgesic agent
CPT/HCPCS: 99283 ×2; 73610; 96374; J7192

== ENCOUNTER 2022-07-06 19:44 | Emergency (ER) | payer OTHER ==
[2022-07-06 19:56] VITALS: TEMP 97.9
--- NOTE | 2022-07-06 20:18 | XR ---
EXAMINATION TYPE: XR elbow complete LT DATE OF EXAM: 07/06/2022 COMPARISON: NONE HISTORY: Pain. Fall. TECHNIQUE: 3 views FINDINGS: There is some spurring at the elbow joint. Radial head is intact. No sign of joint effusion IMPRESSION: There are some degenerative changes in the elbow joint. No fracture seen.
[2022-07-06] MEDS ORDERED: MORPHINE SULFATE 4 MG/ML SYRINGE IV STA (20:54)
[2022-07-06] MEDS ORDERED: ANTIHEMOPHILIC FACTOR IVP STA (20:59)
[2022-07-06] MEDS ORDERED: HYDROmorphone 1 MG/ML 1 ML SYRINGE IVP STA (21:43)
[2022-07-06] MEDS ORDERED: ACET/COD 300 MG/30 MG STARTER PACK 6 TAB BTL PO STA (22:19)
--- NOTE | 2022-07-06 22:19 | ED ---
Upper Extremity HPI - General Chief Complaint: Extremity Injury, Upper Stated Complaint: Fall-L elbow injury Time Seen by Provider: 07/06/22 20:44 Source: patient, RN notes reviewed Mode of arrival: ambulatory Limitations: no limitations - History of Present Illness Initial Comments: Patient is a 31-year-old male well known to the emergency room who presents to the ER after falling and landing on his left elbow at approximately noon earlier today. He reports that he has had increase in pain and swelling since the trauma occurred. Denies any trauma to any other joints. He denies any head trauma, dizziness or loss of consciousness at the time of his fall or afterwards. He has a history of being a hemophiliac and though he has established with a new mower mechanic he does not have any factor VIII at home. In addition to hemophilia he has past medical history significant for hepatitis C, liver failure, hyperlipidemia and osteoarthritis. - Related Data Home Medications Medication Instructions Recorded Confirmed Jivi Recombination Infusion 2,500 units IV Q14D 04/02/21 05/18/22 Previous Rx's Medication Instructions Recorded Amoxic-Pot Clav 875-125Mg 1 tab PO Q12HR 1 Days #20 tab 05/16/22 [Augmentin 875-125] Allergies Allergy/AdvReac Type Severity Reaction Status Date / Time aspirin AdvReac Unknown Verified 07/06/22 19:56 NSAIDS (Non-Steroidal AdvReac Unknown Verified 07/06/22 19:56 Anti-Inflamma Review of Systems ROS Statement: Those systems with pertinent positive or pertinent negative responses have been documented in the HPI. ROS Other: All systems not noted in ROS Statement are negative. 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 History of Any Multi-Drug Resistant Organisms: None Reported Past Surgical History: No Surgical Hx Reported Additional Past Surgical History / Comment(s): lithotripsy Past Anesthesia/Blood Transfusion Reactions: No Reported Reaction Additional Past Anesthesia/Blood Transfusion Reaction / Comment(s): Pt has never had anesthesia. He received blood in past without reaction. Past Psychological History: ADD/ADHD, Anxiety, Bipolar, Depression Smoking Status: Current every day smoker Past Alcohol Use History: Rare Past Drug Use History: Cocaine, Heroin, Marijuana, Methamphetamine - Past Family History Father History Unknown: Yes Additional Family Medical History / Comment(s): patient does not know any medical history on him. Mother Family Medical History: Respiratory Disorder Additional Family Medical History / Comment(s): Mother is alive at age 56 with history of pulmonary hypertension. Brother(s) Additional Family Medical History / Comment(s): He has 2 brothers with no major medical problems. He has 6 sisters with no major medical problems. He has a grandfather and cousins with hemophilia. General Exam Limitations: no limitations General appearance: alert, in no apparent distress Head exam: Present: atraumatic, normocephalic, normal inspection Eye exam: Present: normal appearance, PERRL, EOMI. Absent: scleral icterus, conjunctival injection, periorbital swelling ENT exam: Present: normal exam, mucous membranes moist Neck exam: Present: normal inspection Respiratory exam: Absent: respiratory distress, accessory muscle use Left Elbow exam: Present: tenderness, swelling, effusion, pain w/ pronation/supination. Absent: full ROM, laceration, ecchymosis, deformity, crepitus, dislocation, erythema Vascular: Absent: vascular compromise Neurological exam: Present: alert, oriented X3, CN II-XII intact Psychiatric exam: Present: normal affect, normal mood Skin exam: Present: warm, dry, intact, normal color. Absent: rash Course Vital Signs 07/06/22 07/06/22 19:54 21:17 Temperature 97.9 F Pulse Rate 67 100 Respiratory 18 24 Rate Blood Pressure 130/81 140/100 O2 Sat by Pulse 99 99 Oximetry Medical Decision Making - Medical Decision Making 31-year-old male with history of hemophilia with trauma to his left elbow. Will check x-ray left elbow. Given lack of factor VIII available at home will likely need factor VIII will await x-ray results for dosing. Will give morphine for pain. X-ray without hemarthrosis noted will dose of factor VIII recombinant conservatively at 2700 units. Pain not improved with morphine will give Dilaudid and monitor response. Xray left elbow complete shows some degenerative changes at the elbow. No fracture is seen. No signs of joint effusion. Continued pain with Dilaudid but some improvement. Tolerated factor VII injection well. Will discharge home with Tylenol 3 #3 starter pack and follow-up with primary care along with his mower mechanic. Case discussed with Dr. Soliz - Radiology Data Radiology results: report reviewed, image reviewed X-ray left elbow complete impression mild degenerative changes at the elbow clarisa int. No fracture is seen. Some spurring at the elbow joint. Radial head is intact. No signs of joint effusion. Disposition Clinical Impression: Sprain of left elbow Disposition: HOME SELF-CARE Condition: Stable Instructions (If sedation given, give patient instructions): Elbow Sprain (ED) Additional Instructions: Please utilize Tylenol 3 starter pack as needed for pain. Please maintain arm sling as needed. Please follow-up with your primary care provider and her mower mechanic. Please return to the Emergency Department if symptoms worsen or any other concerns. Is patient prescribed a controlled substance at d/c from ED?: No Referrals: None,Stated [Primary Care Provider] - 1-2 days Time of Disposition: 23:04
[2022-07-06 23:10] VITALS: BP 140/86; PULSE 68; RESP 22
== END 2022-07-06 23:16 | disposition home or self-care (01) ==
LOC: EC 19:44
DX: S53.402A Unspecified sprain of left elbow, initial encounter (principal); E78.5 Hyperlipidemia, unspecified; M19.90 Unspecified osteoarthritis, unspecified site; F31.9 Bipolar disorder, unspecified; F41.9 Anxiety disorder, unspecified; F17.200 Nicotine dependence, unspecified, uncomplicated; F12.90 Cannabis use, unspecified, uncomplicated; Z88.6 Allergy status to analgesic agent; Z79.899 Other long term (current) drug therapy; W19.XXXA Unspecified fall, initial encounter
CPT/HCPCS: 73080; 99284; 96374; 96375 ×2; J2270; J1170; J7192

== ENCOUNTER 2022-08-05 14:30 | Emergency (ER) | payer OTHER ==
[2022-08-05 14:33] VITALS: TEMP 98.7
[2022-08-05] MEDS ORDERED: ACETAMINOPHEN TAB 500 MG TAB PO STA (16:21)
--- NOTE | 2022-08-05 16:25 | ED ---
General Adult HPI - General Chief complaint: Chest Pain Stated complaint: Chest pains,lt arm numbness Time Seen by Provider: 08/05/22 16:08 Source: patient, RN notes reviewed Mode of arrival: ambulatory Limitations: no limitations - History of Present Illness Initial comments: This is a pleasant 31-year-old male presents from his back complaining of left chest pain which is intermittent, occurs at rest. Patient states started this morning. He also has a strange sensations in left arm. No focal weakness. Patient's also had a productive cough as well as a runny nose. No known fever. Pain is not related to exertion. No alleviating or exacerbating factors. Pain is fleeting, comes and goes. Does radiate to the axilla. No headache, no fever or chills, no changes in vision or hearing, no sore throat or difficulty with speech, no neck pain, no shortness of breath, no abdominal pain, no nausea or vomiting, no changes in urination or bowel movements, no focal weakness. No dizziness or lightheadedness, no extremity pain, no skin rashes or lesions. Past medical, surgical, social, and family history reviewed. - Related Data Previous Rx's Medication Instructions Recorded Acetaminophen Tab [Tylenol Tab] 500 mg PO Q6H PRN #24 tablet 08/05/22 Albuterol Inhaler [Ventolin Hfa 2 puff INHALATION Q4HR PRN #1 each 08/05/22 Inhaler] Benzonatate [Tessalon Perles] 200 mg PO TID PRN #30 capsule 08/05/22 Allergies Allergy/AdvReac Type Severity Reaction Status Date / Time aspirin AdvReac contraindicated Verified 08/05/22 16:33 d/t hemophilia NSAIDS (Non-Steroidal AdvReac contraindicated Verified 08/05/22 16:33 Anti-Inflamma d/t hemophilia Review of Systems ROS Statement: Those systems with pertinent positive or pertinent negative responses have been documented in the HPI. ROS Other: All systems not noted in ROS Statement are negative. 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 History of Any Multi-Drug Resistant Organisms: None Reported Past Surgical History: No Surgical Hx Reported Additional Past Surgical History / Comment(s): lithotripsy Past Anesthesia/Blood Transfusion Reactions: No Reported Reaction Additional Past Anesthesia/Blood Transfusion Reaction / Comment(s): Pt has never had anesthesia. He received blood in past without reaction. Past Psychological History: ADD/ADHD, Anxiety, Bipolar, Depression Smoking Status: Current every day smoker Past Alcohol Use History: Rare Past Drug Use History: Cocaine, Heroin, Marijuana, Methamphetamine - Past Family History Father History Unknown: Yes Additional Family Medical History / Comment(s): patient does not know any medical history on him. Mother Family Medical History: Respiratory Disorder Additional Family Medical History / Comment(s): Mother is alive at age 56 with history of pulmonary hypertension. Brother(s) Additional Family Medical History / Comment(s): He has 2 brothers with no major medical problems. He has 6 sisters with no major medical problems. He has a grandfather and cousins with hemophilia. General Exam - General Exam Comments Initial Comments: Healthy-appearing 31-year-old in no significant distress. Does not appear to be ill or toxic. Limitations: no limitations General appearance: alert, in no apparent distress Head exam: Present: atraumatic, normocephalic, normal inspection Eye exam: Present: normal appearance, PERRL, EOMI. Absent: scleral icterus, conjunctival injection, periorbital swelling ENT exam: Present: normal exam, normal oropharynx, mucous membranes moist, normal external ear exam. Absent: mucous membranes dry Neck exam: Present: normal inspection, full ROM. Absent: tenderness, men ingismus, lymphadenopathy Respiratory exam: Present: normal lung sounds bilaterally. Absent: respiratory distress, wheezes, rales, rhonchi, stridor Cardiovascular Exam: Present: regular rate, normal rhythm, normal heart sounds. Absent: systolic murmur, diastolic murmur, rubs, gallop, clicks GI/Abdominal exam: Present: soft, normal bowel sounds. Absent: distended, tenderness, guarding, rebound, rigid Extremities exam: Present: normal inspection, full ROM, normal capillary refill. Absent: tenderness, pedal edema, joint swelling, calf tenderness Back exam: Present: normal inspection Neurological exam: Present: alert, oriented X3, CN II-XII intact Psychiatric exam: Present: normal affect, normal mood Skin exam: Present: warm, dry, intact, normal color. Absent: rash Course Vital Signs 08/05/22 14:31 Temperature 98.7 F Pulse Rate 82 Respiratory 16 Rate Blood Pressure 161/96 O2 Sat by Pulse 97 Oximetry - Reevaluation(s) Reevaluation #1: 08/05/22 17:15 Medical record is reviewed Symptoms are improved here in the emergency department Patient is informed of results and questions answered Patient in no distress EKG Findings - EKG Comments: EKG Findings:: EKG done at 1435. ED attending physician reveals sinus rhythm with a rate of 79, normal intervals, normal axis, no acute ST or T-wave changes. Normal QRS morphology. Procedures - Smoking Cessation Time Spent Discussing Smoking Cessation w/Patient (Minutes): 5 Patient Acknowledges Need for Cessation: Yes Medical Decision Making - Medical Decision Making PERC= 0. Differential diagnosis includes nonspecific chest wall pain, viral bronchitis, viral syndrome, costochondritis, pneumothorax. Given the patient's nausea and presentation, this unlikely to be due to cardiac ischemia or vascular etiology. - Lab Data Result diagrams: 08/05/22 16:28 08/05/22 16:28 Lab Results 08/05/22 08/05/22 08/05/22 Range/Units 14:36 16:28 16:28 WBC 9.7 (3.8-10.6) k/uL RBC 4.77 (4.30-5.90) m/uL Hgb 14.8 (13.0-17.5) gm/dL Hct 44.4 (39.0-53.0) % MCV 93.2 (80.0-100.0) fL MCH 31.0 (25.0-35.0) pg MCHC 33.3 (31.0-37.0) g/dL RDW 12.8 (11.5-15.5) % Plt Count 188 (150-450) k/uL MPV 7.6 Neutrophils % 59 % Lymphocytes % 33 % Monocytes % 6 % Eosinophils % 1 % Basophils % 0 % Neutrophils # 5.7 (1.3-7.7) k/uL Lymphocytes # 3.2 (1.0-4.8) k/uL Monocytes # 0.5 (0-1.0) k/uL Eosinophils # 0.1 (0-0.7) k/uL Basophils # 0.0 (0-0.2) k/uL D-Dimer (<0.60) mg/L FEU Sodium 141 (137-145) mmol/L Potassium 4.2 (3.5-5.1) mmol/L Chloride 102 (98-107) mmol/L Carbon Dioxide 25 (22-30) mmol/L Anion Gap 14 mmol/L BUN 14 (9-20) mg/dL Creatinine 0.75 (0.66-1.25) mg/dL Est GFR (CKD-EPI)AfAm >90 (>60 ml/min/1.73 sqM) Est GFR (CKD-EPI)NonAf >90 (>60 ml/min/1.73 sqM) Glucose 79 (74-99) mg/dL Calcium 9.2 (8.4-10.2) mg/dL Magnesium 2.0 (1.6-2.3) mg/dL Total Bilirubin 0.9 (0.2-1.3) mg/dL AST 51 (17-59) U/L ALT 97 H (4-49) U/L Alkaline Phosphatase 74 (38-126) U/L Troponin I (0.000-0.034) ng/mL Total Protein 8.1 (6.3-8.2) g/dL Albumin 4.9 (3.5-5.0) g/dL Coronavirus (PCR) Not Detected (Not Detectd) 08/05/22 08/05/22 Range/Units 16:28 16:28 WBC (3.8-10.6) k/uL RBC (4.30-5.90) m/uL Hgb (13.0-17.5) gm/dL Hct (39.0-53.0) % MCV (80.0-100.0) fL MCH (25.0-35.0) pg MCHC (31.0-37.0) g/dL RDW (11.5-15.5) % Plt Count (150-450) k/uL MPV Neutrophils % % Lymphocytes % % Monocytes % % Eosinophils % % Basophils % % Neutrophils # (1.3-7.7) k/uL Lymphocytes # (1.0-4.8) k/uL Monocytes # (0-1.0) k/uL Eosinophils # (0-0.7) k/uL Basophils # (0-0.2) k/uL D-Dimer 0.26 (<0.60) mg/L FEU Sodium (137-145) mmol/L Potassium (3.5-5.1) mmol/L Chloride (98-107) mmol/L Carbon Dioxide (22-30) mmol/L Anion Gap mmol/L BUN (9-20) mg/dL Creatinine (0.66-1.25) mg/dL Est GFR (CKD-EPI)AfAm (>60 ml/min/1.73 sqM) Est GFR (CKD-EPI)NonAf (>60 ml/min/1.73 sqM) Glucose (74-99) mg/dL Calcium (8.4-10.2) mg/dL Magnesium (1.6-2.3) mg/dL Total Bilirubin (0.2-1.3) mg/dL AST (17-59) U/L ALT (4-49) U/L Alkaline Phosphatase (38-126) U/L Troponin I <0.012 (0.000-0.034) ng/mL Total Protein (6.3-8.2) g/dL Albumin (3.5-5.0) g/dL Coronavirus (PCR) (Not Detectd) - Radiology Data Radiology results: report reviewed, image reviewed Disposition Clinical Impression: Acute bronchitis, Acute chest wall pain, Cigarette smoker, Acute non-ST elevation myocardial infarction (NSTEMI) Disposition: HOME SELF-CARE Condition: Good Instructions (If sedation given, give patient instructions): Acute Bronchitis (ED), Chest Wall Pain (ED), How to Stop Smoking (ED) Additional Instructions: Follow-up with your regular physician as directed. Return to the ER immediately if any symptoms worsen, new symptoms arise, or any other problems develop. Is patient prescribed a controlled substance at d/c from ED?: No Referrals: None,Stated [Primary Care Provider] - 1-2 days Time of Disposition: 17:22
[2022-08-05 16:54] LABS: Basophils % (A) 0 %; Eosinophils # (A) 0.1 k/uL (0-0.7); Eosinophils % (A) 1 %; HCT 44.4 % (39.0-53.0); HGB 14.8 gm/dL (13.0-17.5); Lymphocytes # (A) 3.2 k/uL (1.0-4.8); Lymphocytes % (A) 33 %; MCHC 33.3 g/dL (31.0-37.0); MCV 93.2 fL (80.0-100.0); Mean Platelet Volume 7.6; Monocytes # (A) 0.5 k/uL (0-1.0); Monocytes % (A) 6 %; Neutrophils # (A) 5.7 k/uL (1.3-7.7); Neutrophils % (A) 59 %; Platelet Count 188 k/uL (150-450); RBC 4.77 m/uL (4.30-5.90); RDW 12.8 % (11.5-15.5); WBC 9.7 k/uL (3.8-10.6)
[2022-08-05 16:59] LABS: ALT 97 U/L (4-49); AST 51 U/L (17-59); African American GFR (CKD) >90 (>60 ml/min/1.73 sqM); Albumin 4.9 g/dL (3.5-5.0); Alkaline Phosphatase 74 U/L (38-126); Anion Gap 14 mmol/L; Blood Urea Nitrogen 14 mg/dL (9-20); Calcium 9.2 mg/dL (8.4-10.2); Carbon Dioxide 25 mmol/L (22-30); Chloride 102 mmol/L (98-107); Glucose 79 mg/dL (74-99); Non-African American GFR(CKD) >90 (>60 ml/min/1.73 sqM); Potassium 4.2 mmol/L (3.5-5.1); Sodium 141 mmol/L (137-145); Total Bilirubin 0.9 mg/dL (0.2-1.3); Total Protein 8.1 g/dL (6.3-8.2)
--- NOTE | 2022-08-05 17:13 | XR ---
EXAMINATION TYPE: XR chest 2V DATE OF EXAM: 08/05/2022 COMPARISON: 08/27/2021 HISTORY: Pain TECHNIQUE: FINDINGS: Heart and mediastinum are normal. Lungs are clear. Diaphragm is normal. Bony thorax is inta ct IMPRESSION: Normal chest. No change
[2022-08-05 17:40] VITALS: BP 133/87; PULSE 70; RESP 15
== END 2022-08-05 17:39 | disposition home or self-care (01) ==
LOC: EC 14:30
DX: J40 Bronchitis, not specified as acute or chronic (principal); I21.4 Non-ST elevation (NSTEMI) myocardial infarction; F17.200 Nicotine dependence, unspecified, uncomplicated; F12.90 Cannabis use, unspecified, uncomplicated; F11.90 Opioid use, unspecified, uncomplicated; F14.90 Cocaine use, unspecified, uncomplicated; F15.10 Other stimulant abuse, uncomplicated; F90.9 Attention-deficit hyperactivity disorder, unspecified type; F41.9 Anxiety disorder, unspecified; F31.9 Bipolar disorder, unspecified; Z20.822 Contact with and (suspected) exposure to COVID-19
CPT/HCPCS: 36415; 71046; 80053; 83735; 84484; 85025; 85379; 87635; 93005; 99285

== ENCOUNTER 2022-08-23 18:26 | Emergency (ER) | payer OTHER ==
[2022-08-23 19:47] VITALS: RESP 16; TEMP 98
--- NOTE | 2022-08-23 20:12 | XR ---
EXAMINATION TYPE: XR shoulder complete LT DATE OF EXAM: 08/23/2022 COMPARISON: NONE HISTORY: Pain and swelling TECHNIQUE: 3 views FINDINGS: There is no fracture nor dislocation. Joint spaces are normal. No pathologic calcification. IMPRESSION: Negative left shoulder exam. No fracture.
[2022-08-23] MEDS ORDERED: ONDANSETRON 4 MG/2 ML VIAL IVP STA (22:17)
[2022-08-23] MEDS ORDERED: HYDROmorphone 1 MG/ML 1 ML SYRINGE IVP STA (22:17)
--- NOTE | 2022-08-23 22:22 | ED ---
General Adult HPI - General Chief complaint: Extremity Injury, Upper Stated complaint: lt shoulder injury Time Seen by Provider: 08/23/22 21:58 Source: patient, RN notes reviewed Mode of arrival: ambulatory Limitations: no limitations - History of Present Illness Initial comments: 31-year-old male presents to the emergency department requesting factor VIII infusion. States he was assisting the friend move a heavy deep freezer earlier this morning which he presumes is the cause of the swelling of the left upper arm around the bicep and shoulder. Patient states he has a history of Hemophilia A he and has is suppose to be receiving infusions twice weekly, but has not been able to establish consistent care with a [facility] or the [facility]. Patient states after the injury occurred this morning he took Tylenol at home hoping to alleviate some of the discomfort. Reports minimal improvement and ongoing pain/swelling. Denies any other injuries, sites of active bleeding, or additional concerns at this time. - Related Data Previous Rx's Medication Instructions Recorded Acetaminophen Tab [Tylenol Tab] 500 mg PO Q6H PRN #24 tablet 08/05/22 Albuterol Inhaler [Ventolin Hfa 2 puff INHALATION Q4HR PRN #1 each 08/05/22 Inhaler] Benzonatate [Tessalon Perles] 200 mg PO TID PRN #30 capsule 08/05/22 HYDROcodone/APAP 5-325MG [Malin 1 tab PO Q6HR PRN 3 Days #12 tab 08/15/22 5-325] Allergies Allergy/AdvReac Type Severity Reaction Status Date / Time aspirin AdvReac contraindicated Verified 08/23/22 19:44 d/t hemophilia NSAIDS (Non-Steroidal AdvReac contraindicated Verified 08/23/22 19:44 Anti-Inflamma d/t hemophilia Review of Systems ROS Statement: Those systems with pertinent positive or pertinent negative responses have been documented in the HPI. ROS Other: All systems not noted in ROS Statement are negative. 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 History of Any Multi-Drug Resistant Organisms: None Reported Past Surgical History: No Surgical Hx Reported Additional Past Surgical History / Comment(s): lithotripsy Past Anesthesia/Blood Transfusion Reactions: No Reported Reaction Additional Past Anesthesia/Blood Transfusion Reaction / Comment(s): Pt has never had anesthesia. He received blood in past without reaction. Past Psychological History: ADD/ADHD, Anxiety, Bipolar, Depression Smoking Status: Current every day smoker Past Alcohol Use History: Rare Past Drug Use History: Methamphetamine - Past Family History Father History Unknown: Yes Additional Family Medical History / Comment(s): patient does not know any medical history on him. Mother Family Medical History: Respiratory Disorder Additional Family Medical History / Comment(s): Mother is alive at age 56 with history of pulmonary hypertension. Brother(s) Additional Family Medical History / Comment(s): He has 2 brothers with no major medical problems. He has 6 sisters with no major medical problems. He has a grandfather and cousins with hemophilia. General Exam Limitations: no limitations (Well-developed, well-nourished male in mild distress due to pain. Initial temperature 98.0, pulse 82, respirations 16, blood pressure 136/94, pulse ox 98% on room air.) General appearance: alert, other ENT exam: Present: normal exam, normal oropharynx, mucous membranes moist Respiratory exam: Present: normal lung sounds bilaterally. Absent: respiratory distress, wheezes, rales, rhonchi, stridor Cardiovascular Exam: Present: regular rate, normal rhythm, normal heart sounds. Absent: systolic murmur, diastolic murmur, rubs, gallop, clicks GI/Abdominal exam: Present: soft, normal bowel sounds. Absent: distended, tenderness, guarding, rebound, rigid Left Shoulder Exam: Absent: full ROM (limited by pain) Upper Arm exam: Present: tenderness (tenderness upon palpation of the bicep), swelling (mild swelling), other (tense quality of the bicep noted upon palpation of the left upper arm ). Absent: ecchymosis, deformity, erythema Elbow exam: Present: normal inspection, full ROM. Absent: tenderness, swelling Hand Wrist exam: Present: normal inspection, full ROM. Absent: tenderness, swelling Vascular: Present: normal capillary refill, radial pulse, brachial pulse. Absent: vascular compromise, Pallo Right General: Present: normal inspection Shoulder Exam: Present: normal inspection, full ROM. Absent: tenderness, swelling Upper Arm exam: Present: normal inspection, full ROM. Absent: tenderness, swelling Elbow exam: Present: normal inspection, full ROM. Absent: tenderness, swelling Hand Wrist exam: Present: normal inspection, full ROM. Absent: tenderness, swelling Vascular: Present: normal capillary refill, radial pulse, brachial pulse. Absent: vascular compromise, Pallo Neurological exam: Present: alert, oriented X3, CN II-XII intact, normal gait Psychiatric exam: Present: normal affect, normal mood Skin exam: Present: warm, dry, intact, normal color. Absent: rash Course Vital Signs 08/23/22 08/23/22 19:44 23:51 Temperature 98 F Pulse Rate 82 84 Respiratory 16 16 Rate Blood Pressure 136/94 146/90 O2 Sat by Pulse 98 98 Oximetry - Reevaluation(s) Reevaluation #1: 08/23/22 23:30 Upon reassessment, patient tolerated infusion well with no adverse side effect. Reports modest improvement with Dilaudid but is requesting an additional dose prior to departure. Discharge instructions were reviewed with patient. Medical Decision Making - Medical Decision Making 32-year-old male with a past medical history of hemophilia presents to the emergency department for Advate infusion. Upon exam, left deltoid region tense and tender to touch after heavy lifting this morning. Patient was given Dilaudid for pain with improvement. Tolerated infusion well. X-ray was unremarkable. He will be discharged home to follow up with hemophilia clinic or establish care with [facility].Return parameters discussed in detail. Patient verbalizes understanding and agrees with this plan. Attending: Fidencio. - Radiology Data Radiology results: report reviewed, image reviewed X-ray of the left shoulder was obtained. Report was reviewed in its entirety. Impression per Dr. Harris is negative left shoulder exam. No fracture. Disposition Clinical Impression: Left upper arm injury Disposition: HOME SELF-CARE Condition: Stable Instructions (If sedation given, give patient instructions): Hemophilia (ED) Additional Instructions: Continue your efforts to establish care with Hemophilia clinic/hematology. Rest affected extremity. May apply ice if needed. Increase fluids. Take Tylenol #3 if needed for more severe pain. Pain take Tylenol Extra Strength. Maximum amount of Tylenol in a 24 hour period is 4,000mg. Return to the emergency department with any new, worsening, or concerning symptoms. Is patient prescribed a controlled substance at d/c from ED?: No Referrals: None,Stated [Primary Care Provider] - 1-2 days
[2022-08-23] MEDS ORDERED: ANTIHEMOPHILIC FACTOR IVP ONE (22:45)
[2022-08-23] MEDS ORDERED: ACET/COD 300 MG/30 MG STARTER PACK 6 TAB BTL PO STA (23:01)
[2022-08-23] MEDS ORDERED: HYDROmorphone 0.5 MG/0.5 ML SYRINGE IVP STA (23:24)
[2022-08-23 23:52] VITALS: BP 146/90; PULSE 84
== END 2022-08-23 23:51 | disposition home or self-care (01) ==
LOC: EC 18:26
DX: S49.92XA Unspecified injury of left shoulder and upper arm, initial encounter (principal); E78.5 Hyperlipidemia, unspecified; M19.90 Unspecified osteoarthritis, unspecified site; F41.9 Anxiety disorder, unspecified; F31.9 Bipolar disorder, unspecified; F17.200 Nicotine dependence, unspecified, uncomplicated; Z88.6 Allergy status to analgesic agent; X50.9XXA Other and unspecified overexertion or strenuous movements or postures, initial encounter
CPT/HCPCS: 73030; 99283; 96374; 96375 ×2; J2405; J1170; J7192

== ENCOUNTER 2022-09-12 18:07 | Emergency (ER) | payer OTHER ==
[2022-09-12 20:07] VITALS: RESP 16; TEMP 97.7
[2022-09-12] MEDS ORDERED: ANTIHEMOPHILIC FACTOR IVP ONE (20:31)
--- NOTE | 2022-09-12 21:08 | XR ---
EXAMINATION TYPE: XR ankle complete RT DATE OF EXAM: 09/12/2022 COMPARISON: 08/15/2022 HISTORY: Pain TECHNIQUE: 3 views FINDINGS: There is severe narrowing of the ankle joint space. There is sclerosis and subchondral cyst ic changes on both sides of the joint. There is spurring of the anterior and posterior malleolus. The re is likely ankle joint effusion. IMPRESSION: Significant osteoarthritis and likely joint effusion. Mild soft tissue swelling around th e ankle. No change compared to old exam. Inflammatory arthritis not excluded.
--- NOTE | 2022-09-12 21:23 | ED ---
Fall HPI - General Chief Complaint: Fall Stated Complaint: Blood issue,Fall-head injury Time Seen by Provider: 09/12/22 20:21 Source: patient, RN notes reviewed Mode of arrival: ambulatory - History of Present Illness Initial Comments: Pleasant 32-year-old male with a history of hemophilia/factor VIII deficiency. She presents after having a mechanical fall. States his right ankle gave out on him and he fell backwards striking his head. Patient complains of some pain to the occipital region of his head. He has somewhat of a headache. No other injuries. Patient states he has a frequent problem with his right ankle. Assessed spontaneous hemarthrosis at times. No bleeding from other sites. no fever or chills, no changes in vision or hearing, no sore throat or difficulty with speech, no neck pain, no chest pain or shortness of breath, no abdominal pain, no nausea or vomiting, no changes in urination or bowel movements, no numbness or tingling, no extremity pain, no skin rashes or lesions. Past medical, surgical, social, and family history reviewed. MD Complaint: fall - Related Data Previous Rx's Medication Instructions Recorded Acetaminophen Tab [Tylenol Tab] 500 mg PO Q6H PRN #24 tablet 08/05/22 Albuterol Inhaler [Ventolin Hfa 2 puff INHALATION Q4HR PRN #1 each 08/05/22 Inhaler] Benzonatate [Tessalon Perles] 200 mg PO TID PRN #30 capsule 08/05/22 HYDROcodone/APAP 5-325MG [[place] 1 tab PO Q6HR PRN 3 Days #12 tab 08/15/22 5-325] Allergies Allergy/AdvReac Type Severity Reaction Status Date / Time aspirin AdvReac contraindicated Verified 09/12/22 20:07 d/t hemophilia NSAIDS (Non-Steroidal AdvReac contraindicated Verified 09/12/22 20:07 Anti-Inflamma d/t hemophilia Review of Systems ROS Statement: Those systems with pertinent positive or pertinent negative responses have been documented in the HPI. ROS Other: All systems not noted in ROS Statement are negative. 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 History of Any Multi-Drug Resistant Organisms: None Reported Past Surgical History: No Surgical Hx Reported Additional Past Surgical History / Comment(s): lithotripsy Past Anesthesia/Blood Transfusion Reactions: No Reported Reaction Additional Past Anesthesia/Blood Transfusion Reaction / Comment(s): Pt has never had anesthesia. He received blood in past without reaction. Past Psychological History: ADD/ADHD, Anxiety, Bipolar, Depression Smoking Status: Current every day smoker Past Alcohol Use History: Rare Past Drug Use History: Methamphetamine - Past Family History Father History Unknown: Yes Additional Family Medical History / Comment(s): patient does not know any medical history on him. Mother Family Medical History: Respiratory Disorder Additional Family Medical History / Comment(s): Mother is alive at age 56 with history of pulmonary hypertension. Brother(s) Additional Family Medical History / Comment(s): He has 2 brothers with no major medical problems. He has 6 sisters with no major medical problems. He has a grandfather and cousins with hemophilia. General Exam - General Exam Comments Initial Comments: Cranial nerves II through XII are intact. Patient does not appear to have any neurologic deficit. Limitations: no limitations General appearance: alert, in no apparent distress Head exam: Present: normocephalic, normal inspection, other (Mild tenderness to occipital region. No step-off. No hematoma. No abrasion. No laceration.) Eye exam: Present: normal appearance, PERRL, EOMI. Absent: scleral icterus, conjunctival injection, periorbital swelling ENT exam: Present: normal exam, normal oropharynx, mucous membranes moist, normal external ear exam. Absent: mucous membranes dry Neck exam: Present: normal inspection, full ROM. Absent: tenderness, meningismus, lymphadenopathy Respiratory exam: Present: normal lung sounds bilaterally. Absent: respiratory distress, wheezes, rales, rhonchi, stridor, chest wall tenderness, accessory muscle use Cardiovascular Exam: Present: regular rate, normal rhythm, normal heart sounds. Absent: systolic murmur, diastolic murmur, rubs, gallop, clicks GI/Abdominal exam: Present: soft, normal bowel sounds. Absent: distended, tenderness, guarding, rebound, rigid Extremities exam: Present: normal inspection, full ROM, tenderness (Some soft tissue tenderness to right ankle. No bony pathology.), normal capillary refill, other (Remainder the orthopedic examination is benign). Absent: pedal edema, joint swelling, calf tenderness Back exam: Present: normal inspection Neurological exam: Present: alert, oriented X3, CN II-XII intact Psychiatric exam: Present: normal affect, normal mood Skin exam: Present: warm, dry, intact, normal color. Absent: rash Course Vital Signs 09/12/22 09/12/22 20:04 21:37 Temperature 97.7 F Pulse Rate 75 73 Respiratory 16 16 Rate Blood Pressure 144/83 125/87 O2 Sat by Pulse 99 97 Oximetry - Reevaluation(s) Reevaluation #1: 09/12/22 22:53 Medical record is reviewed Symptoms are improved here in the emergency department Patient is informed of results and questions answered Patient in no distress Medical Decision Making - Medical Decision Making Patient with history of hemophilia had a mechanical fall and struck the back of his head. Advocate ordered. We'll obtain a CT of the brain and a x-ray of the right ankle. Patient had a mechanical fall with no abnormality on computed tomography scan. Did have some soft tissue swelling to the right ankle consistent with a right ankle sprain with possible hemarthrosis. However patient had good neurovascular status. We'll treat conservatively with RICE therapy. Patient was told to return to the ER for any signs or symptoms worsen. Told to return immediately if any other problems arise. All questions answered. Treatment plan discussed. Patient in agreement Every effort has been made to ensure accuracy of this dictation. However, due to the limitations of electronic medical records and dictation devices, errors in charting still occur. Head injury instructions discussed in detail. The case was discussed in detail with ED attending physician. Presentation, findings, treatment plan discussed in detail. Lizeth or Dr. Tabares - Lab Data Result diagrams: 09/12/22 21:13 09/12/22 21:13 Lab Results 09/12/22 09/12/22 09/12/22 Range/Units 21:13 21:13 21:13 WBC 9.0 (3.8-10.6) k/uL RBC 4.47 (4.30-5.90) m/uL Hgb 14.5 (13.0-17.5) gm/dL Hct 41.6 (39.0-53.0) % MCV 93.2 (80.0-100.0) fL MCH 32.5 (25.0-35.0) pg MCHC 34.9 (31.0-37.0) g/dL RDW 13.2 (11.5-15.5) % Plt Count 189 (150-450) k/uL MPV 7.6 Neutrophils % 38 % Lymphocytes % 51 % Monocytes % 4 % Eosinophils % 3 % Basophils % 1 % Neutrophils # 3.5 (1.3-7.7) k/uL Lymphocytes # 4.6 (1.0-4.8) k/uL Monocytes # 0.4 (0-1.0) k/uL Eosinophils # 0.2 (0-0.7) k/uL Basophils # 0.1 (0-0.2) k/uL PT 10.8 (9.0-12.0) sec INR 1.0 (<1.2) APTT 64.5 H (22.0-30.0) sec Sodium 140 (137-145) mmol/L Potassium 3.9 (3.5-5.1) mmol/L Chloride 106 (98-107) mmol/L Carbon Dioxide 28 (22-30) mmol/L Anion Gap 6 mmol/L BUN 20 (9-20) mg/dL Creatinine 0.65 L (0.66-1.25) mg/dL Est GFR (CKD-EPI)AfAm >90 (>60 ml/min/1.73 sqM) Est GFR (CKD-EPI)NonAf >90 (>60 ml/min/1.73 sqM) Glucose 70 L (74-99) mg/dL Calcium 9.0 (8.4-10.2) mg/dL Total Bilirubin 0.7 (0.2-1.3) mg/dL AST 49 (17-59) U/L ALT 85 H (4-49) U/L Alkaline Phosphatase 70 (38-126) U/L Total Protein 7.3 (6.3-8.2) g/dL Albumin 4.5 (3.5-5.0) g/dL - Radiology Data Radiology results: report reviewed (Computed tomography scan of the brain interpreted by me reveals no evidence of acute pathology. Confirmed by radiology.), image reviewed Disposition Clinical Impression: Closed head injury, Right ankle sprain Disposition: HOME SELF-CARE Condition: Good Instructions (If sedation given, give patient instructions): Ankle Sprain (ED), Head Injury (ED), Fall Prevention (ED) Additional Instructions: Follow-up with your regular physician as directed. Return to the ER immediately if any symptoms worsen, new symptoms arise, or any other problems develop. Is patient prescribed a controlled substance at d/c from ED?: No Referrals: None,Stated [Primary Care Provider] - 1-2 days Time of Disposition: 22:54
[2022-09-12 21:24] LABS: Basophils # (A) 0.1 k/uL (0-0.2); Basophils % (A) 1 %; Eosinophils # (A) 0.2 k/uL (0-0.7); Eosinophils % (A) 3 %; HCT 41.6 % (39.0-53.0); HGB 14.5 gm/dL (13.0-17.5); Lymphocytes # (A) 4.6 k/uL (1.0-4.8); Lymphocytes % (A) 51 %; MCH 32.5 pg (25.0-35.0); MCHC 34.9 g/dL (31.0-37.0); MCV 93.2 fL (80.0-100.0); Mean Platelet Volume 7.6; Monocytes # (A) 0.4 k/uL (0-1.0); Monocytes % (A) 4 %; Neutrophils # (A) 3.5 k/uL (1.3-7.7); Neutrophils % (A) 38 %; Platelet Count 189 k/uL (150-450); RBC 4.47 m/uL (4.30-5.90); RDW 13.2 % (11.5-15.5)
[2022-09-12 21:38] VITALS: BP 125/87; PULSE 73
[2022-09-12 21:51] LABS: Partial Thromboplastin Time 64.5 sec (22.0-30.0); Prothrombin Time 10.8 sec (9.0-12.0)
[2022-09-12 22:10] LABS: ALT 85 U/L (4-49); AST 49 U/L (17-59); African American GFR (CKD) >90 (>60 ml/min/1.73 sqM); Albumin 4.5 g/dL (3.5-5.0); Alkaline Phosphatase 70 U/L (38-126); Anion Gap 6 mmol/L; Blood Urea Nitrogen 20 mg/dL (9-20); Carbon Dioxide 28 mmol/L (22-30); Chloride 106 mmol/L (98-107); Glucose 70 mg/dL (74-99); Non-African American GFR(CKD) >90 (>60 ml/min/1.73 sqM); Potassium 3.9 mmol/L (3.5-5.1); Sodium 140 mmol/L (137-145); Total Bilirubin 0.7 mg/dL (0.2-1.3); Total Protein 7.3 g/dL (6.3-8.2)
[2022-09-12] MEDS ORDERED: HYDROcodone/APAP 5-325MG 1 EACH TAB PO STA (22:14)
--- NOTE | 2022-09-12 22:15 | CT ---
EXAMINATION TYPE: CT brain wo con DATE OF EXAM: 09/12/2022 COMPARISON: 09/01/2016 HISTORY: pain after fall and hit head CT DLP: 1162.4 mGycm Automated exposure control for dose reduction was used. Images of the brain obtained without contrast. Ventricles and sulci appear normal. There is no mass effect or midline shift. No sign of intracranial hemorrhage. Calvarium is intact. No evidence of cerebral edema. Skull base is intact. IMPRESSION: Normal unenhanced head CT scan. No adverse change.
[2022-09-12] MEDS ORDERED: ACET/COD 300 MG/30 MG STARTER PACK 6 TAB BTL PO STA (22:53)
== END 2022-09-12 23:14 | disposition home or self-care (01) ==
LOC: EC 18:07
DX: S09.90XA Unspecified injury of head, initial encounter (principal); S93.401A Sprain of unspecified ligament of right ankle, initial encounter; F41.9 Anxiety disorder, unspecified; F31.9 Bipolar disorder, unspecified; F17.200 Nicotine dependence, unspecified, uncomplicated; Z88.6 Allergy status to analgesic agent; W18.09XA Striking against other object with subsequent fall, initial encounter
CPT/HCPCS: 36415; 80053; 85025; 85610; 85730; 73610; 70450; 99284; 96374; J7192

== ENCOUNTER 2022-09-20 22:41 | Emergency (ER) | payer OTHER ==
[2022-09-20] MEDS ORDERED: ANTIHEMOPHILIC FACTOR IVP ONE ×3 (23:35→23:56)
[2022-09-21 00:05] LABS: Basophils # (A) 0.1 k/uL (0-0.2); Basophils % (A) 1 %; Eosinophils # (A) 0.2 k/uL (0-0.7); Eosinophils % (A) 3 %; HCT 40.1 % (39.0-53.0); HGB 14.2 gm/dL (13.0-17.5); Lymphocytes # (A) 4.5 k/uL (1.0-4.8); Lymphocytes % (A) 51 %; MCH 32.9 pg (25.0-35.0); MCHC 35.4 g/dL (31.0-37.0); MCV 93.1 fL (80.0-100.0); Monocytes # (A) 0.6 k/uL (0-1.0); Monocytes % (A) 6 %; Neutrophils # (A) 3.1 k/uL (1.3-7.7); Neutrophils % (A) 36 %; Platelet Count 169 k/uL (150-450); WBC 8.7 k/uL (3.8-10.6)
[2022-09-21 00:32] LABS: Prothrombin Time 10.7 sec (9.0-12.0)
[2022-09-21 00:39] LABS: Partial Thromboplastin Time 68.1 sec (22.0-30.0)
--- NOTE | 2022-09-21 01:05 | ED ---
Skin/Abscess/FB HPI - General Chief complaint: Skin/Abscess/Foreign Body Stated complaint: Back/Side Pain Time Seen by Provider: 09/20/22 23:15 Source: patient, RN notes reviewed Mode of arrival: ambulatory Limitations: no limitations - History of Present Illness Initial comments: This is a 32-year-old male who presents to the emergency department for pain in his sacrum. Patient has hemophilia and states that he spontaneously bleeds. He believes that he was sitting wrong, causing a hematoma to build up at the top of his gluteal cleft. He is now having a lot of pain when trying to sit down. He is supposed to receive Advate infusions twice weekly, however he has yet to follow up with the hemophilia clinic in [place] and has only been receiving them during his emergency department visits. Additionally, he is complaining of right lower quadrant pain. He is unsure if this is related to the bruising or a different issue altogether. Denies any fevers, chills, sore throat, cough, dyspnea, chest pain, palpitations, nausea, vomiting, diarrhea, back pain, or headaches. Onset/Timin Location: buttocks - Related Data Previous Rx's Medication Instructions Recorded Acetaminophen Tab [Tylenol Tab] 500 mg PO Q6H PRN #24 tablet 08/05/22 Albuterol Inhaler [Ventolin Hfa 2 puff INHALATION Q4HR PRN #1 each 08/05/22 Inhaler] Benzonatate [Tessalon Perles] 200 mg PO TID PRN #30 capsule 08/05/22 HYDROcodone/APAP 5-325MG [[place] 1 tab PO Q6HR PRN 3 Days #12 tab 09/21/22 5-325] Allergies Allergy/AdvReac Type Severity Reaction Status Date / Time aspirin AdvReac contraindicated Verified 09/12/22 20:07 d/t hemophilia NSAIDS (Non-Steroidal AdvReac contraindicated Verified 09/12/22 20:07 Anti-Inflamma d/t hemophilia Review of Systems ROS Statement: Those systems with pertinent positive or pertinent negative responses have been documented in the HPI. ROS Other: All systems not noted in ROS Statement are negative. 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 History of Any Multi-Drug Resistant Organisms: None Reported Past Surgical History: No Surgical Hx Reported Additional Past Surgical History / Comment(s): lithotripsy Past Anesthesia/Blood Transfusion Reactions: No Reported Reaction Additional Past Anesthesia/Blood Transfusion Reaction / Comment(s): Pt has never had anesthesia. He received blood in past without reaction. Past Psychological History: ADD/ADHD, Anxiety, Bipolar, Depression Smoking Status: Current every day smoker Past Alcohol Use History: Rare Past Drug Use History: Methamphetamine - Past Family History Father History Unknown: Yes Additional Family Medical History / Comment(s): patient does not know any medi urmila history on him. Mother Family Medical History: Respiratory Disorder Additional Family Medical History / Comment(s): Mother is alive at age 56 with history of pulmonary hypertension. Brother(s) Additional Family Medical History / Comment(s): He has 2 brothers with no major medical problems. He has 6 sisters with no major medical problems. He has a grandfather and cousins with hemophilia. General Exam Limitations: no limitations General appearance: alert, in no apparent distress Head exam: Present: atraumatic, normocephalic, normal inspection Respiratory exam: Present: normal lung sounds bilaterally. Absent: respiratory distress, wheezes, rales, rhonchi, stridor Cardiovascular Exam: Present: regular rate, normal rhythm, normal heart sounds. Absent: systolic murmur, diastolic murmur, rubs, gallop, clicks Rectal exam: Present: other (Palpable firmness and tenderness on the right gluteus jose and top of the gluteal cleft. No visible ecchymosis.) Neurological exam: Present: alert, oriented X3, CN II-XII intact Psychiatric exam: Present: normal affect, normal mood Skin exam: Present: warm, dry, intact, normal color. Absent: rash Course Vital Signs 09/20/22 09/21/22 09/21/22 22:50 01:38 03:04 Temperature 97.7 F 97.5 F L Pulse Rate 88 85 79 Respiratory 16 16 18 Rate Blood Pressure 140/97 138/86 O2 Sat by Pulse 96 99 97 Oximetry Medical Decision Making - Medical Decision Making This is a 32-year-old male who presents to the emergency department for concerns of bruising. Lab work reveals an elevated PTT, which is chronic finding for the patient. Lab work was otherwise nonactionable. He was given his Advate infusion at 40 units per kilogram, which is standard for the patient in these circumstances. His pain was managed in the emergency department. Given the notable right lower quadrant pain, computed tomography scan of the abdomen and pelvis was obtained. My interpretation of the computed tomography scan reveals no dilation of the appendix or ureteral calculus. Advised the patient that the imaging does not provide an explanation for the right lower quadrant pain. Given the severity of his pain and because he is unable to take NSAIDs with the hemophilia, I will provide a short course of [place]. Reminded him to take this very sparingly when his pain is the most severe and to avoid driving or operatin g machinery when taking it. I suggested he purchase a donut pillow to allow him to sit and take pressure off of this area. Also advised applying ice for the first 2 days followed by heat. I also strongly encouraged him to follow up with the hemophilia clinic so he can get his regular Advate infusions. Return precautions reviewed in depth, the patient is instructed to return to the emergency department with any new, worsening, or concerning symptoms. Patient verbalized understanding. This case was discussed in detail with the attending ED physician. Presentation, findings, and treatment plan discussed in detail as well. - Lab Data Result diagrams: 09/20/22 23:55 09/20/22 23:55 Lab Results 09/20/22 09/20/22 09/20/22 Range/Units 23:55 23:55 23:55 WBC 8.7 (3.8-10.6) k/uL RBC 4.30 (4.30-5.90) m/uL Hgb 14.2 (13.0-17.5) gm/dL Hct 40.1 (39.0-53.0) % MCV 93.1 (80.0-100.0) fL MCH 32.9 (25.0-35.0) pg MCHC 35.4 (31.0-37.0) g/dL RDW 13.0 (11.5-15.5) % Plt Count 169 (150-450) k/uL MPV 8.0 Neutrophils % 36 % Lymphocytes % 51 % Monocytes % 6 % Eosinophils % 3 % Basophils % 1 % Neutrophils # 3.1 (1.3-7.7) k/uL Lymphocytes # 4.5 (1.0-4.8) k/uL Monocytes # 0.6 (0-1.0) k/uL Eosinophils # 0.2 (0-0.7) k/uL Basophils # 0.1 (0-0.2) k/uL PT 10.7 (9.0-12.0) sec INR 1.0 (<1.2) APTT 68.1 H (22.0-30.0) sec Sodium 143 (137-145) mmol/L Potassium 4.1 (3.5-5.1) mmol/L Chloride 108 H (98-107) mmol/L Carbon Dioxide 28 (22-30) mmol/L Anion Gap 7 mmol/L BUN 14 (9-20) mg/dL Creatinine 0.83 (0.66-1.25) mg/dL Est GFR (CKD-EPI)AfAm >90 (>60 ml/min/1.73 sqM) Est GFR (CKD-EPI)NonAf >90 (>60 ml/min/1.73 sqM) Glucose 85 (74-99) mg/dL Calcium 9.0 (8.4-10.2) mg/dL Total Bilirubin 0.6 (0.2-1.3) mg/dL AST 41 (17-59) U/L ALT 70 H (4-49) U/L Alkaline Phosphatase 69 (38-126) U/L Total Protein 6.9 (6.3-8.2) g/dL Albumin 4.0 (3.5-5.0) g/dL - Radiology Data Radiology results: report reviewed, image reviewed Disposition Clinical Impression: Hematoma of sacrum, Hemophilia A Disposition: HOME SELF-CARE Instructions (If sedation given, give patient instructions): Hematoma (ED), Bone Bruise (ED) Additional Instructions: Return to the emergency department with any new, worsening, or concerning symptoms. Take the [place] sparingly when your pain is the most severe and otherwise take Tylenol. You can apply ice for the first 2-3 days followed by heat thereafterwards. You can also try using a donut pillow to sit more comfortably and take pressure off of that area. Follow up with your primary care provider in 1-2 days. Prescriptions: HYDROcodone/APAP 5-325MG [[place] 5-325] 1 tab PO Q6HR PRN 3 Days #12 tab PRN Reason: Pain Is patient prescribed a controlled substance at d/c from ED?: No Referrals: None,Stated [Primary Care Provider] - 1-2 days
[2022-09-21] MEDS ORDERED: HYDROcodone/APAP 5-325MG 1 EACH TAB PO STA (01:21)
[2022-09-21] MEDS ORDERED: MORPHINE SULFATE 4 MG/ML SYRINGE IVP STA ×2 (01:29→02:25)
[2022-09-21 01:30] LABS: ALT 70 U/L (4-49); AST 41 U/L (17-59); African American GFR (CKD) >90 (>60 ml/min/1.73 sqM); Alkaline Phosphatase 69 U/L (38-126); Anion Gap 7 mmol/L; Blood Urea Nitrogen 14 mg/dL (9-20); Carbon Dioxide 28 mmol/L (22-30); Chloride 108 mmol/L (98-107); Glucose 85 mg/dL (74-99); Non-African American GFR(CKD) >90 (>60 ml/min/1.73 sqM); Potassium 4.1 mmol/L (3.5-5.1); Sodium 143 mmol/L (137-145); Total Bilirubin 0.6 mg/dL (0.2-1.3); Total Protein 6.9 g/dL (6.3-8.2)
--- NOTE | 2022-09-21 02:16 | CT ---
EXAMINATION TYPE: CT abdomen pelvis w con DATE OF EXAM: 09/21/2022 COMPARISON: 10/10/2016 HISTORY: RLQ pain CT DLP: 630.8 mGycm Automated exposure control for dose reduction was used. CONTRAST: Performed with IV Contrast, patient injected with 100 mL of Isovue 300. Images obtained from the diaphragm to the floor the pelvis with the IV contrast. The lung bases are clear. No pleural effusion. Heart size is normal. No pericardial effusion. Liver a nd spleen are intact. No pancreatic mass. Gallbladder appears normal. The stomach is intact. There is no adrenal mass. Kidneys show satisfactory contrast opacification. No hydronephrosis. Ureter s are not dilated. Bladder distends smoothly. No inguinal hernia. No free fluid in the pelvis. No pel zakia mass. Appendix is posterior and appears normal. There is no mesenteric edema. No ascites or free air. No sign of a bowel obstruction. There is 2 mm calculus in the lower pole of the right kidney. The lumbar vertebrae have normal spacing and alignment. Posterior elements are intact. No compression fracture. Bony pelvis is intact. The hip joints are intact. IMPRESSION: Nonobstructing small right renal calculus. No acute abnormality in the abdomen and pelvis. There is c learing of the calculus upper pole right kidney compared to old exam. There is clearing of the mild l eft-sided hydronephrosis compared to old exam.
[2022-09-21] MEDS ORDERED: ACET/COD 300 MG/30 MG STARTER PACK 6 TAB BTL PO STA (02:22)
[2022-09-21 03:15] VITALS: BP 138/86; PULSE 79; RESP 18; TEMP 97.5
== END 2022-09-21 03:04 | disposition home or self-care (01) ==
LOC: EC 22:41
DX: S30.0XXA Contusion of lower back and pelvis, initial encounter (principal); D66 Hereditary factor VIII deficiency; F41.9 Anxiety disorder, unspecified; F31.9 Bipolar disorder, unspecified; F17.200 Nicotine dependence, unspecified, uncomplicated; Z88.6 Allergy status to analgesic agent; X58.XXXA Exposure to other specified factors, initial encounter
CPT/HCPCS: 36415; 80053; 85025; 85610; 85730; 74177; 99284; 96374; 96375 ×2; J2270; Q9967; J7192; 96376

== ENCOUNTER 2022-09-29 17:39 | Emergency (ER) | payer OTHER ==
[2022-09-29 17:43] VITALS: TEMP 98
[2022-09-29] MEDS ORDERED: HYDROmorphone 0.5 MG/0.5 ML SYRINGE IVP STA ×2 (18:10→19:59)
[2022-09-29] MEDS ORDERED: ANTIHEMOPHILIC FACTOR IVP ONE (18:45)
[2022-09-29 19:58] VITALS: BP 132/84; PULSE 76; RESP 18
--- NOTE | 2022-09-29 19:59 | ED ---
General Adult HPI - General Chief complaint: Extremity Problem,Nontraumatic Stated complaint: Hemophilia Time Seen by Provider: 09/29/22 17:50 Source: patient, RN notes reviewed Mode of arrival: ambulatory Limitations: no limitations - History of Present Illness Initial comments: 32-year-old male presents to the emergency Department with complaints of pain and swelling to left elbow and right ankle. 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 Patient states it began today and is accompanied by moderate amount of discomfort and mild decreased range of motion. Denies any recent trauma or injury. No heavy lifting. Denies headache, dizziness, bleeding from the mouth or gums, chest pain, shortness of breath, abdominal pain, nausea, vomiting, hematuria, or hematochezia. Was suppose to be seen at [facility] in [place] but found that it was a pediatric clinic. He is suppose to be re-establishing care with hematology but has not yet done so. - Related Data Previous Rx's Medication Instructions Recorded Acetaminophen Tab [Tylenol Tab] 500 mg PO Q6H PRN #24 tablet 08/05/22 Albuterol Inhaler [Ventolin Hfa 2 puff INHALATION Q4HR PRN #1 each 08/05/22 Inhaler] Benzonatate [Tessalon Perles] 200 mg PO TID PRN #30 capsule 08/05/22 HYDROcodone/APAP 5-325MG [Dulac 1 tab PO Q6HR PRN 3 Days #12 tab 09/21/22 5-325] Allergies Allergy/AdvReac Type Severity Reaction Status Date / Time aspirin AdvReac contraindicated Verified 09/29/22 17:43 d/t hemophilia NSAIDS (Non-Steroidal AdvReac contraindicated Verified 09/29/22 17:43 Anti-Inflamma d/t hemophilia Review of Systems ROS Statement: Those systems with pertinent positive or pertinent negative responses have been documented in the HPI. ROS Other: All systems not noted in ROS Statement are negative. 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 History of Any Multi-Drug Resistant Organisms: None Reported Past Surgical History: No Surgical Hx Reported Additional Past Surgical History / Comment(s): lithotripsy Past Anesthesia/Blood Transfusion Reactions: No Reported Reaction Additional Past Anesthesia/Blood Transfusion Reaction / Comment(s): Pt has never had anesthesia. He received blood in past without reaction. Past Psychological History: ADD/ADHD, Anxiety, Bipolar, Depression Smoking Status: Current every day smoker Past Alcohol Use History: Rare Past Drug Use History: Methamphetamine - Past Family History Father History Unknown: Yes Additional Family Medical History / Comment(s): patient does not know any medical history on him. Mother Family Medical History: Respiratory Disorder Additional Family Medical History / Comment(s): Mother is alive at age 56 with history of pulmonary hypertension. Brother(s) Additional Family Medical History / Comment(s): He has 2 brothers with no major medical problems. He has 6 sisters with no major medical problems. He has a grandfather and cousins with hemophilia. General Exam Limitations: no limitations General appearance: alert, in no apparent distress ENT exam: Present: normal exam, normal oropharynx, mucous membranes moist, other (No bleeding in oropharynx) Respiratory exam: Present: normal lung sounds bilaterally. Absent: respiratory distress, wheezes, rales, rhonchi, stridor Cardiovascular Exam: Present: regular rate, normal rhythm, normal heart sounds. Absent: systolic murmur, diastolic murmur, rubs, gallop, clicks GI/Abdominal exam: Present: soft, normal bowel sounds. Absent: distended, tenderness, guarding, rebound, rigid Left Upper Arm exam: Present: normal inspection, full ROM. Absent: tenderness, swelling Elbow exam: Present: tenderness, swelling, other (Diffuse swelling around the left elbow. Tenderness upon palpation. Patient reports this is consistent with bleeding associated with hemophilia) Forearm Wrist exam: Present: normal inspection, full ROM Vascular: Present: normal capillary refill, radial pulse, brachial pulse. Absent: vascular compromise, Pallo Right Lower Leg exam: Present: normal inspection, full ROM. Absent: tenderness, swelling Ankle exam: Present: tenderness, swelling (Mild circumferential swelling of the right. Complains of tenderness upon palpation and with weightbearing. No injury or trauma. Consistent with bleeding associated with hemophilia.) Foot/Toe exam: Present: normal inspection, full ROM Neurovascular tendon exam: Present: no vascular compromise. Absent: extremity cold to touch Neurological exam: Present: alert, oriented X3, CN II-XII intact Psychiatric exam: Present: normal affect, normal mood Skin exam: Present: warm, dry, intact, normal color. Absent: rash Course Vital Signs 09/29/22 09/29/22 17:41 19:58 Temperature 98 F Pulse Rate 105 H 76 Respiratory 16 18 Rate Blood Pressure 147/97 132/84 O2 Sat by Pulse 98 97 Oximetry - Reevaluation(s) Reevaluation #1: 09/29/22 19:59 Upon reassessment, patient reports pain persists though is somewhat improved. He will be given a repeat dose of Dilaudid and discharged to follow-up with hematology. Medical Decision Making - Medical Decision Making Pleasant 32-year-old male with a past medical history of hemophilia and poor compliance with medical management and follow-up care presents to the emergency Department with complaints of swollen joints. Upon exam, patient appears moderately uncomfortable but in no acute distress. Vital signs are stable. Tolerating oral intake without difficulty. His left elbow and right ankle are mildly swollen with moderate amount of tenderness. Reports consistent with bleeding associated with hemophilia. No external bleeding. Has not followed up with a hemophilia clinic as was instructed therefore is not doing home infusions. Patient was given Advate (Antihemophilic Factor) and a dose of pain medication with improvement. He is important to follow up with hematology if he is unable to obtain an appointment with the hemophilia clinic. Return parameters discussed in detail. Patient verbalizes understanding and agrees with this plan. Attending: Martínez Miles Clinical Impression: Hemophilia, Swelling of left elbow, Right ankle swelling Disposition: HOME SELF-CARE Condition: Stable Instructions (If sedation given, give patient instructions): Hemophilia (ED) Additional Instructions: It is very important that you establish with hematology or seek care at hemophilia clinic for further evaluation and treatment. You are being prescribed Tylenol 3 for pain. Use sparingly. Return to the emergency department with any new, worsening, or concerning symptoms. Is patient prescribed a controlled substance at d/c from ED?: No Referrals: None,Stated [Primary Care Provider] - 1-2 days Time of Disposition: 20:36
[2022-09-29] MEDS ORDERED: ACET/COD 300 MG/30 MG STARTER PACK 6 TAB BTL PO STA (20:34)
== END 2022-09-29 21:03 | disposition home or self-care (01) ==
LOC: EC 17:39
DX: D66 Hereditary factor VIII deficiency (principal); F31.9 Bipolar disorder, unspecified; F41.9 Anxiety disorder, unspecified; F17.200 Nicotine dependence, unspecified, uncomplicated
CPT/HCPCS: 99283; 96374; 96375; 96376; J1170; J7192

== ENCOUNTER 2022-10-04 19:50 | Emergency (ER) | payer OTHER ==
[2022-10-04] MEDS ORDERED: ONDANSETRON 4 MG/2 ML VIAL IVP STA (19:56)
[2022-10-04] MEDS ORDERED: SODIUM CHLORIDE 0.9% 2,000 ML IV STA (19:56)
[2022-10-04 19:58] VITALS: RESP 18
[2022-10-04] MEDS ORDERED: MORPHINE SULFATE 4 MG/ML SYRINGE IV STA ×2 (19:58→21:23)
[2022-10-04] MEDS ORDERED: ACETAMINOPHEN IV (For NPO) 1,000 MG in SALINE 100 100ML.BAG IVPB STA (20:00)
--- NOTE | 2022-10-04 20:09 | ED ---
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 Patient presents to the emergency department today complaining of right lower back pain which radiates into the right hip area. Pain is exacerbated by movement, alleviated by rest, sharp in nature, patient states that he had been shoveling snow earlier. Patient states he then coughed and felt the pain in his back. Patient also has a history of hepatitis C. Patient has had problems with spontaneous hemarthrosis in the past. Note that the patient was found to have a fever on arrival here., Cough No headache, no fever or chills, no changes in vision or hearing, no sore throat or difficulty with speech, no neck pain, no chest pain or shortness of breath, no abdominal pain, no nausea or vomiting, no changes in urination or bowel movements, no numbness or tingling, no extremity pain, no skin rashes or lesions. Past medical, surgical, social, and family history reviewed. MD Complaint: back pain - Related Data Previous Rx's Medication Instructions Recorded Acetaminophen Tab [Tylenol Tab] 500 mg PO Q6H PRN #24 tablet 10/04/22 Cyclobenzaprine [Flexeril] 10 mg PO TID PRN #20 tab 10/04/22 Oseltamivir [Tamiflu] 75 mg PO Q12HR #9 cap 10/04/22 Allergies Allergy/AdvReac Type Severity Reaction Status Date / Time aspirin AdvReac contraindicated Verified 10/04/22 21:10 d/t hemophilia NSAIDS (Non-Steroidal AdvReac contraindicated Verified 10/04/22 21:10 Anti-Inflamma d/t hemophilia Review of Systems ROS Statement: Those systems with pertinent positive or pertinent negative responses have been documented in the HPI. ROS Other: All systems not noted in ROS Statement are negative. 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 History of Any Multi-Drug Resistant Organisms: None Reported Past Surgical History: No Surgical Hx Reported Additional Past Surgical History / Comment(s): lithotripsy Past Anesthesia/Blood Transfusion Reactions: No Reported Reaction Additional Past Anesthesia/Blood Transfusion Reaction / Comment(s): Pt has never had anesthesia. He received blood in past without reaction. Past Psychological History: ADD/ADHD, Anxiety, Bipolar, Depression Smoking Status: Current every day smoker Past Alcohol Use History: Rare Past Drug Use History: Methamphetamine - Past Family History Father History Unknown: Yes Additional Family Medical History / Comment(s): patient does not know any medica l history on him. Mother Family Medical History: Respiratory Disorder Additional Family Medical History / Comment(s): Mother is alive at age 56 with history of pulmonary hypertension. Brother(s) Additional Family Medical History / Comment(s): He has 2 brothers with no major medical problems. He has 6 sisters with no major medical problems. He has a grandfather and cousins with hemophilia. General Exam - General Exam Comments Initial Comments: Patient noted to be in distress, tachycardic, febrile, temperature refill less than 2 seconds. Has adequate color with no mottling. No respiratory distress. Limitations: no limitations General appearance: in distress Head exam: Present: atraumatic, normocephalic, normal inspection Eye exam: Present: normal appearance, PERRL, EOMI. Absent: scleral icterus, conjunctival injection, periorbital swelling ENT exam: Present: normal exam, normal oropharynx, mucous membranes moist Neck exam: Present: normal inspection, full ROM. Absent: tenderness, meningismus, lymphadenopathy Respiratory exam: Present: normal lung sounds bilaterally. Absent: respiratory distress, wheezes, rales, rhonchi, stridor Cardiovascular Exam: Present: normal rhythm, tachycardia, normal heart sounds. Absent: systolic murmur, diastolic murmur, rubs, gallop, clicks GI/Abdominal exam: Present: soft, normal bowel sounds. Absent: distended, tenderness, guarding, rebound, rigid Extremities exam: Present: normal inspection, full ROM, normal capillary refill. Absent: tenderness, pedal edema, joint swelling, calf tenderness Back exam: Present: normal inspection, tenderness (Right lumbar paraspinal and right iliac crest area), CVA tenderness (R), paraspinal tenderness, other (No ecchymosis, no erythema, no rashes or lesions). Absent: full ROM (Limited by pain), CVA tenderness (L), rash noted Neurological exam: Present: alert, oriented X3, CN II-XII intact Psychiatric exam: Present: normal affect, normal mood Skin exam: Present: warm, dry, intact, normal color. Absent: rash Course Vital Signs 10/04/22 10/04/22 19:54 21:18 Temperature 102.5 F H 99.7 F H Pulse Rate 125 H Respiratory 18 Rate Blood Pressure 135/94 O2 Sat by Pulse 97 Oximetry - Reevaluation(s) Reevaluation #1: 10/04/22 22:18 Patient was reevaluated and was much improved. Vital signs had stabilized. Afebrile, pulse 80/m to my evaluation. Patient's back pain had improved. Medical Decision Making - Medical Decision Making Was pt. sent in by a medical professional or institution? @ N Did you speak to anyone other than the patient for history? @ Y, EMS Did you review nursing and triage notes? @ Y Were old charts reviewed? @ N Differential Diagnosis? @ MDM Differential Back Pain: Strain, zoster, cauda equina syndrome, epidural abscess, vertebral osteomyelitis, discitis, fracture, subluxation, disc herniation, DJD, spinal st enosis, dissection, retroperitoneal hemorrhage, given the fever, other infectious process. Does not appear to be consistent with cardiopulmonary disease. pancreatitis, peptic ulcer disease, pyelonephritis, kidney stone this is not meant to be an all-inclusive list. X-rays interpreted by me (1pt min.)? @No acute findings CT interpreted by me (1pt min.)? @ CT abdomen and pelvis, CT interpretationno evidence of spontaneous hemorrhage- What testing was considered but not performed? (CT, X-rays, U/S, labs)? Why? @I did consider an EKG, however this did not appear to be consistent with cardiopulmonary disease. What meds were considered but not given? Why? @ [none] Did you discuss the management of the patient with other professionals? @ED attending physician Did you reconcile home meds? @ Yes, patient has no home meds Was smoking cessation discussed for >3mins.? @Yes, gradient 3 minutes Was critical care preformed (if so, how long)? @ [none] Were there social determinants of health that impacted care today? How? (Homelessness, low income, unemployed, alcoholism, drug addiction, transportation, low edu. Level, literacy, decrease access to med. care, prison, rehab)? 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 Discussed this with the patient. What co-morbidities impacted this encounter? (DM, HTN, Smoking, COPD, CAD, Cancer, CVA, Hep., AIDS, mental health diagnosis, sleep apnea, morbid obesity)? @ Hemophilia a, this comorbidity raises the possibility of spontaneous hemor rhage. Was patient admitted / discharged? @Patient had pain in the right lower back consistent with [place] skeletal strain. Patient ended up being positive for influenza A. There was no evidence of spontaneous bleeding. Patient released in stable condition. Patient improved. Patient was told to return to the ER for any signs or symptoms worsen. Told to return immediately if any other problems arise. All questions answered. Treatment plan discussed. Patient in agreement Every effort has been made to ensure accuracy of this dictation. However, due to the limitations of electronic medical records and dictation devices, errors in charting still occur. Undiagnosed new problem with uncertain prognosis? @ [none] Diagnosis/symptom? @Acute lumbar strain, influenza a Acute, or Chronic, or Acute on Chronic? @Acute Uncomplicated (without systemic symptoms) or Complicated (systemic symptoms)? @Located due to the patient's comorbidity of hemophilia a Side effects of treatment? @ [none] Exacerbation, Progression, or Severe Exacerbation] @ [no] Poses a threat to life or bodily function? @ [no] The case was discussed in detail with ED attending physician. Presentation, findings, treatment plan discussed in detail. Colorer Avni Torres ordered after discussion. - Lab Data Result diagrams: 10/04/22 20:03 10/04/22 20:03 Lab Results 10/04/22 10/04/22 10/04/22 Range/Units 20:03 20:03 20:03 WBC 8.2 (3.8-10.6) k/uL RBC 4.66 (4.30-5.90) m/uL Hgb 14.6 (13.0-17.5) gm/dL Hct 44.0 (39.0-53.0) % MCV 94.4 (80.0-100.0) fL MCH 31.4 (25.0-35.0) pg MCHC 33.3 (31.0-37.0) g/dL RDW 12.7 (11.5-15.5) % Plt Count 159 (150-450) k/uL MPV 7.9 Neutrophils % 79 % Lymphocytes % 10 % Monocytes % 8 % Eosinophils % 1 % Basophils % 1 % Neutrophils # 6.5 (1.3-7.7) k/uL Lymphocytes # 0.8 L (1.0-4.8) k/uL Monocytes # 0.7 (0-1.0) k/uL Eosinophils # 0.1 (0-0.7) k/uL Basophils # 0.1 (0-0.2) k/uL PT 10.9 (9.0-12.0) sec INR 1.0 (<1.2) APTT 65.5 H (22.0-30.0) sec Sodium 140 (137-145) mmol/L Potassium 3.8 (3.5-5.1) mmol/L Chloride 106 (98-107) mmol/L Carbon Dioxide 25 (22-30) mmol/L Anion Gap 9 mmol/L BUN 9 (9-20) mg/dL Creatinine 0.69 (0.66-1.25) mg/dL Est GFR (CKD-EPI)AfAm >90 (>60 ml/min/1.73 sqM) Est GFR (CKD-EPI)NonAf >90 (>60 ml/min/1.73 sqM) Glucose 102 H (74-99) mg/dL Plasma Lactic Acid Beni (0.7-2.0) mmol/L Calcium 8.8 (8.4-10.2) mg/dL Total Bilirubin 0.8 (0.2-1.3) mg/dL AST 38 (17-59) U/L ALT 70 H (4-49) U/L Alkaline Phosphatase 76 (38-126) U/L Total Protein 7.5 (6.3-8.2) g/dL Albumin 4.4 (3.5-5.0) g/dL Influenza Type A (PCR) (Not Detectd) Influenza Type B (PCR) (Not Detectd) RSV (PCR) (Not Detectd) SARS-CoV-2 (PCR) (Not Detectd) 10/04/22 10/04/22 Range/Units 20:03 20:03 WBC (3.8-10.6) k/uL RBC (4.30-5.90) m/uL Hgb (13.0-17.5) gm/dL Hct (39.0-53.0) % MCV (80.0-100.0) fL MCH (25.0-35.0) pg MCHC (31.0-37.0) g/dL RDW (11.5-15.5) % Plt Count (150-450) k/uL MPV Neutrophils % % Lymphocytes % % Monocytes % % Eosinophils % % Basophils % % Neutrophils # (1.3-7.7) k/uL Lymphocytes # (1.0-4.8) k/uL Monocytes # (0-1.0) k/uL Eosinophils # (0-0.7) k/uL Basophils # (0-0.2) k/uL PT (9.0-12.0) sec INR (<1.2) APTT (22.0-30.0) sec Sodium (137-145) mmol/L Potassium (3.5-5.1) mmol/L Chloride (98-107) mmol/L Carbon Dioxide (22-30) mmol/L Anion Gap mmol/L BUN (9-20) mg/dL Creatinine (0.66-1.25) mg/dL Est GFR (CKD-EPI)AfAm (>60 ml/min/1.73 sqM) Est GFR (CKD-EPI)NonAf (>60 ml/min/1.73 sqM) Glucose (74-99) mg/dL Plasma Lactic Acid Beni 2.1 H* (0.7-2.0) mmol/L Calcium (8.4-10.2) mg/dL Total Bilirubin (0.2-1.3) mg/dL AST (17-59) U/L ALT (4-49) U/L Alkaline Phosphatase (38-126) U/L Total Protein (6.3-8.2) g/dL Albumin (3.5-5.0) g/dL Influenza Type A (PCR) Detected A (Not Detectd) Influenza Type B (PCR) Not Detected (Not Detectd) RSV (PCR) Not Detected (Not Detectd) SARS-CoV-2 (PCR) Not Detected (Not Detectd) - Radiology Data Radiology results: report reviewed, image reviewed Independent interpretation of the CT abdomen and pelvis with IV contrast by me reveals no evidence of acute pathology. Interpretation of the chest x-ray reveals no evidence of acute pathology. I did review radiology interpretation. Disposition Clinical Impression: Acute myofascial strain of lumbar region, Influenza A Disposition: HOME SELF-CARE Condition: Good Instructions (If sedation given, give patient instructions): Influenza (ED), Acute Low Back Pain (ED) Additional Instructions: Follow-up with your regular physician as directed. Return to the ER immediately if any symptoms worsen, new symptoms arise, or any other problems develop. Do not take the acetaminophen/codeine and regular acetaminophen at the same time. Prescriptions: Cyclobenzaprine [Flexeril] 10 mg PO TID PRN #20 tab PRN Reason: Spasms Oseltamivir [Tamiflu] 75 mg PO Q12HR #9 cap Acetaminophen Tab [Tylenol Tab] 500 mg PO Q6H PRN #24 tablet PRN Reason: Pain Is patient prescribed a controlled substance at d/c from ED?: No Referrals: None,Stated [Primary Care Provider] - 1-2 days Time of Disposition: 22:18
[2022-10-04] MEDS ORDERED: ANTIHEMOPHILIC FACTOR IVP ONE (20:15)
--- NOTE | 2022-10-04 20:40 | XR ---
EXAMINATION TYPE: XR chest 2V DATE OF EXAM: 10/04/2022 COMPARISON: 08/05/2022 HISTORY: Abdominal pain TECHNIQUE: FINDINGS: Heart is normal. Lungs are clear. Diaphragm is normal. Bony thorax is normal. IMPRESSION: Normal chest. No change.
[2022-10-04 20:55] LABS: Basophils # (A) 0.1 k/uL (0-0.2); Basophils % (A) 1 %; Eosinophils # (A) 0.1 k/uL (0-0.7); Eosinophils % (A) 1 %; HGB 14.6 gm/dL (13.0-17.5); Lymphocytes # (A) 0.8 k/uL (1.0-4.8); Lymphocytes % (A) 10 %; MCH 31.4 pg (25.0-35.0); MCHC 33.3 g/dL (31.0-37.0); MCV 94.4 fL (80.0-100.0); Mean Platelet Volume 7.9; Monocytes # (A) 0.7 k/uL (0-1.0); Monocytes % (A) 8 %; Neutrophils # (A) 6.5 k/uL (1.3-7.7); Neutrophils % (A) 79 %; Platelet Count 159 k/uL (150-450); RBC 4.66 m/uL (4.30-5.90); RDW 12.7 % (11.5-15.5); WBC 8.2 k/uL (3.8-10.6)
--- NOTE | 2022-10-04 21:03 | CT ---
EXAMINATION TYPE: CT abdomen pelvis w con DATE OF EXAM: 10/04/2022 COMPARISON: 09/21/2022 HISTORY: Right side abdomen pain along with Right side hip pain and low back pain. CT DLP: 730.4 mGycm Automated exposure control for dose reduction was used. CONTRAST: Performed with IV Contrast, patient injected with 80cc mL of Isovue 300. The lung bases are clear. No pleural effusion. Heart size is normal. No pericardial effusion. There i s small hiatal hernia. Liver spleen pancreas appear intact. The bile ducts are not dilated. Gallbladd er appears normal. There is no adrenal mass. Kidneys of normal size and contour. There is 1 mm calculus lower pole right kidney. No hydronephrosis. Ureters are not dilated. No retroperitoneal adenopathy. Bladder distends smoothly. No inguinal hernia. No free fluid in the pelvis. No pelvic mass. There is no mesenteric edema. No ascites or free air. No sign of a bowel obstruction. Appendix not cl early seen. No sign of thickened appendix. The lumbar vertebral abnormal alignment. Posterior element s are intact. No compression fracture. Bony pelvis is intact. The hip joints are intact. Sacroiliac j oints are intact. IMPRESSION: Negative CT scan abdomen and pelvis. No adverse change. Stable small right renal calculus.
[2022-10-04 21:10] LABS: ALT 70 U/L (4-49); AST 38 U/L (17-59); African American GFR (CKD) >90 (>60 ml/min/1.73 sqM); Albumin 4.4 g/dL (3.5-5.0); Alkaline Phosphatase 76 U/L (38-126); Anion Gap 9 mmol/L; Blood Urea Nitrogen 9 mg/dL (9-20); Calcium 8.8 mg/dL (8.4-10.2); Carbon Dioxide 25 mmol/L (22-30); Chloride 106 mmol/L (98-107); Glucose 102 mg/dL (74-99); Non-African American GFR(CKD) >90 (>60 ml/min/1.73 sqM); Potassium 3.8 mmol/L (3.5-5.1); Sodium 140 mmol/L (137-145); Total Bilirubin 0.8 mg/dL (0.2-1.3); Total Protein 7.5 g/dL (6.3-8.2)
[2022-10-04] MEDS ORDERED: ORPHENADRINE 30 MG/ML 2 ML VIAL IVP STA (21:23)
[2022-10-04 21:34] LABS: Prothrombin Time 10.9 sec (9.0-12.0)
[2022-10-04 21:42] LABS: Partial Thromboplastin Time 65.5 sec (22.0-30.0)
[2022-10-04] MEDS ORDERED: OSELTAMIVIR 75 MG CAP PO STA (22:15)
[2022-10-04] MEDS ORDERED: ACET/COD 300 MG/30 MG STARTER PACK 6 TAB BTL PO STA (22:16)
[2022-10-04 22:51] VITALS: BP 112/67; PULSE 95; TEMP 99
== END 2022-10-04 22:40 | disposition home or self-care (01) ==
LOC: EC 19:50
DX: S39.012A Strain of muscle, fascia and tendon of lower back, initial encounter (principal); J10.1 Influenza due to other identified influenza virus with other respiratory manifestations; F17.200 Nicotine dependence, unspecified, uncomplicated; Z20.822 Contact with and (suspected) exposure to COVID-19; Z88.8 Allergy status to other drugs, medicaments and biological substances; Z88.6 Allergy status to analgesic agent; X50.3XXA Overexertion from repetitive movements, initial encounter; Y93.H1 Activity, digging, shoveling and raking
CPT/HCPCS: 99284; 96374; 96375; 96376; 36415; 80053; 83605; 85025; 85610; 85730; 87040; 87636; 71046; 74177; J2270; J2360; J2405; J0131; Q9967; J7192

== ENCOUNTER 2022-10-17 08:20 | Emergency (ER) | payer OTHER ==
[2022-10-17 08:31] VITALS: RESP 18
[2022-10-17] MEDS ORDERED: ANTIHEMOPHILIC FACTOR IVP ONE (08:49)
[2022-10-17] MEDS ORDERED: HYDROmorphone 1 MG/ML 1 ML SYRINGE IVP STA (08:50)
--- NOTE | 2022-10-17 08:51 | ED ---
Extremity Problem HPI - General Chief complaint: Extremity Problem,Nontraumatic Stated complaint: hemophilia in R ankle Time Seen by Provider: 10/17/22 08:40 Source: patient, RN notes reviewed Mode of arrival: ambulatory Limitations: no limitations - History of Present Illness Initial comments: Patient is a 32-year-old male well known to the emergency department presenting to the emergency room with right ankle pain and swelling. He is a known hemophilia a patient without follow up with a filbert grower and no available factor VIII at home. She denies any known trauma and reports that his ankle began swelling and become became very painful earlier today. He has a history of multiple episodes of ishaan-arthrosis. In addition to his hemophilia and ishaan-arthrosis history is a past medical history significant for hepatitis C and liver disease. - Related Data Previous Rx's Medication Instructions Recorded Acetaminophen Tab [Tylenol Tab] 500 mg PO Q6H PRN #24 tablet 10/04/22 Cyclobenzaprine [Flexeril] 10 mg PO TID PRN #20 tab 10/04/22 Oseltamivir [Tamiflu] 75 mg PO Q12HR #9 cap 10/04/22 Allergies Allergy/AdvReac Type Severity Reaction Status Date / Time aspirin AdvReac contraindicated Verified 10/17/22 08:31 d/t hemophilia NSAIDS (Non-Steroidal AdvReac contraindicated Verified 10/17/22 08:31 Anti-Inflamma d/t hemophilia Review of Systems ROS Statement: Those systems with pertinent positive or pertinent negative responses have been documented in the HPI. ROS Other: All systems not noted in ROS Statement are negative. 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 History of Any Multi-Drug Resistant Organisms: None Reported Past Surgical History: No Surgical Hx Reported Additional Past Surgical History / Comment(s): lithotripsy Past Anesthesia/Blood Transfusion Reactions: No Reported Reaction Additional Past Anesthesia/Blood Transfusion Reaction / Comment(s): Pt has never had anesthesia. He received blood in past without reaction. Past Psychological History: ADD/ADHD, Anxiety, Bipolar, Depression Smoking Status: Current every day smoker Past Alcohol Use History: Rare Past Drug Use History: Methamphetamine - Past Family History Father History Unknown: Yes Additional Family Medical History / Comment(s): patient does not know any medical history on him. Mother Family Medical History: Respiratory Disorder Additional Family Medical History / Comment(s): Mother is alive at age 56 with history of pulmonary hypertension. Brother(s) Additional Family Medical History / Comment(s): He has 2 brothers with no major medical problems. He has 6 sisters with no major medical problems. He has a g randfather and cousins with hemophilia. General Exam - General Exam Comments Initial Comments: GENERAL: No acute distress, well developed, well nourished. HEENT: Normocephalic, atraumatic. Pupils equal, round, reactive to light. Moist mucous membranes. LUNGS: No respiratory distress. Clear to auscultation, no adventitious sounds, no use of accessory muscles. HEART: Regular rate and rhythm without murmur, rub, or gallop. ABDOMEN: Normal bowel sounds. Soft, non-tender, non-distended. BACK: Normal inspection. EXTREMITIES: Right ankle swelling, tenderness and range of motion impairment secondary to swelling. NEUROLOGIC: Alert & oriented x 3. CN II-XII grossly intact. PSYCHIATRIC: Normal affect and behavior. DERMATOLOGIC: Skin intact, without rashes or lesions noted. Limitations: no limitations Course Vital Signs 10/17/22 10/17/22 08:29 10:10 Temperature 98 F 98.0 F Pulse Rate 112 H 98 Respiratory 18 18 Rate Blood Pressure 136/96 149/83 O2 Sat by Pulse 99 96 Oximetry Medical Decision Making - Medical Decision Making Was pt. sent in by a medical professional or institution (, PA, ART DISPLAY MAKER, urgent care, hospital, or correction...) When possible be specific @ -No Did you speak to anyone other than the patient for history (EMS, parent, family, police, friend...)? What history was obtained from this source @ -No Did you review nursing and triage notes (agree or disagree)? Why? @ -I reviewed and agree with nursing and triage notes Were old charts reviewed (outside hosp., previous admission, EMS record, old EKG, old radiological studies, urgent care reports/EKG's, correction records)? Report findings @ -Most recent emergency room visit report and laboratory studies Differential Diagnosis (chest pain, altered mental status, abdominal pain women, abdominal pain men, vaginal bleeding, weakness, fever, dyspnea, syncope, headache, dizziness, GI bleed, back pain, seizure, CVA, palpatations, mental health)? @ -Differential Ankle Pain: Ankle fracture, ankle sprain, ankle dislocation, hemarthrosis, DVT, chronic joint pain, ankle effusion this is not meant to be an all-inclusive list. EKG interpreted by me (3pts min.). @ -None done X-rays interpreted by me (1pt min.). @ -X-ray of the right ankle demonstrates mild soft tissue swelling no evidence of ishaan-arthrosis. Arthritic changes noted. No fracture or dislocation. CT interpreted by me (1pt min.). @ -None done U/S interpreted by me (1pt. min.). @ -None done What testing was considered but not performed or refused? (CT, X-rays, U/S, labs)? Why? @ -CBC considered but deferred due to lack of trauma and recent laboratory studies without abnormalities. What meds were considered but not given or refused? Why? @ -None Did you discuss the management of the patient with other professionals (professionals i.e. Dr., PA, ART DISPLAY MAKER, lab, RT, psych nurse, licensed master social worker, custodian, teacher, chief data officer, outsole caser)? Give summary @ -ER outsole caser. Was smoking cessation discussed for >3mins.? @ -No Was critical care preformed (if so, how long)? @ -No Were there social determinants of health that impacted care today? How? (Homelessness, low income, unemployed, alcoholism, drug addiction, transportation, low edu. Level, literacy, decrease access to med. care, long-term, re hab)? @ -Lack of establishment with hematology provider causing decrease access to factor VIII. Was there de-escalation of care discussed even if they declined (Discuss DNR or withdrawal of care, Hospice)? DNR status @ -No What co-morbidities impacted this encounter? (DM, HTN, Smoking, COPD, CAD, Cancer, CVA, ARF, Chemo, Hep., AIDS, mental health diagnosis, sleep apnea, morbid obesity)? @ -Hemophilia a Was patient admitted / discharged? Hospital course, mention meds given and route , prescriptions, significant lab abnormalities, going to OR and other pertinent info. @ -32-year-old male presenting with right ankle pain and swelling without trauma and known hemophilia a without availability of factor VIII. Recent laboratory studies completed during emergency room visit on 10/04/2022 demonstrating no evidence of anemia and stable coags. We'll defer repeat laboratory studies at this time in the absence of trauma and hemodynamically stable. Will obtain x-ray of the right ankle. Due to lack of factor VIII availability and last dose greater than 2 weeks ago will give factor VIII dose for lower extremity at 40 units per KG. Will also give one-time dose of Dilaudid for severe pain. X-ray demonstrate soft tissue swelling no evidence of ishaan-arthrosis fracture or dislocation. No indication for further diagnostic imaging or laboratory studies. Patient tolerated advate well. Pain improved with Dilaudid. Will give Tylenol 3 starter pack to utilize for pain as it returns. Education and enforcement of need with this to establish with a filbert grower for regular administration of his factor VIII completed. Questions and concerns answered. Return parameters to the emergency room discussed. Will discharge patient home in stable condition with Tylenol 3 starter pack to utilize for pain as needed. Undiagnosed new problem with uncertain prognosis? @ -No Drug Therapy requiring intensive monitoring for toxicity (Heparin, Nitro, Insulin, Cardizem)? @ -No Were any procedures done? @ -No Diagnosis/symptom? @ -Hemophilia A Acute, or Chronic, or Acute on Chronic? @ -Chronic Uncomplicated (without systemic symptoms) or Complicated (systemic symptoms)? @ -Complicated Side effects of treatment? @ -No Exacerbation, Progression, or Severe Exacerbation? @ -No Poses a threat to life or bodily function? How? (Chest pain, [place], [place], pneumonia, PE, COPD, DKA, ARF, appy, cholecystitis, CVA, Diverticulitis, Homicidal, Suicidal, threat to staff... and all critical care pts) @ -No, not at this time Diagnosis/symptom? @ -Right ankle effusion Acute, or Chronic, or Acute on Chronic? @ -Acute Uncomplicated (without systemic symptoms) or Complicated (systemic symptoms)? @ -Complicated Side effects of treatment? @ -none Exacerbation, Progression, or Severe Exacerbation] @ -no Poses a threat to life or bodily function? @ -no Case discussed with Dr. Cuevas. Disposition Clinical Impression: Hemophilia A, Right ankle effusion Disposition: HOME SELF-CARE Condition: Stable Instructions (If sedation given, give patient instructions): Ankle Sprain (ED), Hemophilia (ED) Additional Instructions: Please establish with on [facility] for initiation of your home factor VIII medication. Range of motion and weightbearing as tolerated for right ankle encouraged. Utilize Tylenol #3 starter pack as needed for pain. Please return to the Emergency Department if symptoms worsen or any other concerns. Is patient prescribed a controlled substance at d/c from ED?: No Referrals: None,Stated [Primary Care Provider] - 1-2 days Time of Disposition: 09:57
--- NOTE | 2022-10-17 09:24 | XR ---
EXAMINATION TYPE: XR ankle complete RT DATE OF EXAM: 10/17/2022 COMPARISON: Right ankle radiograph 09/12/2022 HISTORY: Swelling pain TECHNIQUE: Frontal, lateral and oblique images of the right ankle are obtained. FINDINGS: There is no acute fracture/dislocation evident. Similar severe narrowing of the ankle join t space with sclerosis and subchondral cystic changes involving both sides of the joint. There is aga in spurring of the anterior and posterior malleolus. Small joint effusion demonstrated. Mild soft tis rickie edema of the ankle. IMPRESSION: 1. No acute fracture or dislocation. 2. Severe osteoarthritic changes with small joint effusion. Inflammatory arthritis is not excluded. 3. Mild soft tissue swelling of the ankle.
[2022-10-17] MEDS ORDERED: ACET/COD 300 MG/30 MG STARTER PACK 6 TAB BTL PO STA (10:01)
[2022-10-17 10:17] VITALS: BP 149/83; PULSE 98; TEMP 98
== END 2022-10-17 10:10 | disposition home or self-care (01) ==
LOC: EC 08:20
DX: D66 Hereditary factor VIII deficiency (principal); M25.471 Effusion, right ankle; F90.9 Attention-deficit hyperactivity disorder, unspecified type; F41.9 Anxiety disorder, unspecified; F31.9 Bipolar disorder, unspecified; F17.200 Nicotine dependence, unspecified, uncomplicated; F15.20 Other stimulant dependence, uncomplicated; Z88.6 Allergy status to analgesic agent; Z88.8 Allergy status to other drugs, medicaments and biological substances
CPT/HCPCS: 73610; 99284; 96374; 96375; J1170; J7192

== ENCOUNTER 2022-12-25 08:26 | Emergency (ER) | payer OTHER ==
[2022-12-25] MEDS ORDERED: HYDROmorphone 0.5 MG/0.5 ML SYRINGE IVP STA ×3 (08:46→13:09)
--- NOTE | 2022-12-25 09:20 | ED ---
General Adult HPI - General Chief complaint: Extremity Problem,Nontraumatic Stated complaint: Rt arm pain Time Seen by Provider: 12/25/22 08:36 Source: patient, RN notes reviewed, old records reviewed Mode of arrival: ambulatory Limitations: no limitations - History of Present Illness Initial comments: Patient is a 32-year-old male with past medical history remarkable for hemophilia a he previously was not on home factor VIII therapy but has since sta rted at presents emergency Department complaining of right elbow and right shoulder pain. States this occurred when he woke up. Presents for evaluation. Has been compliant with taking his injections of factor VIII replacement. He previously was not on injections but he has been compliant with them, do for his injection today but as he is right-handed was unable to draw up at home which is one of the reasons why presents for evaluation and to be seen. Denies any other missed doses. Denies any other symptoms. Denies any trauma. Endorses pain with movement of the right elbow as well as right shoulder. Also some pain from the posterior aspect of the right shoulder shooting down his right arm. Has no other acute complaints at this time. Presents for further evaluation at this time. He has received factor replacement here in the department previously, however he was not on home factor VIII replacement at those times. He has been compliant with that factor replacement at home for multiple weeks. Does follow up with a brazing furnace feeder. - Related Data Home Medications Medication Instructions Recorded Confirmed HYDROcodone/APAP 5-325MG [[facility] 0.5 tab PO Q6H 12/25/22 12/25/22 5-325] Jivi 3000 Iu 3,000 unit IV DIRECTED PRN 12/25/22 12/25/22 Jivi 3000 Iu 3,000 unit IV MOTH 12/25/22 12/25/22 Allergies Allergy/AdvReac Type Severity Reaction Status Date / Time aspirin AdvReac contraindicated Verified 12/25/22 09:02 d/t hemophilia NSAIDS (Non-Steroidal AdvReac contraindicated Verified 12/25/22 09:02 Anti-Inflamma d/t hemophilia Review of Systems ROS Statement: Those systems with pertinent positive or pertinent negative responses have been documented in the HPI. Review of Systems: CONST: Denies fever EYES: Denies blurry vision ENT: Denies nasal congestion C/V: Denies Chest pain RESP: Denies shortness of breath GI: Denies abdominal pain : Denies dysuria SKIN: Denies rash. MSK: Endorses right elbow pain, right shoulder pain. NEURO: Denies headache ROS Other: All systems not noted in ROS Statement are negative. 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 History of Any Multi-Drug Resistant Organisms: None Reported Past Surgical History: No Surgical Hx Reported Additional Past Surgical History / Comment(s): lithotripsy Past Anesthesia/Blood Transfusion Reactions: No Reported Reaction Additional Past Anesthesia/Blood Transfusion Reaction / Comment(s): Pt has never had anesthesia. He received blood in past without reaction. Past Psychological History: ADD/ADHD, Anxiety, Bipolar, Depression Smoking Status: Current every day smoker Past Alcohol Use History: Rare Past Drug Use History: Methamphetamine - Past Family History Father History Unknown: Yes Additional Family Medical History / Comment(s): patient does not know any medical history on him. Mother Family Medical History: Respiratory Disorder Additional Family Medical History / Comment(s): Mother is alive at age 56 with history of pulmonary hypertension. Brother(s) Additional Family Medical History / Comment(s): He has 2 brothers with no major medical problems. He has 6 sisters with no major medical problems. He has a grandfather and cousins with hemophilia. General Exam - General Exam Comments Initial Comments: General: Appears in mild distress secondary to pain. HEAD: Normal with no signs of head trauma. EYES: EOMI ENT: Hearing grossly intact, normal oropharynx. RESPIRATORY: Clear breath sounds bilaterally. No wheezes, rales, or rhonchi. C/V: Regular rate and rhythm. S1 and S2 auscultated, peripheral pulses 2+ and intact throughout ABD: Abd is soft, nontender, nondistended EXT: Reduced range of motion of the right shoulder and elbow secondary to pain. Minimal swelling of the right elbow at this time. It is not warm to touch. Patient does have some radicular aspect to the pain as well. No obvious deformities. No obvious injuries. SKIN: No rashes or lesions observed on exposed skin. NEURO: Alert and oriented 4. No focal sensory or strength deficits. Limitations: no limitations Course Vital Signs 12/25/22 12/25/22 12/25/22 08:30 11:05 12:22 Temperature 98 F 98.5 F Pulse Rate 80 80 65 Respiratory 18 18 18 Rate Blood Pressure 143/91 147/78 138/79 O2 Sat by Pulse 100 98 97 Oximetry 12/25/22 12/25/22 12:32 12:52 Temperature 98.8 F 98.6 F Pulse Rate 80 85 Respiratory 16 16 Rate Blood Pressure 138/82 166/73 O2 Sat by Pulse 97 97 Oximetry Medical Decision Making - Medical Decision Making Was pt. sent in by a medical professional or institution (, PA, [employer], urgent care, hospital, or usp...) When possible be specific @ -No Did you speak to anyone other than the patient for history (EMS, parent, family, police, friend...)? What history was obtained from this source @ -No Did you review nursing and triage notes (agree or disagree)? Why? @ -I reviewed and agree with nursing and triage notes Were old charts reviewed (outside hosp., previous admission, EMS record, old EKG, old radiological studies, urgent care reports/EKG's, usp records)? Report findings @ -Yes, old charts were reviewed from October 2022 and September 2022 Differential Diagnosis (chest pain, altered mental status, abdominal pain women, abdominal pain men, vaginal bleeding, weakness, fever, dyspnea, syncope, heada berto, dizziness, GI bleed, back pain, seizure, CVA, palpatations, mental health, musculoskeletal)? @ -Hemarthrosis, muscle strain, chronic pain, bony traumatic injury, cervical radiculopathy. This list is not all inclusive. EKG interpreted by me (3pts min.). @ -None done X-rays interpreted by me (1pt min.). @ -Shoulder x-ray reveals possible before meals joint separation although current pain is atraumatic. Elbow x-ray shows increased swelling around the elbow. Inconclusive exam. CT interpreted by me (1pt min.). @ -CT of the right elbow reveals chronic degenerative findings. U/S interpreted by me (1pt. min.). @ -None done What testing was considered but not performed or refused? (CT, X-rays, U/S, l abs)? Why? @ -None What meds were considered but not given or refused? Why? @ -None Did you discuss the management of the patient with other professionals (professionals i.e. , ANTONY, [employer], lab, RT, psych nurse, social problems specialist, manager servicing, teacher, credit risk review officer, hospice case manager)? Give summary @ -No Was smoking cessation discussed for >3mins.? @ -No Was critical care preformed (if so, how long)? @ -No Were there social determinants of health that impacted care today? How? (Homelessness, low income, unemployed, alcoholism, drug addiction, transportation, low edu. Level, literacy, decrease access to med. care, group home, rehab)? @ -No Was there de-escalation of care discussed even if they declined (Discuss DNR or withdrawal of care, Hospice)? DNR status @ -No What co-morbidities impacted this encounter? (DM, HTN, Smoking, COPD, CAD, Cance r, CVA, ARF, Chemo, Hep., AIDS, mental health diagnosis, sleep apnea, morbid obesity)? @ -Hemophilia A, currently on home factor VIII therapy and is compliant Was patient admitted / discharged? Hospital course, mention meds given and route, prescriptions, significant lab abnormalities, going to OR and other pertinent info. @ -Based on the patient's presentation and physical exam, I'm concerned for injury to the patient's right arm. Patient has a history of hemophilia and has received factor VIII replacement and eye emergency department previously. However at those times she is not on any home factor VIII replacement and he has been for multiple weeks now. Has not missed any doses. Is due today. We also no longer have factor replacement in our emergency department. I did discuss this with him that because he has been compliant I do not believe that we need to administer the backup therapy of cryoprecipitate at this time without obtaining labs. He was in agreement this plan. We will administer his own therapy for him as well as obtain x-rays of the right arm, neck and obtain basic labs. He'll be given Dilaudid for analgesia. He was in agreement this plan. Vital signs are within acceptable limits. No evidence of blood loss anemia. Patient's labs are within acceptable limits. Patient's x-rays do reveal a good deal swelling around the elbow. Shoulder x-ray shows possible before meals joint separation with no obvious trauma for the patient. Patient states that the elbow while chronically sore is more swollen at this time. Over concern for increased hemarthrosis at this time, I will provide the patient with a dose of cryoprecipitate. He was in agreement with this plan. We no longer carry the factor VIII replacement. He expressed understanding and was in agreement with the plan. We will also obtain CT to evaluate the elbow further. Patient's CT elbow revealed chronic degenerative changes. Patient received the cryoprecipitate which did take a while to obtain from pharmacy. After the patient on the findings. He'll be discharged, this time with close follow-up with his brazing furnace feeder. Patient was in agreement this plan. I instructed the patient to follow up with their PCP in the next 1-3 days. I explained that the patient should return to the emergency department if they experience any worsening symptoms. Strict return precautions were discussed with the patient. The patient expressed understanding of these instructions. I answered all questions that the patient had. The patient was discharged home in good condition with their prescriptions and follow up information. Undiagnosed new problem with uncertain prognosis? @ -No Drug Therapy requiring intensive monitoring for toxicity (Heparin, Nitro, In sulin, Cardizem)? @ -No Were any procedures done? @ -No Diagnosis/symptom? @ -Hemophilia A Acute, or Chronic, or Acute on Chronic? @ -Chronic Uncomplicated (without systemic symptoms) or Complicated (systemic symptoms)? @ -Uncomplicated Side effects of treatment? @ -none Exacerbation, Progression, or Severe Exacerbation] @ -no Poses a threat to life or bodily function? @ -Yes, can have significant bleeding episodes which can cause morbidity and mortality. Diagnosis/symptom? @ -Acute on chronic elbow pain Acute, or Chronic, or Acute on Chronic? @ -Acute and chronic Uncomplicated (without systemic symptoms) or Complicated (systemic symptoms)? @ -Uncomplicated Side effects of treatment? @ -none Exacerbation, Progression, or Severe Exacerbation] @ -no Poses a threat to life or bodily function? @ -no - Lab Data Result diagrams: 12/25/22 08:57 12/25/22 08:57 Lab Results 12/25/22 12/25/22 12/25/22 Range/Units 08:57 08:57 08:57 WBC 9.6 (3.8-10.6) k/uL RBC 4.95 (4.30-5.90) m/uL Hgb 16.0 (13.0-17.5) gm/dL Hct 45.6 (39.0-53.0) % MCV 92.1 (80.0-100.0) fL MCH 32.3 (25.0-35.0) pg MCHC 35.0 (31.0-37.0) g/dL RDW 12.9 (11.5-15.5) % Plt Count 175 (150-450) k/uL MPV 7.3 Neutrophils % 76 % Lymphocytes % 17 % Monocytes % 4 % Eosinophils % 1 % Basophils % 0 % Neutrophils # 7.3 (1.3-7.7) k/uL Lymphocytes # 1.6 (1.0-4.8) k/uL Monocytes # 0.4 (0-1.0) k/uL Eosinophils # 0.1 (0-0.7) k/uL Basophils # 0.0 (0-0.2) k/uL PT 10.7 (9.0-12.0) sec INR 1.0 (<1.2) APTT 59.3 H (22.0-30.0) sec Sodium 140 (137-145) mmol/L Potassium 3.9 (3.5-5.1) mmol/L Chloride 102 (98-107) mmol/L Carbon Dioxide 29 (22-30) mmol/L Anion Gap 9 mmol/L BUN 17 (9-20) mg/dL Creatinine 0.67 (0.66-1.25) mg/dL Est GFR (CKD-EPI)AfAm >90 (>60 ml/min/1.73 sqM) Est GFR (CKD-EPI)NonAf >90 (>60 ml/min/1.73 sqM) Glucose 111 H (74-99) mg/dL Calcium 9.4 (8.4-10.2) mg/dL Blood Type Blood Type Recheck Bld Type Recheck Status Antibody Screen Transfuse Cryo Spec Expiration Date 12/25/22 Range/Units 10:30 WBC (3.8-10.6) k/uL RBC (4.30-5.90) m/uL Hgb (13.0-17.5) gm/dL Hct (39.0-53.0) % MCV (80.0-100.0) fL MCH (25.0-35.0) pg MCHC (31.0-37.0) g/dL RDW (11.5-15.5) % Plt Count (150-450) k/uL MPV Neutrophils % % Lymphocytes % % Monocytes % % Eosinophils % % Basophils % % Neutrophils # (1.3-7.7) k/uL Lymphocytes # (1.0-4.8) k/uL Monocytes # (0-1.0) k/uL Eosinophils # (0-0.7) k/uL Basophils # (0-0.2) k/uL PT (9.0-12.0) sec INR (<1.2) APTT (22.0-30.0) sec Sodium (137-145) mmol/L Potassium (3.5-5.1) mmol/L Chloride (98-107) mmol/L Carbon Dioxide (22-30) mmol/L Anion Gap mmol/L BUN (9-20) mg/dL Creatinine (0.66-1.25) mg/dL Est GFR (CKD-EPI)AfAm (>60 ml/min/1.73 sqM) Est GFR (CKD-EPI)NonAf (>60 ml/min/1.73 sqM) Glucose (74-99) mg/dL Calcium (8.4-10.2) mg/dL Blood Type A Positive Blood Type Recheck A Pos Bld Type Recheck Status No Antibody Screen NEGATIVE Transfuse Cryo 12/25/2022 Spec Expiration Date 12/28/2022 - 2324 Disposition Clinical Impression: Hemophilia A, Elbow pain Disposition: HOME SELF-CARE Condition: Good Instructions (If sedation given, give patient instructions): Hemophilia (ED) Is patient prescribed a controlled substance at d/c from ED?: No Referrals: None,Stated [Primary Care Provider] - 1-2 days Time of Disposition: 13:40
[2022-12-25 09:32] LABS: Basophils % (A) 0 %; Eosinophils # (A) 0.1 k/uL (0-0.7); Eosinophils % (A) 1 %; HCT 45.6 % (39.0-53.0); Lymphocytes # (A) 1.6 k/uL (1.0-4.8); Lymphocytes % (A) 17 %; MCH 32.3 pg (25.0-35.0); MCV 92.1 fL (80.0-100.0); Mean Platelet Volume 7.3; Monocytes # (A) 0.4 k/uL (0-1.0); Monocytes % (A) 4 %; Neutrophils # (A) 7.3 k/uL (1.3-7.7); Neutrophils % (A) 76 %; Platelet Count 175 k/uL (150-450); RBC 4.95 m/uL (4.30-5.90); RDW 12.9 % (11.5-15.5); WBC 9.6 k/uL (3.8-10.6)
[2022-12-25 09:41] LABS: African American GFR (CKD) >90 (>60 ml/min/1.73 sqM); Anion Gap 9 mmol/L; Blood Urea Nitrogen 17 mg/dL (9-20); Calcium 9.4 mg/dL (8.4-10.2); Carbon Dioxide 29 mmol/L (22-30); Chloride 102 mmol/L (98-107); Glucose 111 mg/dL (74-99); Non-African American GFR(CKD) >90 (>60 ml/min/1.73 sqM); Potassium 3.9 mmol/L (3.5-5.1); Sodium 140 mmol/L (137-145)
--- NOTE | 2022-12-25 09:47 | XR ---
EXAMINATION TYPE: XR cervical spine comp DATE OF EXAM: 12/25/2022 COMPARISON: NONE HISTORY: Pain TECHNIQUE: Four views are submitted. FINDINGS: The odontoid is intact. There are no compression deformities. The prevertebral soft tissue structur es are within normal limits. There is posterior hypertrophic spondylosis C4-C5. Soft tissue ossifica tion appears corticated and chronic posteriorly IMPRESSION: 1. Mild degenerative disc disease with posterior spondylosis C4-C5. May be a degree of foraminal encr oachment. If concern for disc herniation correlate with MRI..
--- NOTE | 2022-12-25 09:48 | XR ---
EXAMINATION TYPE: XR elbow complete RT DATE OF EXAM: 12/25/2022 COMPARISON: NONE HISTORY: Pain FINDINGS: Three views of the elbow demonstrate pathologic posterior and anterior joint effusions. There is jonh ed deformity of the elbow joint which may be chronic. Could be in the basis of severe arthropathy. IMPRESSION: 1. Pathologic joint effusions. Fracture not excluded. There is deformity of the elbow joint with jonh ed narrowing of space and cystic and sclerotic changes of the adjacent osseous structures. Recommend CT scan for further evaluation to exclude fracture.
--- NOTE | 2022-12-25 09:50 | XR ---
EXAMINATION TYPE: XR shoulder complete RT DATE OF EXAM: 12/25/2022 COMPARISON: NONE HISTORY: Pain TECHNIQUE: Three views are submitted. FINDINGS: The osseous structures are intact. There is no acute fracture or dislocation. The AC joint is maint ained. There may be slight elevation of the clavicle relative to the acromion. IMPRESSION: 1. Minimally slight elevation of the clavicle relative to the acromion. Subtle AC joint injury not ex cluded correlate with point tenderness.
[2022-12-25 10:31] LABS: Partial Thromboplastin Time 59.3 sec (22.0-30.0); Prothrombin Time 10.7 sec (9.0-12.0)
--- NOTE | 2022-12-25 11:16 | CT ---
EXAMINATION TYPE: CT upper extremity RT wo con DATE OF EXAM: 12/25/2022 COMPARISON: Right elbow x-ray earlier today. HISTORY: Acute elbow, surrounding area pain and swelling. Hx hemophilia. Best images based on patient limited mobility. CT DLP: 565.4 mGycm Automated exposure control for dose reduction was used. FINDINGS: Corresponding to x-ray there is extensive subchondral cystic change in the distal humerus. There is l arger oval lytic area along the posterior aspect of the capitellum of the distal humerus favoring lar ge geode measuring 2.8 cm transversely coronal image 59. There is narrowing of the ulnohumeral joint space with extensive subchondral cystic change. There is narrowing of the radial head articulation wi th the anterior distal humerus. There is fairly diffuse sclerosis seen. There is moderate-sized joint effusion. There is no acute displaced fracture. No periarticular osteopenia is noted. 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 Findings li francine more advanced due to patient's underlying hemophilia with recurrent intra-articular bleeding cau sing irritation of the joint producing sclerosis and subchondral cystic change. Nonemergent orthopedic follow-up can be considered.
[2022-12-25] MEDS ORDERED: HYDROmorphone 1 MG/ML 1 ML SYRINGE IVP STA (11:19)
[2022-12-25 12:55] VITALS: RESP 16
[2022-12-25 13:11] VITALS: BP 166/73; PULSE 85; TEMP 98.6
== END 2022-12-25 14:15 | disposition home or self-care (01) ==
LOC: EC 08:26
DX: D66 Hereditary factor VIII deficiency (principal); M25.521 Pain in right elbow; M47.812 Spondylosis without myelopathy or radiculopathy, cervical region; M50.321 Other cervical disc degeneration at C4-C5 level; M19.90 Unspecified osteoarthritis, unspecified site; F90.9 Attention-deficit hyperactivity disorder, unspecified type; F41.9 Anxiety disorder, unspecified; F31.9 Bipolar disorder, unspecified; F17.200 Nicotine dependence, unspecified, uncomplicated; F15.10 Other stimulant abuse, uncomplicated; Z79.1 Long term (current) use of non-steroidal anti-inflammatories (NSAID); Z88.6 Allergy status to analgesic agent
CPT/HCPCS: 36415; 86900; 86901; 80048; 85025; 85610; 85730; 86850; 72050; 73030; 73080; 73200; 99285; 96374; 96376 ×3; 36430; P9012; J1170 ×2

== ENCOUNTER 2022-12-31 07:45 | Emergency (ER) | payer OTHER ==
[2022-12-31] MEDS ORDERED: HYDROmorphone 1 MG/ML 1 ML SYRINGE IM STA (08:07)
[2022-12-31] MEDS ORDERED: HYDROmorphone 1 MG/ML 1 ML SYRINGE IVP STA ×2 (08:18→10:52)
--- NOTE | 2022-12-31 09:05 | ED ---
Extremity Problem HPI - General Chief complaint: Extremity Injury, Upper Stated complaint: R arm pain Time Seen by Provider: 12/31/22 07:58 Source: patient, EMS, RN notes reviewed Mode of arrival: EMS Limitations: no limitations - History of Present Illness Initial comments: This is a 32-year-old male who presents to the emergency department for right ar m pain and swelling. Patient has a past history of hemophilia A and was evaluated here on 12/25. At that time he received a cryoprecipitate infusion for concerns of hemarthrosis. States that the swelling is unchanged since then. He continues to have pain as well. Computed tomography scan of the right arm at that time also revealed end-stage arthritic changes. He does receive factor VIII infusions biweekly at home, but states that he has fallen behind on these, and has not had any infusions since he was here on 12/25. Denies any fevers, chills, sore throat, cough, dyspnea, chest pain, palpitations, abdominal pain, nausea, vomiting, diarrhea, back pain, or headaches. MD Complaint: extremity pain Location: right, upper extremity History of Same: Yes - Related Data Home Medications Medication Instructions Recorded Confirmed HYDROcodone/APAP 5-325MG [[place] 0.5 tab PO Q6H 12/25/22 12/31/22 5-325] Jivi 3000 Iu 3,000 unit IV DIRECTED PRN 12/25/22 12/31/22 Jivi 3000 Iu 3,000 unit IV MOTH 12/25/22 12/31/22 Allergies Allergy/AdvReac Type Severity Reaction Status Date / Time aspirin AdvReac contraindicated Verified 12/31/22 08:18 d/t hemophilia NSAIDS (Non-Steroidal AdvReac contraindicated Verified 12/31/22 08:18 Anti-Inflamma d/t hemophilia Review of Systems ROS Statement: Those systems with pertinent positive or pertinent negative responses have been documented in the HPI. ROS Other: All systems not noted in ROS Statement are negative. 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 History of Any Multi-Drug Resistant Organisms: None Reported Past Surgical History: No Surgical Hx Reported Additional Past Surgical History / Comment(s): lithotripsy Past Anesthesia/Blood Transfusion Reactions: No Reported Reaction Additional Past Anesthesia/Blood Transfusion Reaction / Comment(s): Pt has never had anesthesia. He received blood in past without reaction. Past Psychological History: ADD/ADHD, Anxiety, Bipolar, Depression Smoking Status: Current every day smoker Past Alcohol Use History: Rare Past Drug Use History: Methamphetamine - Past Family History Father History Unknown: Yes Additional Family Medical History / Comment(s): patient does not know any medical history on him. Mother Family Medical History: Respiratory Disorder Additional Family Medical History / Comment(s): Mother is alive at age 56 with history of pulmonary hypertension. Brother(s) Additional Family Medical History / Comment(s): He has 2 brothers with no major medical problems. He has 6 sisters with no major medical problems. He has a grandfather and cousins with hemophilia. General Exam Limitations: no limitations General appearance: alert, in distress Head exam: Present: atraumatic, normocephalic, normal inspection Respiratory exam: Present: normal lung sounds bilaterally. Absent: respiratory distress, wheezes, rales, rhonchi, stridor Cardiovascular Exam: Present: regular rate, normal rhythm, normal heart sounds. Absent: systolic murmur, diastolic murmur, rubs, gallop, clicks Extremities exam: Present: other (Swelling over the right olecranon bursa. 2+ radial pulses and capillary refill less than 1 second.) Neurological exam: Present: alert, oriented X3, CN II-XII intact Psychiatric exam: Present: normal affect, normal mood Skin exam: Present: warm, dry, intact, normal color. Absent: rash Course Vital Signs 12/31/22 12/31/22 12/31/22 07:52 09:43 10:02 Temperature 98.2 F 97.9 F 97.8 F Pulse Rate 80 72 76 Respiratory 18 18 16 Rate Blood Pressure 143/94 138/75 128/82 O2 Sat by Pulse 97 98 96 Oximetry 12/31/22 12/31/22 12/31/22 10:22 11:12 11:16 Temperature 98.1 F 97.9 F Pulse Rate 75 68 68 Respiratory 16 16 16 Rate Blood Pressure 130/93 135/87 135/87 O2 Sat by Pulse 98 97 97 Oximetry Medical Decision Making - Medical Decision Making This is a 32-year-old male who presents to the emergency department for right arm pain. Was pt. sent in by a medical professional or institution? @ -No Did you speak to anyone other than the patient for history? @ -No Did you review nursing and triage notes? @ -Yes, and I agree, it is accurate with regards to the patient's symptoms. Were old charts reviewed? @ -Yes, X-ray and CT scan of the right upper extremity from 12/25. Differential Diagnosis? @ -Differential Arm Pain: Fracture, dislocation, contusion, OA, RA, joint effusion, bursitis, this is not meant to be an all-inclusive list. What testing was considered but not performed? (CT, X-rays, U/S, labs)? Why? @ -None What meds were considered but not given? Why? @ -None Did you discuss the management of the patient with other professionals? @ -No Did you reconcile home meds? @ -No Was smoking cessation discussed for >3mins.? @ -No Was critical care preformed (if so, how long)? @ -No Were there social determinants of health that impacted care today? How? (Homelessness, low income, unemployed, alcoholism, drug addiction, transportation, low edu. Level, literacy, decrease access to med. care, usp, rehab)? @ -No Was there de-escalation of care discussed even if they declined? (Discuss DNR or withdrawal of care, Hospice)? @ -No What co-morbidities impacted this encounter? (DM, HTN, Smoking, COPD, CAD, Cancer, CVA, Hep., AIDS, mental health diagnosis, sleep apnea, morbid obesity)? @ -Hemophilia A Was patient admitted / discharged? @ -Discharged. Patient does have swelling over the olecranon bursa on physical examination, which he states is unchanged from 12/25. Imaging from 12/25 reviewed , revealing severe end-stage osteoarthritis with joint effusion. Given the concern for persistent hemarthrosis, patient received another dose of the cryoprecipitate. Pain was controlled in the emergency department. He was discharged home in stable condition and we discussed the need for him to be compliant with his factor VIII infusions and the risks of continued noncompliance with these. Advised to apply ice and keep the arm elevated as well. Undiagnosed new problem with uncertain prognosis? @ -None Drug Therapy requiring intensive monitoring for toxicity (Heparin, Nitro, Insulin, Cardizem)? @ -None Were any procedures done? @ -None Diagnosis/symptom? @ -Right arm pain Acute, or Chronic, or Acute on Chronic? @ -Acute Uncomplicated (without systemic symptoms) or Complicated (systemic symptoms)? @ -Uncomplicated Side effects of treatment? @ -None Exacerbation, Progression, or Severe Exacerbation] @ -Not applicable Poses a threat to life or bodily function? @ -No Diagnosis/symptom? @ -Hemophilia A Acute, or Chronic, or Acute on Chronic? @ -Chronic Uncomplicated (without systemic symptoms) or Complicated (systemic symptoms)? @ -Uncomplicated Side effects of treatment? @ -None Exacerbation, Progression, or Severe Exacerbation] @ -Stable Poses a threat to life or bodily function? @ -Yes, the diagnosis in itself poses an ongoing risk. Return precautions reviewed in depth, the patient is instructed to return to the emergency department with any new, worsening, or concerning symptoms. Patient verbalized understanding. This case was discussed in detail with the attending ED physician, Dr. Boateng. Presentation, findings, and treatment plan discussed in detail as well. - Lab Data Lab Results 12/31/22 Range/Units 08:37 Transfuse Cryo 12/31/22 Disposition Clinical Impression: Right arm pain, Hemophilia A Disposition: HOME SELF-CARE Instructions (If sedation given, give patient instructions): Hemophilia (ED) Additional Instructions: Return to the emergency department with any new, worsening, or concerning symptoms. Keep the arm elevated and apply ice. Continue with your factor VIII treatment as instructed twice weekly. Follow up with your primary care provider in 1-2 days. Contact orthopedics as listed below for reevaluation of your ongoing arm pain. Is patient prescribed a controlled substance at d/c from ED?: No Referrals: None,Stated [Primary Care Provider] - 1-2 days Brodie Villalobos MD [STAFF PHYSICIAN] - 1-2 days
[2022-12-31 11:17] VITALS: TEMP 97.9
[2022-12-31 11:55] VITALS: BP 130/92; PULSE 70; RESP 18
== END 2022-12-31 11:54 | disposition home or self-care (01) ==
LOC: EC 07:45
DX: M79.601 Pain in right arm (principal); D66 Hereditary factor VIII deficiency; F31.9 Bipolar disorder, unspecified; F41.9 Anxiety disorder, unspecified; F17.200 Nicotine dependence, unspecified, uncomplicated; Z88.6 Allergy status to analgesic agent; Z88.8 Allergy status to other drugs, medicaments and biological substances
CPT/HCPCS: 99283; 96374; 96376; 36430; P9012; J1170

== ENCOUNTER 2023-04-30 23:04 | Emergency (ER) | payer OTHER ==
[2023-04-30 23:32] VITALS: BP 161/95; PULSE 72; RESP 18
[2023-05-01] MEDS ORDERED: ORPHENADRINE 30 MG/ML 2 ML VIAL IM STA (00:10)
[2023-05-01] MEDS ORDERED: HYDROmorphone 1 MG/ML 1 ML SYRINGE IM STA (00:10)
--- NOTE | 2023-05-01 00:16 | ED ---
Neck Injury/Pain HPI - General Chief Complaint: Neck Pain/Injury Stated Complaint: Neck pain,headache Time Seen by Provider: 04/30/23 23:43 Source: patient, family, RN notes reviewed, old records reviewed Mode of arrival: ambulatory Limitations: no limitations - History of Present Illness Initial Comments: Nontoxic-appearing 32-year-old male presents to the emergency room with complaints of left-sided neck pain that radiates down his left shoulder and axilla to left side of his chest. Patient states pain started on Friday and he did go to [facility] emergency room. States they gave him Benadryl and Decadron with no relief. Denies any injury. Denies any fevers. Does have a history a Hemomphilia A and does take twice a week infusions. Patient [facility] that [facility] Complaint: neck pain, other (left shoulder) -: days(s) (3) Radiation: left shoulder Severity scale (1-10): 6 Consistency: constant Improves With: immobilization Worsens With: movement of extremity, movement of neck Treatments Prior to Arrival: other ([facility] Friday, hydrocodone) - Related Data Home Medications Medication Instructions Recorded Confirmed HYDROcodone/APAP 5-325MG [[place] 0.5 tab PO Q6H 12/25/22 12/31/22 5-325] Jivi 3000 Iu 3,000 unit IV DIRECTED PRN 12/25/22 12/31/22 Jivi 3000 Iu 3,000 unit IV MOTH 12/25/22 12/31/22 Previous Rx's Medication Instructions Recorded Lidocaine 5% Patch [Lidoderm] 1 patch TOPICAL DAILY 14 Days #14 05/01/23 patch Allergies Allergy/AdvReac Type Severity Reaction Status Date / Time aspirin AdvReac contraindicated Verified 04/30/23 23:28 d/t hemophilia NSAIDS (Non-Steroidal AdvReac contraindicated Verified 04/30/23 23:28 Anti-Inflamma d/t hemophilia Review of Systems ROS Statement: Those systems with pertinent positive or pertinent negative responses have been documented in the HPI. ROS Other: All systems not noted in ROS Statement are negative. 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 History of Any Multi-Drug Resistant Organisms: None Reported Past Surgical History: No Surgical Hx Reported Additional Past Surgical History / Comment(s): lithotripsy Past Anesthesia/Blood Transfusion Reactions: No Reported Reaction Additional Past Anesthesia/Blood Transfusion Reaction / Comment(s): Pt has never had anesthesia. He received blood in past without reaction. Past Psychological History: ADD/ADHD, Anxiety, Bipolar, Depression Smoking Status: Current every day smoker Past Alcohol Use History: Rare Past Drug Use History: Methamphetamine - Past Family History Father History Unknown: Yes Additional Family Medical History / Comment(s): patient does not know any medical history on him. Mother Family Medical History: Respiratory Disorder Additional Family Medical History / Comment(s): Mother is alive at age 56 with history of pulmonary hypertension. Brother(s) Additional Family Medical History / Comment(s): He has 2 brothers with no major medical problems. He has 6 sisters with no major medical problems. He has a grandfather and cousins with hemophilia. General Exam Limitations: no limitations General appearance: alert, in no apparent distress Head exam: Present: atraumatic, normocephalic, normal inspection Eye exam: Present: normal appearance. Absent: scleral icterus, conjunctival injection, periorbital swelling ENT exam: Present: mucous membranes moist Neck exam: Present: normal inspection, tenderness. Absent: meningismus, lymphadenopathy, thyromegaly Expanded Neck exam: Absent: midline deformity, anterior neck swelling, thyroid mass, tracheal deviation Respiratory exam: Absent: respiratory distress, accessory muscle use Cardiovascular Exam: Present: regular rate GI/Abdominal exam: Present: soft Extremities exam: Present: full ROM, normal capillary refill. Absent: pedal edema Back exam: Present: tenderness, vertebral tenderness (cervical). Absent: paraspinal tenderness, rash noted Neurological exam: Present: alert, oriented X3 Psychiatric exam: Present: normal affect, normal mood Skin exam: Present: warm, dry, normal color. Absent: cyanosis, diaphoretic, petechiae, pallor Course Vital Signs 04/30/23 05/01/23 23:28 00:24 Temperature 98.0 F Pulse Rate 72 Respiratory 18 Rate Blood Pressure 161/95 O2 Sat by Pulse 98 Oximetry Medical Decision Making - Medical Decision Making Was pt. sent in by a medical professional or institution (, PA, OIL BURNER SERVICER [employer] INSTALLER, urgent care, hospital, or long term...) When possible be specific @ -No Did you speak to anyone other than the patient for history (EMS, parent, family, police, friend...)? What history was obtained from this source @ -No Did you review nursing and triage notes (agree or disagree)? Why? @ -I reviewed and agree with nursing and triage notes Were old charts reviewed (outside hosp., previous admission, EMS record, old EKG, old radiological studies, urgent care reports/EKG's, long term records)? Report findings @ -His previous visits and imaging 12/25/2022, 12/31/2022 Differential Diagnosis (chest pain, altered mental status, abdominal pain women, abdominal pain men, vaginal bleeding, weakness, fever, dyspnea, syncope, headache, dizziness, GI bleed, back pain, seizure, CVA, palpatations, mental health, musculoskeletal)? @ -, Musculoskeletal pain, muscle spasm, fracture, arthritis, this is not all inclusive list EKG interpreted by me (3pts min.). @ -n/a X-rays interpreted by me (1pt min.). @ -None done CT interpreted by me (1pt min.). @ -None done U/S interpreted by me (1pt. min.). @ -None done What testing was considered but not performed or refused? (CT, X-rays, U/S, labs)? Why? @ -CT was considered her for performed at [facility] on Friday, denies any trauma or abnormal bleeding, no focal neurological deficits, no headaches What meds were considered but not given or refused? Why? @ -None Did you discuss the management of the patient with other professionals (professionals i.e. , ANTONY, OIL BURNER SERVICER AND INSTALLER, lab, RT, psych nurse, social science teacher, atv mechanic, teacher, drug abuse resistance education officer, complex case manager)? Give summary @ -No Was smoking cessation discussed for >3mins.? @ -No Was critical care preformed (if so, how long)? @ -No Were there social determinants of health that impacted care today? How? (Homelessness, low income, unemployed, alcoholism, drug addiction, transportation, low edu. Level, literacy, decrease access to med. care, detention, rehab)? @ -No Was there de-escalation of care discussed even if they declined (Discuss DNR or withdrawal of care, Hospice)? DNR status @ -No] What co-morbidities impacted this encounter? (DM, HTN, Smoking, COPD, CAD, Cancer, CVA, ARF, Chemo, Hep., AIDS, mental health diagnosis, sleep apnea, morbid obesity)? @ -Patient has history of anxiety, arthritis, depression, hemophilia a daily smoker.History of ADHD anxiety bipolar depression daily smoker Was patient admitted / discharged? Hospital course, mention meds given and route, prescriptions, significant lab abnormalities, going to OR and other pertinent info. @ -Discharged Nontoxic-appearing 32-year-old male presents to the emergency room with complaints of left-sided neck pain that radiates down his left shoulder and axilla to left side of his chest. Patient states pain started on Friday and he did go to [facility] emergency room. States they gave him Benadryl and Decadron with no relief. Denies any injury. Denies any fevers. Does have a history a Hemomphilia A and does take twice a week infusions. Patient states that he does see a specialist, Dr. Mackey at [facility]. [facility] medical records were obtained. CT cervical spine without contrast was performed showing vertebral height are maintained. Craniocervical junction is intact. The atlantodens interval maintained. Dens is intact. There is no spondylolisthesis. Vertebral disc spaces are preserved. There is no spinal canal The intravertebral disc spaces are preserved. There is no spinal canal or neural foraminal stenosis. The unenhanced neck soft tissues are grossly unremarkable. The visualized lung apices are grossly clear. CT of the brain without contrast showed no acute intracranial hemorrhage, midline shift or mass effect. Patient was given IV fluids, Benadryl, Reglan, Decadron and Dilaudid 2. Diagnosis was migraine and neck muscle spasms. Directed to follow-up with Dr. Potts. Prescription for Norflex was provided. Previous records in our facility show patient was seen December 31 for right arm pain. CT scan was performed at that time showing end-stage arthritic changes. He does receive factors 8 fusions biweekly at home. Cervical spine x-ray 12/25/2022 shows mild degenerative disc disease with posterior spondylosis C4-C5. May be due to Foraminal encroachment. If concern for disc herniation correlate with MRI. Today patient on exam has no focal neurological deficits. He denies any trauma. No fevers. Denies any abnormal bleeding. Vital signs are stable. He was given Dilaudid and Norflex IM with improvement in his symptoms. He was also given a Lidoderm patch and a prescription for Lidoderm patches. Directed to follow up with primary care doctor. He states he does not have a primary care doctor at this time. A list of PCPs was provided. Patient requesting an additional shot of Dilaudid before discharge. Case discussed with Dr. Soliz. Undiagnosed new problem with uncertain prognosis? @ -[No] Drug Therapy requiring intensive monitoring for toxicity (Heparin, Nitro, Insulin, Cardizem)? @ -[No] Were any procedures done? @ -[No] Diagnosis/symptom? @ -Cervicalgia Acute, or Chronic, or Acute on Chronic? @ -Acute Uncomplicated (without systemic symptoms) or Complicated (systemic symptoms)? @ -Uncomplicated Side effects of treatment? @ -[No] Exacerbation, Progression, or Severe Exacerbation? @ -[No] Poses a threat to life or bodily function? How? (Chest pain, [place], [place], pneumonia, PE, COPD, DKA, ARF, appy, cholecystitis, CVA, Diverticulitis, Homicidal, Suicidal, threat to staff... and all critical care pts) @ -[No] Disposition Clinical Impression: Cervicalgia Disposition: HOME SELF-CARE Condition: Good Instructions (If sedation given, give patient instructions): Neck Pain (ED) Additional Instructions: Continue your previously prescribed pain medications. Use the Lidoderm patches topically for additional pain relief. Follow-up with the primary care doctor for continuation of care. Prescriptions: Lidocaine 5% Patch [Lidoderm] 1 patch TOPICAL DAILY 14 Days #14 patch Is patient prescribed a controlled substance at d/c from ED?: No Referrals: None,Stated [Primary Care Provider] - 1-2 days Forms: Area PCPs Time of Disposition: 01:09
[2023-05-01 00:43] VITALS: TEMP 98
[2023-05-01] MEDS ORDERED: HYDROmorphone 0.5 MG/0.5 ML SYRINGE IM STA (01:09)
[2023-05-01] MEDS ORDERED: LIDOCAINE 5% PATCH TOPICAL SCH (09:00)
== END 2023-05-01 01:45 | disposition home or self-care (01) ==
LOC: EC 23:04
DX: M54.2 Cervicalgia (principal); M19.90 Unspecified osteoarthritis, unspecified site; F31.9 Bipolar disorder, unspecified; F41.9 Anxiety disorder, unspecified; F17.200 Nicotine dependence, unspecified, uncomplicated; Z88.6 Allergy status to analgesic agent; Z79.899 Other long term (current) drug therapy
CPT/HCPCS: 99284; 96372 ×2; J1170 ×2

== ENCOUNTER 2023-05-09 00:02 | Emergency (ER) | payer OTHER ==
[2023-05-09 00:23] VITALS: RESP 18; TEMP 97.8
[2023-05-09] MEDS ORDERED: SODIUM CHLORIDE 0.9% 1,000 ML IV STA (00:28)
--- NOTE | 2023-05-09 00:49 | ED ---
Abdominal Pain HPI - General Chief Complaint: Abdominal Pain Stated Complaint: Abdominal Pain Time Seen by Provider: 05/09/23 00:28 Source: patient, RN notes reviewed, old records reviewed Mode of arrival: ambulatory Limitations: no limitations - History of Present Illness Initial Comments: This is a 32-year-old male to the ER for evaluation. Patient presents today for evaluation of abdominal pain chest pain with traumatic injury dog jumping on belly with history of hemophilia. Patient did take factor prior to arrival but is had pain since injury MD Complaint: abdominal pain -: hour(s) Location: periumbilical, epigastric, suprapubic Radiation: epigastric, suprapubic Migration to: no migration Severity: moderate Severity scale (1-10): 4 Quality: fullness, sharp Consistency: intermittent Improves With: nothing Worsens With: nothing Associated Symptoms: nausea Treatments Prior to Arrival: other (0) - Related Data Home Medications Medication Instructions Recorded Confirmed HYDROcodone/APAP 5-325MG [[place] 0.5 tab PO Q6H 12/25/22 12/31/22 5-325] Jivi 3000 Iu 3,000 unit IV DIRECTED PRN 12/25/22 12/31/22 Jivi 3000 Iu 3,000 unit IV MOTH 12/25/22 12/31/22 Previous Rx's Medication Instructions Recorded Lidocaine 5% Patch [Lidoderm] 1 patch TOPICAL DAILY 14 Days #14 05/01/23 patch Allergies Allergy/AdvReac Type Severity Reaction Status Date / Time aspirin AdvReac contraindicated Verified 04/30/23 23:28 d/t hemophilia NSAIDS (Non-Steroidal AdvReac contraindicated Verified 04/30/23 23:28 Anti-Inflamma d/t hemophilia Review of Systems ROS Statement: Those systems with pertinent positive or pertinent negative responses have been documented in the HPI. ROS Other: All systems not noted in ROS Statement are negative. 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 History of Any Multi-Drug Resistant Organisms: None Reported Past Surgical History: No Surgical Hx Reported Additional Past Surgical History / Comment(s): lithotripsy Past Anesthesia/Blood Transfusion Reactions: No Reported Reaction Additional Past Anesthesia/Blood Transfusion Reaction / Comment(s): Pt has never had anesthesia. He received blood in past without reaction. Past Psychological History: ADD/ADHD, Anxiety, Bipolar, Depression Smoking Status: Current every day smoker Past Alcohol Use History: Rare Past Drug Use History: Methamphetamine - Past Family History Father History Unknown: Yes Additional Family Medical History / Comment(s): patient does not know any medical history on him. Mother Family Medical History: Respiratory Disorder Additional Family Medical History / Comment(s): Mother is alive at age 56 with history of pulmonary hypertension. Brother(s) Additional Family Medical History / Comment(s): He has 2 brothers with no major medical problems. He has 6 sisters with no major medical problems. He has a grandfather and cousins with hemophilia. General Exam Limitations: no limitations General appearance: alert, in no apparent distress Head exam: Present: atraumatic, normocephalic, normal inspection Eye exam: Present: normal appearance, PERRL, EOMI. Absent: scleral icterus, conjunctival injection, periorbital swelling ENT exam: Present: normal exam, mucous membranes moist Neck exam: Present: normal inspection. Absent: tenderness, meningismus, lymphadenopathy Respiratory exam: Present: normal lung sounds bilaterally. Absent: respiratory distress, wheezes, rales, rhonchi, stridor Cardiovascular Exam: Present: regular rate, normal rhythm, normal heart sounds. Absent: systolic murmur, diastolic murmur, rubs, gallop, clicks GI/Abdominal exam: Present: soft, normal bowel sounds. Absent: distended, tenderness, guarding, rebound, rigid Extremities exam: Present: normal inspection, full ROM, normal capillary refill. Absent: tenderness, pedal edema, joint swelling, calf tenderness Back exam: Present: normal inspection Neurological exam: Present: alert, oriented X3, CN II-XII intact Psychiatric exam: Present: normal affect, normal mood Skin exam: Present: warm, dry, intact, normal color. Absent: rash Course Vital Signs 05/09/23 05/09/23 00:20 03:39 Temperature 97.8 F Pulse Rate 74 76 Respiratory 18 18 Rate Blood Pressure 158/86 145/89 O2 Sat by Pulse 98 98 Oximetry - Reevaluation(s) Reevaluation #1: 05/09/23 00:49 Medical records reviewed Reevaluation #2: 05/09/23 03:29 Patient symptoms are improved Reevaluation #3: 05/09/23 03:29 patient informed results and questions answered Reevaluation #4: 05/09/23 03:29 Was pt. sent in by a medical professional or institution ([facility]ON[facility] Wise, PSYCHIATRIC AIDE, urgent care, hospital, or [place] health care facility...) When possible be specific @ -no Did you speak to anyone other than the patient for history (EMS, parent, family, police, friend...)? What history was obtained from this source @ -no Did you review nursing and triage notes (agree or disagree)? Why? @ -agree Are old charts reviewed (outside hosp., previous admission, EMS record, old EKG, old radiological studies, urgent care reports/EKG's, [place] health [facility] facility records)? Report findings @ -yes Differential Diagnosis (chest pain, altered mental status, abdominal pain women, abdominal pain men, vaginal bleeding, weakness, fever, dyspnea, syncope, headache, dizziness, GI bleed, back pain, seizure, CVA, palpatations, mental health, musculoskeletal)? @ -prior EKG interpreted by me (3pts min.). @ -yes X-rays interpreted by me (1pt min.). @ -no CT interpreted by me (1pt min.). @ -yes U/S interpreted by me (1pt. min.). @ -no What testing was considered but not performed or refused? (CT, X-rays, U/S, labs)? Why? @ -none What meds were considered but not given or refused? Why? @ -none Did you discuss the management of the patient with other professionals (professionals i.e. ANTONY Wise, PSYCHIATRIC AIDE, lab, RT, psych nurse, social sciences research scientist, building service worker, teacher, ecological technical officer, case finisher)? Give summary @ -no Was smoking cessation discussed for >3mins.? @ -no Was critical care preformed (if so, how long)? @ -no Were there social determinants of health that impacted care today? How? (Homelessness, low income, unemployed, alcoholism, drug addiction, transportation, low edu. Level, literacy, decrease access to med. care, skilled nursing, rehab)? @ -none Was there de-escalation of care discussed even if they declined (Discuss DNR or withdrawal of care, Hospice)? DNR status @ -no What co-morbidities impacted this encounter? (DM, HTN, Smoking, COPD, CAD, Cancer, CVA, ARF, Chemo, Hep., AIDS, mental health diagnosis, sleep apnea, morbid obesity)? @ -none Was patient admitted / discharged? Hospital course, mention meds given and route, prescriptions, significant lab abnormalities, going to OR and other pertinent info. @ - 32 male to the emergency department for evaluation. Patient presents today for evaluation regards to abdominal pain significant with history of hemophilia and treatment injury with dog jumping on the patient. No evidence of bleeding and patient can be discharged home Discharge Undiagnosed new problem with uncertain prognosis? @ -no Drug Therapy requiring intensive monitoring for toxicity (Heparin, Nitro, Insulin, Cardizem)? @ -no Were any procedures done? @ -no Diagnosis/symptom? @ -Abdominal pain, hemophilia, abdominal trauma Acute, or Chronic, or Acute on Chronic? @ -Acute Uncomplicated (without systemic symptoms) or Complicated (systemic symptoms)? @ -Complicated Side effects of treatment? @ -no Exacerbation, Progression, or Severe Exacerbation? @ -exacerbation Poses a threat to life or bodily function? How? (Chest pain, [place], [place], pneumonia, PE, COPD, DKA, ARF, appy, cholecystitis, CVA, Diverticulitis, Homicidal, Suicidal, threat to staff... and all critical care pts) @ -yes with significant intra-abdominal bleeding Reevaluation #5: 05/09/23 03:30 Differential Abdominal Pain Men: Appendicitis, cholecystitis, diverticulosis, ischemic bowel, pancreatitis, hepatitis, UTI, gastroenteritis, AAA, incarcerated hernia, bowel obstruction, constipation, inflammatory bowel, hepatitis, peptic ulcer disease, splenic infarction, perforated viscus, testicular torsion, this is not meant to be an all-inclusive list Medical Decision Making - Medical Decision Making 32 male to the emergency department for evaluation. Patient presents today for evaluation regards to abdominal pain significant with history of hemophilia and treatment injury with dog jumping on the patient. No evidence of bleeding and patient can be discharged home - Lab Data Result diagrams: 05/09/23 00:57 05/09/23 00:57 Lab Results 05/09/23 05/09/23 Range/Units 00:57 00:57 WBC 6.4 (3.8-10.6) k/uL RBC 4.29 L (4.30-5.90) m/uL Hgb 13.5 (13.0-17.5) gm/dL Hct 39.9 (39.0-53.0) % MCV 93.1 (80.0-100.0) fL MCH 31.4 (25.0-35.0) pg MCHC 33.7 (31.0-37.0) g/dL RDW 12.5 (11.5-15.5) % Plt Count 141 L (150-450) k/uL MPV 7.4 Neutrophils % 38 % Lymphocytes % 49 % Monocytes % 7 % Eosinophils % 4 % Basophils % 0 % Neutrophils # 2.4 (1.3-7.7) k/uL Lymphocytes # 3.2 (1.0-4.8) k/uL Monocytes # 0.5 (0-1.0) k/uL Eosinophils # 0.2 (0-0.7) k/uL Basophils # 0.0 (0-0.2) k/uL Sodium 138 (137-145) mmol/L Potassium 3.9 (3.5-5.1) mmol/L Chloride 104 (98-107) mmol/L Carbon Dioxide 29 (22-30) mmol/L Anion Gap 5 mmol/L BUN 16 (9-20) mg/dL Creatinine 0.78 (0.66-1.25) mg/dL Est GFR (CKD-EPI)AfAm >90 (>60 ml/min/1.73 sqM) Est GFR (CKD-EPI)NonAf >90 (>60 ml/min/1.73 sqM) Glucose 102 H (74-99) mg/dL Calcium 8.8 (8.4-10.2) mg/dL Phosphorus 4.0 (2.5-4.5) mg/dL Magnesium 1.8 (1.6-2.3) mg/dL Total Bilirubin 0.7 (0.2-1.3) mg/dL AST 32 (17-59) U/L ALT 50 H (4-49) U/L Alkaline Phosphatase 52 (38-126) U/L Total Protein 6.4 (6.3-8.2) g/dL Albumin 3.6 (3.5-5.0) g/dL Amylase 58 (30-110) U/L Lipase 84 (23-300) U/L - Radiology Data Radiology results: report reviewed (CT chest abdomen pelvis is negative for acute disease), image reviewed Disposition Clinical Impression: Abdominal pain, Hemophilia A Disposition: HOME SELF-CARE Condition: Good Instructions (If sedation given, give patient instructions): Abdominal Pain (ED) Is patient prescribed a controlled substance at d/c from ED?: No Referrals: None,Stated [Primary Care Provider] - 1-2 days Time of Disposition: 03:30
[2023-05-09 01:20] LABS: Basophils % (A) 0 %; Eosinophils # (A) 0.2 k/uL (0-0.7); Eosinophils % (A) 4 %; HCT 39.9 % (39.0-53.0); HGB 13.5 gm/dL (13.0-17.5); Lymphocytes # (A) 3.2 k/uL (1.0-4.8); Lymphocytes % (A) 49 %; MCH 31.4 pg (25.0-35.0); MCHC 33.7 g/dL (31.0-37.0); MCV 93.1 fL (80.0-100.0); Mean Platelet Volume 7.4; Monocytes # (A) 0.5 k/uL (0-1.0); Monocytes % (A) 7 %; Neutrophils # (A) 2.4 k/uL (1.3-7.7); Neutrophils % (A) 38 %; Platelet Count 141 k/uL (150-450); RBC 4.29 m/uL (4.30-5.90); RDW 12.5 % (11.5-15.5); WBC 6.4 k/uL (3.8-10.6)
[2023-05-09 01:23] LABS: ALT 50 U/L (4-49); AST 32 U/L (17-59); African American GFR (CKD) >90 (>60 ml/min/1.73 sqM); Albumin 3.6 g/dL (3.5-5.0); Alkaline Phosphatase 52 U/L (38-126); Amylase 58 U/L (30-110); Anion Gap 5 mmol/L; Blood Urea Nitrogen 16 mg/dL (9-20); Calcium 8.8 mg/dL (8.4-10.2); Carbon Dioxide 29 mmol/L (22-30); Chloride 104 mmol/L (98-107); Glucose 102 mg/dL (74-99); Lipase 84 U/L (23-300); Magnesium 1.8 mg/dL (1.6-2.3); Non-African American GFR(CKD) >90 (>60 ml/min/1.73 sqM); Potassium 3.9 mmol/L (3.5-5.1); Sodium 138 mmol/L (137-145); Total Bilirubin 0.7 mg/dL (0.2-1.3); Total Protein 6.4 g/dL (6.3-8.2)
--- NOTE | 2023-05-09 03:11 | CT ---
EXAM: CT Chest With Intravenous Contrast CLINICAL HISTORY: ITS.REASON CT Reason: pain TECHNIQUE: Axial computed tomography images of the chest with intravenous contrast. CTDI is 6.29 mGy and DLP is 366.95 mGy-cm. This CT exam was performed using one or more of the following dose reduction techniques: automated exposure control, adjustment of the mA and/or kV according to patient size, and/or use of iterative reconstruction technique. COMPARISON: No relevant prior studies available. FINDINGS: Lungs: No consolidation or interstitial edema. Pleural space: No pleural effusion or pneumothorax. Heart: Unremarkable. Bones/joints: No acute findings. Soft tissues: Unremarkable. Vasculature: Unremarkable. Lymph nodes: Unremarkable. IMPRESSION: No acute findings in the chest. EXAM: CT Abdomen and Pelvis With Intravenous Contrast CLINICAL HISTORY: ITS.REASON CT Reason: pain TECHNIQUE: Axial computed tomography images of the abdomen and pelvis with intravenous contrast. CTDI is 6.29 mGy and DLP is 366.95 mGy-cm. This CT exam was performed using one or more of the following dose reduction techniques: automated exposure control, adjustment of the mA and/or kV according to patient size, and/or use of iterative reconstruction technique. COMPARISON: 10/04/2022 FINDINGS: ABDOMEN: Liver: Unremarkable. Gallbladder and bile ducts: Unremarkable. Pancreas: Unremarkable. Spleen: Unremarkable. Adrenals: Unremarkable. Kidneys and ureters: Unremarkable. No obstructing stones. No hydronephrosis. Stomach and bowel: Unremarkable. PELVIS: Appendix: No findings to suggest acute appendicitis. Bladder: Unremarkable. Reproductive: Unremarkable as visualized. ABDOMEN and PELVIS: Intraperitoneal space: Unremarkable. No free air. No significant fluid collection. Bones/joints: No acute fracture. Soft tissues: Unremarkable. Vasculature: Unremarkable. Lymph nodes: Unremarkable. IMPRESSION: 1. No acute process within the abdomen or pelvis.
[2023-05-09 03:40] VITALS: BP 145/89; PULSE 76
== END 2023-05-09 03:46 | disposition home or self-care (01) ==
LOC: EC 00:02
DX: D66 Hereditary factor VIII deficiency (principal); R10.9 Unspecified abdominal pain; F17.200 Nicotine dependence, unspecified, uncomplicated; Z88.6 Allergy status to analgesic agent; Z88.8 Allergy status to other drugs, medicaments and biological substances; Z86.59 Personal history of other mental and behavioral disorders
CPT/HCPCS: 36415; 80053; 82150; 83690; 83735; 84100; 85025; 71260; 74177; 99284; 96360; Q9967

== ENCOUNTER 2023-05-19 16:33 | Emergency (ER) | payer OTHER ==
[2023-05-19 16:39] VITALS: RESP 18; TEMP 98.6
[2023-05-19] MEDS ORDERED: SODIUM CHLORIDE 0.9% 1,000 ML IV STA (16:51)
--- NOTE | 2023-05-19 16:57 | ED ---
Chest Pain HPI - General Chief Complaint: Chest Pain Stated Complaint: Chest Pain,Sob Time Seen by Provider: 05/19/23 16:46 Source: patient Mode of arrival: ambulatory - History of Present Illness Initial Comments: 32-year-old male with history of hemophilia presenting with chief complaint of chest pain. States that the pain started yesterday and has been increasingly painful over the last 4 hours. Worse with deep breaths and coughing. He admits to shortness of breath. Pain is sharp and stabbing in nature. He admits to smoking a pack per day of cigarettes. Denies any other drug use. Denies alcohol consumption. No lower extremity swelling. No palpitations. No URI like symptoms. No fevers or chills. No abdominal pain, nausea, vomiting. No recent surgery or travel. - Related Data Home Medications Medication Instructions Recorded Confirmed HYDROcodone/APAP 5-325MG [[place] 1 tab PO QID 12/25/22 05/19/23 5-325] Jivi 2800 Iu 2,800 units IV DIRECTED PRN 05/19/23 05/19/23 Jivi 2800 Iu 2,800 units IV MOTH 05/19/23 05/19/23 Allergies Allergy/AdvReac Type Severity Reaction Status Date / Time aspirin AdvReac contraindicated Verified 05/19/23 18:14 d/t hemophilia NSAIDS (Non-Steroidal AdvReac contraindicated Verified 05/19/23 18:14 Anti-Inflamma d/t hemophilia Review of Systems ROS Statement: Those systems with pertinent positive or pertinent negative responses have been documented in the HPI. ROS Other: All systems not noted in ROS Statement are negative. EKG Findings - EKG Comments: EKG Findings:: Sinus rhythm ventricular rate 83. NM interval 143. QRS 94. QT 334. QTC 374. No ischemic changes. 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 History of Any Multi-Drug Resistant Organisms: None Reported Past Surgical History: No Surgical Hx Reported Additional Past Surgical History / Comment(s): lithotripsy Past Anesthesia/Blood Transfusion Reactions: No Reported Reaction Additional Past Anesthesia/Blood Transfusion Reaction / Comment(s): Pt has never had anesthesia. He received blood in past without reaction. Past Psychological History: ADD/ADHD, Anxiety, Bipolar, Depression Smoking Status: Current every day smoker Past Alcohol Use History: Rare Past Drug Use History: Methamphetamine - Past Family History Father History Unknown: Yes Additional Family Medical History / Comment(s): patient does not know any medical history on him. Mother Family Medical History: Respiratory Disorder Additional Family Medical History / Comment(s): Mother is alive at age 56 with history of pulmonary hypertension. Brother(s) Additional Family Medical History / Comment(s): He has 2 brothers with no major medical problems. He has 6 sisters with no major medical problems. He has a grandfather and cousins with hemophilia. General Exam Limitations: no limitations General appearance: alert, in no apparent distress Head exam: Present: atraumatic, normocephalic, normal inspection Eye exam: Present: normal appearance, EOMI. Absent: scleral icterus, periorbital swelling Neck exam: Present: normal inspection, full ROM Respiratory exam: Present: normal lung sounds bilaterally, chest wall tenderness. Absent: respiratory distress, wheezes, rales, rhonchi, stridor Cardiovascular Exam: Present: regular rate, normal rhythm, normal heart sounds. Absent: systolic murmur, diastolic murmur, rubs, gallop, clicks Extremities exam: Absent: pedal edema Neurological exam: Present: alert, oriented X3, CN II-XII intact Psychiatric exam: Present: normal affect, normal mood Skin exam: Present: warm, dry, intact, normal color. Absent: rash Course Vital Signs 05/19/23 05/19/23 05/19/23 16:37 17:05 18:13 Temperature 98.6 F 98.6 F Pulse Rate 95 97 70 Pulse Rate [ 97 Mining Technician ] Respiratory 18 18 18 Rate Blood Pressure 150/85 118/76 O2 Sat by Pulse 99 98 100 Oximetry 05/19/23 05/19/23 18:33 19:13 Temperature Pulse Rate 71 76 Pulse Rate [ Mining Technician ] Respiratory 18 18 Rate Blood Pressure 130/76 O2 Sat by Pulse 98 Oximetry Chest Pain MDM - MDM Was pt. sent in by a medical professional or institution (, PA, [employer]SIDE DIAMETER, urgent care, hospital, or halfway...) When possible be specific @ -No Did you speak to anyone other than the patient for history (EMS, parent, family, police, friend...)? What history was obtained from this source @ -No Did you review nursing and triage notes (agree or disagree)? Why? @ -I reviewed and agree with nursing and triage notes Were old charts reviewed (outside hosp., previous admission, EMS record, old EKG, old radiological studies, urgent care reports/EKG's, halfway records)? Report findings @ -No old charts were reviewed Differential Diagnosis (chest pain, altered mental status, abdominal pain women, abdominal pain men, vaginal bleeding, weakness, fever, dyspnea, syncope, headache, dizziness, GI bleed, back pain, seizure, CVA, palpatations, mental health, musculoskeletal)? @ -MDM Differential Chest Pain: Stable Angina, Unstable Angina, STEMI, NSTEMI Aortic Dissection, Pneumothorax, Musculoskeletal, Esophageal Spasm GERD, Cholecystitis, Pancreatitis, Zoster This is not meant to be an all-inclusive list. EKG interpreted by me (3pts min.). @ -As above X-rays interpreted by me (1pt min.). @ -chest x-ray shows no acute cardiopulmonary process CT interpreted by me (1pt min.). @ -None done U/S interpreted by me (1pt. min.). @ -None done What testing was considered but not performed or refused? (CT, X-rays, U/S, labs)? Why? @ -None What meds were considered but not given or refused? Why? @ -None Did you discuss the management of the patient with other professionals (professionals i.e. , PA, [employer]ER, lab, RT, psych nurse, social media project manager, dedicated local truck driver, teacher, financial aids officer, manager case)? Give summary @ -No Was smoking cessation discussed for >3mins.? @ -No Was critical care preformed (if so, how long)? @ -No Were there social determinants of health that impacted care today? How? (Homelessness, low income, unemployed, alcoholism, drug addiction, transportation, low edu. Level, literacy, decrease access to med. care, half-way, rehab)? @ -No Was there de-escalation of care discussed even if they declined (Discuss DNR or withdrawal of care, Hospice)? DNR status @ -No What co-morbidities impacted this encounter? (DM, HTN, Smoking, COPD, CAD, Cancer, CVA, ARF, Chemo, Hep., AIDS, mental health diagnosis, sleep apnea, morbid obesity)? @ -None Was patient admitted / discharged? Hospital course, mention meds given and route, prescriptions, significant lab abnormalities, going to OR and other pertinent info. @ -32-year-old male presenting with chief complaint of chest pain. Pain is pleuritic in nature. On physical examination there is chest wall tenderness and pain is reproducible. Lab work shows no leukocytosis or anemia. Negative d- dimer and troponin. Negative chest x-ray. EKG shows no acute findings. Patient is educated on today's findings. He was offered analgesia but declined. Educated on costochondral chest pain on supportive management at home with Tylenol as well as heat and ice as needed. Follow-up with PCP. Report back to ER with any new or worsening symptoms. Discussed return parameters and answered all questions. Patient conveyed verbal understanding and agreed to the plan. I discussed this case in detail with my attending Dr. Nicolas Undiagnosed new problem with uncertain prognosis? @ -No Drug Therapy requiring intensive monitoring for toxicity (Heparin, Nitro, Insulin, Cardizem)? @ -No Were any procedures done? @ -No Diagnosis/symptom? @ -Chest wall pain Acute, or Chronic, or Acute on Chronic? @ -acute Uncomplicated (without systemic symptoms) or Complicated (systemic symptoms)? @ -Uncomplicated Side effects of treatment? @ -No Exacerbation, Progression, or Severe Exacerbation? @ -No Poses a threat to life or bodily function? How? (Chest pain, [place], [place], pneumonia, PE, COPD, DKA, ARF, appy, cholecystitis, CVA, Diverticulitis, Homicidal, Suicidal, threat to staff... and all critical care pts) @ -No Disposition Clinical Impression: Chest wall pain Disposition: HOME SELF-CARE Condition: Good Instructions (If sedation given, give patient instructions): Chest Pain (ED), Costochondritis (ED) Additional Instructions: Follow-up with PCP. Report back to ER with any new or worsening symptoms. Take Tylenol as needed for pain control. Is patient prescribed a controlled substance at d/c from ED?: No Referrals: None,Stated [Primary Care Provider] - 1-2 days Time of Disposition: 18:57
[2023-05-19 17:40] LABS: Basophils % (A) 0 %; Eosinophils # (A) 0.1 k/uL (0-0.7); Eosinophils % (A) 1 %; Lymphocytes # (A) 2.3 k/uL (1.0-4.8); Lymphocytes % (A) 30 %; MCH 31.5 pg (25.0-35.0); MCHC 34.1 g/dL (31.0-37.0); MCV 92.2 fL (80.0-100.0); Mean Platelet Volume 7.6; Monocytes # (A) 0.5 k/uL (0-1.0); Monocytes % (A) 7 %; Neutrophils # (A) 4.5 k/uL (1.3-7.7); Neutrophils % (A) 60 %; Platelet Count 201 k/uL (150-450); RBC 4.45 m/uL (4.30-5.90); RDW 12.3 % (11.5-15.5); WBC 7.5 k/uL (3.8-10.6)
[2023-05-19 17:53] LABS: Prothrombin Time 10.4 sec (9.0-12.0)
[2023-05-19 17:54] LABS: ALT 55 U/L (4-49); AST 39 U/L (17-59); African American GFR (CKD) >90 (>60 ml/min/1.73 sqM); Albumin 4.2 g/dL (3.5-5.0); Alkaline Phosphatase 61 U/L (38-126); Anion Gap 8 mmol/L; Blood Urea Nitrogen 10 mg/dL (9-20); Calcium 9.3 mg/dL (8.4-10.2); Carbon Dioxide 28 mmol/L (22-30); Chloride 103 mmol/L (98-107); Glucose 122 mg/dL (74-99); Magnesium 1.9 mg/dL (1.6-2.3); Non-African American GFR(CKD) >90 (>60 ml/min/1.73 sqM); Sodium 139 mmol/L (137-145); Total Bilirubin 0.8 mg/dL (0.2-1.3); Total Protein 7.4 g/dL (6.3-8.2)
--- NOTE | 2023-05-19 17:59 | XR ---
EXAMINATION TYPE: XR chest 2V DATE OF EXAM: 05/19/2023 5:33 PM COMPARISON: Chest radiographs from 10/01/2022 TECHNIQUE: XR chest 2V Frontal and lateral views of the chest. CLINICAL INDICATION:Male, 32 years old with history of Chest Pain; FINDINGS: Lungs/Pleura: There is no evidence of pleural effusion, focal consolidation, or pneumothorax. Pulmonary vascularity: Unremarkable. Heart/mediastinum: Cardiomediastinal silhouette is unremarkable. Musculoskeletal: No acute osseous pathology. IMPRESSION: No acute cardiopulmonary disease/process.
[2023-05-19] MEDS ORDERED: Acetaminophen-Codeine 300-30mg TAB PO STA (18:29)
[2023-05-19] MEDS ORDERED: LIDOCAINE 5% PATCH TOPICAL SCH (19:00)
[2023-05-19 19:16] VITALS: BP 130/76; PULSE 76
== END 2023-05-19 19:15 | disposition home or self-care (01) ==
LOC: EC 16:33
DX: R07.89 Other chest pain (principal); M19.90 Unspecified osteoarthritis, unspecified site; F41.9 Anxiety disorder, unspecified; F31.9 Bipolar disorder, unspecified; F17.200 Nicotine dependence, unspecified, uncomplicated; Z88.6 Allergy status to analgesic agent; Z79.899 Other long term (current) drug therapy
CPT/HCPCS: 36415; 71046; 80053; 83735; 84484; 85025; 85379; 85610; 85730; 93005; 96360; 99285

== ENCOUNTER 2023-08-13 10:17 | Emergency (ER) | payer OTHER ==
[2023-08-13 11:36] VITALS: BP 141/86; PULSE 98; RESP 18; TEMP 98.7
--- NOTE | 2023-08-13 14:09 | ED ---
General Adult HPI - General Chief complaint: Extremity Injury, Upper Stated complaint: Shoulder Pain Time Seen by Provider: 08/13/23 13:40 Source: patient, RN notes reviewed, old records reviewed Mode of arrival: ambulatory Limitations: no limitations - History of Present Illness Initial comments: This is a 32-year-old male presents emergency department is a hemophiliac type a. Patient states yesterday he was doing some lifting of some containers and he thinks he might have hurt his muscles. He is complaining of right shoulder pain that radiates into his trapezius muscle in complaining about some right-sided chest pain that radiates around to the back. Patient has no difficulty breathing shortest breath. Patient has no direct trauma. Patient is not lightheaded or dizzy. Patient denies any anterior chest pain or pressure. Patient denies any fever chills. Patient denies any areas of swelling or areas consistent with a hematoma. Patient denies any areas of bleeding. - Related Data Home Medications Medication Instructions Recorded Confirmed HYDROcodone/APAP 5-325MG [Viola 1 tab PO QID 12/25/22 05/19/23 5-325] Jivi 2800 Iu 2,800 units IV DIRECTED PRN 05/19/23 05/19/23 Jivi 2800 Iu 2,800 units IV MOTH 05/19/23 05/19/23 Previous Rx's Medication Instructions Recorded Azithromycin [Zithromax Z Pack] 1 tab PO DIRECTED #6 tab 07/11/23 Azithromycin [Zithromax Tri-Rl (3 500 mg PO DAILY 3 Days #3 tab 08/13/23 tabs)] Allergies Allergy/AdvReac Type Severity Reaction Status Date / Time aspirin AdvReac contraindicated Verified 08/13/23 11:09 d/t hemophilia NSAIDS (Non-Steroidal AdvReac contraindicated Verified 08/13/23 11:09 Anti-Inflamma d/t hemophilia Review of Systems ROS Statement: Those systems with pertinent positive or pertinent negative responses have been documented in the HPI. ROS Other: All systems not noted in ROS Statement are negative. 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 History of Any Multi-Drug Resistant Organisms: None Reported Past Surgical History: No Surgical Hx Reported Additional Past Surgical History / Comment(s): lithotripsy Past Anesthesia/Blood Transfusion Reactions: No Reported Reaction Additional Past Anesthesia/Blood Transfusion Reaction / Comment(s): Pt has never had anesthesia. He received blood in past without reaction. Past Psychological History: ADD/ADHD, Anxiety, Bipolar, Depression Smoking Status: Current every day smoker Past Alcohol Use History: Rare Past Drug Use History: Methamphetamine - Past Family History Father History Unknown: Yes Additional Family Medical History / Comment(s): patient does not know any medical history on him. Mother Family Medical History: Respiratory Disorder Additional Family Medical History / Comment(s): Mother is alive at age 56 with history of pulmonary hypertension. Brother(s) Additional Family Medical History / Comment(s): He has 2 brothers with no major medical problems. He has 6 sisters with no major medical problems. He has a grandfather and cousins with hemophilia. General Exam - General Exam Comments Initial Comments: GENERAL: Patient is well-developed and well-nourished. Patient is nontoxic and well- hydrated and is in no acute distress. ENT: Neck is soft and supple. No significant lymphadenopathy is noted. Oropharynx is clear. Moist mucous membranes. Neck has full range of motion without e liciting any pain. EYES: The sclera were anicteric and conjunctiva were pink and moist. Extraocular movements were intact and pupils were equal round and reactive to light. Eyelids were unremarkable. PULMONARY: Unlabored respirations. Good breath sounds bilaterally. No audible rales rhonchi or wheezing was noted. CARDIOVASCULAR: There is a regular rate and rhythm without any murmurs gallops or rubs. ABDOMEN: Soft and nontender with normal bowel sounds. SKIN: Skin is clear with no lesions or rashes and otherwise unremarkable. NEUROLOGIC: Patient is alert and oriented x3. Cranial nerves II through XII are grossly intact. Motor and sensory are also intact. Normal speech, volume and content. Symmetrical smile. MUSCULOSKELETAL: Normal extremities with adequate strength and full range of motion. LYMPHATICS: No significant lymphadenopathy is noted PSYCHIATRIC: Normal psychiatric evaluation. Limitations: no limitations Course Vital Signs 08/13/23 11:06 Temperature 98.7 F Pulse Rate 98 Respiratory 18 Rate Blood Pressure 141/86 O2 Sat by Pulse 98 Oximetry Medical Decision Making - Medical Decision Making Was pt. sent in by a medical professional or institution (ANTONY Wise, BUILDING ARCHITECTURAL DESIGNER, urgent care, hospital, or detention...) When possible be specific @ -[No] Did you speak to anyone other than the patient for history (EMS, parent, family, police, friend...)? What history was obtained from this source @ -[No] Did you review nursing and triage notes (agree or disagree)? Why? @ -I reviewed nursing in triage notes Were old charts reviewed (outside hosp., previous admission, EMS record, old EKG , old radiological studies, urgent care reports/EKG's, detention records)? Report findings @ -I reviewed prior charts in prior laboratory comes patient Differential Diagnosis (chest pain, altered mental status, abdominal pain women, abdominal pain men, vaginal bleeding, weakness, fever, dyspnea, syncope, headache, dizziness, GI bleed, back pain, seizure, CVA, palpatations, mental health, musculoskeletal)? @ -[not applicable] EKG interpreted by me (3pts min.). @ -[As above] X-rays interpreted by me (1pt min.). @ -The shoulder shows no acute abnormality. X-ray of the chest does show questionable infiltrate consistent with pneumonia CT interpreted by me (1pt min.). @ -[None done] U/S interpreted by me (1pt. min.). @ -[None done] What testing was considered but not performed or refused? (CT, X-rays, U/S, labs)? Why? @ -[None] What meds were considered but not given or refused? Why? @ -[None] Did you discuss the management of the patient with other professionals (professionals i.e. ANTONY Wise, BUILDING ARCHITECTURAL DESIGNER, lab, RT, psych nurse, social media specialist, rock wool applicator, teacher, founder and chief technical officer, case supervisor)? Give summary @ -I discussed the management of this patient with the physician sociology research assistant for Dr. Trent and he was in agreement at giving the factor VIII would be sufficient for this patient. Was smoking cessation discussed for >3mins.? @ -[No] Was critical care preformed (if so, how long)? @ -[No] Were there social determinants of health that impacted care today? How? (Homelessness, low income, unemployed, alcoholism, drug addiction, transportation, low edu. Level, literacy, decrease access to med. care, nursing home, rehab)? @ -[No] Was there de-escalation of care discussed even if they declined (Discuss DNR or withdrawal of care, Hospice)? DNR status @ -[No] What co-morbidities impacted this encounter? (DM, HTN, Smoking, COPD, CAD, Cancer, CVA, ARF, Chemo, Hep., AIDS, mental health diagnosis, sleep apnea, m orbid obesity)? @ -[None] Was patient admitted / discharged? Hospital course, mention meds given and route, prescriptions, significant lab abnormalities, going to OR and other pertinent info. @ -The patient's chest x-ray results were not back yet and patient left AMA and I did not even get an opportunity to speak with her about the risks that Undiagnosed new problem with uncertain prognosis? @ -[No] Drug Therapy requiring intensive monitoring for toxicity (Heparin, Nitro, Insulin, Cardizem)? @ -[No] Were any procedures done? @ -[No] Diagnosis/symptom? @ -Pneumonia Acute, or Chronic, or Acute on Chronic? @ -Acute Uncomplicated (without systemic symptoms) or Complicated (systemic symptoms)? @ -Complicated Side effects of treatment? @ -[No] Exacerbation, Progression, or Severe Exacerbation? @ -[No] Poses a threat to life or bodily function? How? (Chest pain, USA, [place], pneumonia, PE, COPD, DKA, ARF, appy, cholecystitis, CVA, Diverticulitis, Homicidal, Suicidal, threat to staff... and all critical care pts) @ -Yes this could lead to sepsis and end organ dysfunction - Lab Data Result diagrams: 08/13/23 14:13 08/13/23 14:13 Lab Results 08/13/23 08/13/23 Range/Units 14:13 14:13 WBC 11.6 H (3.8-10.6) k/uL RBC 4.78 (4.30-5.90) m/uL Hgb 14.8 (13.0-17.5) gm/dL Hct 44.3 (39.0-53.0) % MCV 92.6 (80.0-100.0) fL MCH 30.9 (25.0-35.0) pg MCHC 33.4 (31.0-37.0) g/dL RDW 12.7 (11.5-15.5) % Plt Count 175 (150-450) k/uL MPV 7.4 Neutrophils % 68 % Lymphocytes % 22 % Monocytes % 7 % Eosinophils % 1 % Basophils % 0 % Neutrophils # 7.9 H (1.3-7.7) k/uL Lymphocytes # 2.5 (1.0-4.8) k/uL Monocytes # 0.8 (0-1.0) k/uL Eosinophils # 0.1 (0-0.7) k/uL Basophils # 0.0 (0-0.2) k/uL Sodium 140 (137-145) mmol/L Potassium 4.0 (3.5-5.1) mmol/L Chloride 102 (98-107) mmol/L Carbon Dioxide 26 (22-30) mmol/L Anion Gap 12 mmol/L BUN 12 (9-20) mg/dL Creatinine 0.60 L (0.66-1.25) mg/dL Est GFR (CKD-EPI)AfAm >90 (>60 ml/min/1.73 sqM) Est GFR (CKD-EPI)NonAf >90 (>60 ml/min/1.73 sqM) Glucose 93 (74-99) mg/dL Calcium 9.6 (8.4-10.2) mg/dL Total Bilirubin 1.3 (0.2-1.3) mg/dL AST 32 (17-59) U/L ALT 41 (4-49) U/L Alkaline Phosphatase 71 (38-126) U/L Total Protein 8.1 (6.3-8.2) g/dL Albumin 4.5 (3.5-5.0) g/dL Disposition Clinical Impression: Pneumonia Disposition: LEFT AGAINST MEDICAL ADVICE Prescriptions: Azithromycin [Zithromax Tri-Rl (3 tabs)] 500 mg PO DAILY 3 Days #3 tab Referrals: None,Stated [Primary Care Provider] - 1-2 days Time of Disposition: 16:56
--- NOTE | 2023-08-13 14:29 | XR ---
EXAMINATION TYPE: XR chest 2V DATE OF EXAM: 08/13/2023 2:19 PM COMPARISON: Chest radiographs from 05/19/2023 TECHNIQUE: XR chest 2V Frontal and lateral views of the chest. CLINICAL INDICATION:Male, 32 years old with history of Difficulty breathing ; FINDINGS: Lungs/Pleura: No pleural effusion or pneumothorax. Right middle lobe patchy airspace opacity. Pulmonary vascularity: Unremarkable. Heart/mediastinum: Cardiomediastinal silhouette is unremarkable. Musculoskeletal: No acute osseous pathology. IMPRESSION: Right middle lobe patchy airspace opacity concerning for pneumonia.
--- NOTE | 2023-08-13 14:31 | XR ---
EXAMINATION TYPE: XR shoulder complete RT DATE OF EXAM: 08/13/2023 2:19 PM INDICATION: Patient age:Male; 32 years old; Reason for study: Shoulder pain; COMPARISON: Right shoulder radiograph 12/25/2022 TECHNIQUE: The right shoulder was examined in AP, internally rotated and scapular Y projections. . FINDINGS: No evidence of acute osseous pathology, joint dislocation, or soft tissue swelling. Unchanged similar slight elevation of the clavicle relative to the acromion. AC joint is maintained. The remaining por tions of the visualized chest are unremarkable. IMPRESSION: 1. No acute osseous pathology. 2. Similar slight elevation of the clavicle relative to the acromion. Subtle AC joint injury is agai n not excluded. Correlate with point tenderness.
[2023-08-13 14:46] LABS: Basophils % (A) 0 %; Eosinophils # (A) 0.1 k/uL (0-0.7); Eosinophils % (A) 1 %; HCT 44.3 % (39.0-53.0); HGB 14.8 gm/dL (13.0-17.5); Lymphocytes # (A) 2.5 k/uL (1.0-4.8); Lymphocytes % (A) 22 %; MCH 30.9 pg (25.0-35.0); MCHC 33.4 g/dL (31.0-37.0); MCV 92.6 fL (80.0-100.0); Mean Platelet Volume 7.4; Monocytes # (A) 0.8 k/uL (0-1.0); Monocytes % (A) 7 %; Neutrophils # (A) 7.9 k/uL (1.3-7.7); Neutrophils % (A) 68 %; Platelet Count 175 k/uL (150-450); RBC 4.78 m/uL (4.30-5.90); RDW 12.7 % (11.5-15.5); WBC 11.6 k/uL (3.8-10.6)
[2023-08-13 15:19] LABS: ALT 41 U/L (4-49); AST 32 U/L (17-59); African American GFR (CKD) >90 (>60 ml/min/1.73 sqM); Albumin 4.5 g/dL (3.5-5.0); Alkaline Phosphatase 71 U/L (38-126); Anion Gap 12 mmol/L; Blood Urea Nitrogen 12 mg/dL (9-20); Calcium 9.6 mg/dL (8.4-10.2); Carbon Dioxide 26 mmol/L (22-30); Chloride 102 mmol/L (98-107); Glucose 93 mg/dL (74-99); Non-African American GFR(CKD) >90 (>60 ml/min/1.73 sqM); Sodium 140 mmol/L (137-145); Total Bilirubin 1.3 mg/dL (0.2-1.3); Total Protein 8.1 g/dL (6.3-8.2)
[2023-08-13] MEDS ORDERED: ANTIHEMOPHILIC FACTOR IV ONE ×2 (15:30→16:00)
[2023-08-13 16:52] LABS: Partial Thromboplastin Time 55.7 sec (22.0-30.0); Prothrombin Time 10.9 sec (10.0-12.5)
== END 2023-08-13 20:43 | disposition left against medical advice (07) ==
LOC: EC 10:17
DX: J18.9 Pneumonia, unspecified organism (principal); D66 Hereditary factor VIII deficiency; M19.90 Unspecified osteoarthritis, unspecified site; F17.200 Nicotine dependence, unspecified, uncomplicated; F15.90 Other stimulant use, unspecified, uncomplicated; Z88.6 Allergy status to analgesic agent; Z79.1 Long term (current) use of non-steroidal anti-inflammatories (NSAID); Z86.59 Personal history of other mental and behavioral disorders
CPT/HCPCS: 36415; 71046; 80053; 85025; 85610; 85730; 96374; 99284

== ENCOUNTER 2023-10-03 16:10 | Emergency (ER) | payer OTHER ==
--- NOTE | 2023-10-03 16:28 | ED ---
Neck Injury/Pain HPI - General Chief Complaint: Neck Pain/Injury Stated Complaint: pain in right jaw/head area nausea dizzy Time Seen by Provider: 10/03/23 16:26 Source: patient Mode of arrival: ambulatory Limitations: no limitations - History of Present Illness Initial Comments: 33-year-old male presenting with chief complaint of headache and neck pain. History of hemophilia. Patient states that he turned his head today and felt a crack near the base of the skull. Shortly after he started experiencing some dizziness. He admits to nausea that has been ongoing. No radiculopathy. No weakness. No vomiting. No chest pain or difficulty breathing. No vision or hearing changes. No trauma. - Related Data Home Medications Medication Instructions Recorded Confirmed HYDROcodone/APAP 5-325MG [[place] 1 tab PO QID 12/25/22 05/19/23 5-325] Jivi 2800 Iu 2,800 units IV DIRECTED PRN 05/19/23 05/19/23 Jivi 2800 Iu 2,800 units IV MOTH 05/19/23 05/19/23 Previous Rx's Medication Instructions Recorded Azithromycin [Zithromax Z Pack] 1 tab PO DIRECTED #6 tab 07/11/23 Azithromycin [Zithromax Tri-Rl (3 500 mg PO DAILY 3 Days #3 tab 08/13/23 tabs)] Allergies Allergy/AdvReac Type Severity Reaction Status Date / Time aspirin AdvReac contraindicated Verified 08/13/23 11:09 d/t hemophilia NSAIDS (Non-Steroidal AdvReac contraindicated Verified 08/13/23 11:09 Anti-Inflamma d/t hemophilia Review of Systems ROS Statement: Those systems with pertinent positive or pertinent negative responses have been documented in the HPI. ROS Other: All systems not noted in ROS Statement are negative. 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 History of Any Multi-Drug Resistant Organisms: None Reported Past Surgical History: No Surgical Hx Reported Additional Past Surgical History / Comment(s): lithotripsy Past Anesthesia/Blood Transfusion Reactions: No Reported Reaction Additional Past Anesthesia/Blood Transfusion Reaction / Comment(s): Pt has never had anesthesia. He received blood in past without reaction. Past Psychological History: ADD/ADHD, Anxiety, Bipolar, Depression Smoking Status: Current every day smoker Past Alcohol Use History: Rare Past Drug Use History: Methamphetamine - Past Family History Father History Unknown: Yes Additional Family Medical History / Comment(s): patient does not know any medical history on him. Mother Family Medical History: Respiratory Disorder Additional Family Medical History / Comment(s): Mother is alive at age 56 with history of pulmonary hypertension. Brother(s) Additional Family Medical History / Comment(s): He has 2 brothers with no major medical problems. He has 6 sisters with no major medical problems. He has a grandfather and cousins with hemophilia. General Exam - General Exam Comments Initial Comments: Visual Physical Exam Vital signs reviewed General: Well-appearing, nontoxic, no acute distress. Head: Normocephalic, atraumatic Eyes: PERRLA, EOMI ENT: Airway patent Chest: Nonlabored breathing Skin: No visual rash, normal skin tone Neuro: Alert and oriented 3 Musculoskeletal: No gross abnormalities Limitations: no limitations General appearance: alert, in no apparent distress Head exam: Present: atraumatic, normocephalic, normal inspection Eye exam: Present: normal appearance, PERRL, EOMI Neck exam: Present: normal inspection, full ROM. Absent: tenderness Respiratory exam: Present: normal lung sounds bilaterally. Absent: respiratory distress, wheezes, rales, rhonchi, stridor Cardiovascular Exam: Present: regular rate, normal rhythm, normal heart sounds. Absent: systolic murmur, diastolic murmur, rubs, gallop, clicks Neurological exam: Present: alert, oriented X3 Expanded Patient oriented to: Present: person, place, time Speech: Present: fluid speech Cranial nerves: EOM's Intact: Normal Cerebellar function: Finger to Nose: Normal, Heel to [place]: Normal Motor strength exam: RUE: 5, LUE: 5, RLE: 5, LLE: 5 Eye Response: (4) open spontaneously Motor Response: (6) obeys commands Verbal Response: (5) oriented [place] Total: 15 Psychiatric exam: Present: normal affect, normal mood Skin exam: Present: warm, dry Course Vital Signs 10/03/23 10/03/23 16:23 21:41 Temperature 98.4 F 98.5 F Pulse Rate 86 78 Respiratory 16 19 Rate Blood Pressure 146/97 O2 Sat by Pulse 99 98 Oximetry Medical Decision Making - Medical Decision Making Was pt. sent in by a medical professional or institution (, PA, EMERGENCY SPECIALIST, urgent care, hospital, or fci...) When possible be specific @ -No Did you speak to anyone other than the patient for history (EMS, parent, family, police, friend...)? What history was obtained from this source @ -No Did you review nursing and triage notes (agree or disagree)? Why? @ -I reviewed and agree with nursing and triage notes Were old charts reviewed (outside hosp., previous admission, EMS record, old EKG, old radiological studies, urgent care reports/EKG's, fci records)? Report findings @ -No old charts were reviewed Differential Diagnosis (chest pain, altered mental status, abdominal pain women, abdominal pain men, vaginal bleeding, weakness, fever, dyspnea, syncope, headache, dizziness, GI bleed, back pain, seizure, CVA, palpatations, mental health, musculoskeletal)? @ -MDM Differential Headache: Migraine, tension, cluster, carbon monoxide, central venous thrombosis, pension karma temporal arteritis, acute closure glaucoma, intercranial hemorrhage, mastoiditis, sinusitis, head injury this is not meant to be an all-inclusive list. EKG interpreted by me (3pts min.). @ -As above X-rays interpreted by me (1pt min.). @ -None done CT interpreted by me (1pt min.). @ -CT shows no acute intracranial process U/S interpreted by me (1pt. min.). @ -None done What testing was considered but not performed or refused? (CT, X-rays, U/S, labs )? Why? @ -None What meds were considered but not given or refused? Why? @ -None Did you discuss the management of the patient with other professionals (professionals i.e. , ANTONY, EMERGENCY SPECIALIST, lab, RT, psych nurse, geriatric social worker, family lawyer, teacher, tactical deception plans officer, case technician)? Give summary @ -No Was smoking cessation discussed for >3mins.? @ -No Was critical care preformed (if so, how long)? @ -No Were there social determinants of health that impacted care today? How? (Homelessness, low income, unemployed, alcoholism, drug addiction, transportation, low edu. Level, literacy, decrease access to med. care, residential, rehab)? @ -No Was there de-escalation of care discussed even if they declined (Discuss DNR or withdrawal of care, Hospice)? DNR status @ -No What co-morbidities impacted this encounter? (DM, HTN, Smoking, COPD, CAD, Cancer, CVA, ARF, Chemo, Hep., AIDS, mental health diagnosis, sleep apnea, morbid obesity)? @ -None Was patient admitted / discharged? Hospital course, mention meds given and route, prescriptions, significant lab abnormalities, going to OR and other pertinent info. @ -33-year-old male presenting with chief complaint of headache. Patient is concerned because this started after he turned his head and heard a crack. He has history of hemophilia and is concerned for a brain bleed. History and physical exam were conducted. GCS 15 with no focal neurological deficits. CT shows no acute intracranial process. Discharged home. Follow-up with PCP. Report back to ER with any new or worsening symptoms. Discussed return parameters and answered all questions. Patient conveyed verbal understanding and agreed to the plan. I discussed this case in detail with my attending Dr. Nicolas Undiagnosed new problem with uncertain prognosis? @ -No Drug Therapy requiring intensive monitoring for toxicity (Heparin, Nitro, Insulin, Cardizem)? @ -No Were any procedures done? @ -No Diagnosis/symptom? @ -Headache Acute, or Chronic, or Acute on Chronic? @ -Acute Uncomplicated (without systemic symptoms) or Complicated (systemic symptoms)? @ -Uncomplicated Side effects of treatment? @ -No Exacerbation, Progression, or Severe Exacerbation? @ -No Poses a threat to life or bodily function? How? (Chest pain, [place], [place], pneumonia, PE, COPD, DKA, ARF, appy, cholecystitis, CVA, Diverticulitis, Homicidal, Suicidal, threat to staff... and all critical care pts) @ -No Disposition Clinical Impression: Strain of neck muscle Disposition: HOME SELF-CARE Condition: Good Instructions (If sedation given, give patient instructions): Cervical Strain (ED) Additional Instructions: Follow-up with PCP. Report back to ER with any new or worsening symptoms. Is patient prescribed a controlled substance at d/c from ED?: No Referrals: None,Stated [Primary Care Provider] - 1-2 days Time of Disposition: 21:36
[2023-10-03 16:38] VITALS: BP 146/97
[2023-10-03] MEDS ORDERED: ACETAMINOPHEN TAB 325 MG TAB PO STA (20:21)
--- NOTE | 2023-10-03 21:17 | CT ---
EXAMINATION TYPE: CT brain wo con CT DLP: 1132.6 mGycm, Automated exposure control for dose reduction was used. DATE OF EXAM: 10/03/2023 8:46 PM COMPARISON: None. CLINICAL INDICATION:Male, 33 years old with history of dizziness, BECERRIL, headache, dizziness TECHNIQUE: Brain: Axial CT images of the brain were obtained with coronal and sagittal reformats created and rev iewed. Contrast used: None. Oral contrast used: None. FINDINGS: Brain: Extra-axial spaces: No abnormal extra-axial fluid collections. Ventricular system: Within normal limits Cerebral parenchyma: No acute intraparenchymal hemorrhage or mass effect. The newberry-white junction is well differentiated. Cerebellum: Unremarkable. Mass effect: No evidence of midline shift. Intracranial vasculature: unremarkable Soft tissues: Normal. Calvarium/osseous structures: No depressed skull fracture. Paranasal sinuses and mastoid air cells: Mild scattered paranasal sinus disease. Visualized orbits: Orbital contents are intact. IMPRESSION: No acute intracranial process.
[2023-10-03 21:55] VITALS: PULSE 78; RESP 19; TEMP 98.5
== END 2023-10-03 21:42 | disposition home or self-care (01) ==
LOC: EC 16:10
DX: S16.1XXA Strain of muscle, fascia and tendon at neck level, initial encounter (principal); E78.5 Hyperlipidemia, unspecified; Z86.59 Personal history of other mental and behavioral disorders; F17.200 Nicotine dependence, unspecified, uncomplicated; F15.90 Other stimulant use, unspecified, uncomplicated; Z88.5 Allergy status to narcotic agent; X58.XXXA Exposure to other specified factors, initial encounter
CPT/HCPCS: 70450; 99283

== ENCOUNTER 2023-10-26 23:22 | Emergency (ER) | payer OTHER ==
--- NOTE | 2023-10-26 23:39 | ED ---
General Adult HPI - General Stated complaint: Neck swelling, nausea, dizzy Source: patient Mode of arrival: ambulatory Limitations: no limitations - History of Present Illness Initial comments: 33-year-old male presenting to the ED with a chief complaint of back pain. Patient states for the past 2 days has had left flank pain. Also notes some associated dysuria and some frequency. - Related Data Home Medications Medication Instructions Recorded Confirmed HYDROcodone/APAP 5-325MG [[place] 1 tab PO QID 12/25/22 05/19/23 5-325] Jivi 2800 Iu 2,800 units IV DIRECTED PRN 05/19/23 05/19/23 Jivi 2800 Iu 2,800 units IV MOTH 05/19/23 05/19/23 Previous Rx's Medication Instructions Recorded Azithromycin [Zithromax Z Pack] 1 tab PO DIRECTED #6 tab 07/11/23 Azithromycin [Zithromax Tri-Rl (3 500 mg PO DAILY 3 Days #3 tab 08/13/23 tabs)] Allergies Allergy/AdvReac Type Severity Reaction Status Date / Time aspirin AdvReac contraindicated Verified 11/09/23 15:13 d/t hemophilia NSAIDS (Non-Steroidal AdvReac contraindicated Verified 11/09/23 15:13 Anti-Inflamma d/t hemophilia Review of Systems ROS Statement: Those systems with pertinent positive or pertinent negative responses have been documented in the HPI. ROS Other: All systems not noted in ROS Statement are negative. 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 History of Any Multi-Drug Resistant Organisms: None Reported Past Surgical History: No Surgical Hx Reported Additional Past Surgical History / Comment(s): lithotripsy Past Anesthesia/Blood Transfusion Reactions: No Reported Reaction Additional Past Anesthesia/Blood Transfusion Reaction / Comment(s): Pt has never had anesthesia. He received blood in past without reaction. Past Psychological History: ADD/ADHD, Anxiety, Bipolar, Depression Smoking Status: Current every day smoker Past Alcohol Use History: Rare Past Drug Use History: Methamphetamine - Past Family History Father History Unknown: Yes Additional Family Medical History / Comment(s): patient does not know any medical history on him. Mother Family Medical History: Respiratory Disorder Additional Family Medical History / Comment(s): Mother is alive at age 56 with history of pulmonary hypertension. Brother(s) Additional Family Medical History / Comment(s): He has 2 brothers with no major medical problems. He has 6 sisters with no major medical problems. He has a grandfather and cousins with hemophilia. General Exam - General Exam Comments Initial Comments: Visual Physical Exam Vital signs reviewed General: Well-appearing, nontoxic, no acute distress. Head: Normocephalic, atraumatic Eyes: PERRLA, EOMI ENT: Airway patent Chest: Nonlabored breathing Skin: No visual rash, normal skin tone Neuro: Alert and oriented 3 Musculoskeletal: No gross abnormalities Limitations: no limitations Course Vital Signs 10/26/23 23:37 Temperature 98.2 F Pulse Rate 81 Respiratory 18 Rate Blood Pressure 138/94 O2 Sat by Pulse 97 Oximetry Medical Decision Making - Medical Decision Making Quicknote portion performed. Signed Butch Hall PA-C Work note portion was performed however patient left AGAINST MEDICAL ADVICE prior to completing formal evaluation. - Lab Data Result diagrams: 10/27/23 00:10 10/27/23 00:10 Lab Results 10/27/23 10/27/23 10/27/23 Range/Units 00:10 00:10 00:10 WBC 8.4 (3.8-10.6) k/uL RBC 4.54 (4.30-5.90) m/uL Hgb 14.2 (13.0-17.5) gm/dL Hct 40.8 (39.0-53.0) % MCV 89.8 (80.0-100.0) fL MCH 31.3 (25.0-35.0) pg MCHC 34.8 (31.0-37.0) g/dL RDW 13.0 (11.5-15.5) % Plt Count 154 (150-450) k/uL MPV 7.9 Neutrophils % 46 % Lymphocytes % 45 % Monocytes % 5 % Eosinophils % 2 % Basophils % 1 % Neutrophils # 3.8 (1.3-7.7) k/uL Lymphocytes # 3.8 (1.0-4.8) k/uL Monocytes # 0.4 (0-1.0) k/uL Eosinophils # 0.2 (0-0.7) k/uL Basophils # 0.1 (0-0.2) k/uL Sodium 142 (137-145) mmol/L Potassium 4.0 (3.5-5.1) mmol/L Chloride 107 (98-107) mmol/L Carbon Dioxide 25 (22-30) mmol/L Anion Gap 10 mmol/L BUN 13 (9-20) mg/dL Creatinine 0.71 (0.66-1.25) mg/dL Est GFR (CKD-EPI)AfAm >90 (>60 ml/min/1.73 sqM) Est GFR (CKD-EPI)NonAf >90 (>60 ml/min/1.73 sqM) Glucose 97 (74-99) mg/dL Calcium 9.4 (8.4-10.2) mg/dL Total Bilirubin 0.8 (0.2-1.3) mg/dL AST 27 (17-59) U/L ALT 42 (4-49) U/L Alkaline Phosphatase 62 (38-126) U/L Total Protein 7.4 (6.3-8.2) g/dL Albumin 4.4 (3.5-5.0) g/dL Urine Color Colorless Urine Appearance Clear (Clear) Urine pH 6.5 (5.0-8.0) Ur Specific [place] 1.005 (1.001-1.035) Urine Protein Negative (Negative) Urine Glucose (UA) Negative (Negative) Urine Ketones Negative (Negative) Urine Blood Negative (Negative) Urine Nitrite Negative (Negative) Urine Bilirubin Negative (Negative) Urine Urobilinogen <2.0 (<2.0) mg/dL Ur Leukocyte Esterase Negative (Negative) Influenza Type A (PCR) (Not Detectd) Influenza Type B (PCR) (Not Detectd) RSV (PCR) (Not Detectd) SARS-CoV-2 (PCR) (Not Detectd) 10/27/23 Range/Units 00:10 WBC (3.8-10.6) k/uL RBC (4.30-5.90) m/uL Hgb (13.0-17.5) gm/dL Hct (39.0-53.0) % MCV (80.0-100.0) fL MCH (25.0-35.0) pg MCHC (31.0-37.0) g/dL RDW (11.5-15.5) % Plt Count (150-450) k/uL MPV Neutrophils % % Lymphocytes % % Monocytes % % Eosinophils % % Basophils % % Neutrophils # (1.3-7.7) k/uL Lymphocytes # (1.0-4.8) k/uL Monocytes # (0-1.0) k/uL Eosinophils # (0-0.7) k/uL Basophils # (0-0.2) k/uL Sodium (137-145) mmol/L Potassium (3.5-5.1) mmol/L Chloride (98-107) mmol/L Carbon Dioxide (22-30) mmol/L Anion Gap mmol/L BUN (9-20) mg/dL Creatinine (0.66-1.25) mg/dL Est GFR (CKD-EPI)AfAm (>60 ml/min/1.73 sqM) Est GFR (CKD-EPI)NonAf (>60 ml/min/1.73 sqM) Glucose (74-99) mg/dL Calcium (8.4-10.2) mg/dL Total Bilirubin (0.2-1.3) mg/dL AST (17-59) U/L ALT (4-49) U/L Alkaline Phosphatase (38-126) U/L Total Protein (6.3-8.2) g/dL Albumin (3.5-5.0) g/dL Urine Color Urine Appearance (Clear) Urine pH (5.0-8.0) Ur Specific [place] (1.001-1.035) Urine Protein (Negative) Urine Glucose (UA) (Negative) Urine Ketones (Negative) Urine Blood (Negative) Urine Nitrite (Negative) Urine Bilirubin (Negative) Urine Urobilinogen (<2.0) mg/dL Ur Leukocyte Esterase (Negative) Influenza Type A (PCR) Not Detected (Not Detectd) Influenza Type B (PCR) Not Detected (Not Detectd) RSV (PCR) Not Detected (Not Detectd) SARS-CoV-2 (PCR) Not Detected (Not Detectd) Disposition Clinical Impression: Back pain Disposition: LEFT AGAINST MEDICAL ADVICE Referrals: None,Stated [Primary Care Provider] - 1-2 days
[2023-10-26 23:52] VITALS: BP 138/94; PULSE 81; RESP 18; TEMP 98.2
[2023-10-27 01:07] LABS: Basophils # (A) 0.1 k/uL (0-0.2); Basophils % (A) 1 %; Eosinophils # (A) 0.2 k/uL (0-0.7); Eosinophils % (A) 2 %; HCT 40.8 % (39.0-53.0); HGB 14.2 gm/dL (13.0-17.5); Lymphocytes # (A) 3.8 k/uL (1.0-4.8); Lymphocytes % (A) 45 %; MCH 31.3 pg (25.0-35.0); MCHC 34.8 g/dL (31.0-37.0); MCV 89.8 fL (80.0-100.0); Mean Platelet Volume 7.9; Monocytes # (A) 0.4 k/uL (0-1.0); Monocytes % (A) 5 %; Neutrophils # (A) 3.8 k/uL (1.3-7.7); Neutrophils % (A) 46 %; Platelet Count 154 k/uL (150-450); RBC 4.54 m/uL (4.30-5.90); WBC 8.4 k/uL (3.8-10.6)
[2023-10-27 01:13] LABS: Appearance,Urine Clear (Clear); Bilirubin,Urine Negative (Negative); Blood,Urine Negative (Negative); Color,Urine Colorless; Glucose,Urine (UA) Negative (Negative); Ketones,Urine Negative (Negative); Leukocyte Esterase,Urine Negative (Negative); Nitrite,Urine Negative (Negative); PH, Urine 6.5 (5.0-8.0); Protein,Urine Negative (Negative); Specific Gravity,Urine 1.005 (1.001-1.035); Urobilinogen,Urine <2.0 mg/dL (<2.0)
[2023-10-27 03:09] LABS: ALT 42 U/L (4-49); AST 27 U/L (17-59); African American GFR (CKD) >90 (>60 ml/min/1.73 sqM); Albumin 4.4 g/dL (3.5-5.0); Alkaline Phosphatase 62 U/L (38-126); Anion Gap 10 mmol/L; Blood Urea Nitrogen 13 mg/dL (9-20); Calcium 9.4 mg/dL (8.4-10.2); Carbon Dioxide 25 mmol/L (22-30); Chloride 107 mmol/L (98-107); Glucose 97 mg/dL (74-99); Non-African American GFR(CKD) >90 (>60 ml/min/1.73 sqM); Sodium 142 mmol/L (137-145); Total Bilirubin 0.8 mg/dL (0.2-1.3); Total Protein 7.4 g/dL (6.3-8.2)
== END 2023-10-27 04:50 | disposition left against medical advice (07) ==
LOC: EC 23:22
DX: M54.9 Dorsalgia, unspecified (principal); F17.200 Nicotine dependence, unspecified, uncomplicated; Z86.59 Personal history of other mental and behavioral disorders; Z88.6 Allergy status to analgesic agent; Z91.048 Other nonmedicinal substance allergy status; Z20.822 Contact with and (suspected) exposure to COVID-19; Z53.29 Procedure and treatment not carried out because of patient's decision for other reasons
CPT/HCPCS: 36415; 80053; 81003; 85025; 87636; 99284

== ENCOUNTER 2023-11-09 14:56 | Emergency (ER) | payer OTHER ==
[2023-11-09 15:33] VITALS: TEMP 98.9
[2023-11-09] MEDS ORDERED: MORPHINE SULFATE 4 MG/ML SYRINGE IVP STA (16:57)
[2023-11-09 17:11] LABS: Appearance,Urine Clear (Clear); Bilirubin,Urine Negative (Negative); Blood,Urine Negative (Negative); Color,Urine Colorless; Glucose,Urine (UA) Negative (Negative); Ketones,Urine Negative (Negative); Leukocyte Esterase,Urine Negative (Negative); Nitrite,Urine Negative (Negative); Protein,Urine Negative (Negative); Specific Gravity,Urine 1.002 (1.001-1.035); Urobilinogen,Urine <2.0 mg/dL (<2.0)
--- NOTE | 2023-11-09 17:14 | XR ---
EXAMINATION TYPE: XR lumbar spine 3V DATE OF EXAM: 11/09/2023 5:08 PM CLINICAL INDICATION:Male, 33 years old with history of low back pain; H COMPARISON: None TECHNIQUE: Frontal and lateral radiographs of the spine were obtained. FINDINGS: No evidence of any acute osseous pathology. No evidence of loss of vertebral body height i s seen. Mild straightening of the normal lordotic curve.. Minimal degenerative changes of the facet j oints are appreciated. IMPRESSION: 1. No acute fracture. 2. Mild multilevel disc degeneration.
[2023-11-09 17:24] LABS: Basophils % (A) 0 %; Eosinophils # (A) 0.1 k/uL (0-0.7); Eosinophils % (A) 1 %; HCT 41.2 % (39.0-53.0); HGB 14.4 gm/dL (13.0-17.5); Lymphocytes # (A) 2.8 k/uL (1.0-4.8); Lymphocytes % (A) 37 %; MCH 31.8 pg (25.0-35.0); MCHC 34.9 g/dL (31.0-37.0); Mean Platelet Volume 7.2; Monocytes # (A) 0.3 k/uL (0-1.0); Monocytes % (A) 4 %; Neutrophils # (A) 4.3 k/uL (1.3-7.7); Neutrophils % (A) 56 %; Platelet Count 168 k/uL (150-450); RBC 4.52 m/uL (4.30-5.90); RDW 12.9 % (11.5-15.5); WBC 7.6 k/uL (3.8-10.6)
[2023-11-09 17:47] LABS: ALT 37 U/L (4-49); AST 26 U/L (17-59); African American GFR (CKD) >90 (>60 ml/min/1.73 sqM); Albumin 4.2 g/dL (3.5-5.0); Alkaline Phosphatase 61 U/L (38-126); Anion Gap 5 mmol/L; Blood Urea Nitrogen 11 mg/dL (9-20); Calcium 9.2 mg/dL (8.4-10.2); Carbon Dioxide 27 mmol/L (22-30); Chloride 107 mmol/L (98-107); Glucose 87 mg/dL (74-99); Non-African American GFR(CKD) >90 (>60 ml/min/1.73 sqM); Potassium 4.2 mmol/L (3.5-5.1); Sodium 139 mmol/L (137-145); Total Protein 6.9 g/dL (6.3-8.2)
[2023-11-09 18:01] LABS: INR 1.1 (<1.2); Prothrombin Time 11.8 sec (10.0-12.5)
[2023-11-09] MEDS ORDERED: HYDROmorphone 1 MG/ML 1 ML SYRINGE IVP STA ×2 (18:07→20:18)
[2023-11-09 18:26] VITALS: RESP 18
--- NOTE | 2023-11-09 19:54 | US ---
EXAMINATION TYPE: US scrotum with doppler. Grayscale and color Doppler Duplex imaging performed of ignacio trotter scrotum. DATE OF EXAM: 11/09/2023 COMPARISON: NONE CLINICAL INDICATION: Male, 33 years old with history of testicular pain; Pain right testicle, palpabl e right testicle EXAM MEASUREMENTS: TESTICLES: Right Testicle: 4.4 x 3.0 x 3.5 cm Left Testicle: 4.5 x 2.8 x 3.4 cm EPIDIDYMIS HEAD: Right Epididymis: 1.7 cm Left Epididymis: 0.9 cm Doppler performed to assess for testicular vascularity; good bilateral color flow and waveforms are s een. There is no evidence of testicular torsion. Presence of hydroceles: small fluid collection lateral to right testicle = 2.7cm Presence of varicoceles: prominent vascularity adjacent to left testicle *cystic lesion right epididymis = 1.1 x 1.0 x 1.5cm IMPRESSION: 1. Small right hydrocele 2. Right epididymal cyst 3. Left varicocele
--- NOTE | 2023-11-09 20:19 | ED ---
Abdominal Pain HPI - General Chief Complaint: Abdominal Pain Stated Complaint: blood in stool Time Seen by Provider: 11/09/23 15:33 Source: patient Mode of arrival: ambulatory Limitations: no limitations - History of Present Illness Initial Comments: 33-year-old male with past medical history of hemophilia who presents emergency department reporting low back pain and scrotal pain. States that he was bending the other day when he had sudden onset of low back pain. States the pain now radiates from his low back into his left buttock and down his left leg. Patient denies any other trauma besides bending. He denies any saddle anesthesia. No bowel or bladder incontinence. States is if he feels like he has some of the pain going into his testicles. No enlargement, redness or swelling to his testicles. He denies being sexually active. No dysuria, hematuria or difficulty voiding. Denies any black or bloody stools. No penile discharge. No fevers. No history of drug use. No other alleviating, precipitating modifying factors - Related Data Home Medications Medication Instructions Recorded Confirmed HYDROcodone/APAP 5-325MG [[place] 1 tab PO QID 12/25/22 05/19/23 5-325] Jivi 2800 Iu 2,800 units IV DIRECTED PRN 05/19/23 05/19/23 Jivi 2800 Iu 2,800 units IV MOTH 05/19/23 05/19/23 Previous Rx's Medication Instructions Recorded Azithromycin [Zithromax Z Pack] 1 tab PO DIRECTED #6 tab 07/11/23 Azithromycin [Zithromax Tri-Rl (3 500 mg PO DAILY 3 Days #3 tab 08/13/23 tabs)] Allergies Allergy/AdvReac Type Severity Reaction Status Date / Time aspirin AdvReac contraindicated Verified 11/17/23 17:10 d/t hemophilia NSAIDS (Non-Steroidal AdvReac contraindicated Verified 11/17/23 17:10 Anti-Inflamma d/t hemophilia Review of Systems ROS Statement: Those systems with pertinent positive or pertinent negative responses have been documented in the HPI. ROS Other: All systems not noted in ROS Statement are negative. 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 History of Any Multi-Drug Resistant Organisms: None Reported Past Surgical History: No Surgical Hx Reported Additional Past Surgical History / Comment(s): lithotripsy Past Anesthesia/Blood Transfusion Reactions: No Reported Reaction Additional Past Anesthesia/Blood Transfusion Reaction / Comment(s): Pt has never had anesthesia. He received blood in past without reaction. Past Psychological History: ADD/ADHD, Anxiety, Bipolar, Depression Smoking Status: Current every day smoker Past Alcohol Use History: None Reported, Rare Past Drug Use History: Methamphetamine - Past Family History Father History Unknown: Yes Additional Family Medical History / Comment(s): patient does not know any medical history on him. Mother Family Medical History: Respiratory Disorder Additional Family Medical History / Comment(s): Mother is alive at age 56 with history of pulmonary hypertension. Brother(s) Additional Family Medical History / Comment(s): He has 2 brothers with no major medical problems. He has 6 sisters with no major medical problems. He has a grandfather and cousins with hemophilia. General Exam Limitations: no limitations General appearance: alert, in no apparent distress Head exam: Present: atraumatic, normocephalic, normal inspection Eye exam: Present: normal appearance, PERRL, EOMI. Absent: scleral icterus, conjunctival injection, periorbital swelling ENT exam: Present: normal exam, mucous membranes moist Neck exam: Present: normal inspection. Absent: tenderness, meningismus, lymphadenopathy Respiratory exam: Present: normal lung sounds bilaterally. Absent: respiratory distress, wheezes, rales, rhonchi, stridor Cardiovascular Exam: Present: regular rate, normal rhythm, normal heart sounds. Absent: systolic murmur, diastolic murmur, rubs, gallop, clicks GI/Abdominal exam: Present: soft, normal bowel sounds. Absent: distended, tenderness, guarding, rebound, rigid Extremities exam: Present: normal inspection, full ROM, normal capillary refill. Absent: tenderness, pedal edema, joint swelling, calf tenderness Back exam: Present: other (Tenderness to palpation of the left SI joint. Positive straight leg raise on the left. No weakness. Intact sensation) Neurological exam: Present: alert, oriented X3, CN II-XII intact Psychiatric exam: Present: normal affect, normal mood Skin exam: Present: warm, dry, intact, normal color. Absent: rash Course Vital Signs 11/09/23 11/09/23 11/09/23 15:09 18:21 20:26 Temperature 98.9 F Pulse Rate 89 75 78 Respiratory 17 18 18 Rate Blood Pressure 151/95 137/95 130/97 O2 Sat by Pulse 99 98 98 Oximetry Medical Decision Making - Medical Decision Making Was pt. sent in by a medical professional or institution (, [facility], MANUFACTURER'S REPRESENTATIVE, urgent care, hospital, or fci...) When possible be specific @ -No Did you speak to anyone other than the patient for history (EMS, parent, family, police, friend...)? What history was obtained from this source @ -No Did you review nursing and triage notes (agree or disagree)? Why? @ -I reviewed and agree with nursing and triage notes Were old charts reviewed (outside hosp., previous admission, EMS record, old EKG, old radiological studies, urgent care reports/EKG's, fci records)? Report findings @ -No old charts were reviewed Differential Diagnosis (chest pain, altered mental status, abdominal pain women, abdominal pain men, vaginal bleeding, weakness, fever, dyspnea, syncope, headache, dizziness, GI bleed, back pain, seizure, CVA, palpatations, mental health, musculoskeletal)? @ -Differential Back Pain: Strain, zoster, cauda equina syndrome, epidural abscess, vertebral osteomyelitis, discitis, fracture, subluxation, disc herniation, DJD, spinal stenosis, dissection, AAA, pancreatitis, peptic ulcer disease, pyelonephritis, kidney stone, this is not meant to be an all-inclusive list. EKG interpreted by me (3pts min.). @ -Not done X-rays interpreted by me (1pt min.). @ -Yes and demonstrates no acute process CT interpreted by me (1pt min.). @ -None done U/S interpreted by me (1pt. min.). @ -Yes and demonstrates no acute process What testing was considered but not performed or refused? (CT, X-rays, U/S, labs)? Why? @ -None What meds were considered but not given or refused? Why? @ -None Did you discuss the management of the patient with other professionals (professionals i.e. Dr., PA, MANUFACTURER'S REPRESENTATIVE, lab, RT, psych nurse, social media community manager, entry engineer, teacher, event security officer, case monitor)? Give summary @ -No Was smoking cessation discussed for >3mins.? @ -No Was critical care preformed (if so, how long)? @ -No Were there social determinants of health that impacted care today? How? (Homelessness, low income, unemployed, alcoholism, drug addiction, transportation, low edu. Level, literacy, decrease access to med. care, assisted, rehab)? @ -No Was there de-escalation of care discussed even if they declined (Discuss DNR or withdrawal of care, Hospice)? DNR status @ -No What co-morbidities impacted this encounter? (DM, HTN, Smoking, COPD, CAD, Cancer, CVA, ARF, Chemo, Hep., AIDS, mental health diagnosis, sleep apnea, morbid obesity)? @ -Hemophilia Was patient admitted / discharged? Hospital course, mention meds given and route, prescriptions, significant lab abnormalities, going to OR and other pertinent info. @ -Discharged. Upon arrival patient was placed in room 20. Thorough history and physical exam was performed. Full physical exam was performed and the patient has no signs of cauda equina. Patient does go for x-ray. He is also requesting an ultrasound of his testicles. Laboratory studies are additionally performed due to his history of hemophilia. Results were discussed with the patient. He was given a dose of pain medications for which he had improvement in his pain. I did discuss the diagnosis and treatment options. At this time the patient be discharged home. Instructed follow-up with his primary care doctor for further evaluation return for any new or worsening symptoms Undiagnosed new problem with uncertain prognosis? @ -Yes Drug Therapy requiring intensive monitoring for toxicity (Heparin, Nitro, Insulin, Cardizem)? @ -No Were any procedures done? @ -No Diagnosis/symptom? @ -Acute lumbar back pain Acute, or Chronic, or Acute on Chronic? @ -Acute Uncomplicated (without systemic symptoms) or Complicated (systemic symptoms)? @ -Complicated Side effects of treatment? @ -No Exacerbation, Progression, or Severe Exacerbation? @ -No Poses a threat to life or bodily function? How? (Chest pain, [place], [place], pneumonia, PE, COPD, DKA, ARF, appy, cholecystitis, CVA, Diverticulitis, Homicidal, Suicidal, threat to staff... and all critical care pts) @ -No - Lab Data Result diagrams: 11/09/23 17:02 11/09/23 17:02 Lab Results 11/09/23 11/09/23 11/09/23 Range/Units 17:02 17:02 17:02 WBC 7.6 (3.8-10.6) k/uL RBC 4.52 (4.30-5.90) m/uL Hgb 14.4 (13.0-17.5) gm/dL Hct 41.2 (39.0-53.0) % MCV 91.0 (80.0-100.0) fL MCH 31.8 (25.0-35.0) pg MCHC 34.9 (31.0-37.0) g/dL RDW 12.9 (11.5-15.5) % Plt Count 168 (150-450) k/uL MPV 7.2 Neutrophils % 56 % Lymphocytes % 37 % Monocytes % 4 % Eosinophils % 1 % Basophils % 0 % Neutrophils # 4.3 (1.3-7.7) k/uL Lymphocytes # 2.8 (1.0-4.8) k/uL Monocytes # 0.3 (0-1.0) k/uL Eosinophils # 0.1 (0-0.7) k/uL Basophils # 0.0 (0-0.2) k/uL PT 11.8 (10.0-12.5) sec INR 1.1 (<1.2) APTT 36.0 H (22.0-30.0) sec Sodium (137-145) mmol/L Potassium (3.5-5.1) mmol/L Chloride (98-107) mmol/L Carbon Dioxide (22-30) mmol/L Anion Gap mmol/L BUN (9-20) mg/dL Creatinine (0.66-1.25) mg/dL Est GFR (CKD-EPI)AfAm (>60 ml/min/1.73 sqM) Est GFR (CKD-EPI)NonAf (>60 ml/min/1.73 sqM) Glucose (74-99) mg/dL Calcium (8.4-10.2) mg/dL Total Bilirubin (0.2-1.3) mg/dL AST (17-59) U/L ALT (4-49) U/L Alkaline Phosphatase (38-126) U/L Total Protein (6.3-8.2) g/dL Albumin (3.5-5.0) g/dL Urine Color Colorless Urine Appearance Clear (Clear) Urine pH 7.0 (5.0-8.0) Ur Specific [place] 1.002 (1.001-1.035) Urine Protein Negative (Negative) Urine Glucose (UA) Negative (Negative) Urine Ketones Negative (Negative) Urine Blood Negative (Negative) Urine Nitrite Negative (Negative) Urine Bilirubin Negative (Negative) Urine Urobilinogen <2.0 (<2.0) mg/dL Ur Leukocyte Esterase Negative (Negative) 11/09/23 Range/Units 17:02 WBC (3.8-10.6) k/uL RBC (4.30-5.90) m/uL Hgb (13.0-17.5) gm/dL Hct (39.0-53.0) % MCV (80.0-100.0) fL MCH (25.0-35.0) pg MCHC (31.0-37.0) g/dL RDW (11.5-15.5) % Plt Count (150-450) k/uL MPV Neutrophils % % Lymphocytes % % Monocytes % % Eosinophils % % Basophils % % Neutrophils # (1.3-7.7) k/uL Lymphocytes # (1.0-4.8) k/uL Monocytes # (0-1.0) k/uL Eosinophils # (0-0.7) k/uL Basophils # (0-0.2) k/uL PT (10.0-12.5) sec INR (<1.2) APTT (22.0-30.0) sec Sodium 139 (137-145) mmol/L Potassium 4.2 (3.5-5.1) mmol/L Chloride 107 (98-107) mmol/L Carbon Dioxide 27 (22-30) mmol/L Anion Gap 5 mmol/L BUN 11 (9-20) mg/dL Creatinine 0.66 (0.66-1.25) mg/dL Est GFR (CKD-EPI)AfAm >90 (>60 ml/min/1.73 sqM) Est GFR (CKD-EPI)NonAf >90 (>60 ml/min/1.73 sqM) Glucose 87 (74-99) mg/dL Calcium 9.2 (8.4-10.2) mg/dL Total Bilirubin 1.0 (0.2-1.3) mg/dL AST 26 (17-59) U/L ALT 37 (4-49) U/L Alkaline Phosphatase 61 (38-126) U/L Total Protein 6.9 (6.3-8.2) g/dL Albumin 4.2 (3.5-5.0) g/dL Urine Color Urine Appearance (Clear) Urine pH (5.0-8.0) Ur Specific [place] (1.001-1.035) Urine Protein (Negative) Urine Glucose (UA) (Negative) Urine Ketones (Negative) Urine Blood (Negative) Urine Nitrite (Negative) Urine Bilirubin (Negative) Urine Urobilinogen (<2.0) mg/dL Ur Leukocyte Esterase (Negative) Disposition Clinical Impression: Lumbar strain, Bilateral hydrocele Disposition: HOME SELF-CARE Condition: Stable Instructions (If sedation given, give patient instructions): Hydrocele (ED), Sciatica (ED) Additional Instructions: Please take your pain medications and muscle relaxers as directed. Follow-up with your doctor and return for any new or worsening symptoms Is patient prescribed a controlled substance at d/c from ED?: No Referrals: None,Stated [Primary Care Provider] - 1-2 days Time of Disposition: 20:18
[2023-11-09 20:30] VITALS: BP 130/97; PULSE 78
== END 2023-11-09 20:37 | disposition home or self-care (01) ==
LOC: EC 14:56
DX: S39.012A Strain of muscle, fascia and tendon of lower back, initial encounter (principal); N43.3 Hydrocele, unspecified; E78.5 Hyperlipidemia, unspecified; F17.200 Nicotine dependence, unspecified, uncomplicated; F12.90 Cannabis use, unspecified, uncomplicated; Z86.59 Personal history of other mental and behavioral disorders; Z88.6 Allergy status to analgesic agent; X58.XXXA Exposure to other specified factors, initial encounter
CPT/HCPCS: 36415; 80053; 85025; 85610; 85730; 81003; 72100; 93975; 76870; 99285; 96374; 96375; 96376; J2270; J1170

== ENCOUNTER 2023-11-15 02:23 | Emergency (ER) | payer OTHER ==
[2023-11-15 02:51] VITALS: RESP 18; TEMP 98.2
[2023-11-15] MEDS: HYDROCORTISONE SUPPOSITORY 25 MG SUPP RECTAL STA (03:36)
[2023-11-15] MEDS: HYDROmorphone 1 MG/ML 1 ML SYRINGE IM STA (03:43)
[2023-11-15 04:00] LABS: Appearance,Urine Clear (Clear); Bilirubin,Urine Negative (Negative); Blood,Urine Negative (Negative); Color,Urine Yellow; Glucose,Urine (UA) Negative (Negative); Ketones,Urine Negative (Negative); Leukocyte Esterase,Urine Negative (Negative); Nitrite,Urine Negative (Negative); Protein,Urine Negative (Negative); Specific Gravity,Urine 1.023 (1.001-1.035)
--- NOTE | 2023-11-15 04:50 | ED ---
Male Urogenital HPI - General Chief complaint: Urogenital Stated complaint: pain in groin Time Seen by Provider: 11/15/23 02:38 Source: patient Mode of arrival: wheelchair Limitations: no limitations - History of Present Illness Initial comments: 33-year-old male presenting with chief complaint of right groin pain. States that the pain started earlier today. He states that he found a new "lump" to the right-sided groin. He was here recently and diagnosed with hydroceles. No testicular pain swelling or redness. He also admits to some rectal pain. States that it is worse with bowel movements. No rectal bleeding. No receptive anal intercourse. No abdominal pain, fever, chills, vomiting. No recent injury or trauma. - Related Data Home Medications Medication Instructions Recorded Confirmed HYDROcodone/APAP 5-325MG [[place] 1 tab PO QID 12/25/22 05/19/23 5-325] Jivi 2800 Iu 2,800 units IV DIRECTED PRN 05/19/23 05/19/23 Jivi 2800 Iu 2,800 units IV MOTH 05/19/23 05/19/23 Previous Rx's Medication Instructions Recorded Azithromycin [Zithromax Z Pack] 1 tab PO DIRECTED #6 tab 07/11/23 Azithromycin [Zithromax Tri-Rl (3 500 mg PO DAILY 3 Days #3 tab 08/13/23 tabs)] Allergies Allergy/AdvReac Type Severity Reaction Status Date / Time aspirin AdvReac contraindicated Verified 11/09/23 15:13 d/t hemophilia NSAIDS (Non-Steroidal AdvReac contraindicated Verified 11/09/23 15:13 Anti-Inflamma d/t hemophilia Review of Systems ROS Statement: Those systems with pertinent positive or pertinent negative responses have been documented in the HPI. ROS Other: All systems not noted in ROS Statement are negative. 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 History of Any Multi-Drug Resistant Organisms: None Reported Past Surgical History: No Surgical Hx Reported Additional Past Surgical History / Comment(s): lithotripsy Past Anesthesia/Blood Transfusion Reactions: No Reported Reaction Additional Past Anesthesia/Blood Transfusion Reaction / Comment(s): Pt has never had anesthesia. He received blood in past without reaction. Past Psychological History: ADD/ADHD, Anxiety, Bipolar, Depression Past Alcohol Use History: None Reported, Rare - Past Family History Father History Unknown: Yes Additional Family Medical History / Comment(s): patient does not know any medical history on him. Mother Family Medical History: Respiratory Disorder Additional Family Medical History / Comment(s): Mother is alive at age 56 with history of pulmonary hypertension. Brother(s) Additional Family Medical History / Comment(s): He has 2 brothers with no major medical problems. He has 6 sisters with no major medical problems. He has a grandfather and cousins with hemophilia. General Exam Limitations: no limitations General appearance: alert, in no apparent distress Head exam: Present: atraumatic, normocephalic Eye exam: Present: normal appearance, EOMI Neck exam: Present: normal inspection Respiratory exam: Absent: respiratory distress Cardiovascular Exam: Present: regular rate Rectal exam: Present: normal inspection. Absent: hemorrhoids exam: Present: normal inspection Neurological exam: Present: alert, oriented X3 Psychiatric exam: Present: normal affect, normal mood Skin exam: Present: warm, dry, other (small elevated area to the R groin, resembles vessel like structure) Course Vital Signs 11/15/23 11/15/23 02:27 05:03 Temperature 98.2 F Pulse Rate 87 82 Respiratory 18 18 Rate Blood Pressure 133/87 128/87 O2 Sat by Pulse 100 97 Oximetry Medical Decision Making - Medical Decision Making Was pt. sent in by a medical professional or institution (, [facility], L[employer] AND [employer] EQUIPMENT REPAIRER, urgent care, hospital, or longterm...) When possible be specific @ -No Did you speak to anyone other than the patient for history (EMS, parent, family, police, friend...)? What history was obtained from this source @ -No Did you review nursing and triage notes (agree or disagree)? Why? @ -I reviewed and agree with nursing and triage notes Were old charts reviewed (outside hosp., previous admission, EMS record, old EKG, old radiological studies, urgent care reports/EKG's, longterm records)? Report findings @ -No old charts were reviewed Differential Diagnosis (chest pain, altered mental status, abdominal pain women, abdominal pain men, vaginal bleeding, weakness, fever, dyspnea, syncope, headache, dizziness, GI bleed, back pain, seizure, CVA, palpatations, mental health, musculoskeletal)? @ -Differential Musculoskeletal Muscular strain, contusion, ligament sprain, fracture, arthritis, septic arthritis, bursitis, cellulitis, muscle spasm, nerve compression, DVT, arterial occlusion, herpes zoster, electrolyte abnormality, tumor.... This is not meant to be in all inclusive list EKG interpreted by me (3pts min.). @ -As above X-rays interpreted by me (1pt min.). @ -None done CT interpreted by me (1pt min.). @ -None done U/S interpreted by me (1pt. min.). @ -None done What testing was considered but not performed or refused? (CT, X-rays, U/S, labs)? Why? @ -None What meds were considered but not given or refused? Why? @ -None Did you discuss the management of the patient with other professionals (professionals i.e. , PA, L[employer] AND [employer] EQUIPMENT REPAIRER, lab, RT, psych nurse, social studies teacher, divorce lawyer, teacher, seaman officer, child welfare caseworker)? Give summary @ -No Was smoking cessation discussed for >3mins.? @ -No Was critical care preformed (if so, how long)? @ -No Were there social determinants of health that impacted care today? How? (Homelessness, low income, unemployed, alcoholism, drug addiction, transportation, low edu. Level, literacy, decrease access to med. care, fdc, rehab)? @ -No Was there de-escalation of care discussed even if they declined (Discuss DNR or withdrawal of care, Hospice)? DNR status @ -No What co-morbidities impacted this encounter? (DM, HTN, Smoking, COPD, CAD, Cancer, CVA, ARF, Chemo, Hep., AIDS, mental health diagnosis, sleep apnea, morbid obesity)? @ -None Was patient admitted / discharged? Hospital course, mention meds given and route, prescriptions, significant lab abnormalities, going to OR and other pertinent info. @ -33-year-old male presenting with chief complaint of rectal pain and groin pain. Patient was recently diagnosed with hydroceles. History and physical exam are conducted. There are signs of thrombophlebitis to the right groin. No testicular pain or swelling. Normal rectal exam. Urine shows no infectious process or bleeding. Patient was offered a suppository which he declined. Educated on thrombophlebitis and supportive treatment. Educated on alarm symptoms that should prompt reevaluation. Follow-up with PCP. Report back to ER with any new or worsening symptoms. Discussed return parameters and answered all questions. Patient conveyed verbal understanding and agreed to the plan. I discussed this case in detail with my attending Dr. Nicolas Undiagnosed new problem with uncertain prognosis? @ -No Drug Therapy requiring intensive monitoring for toxicity (Heparin, Nitro, Insulin, Cardizem)? @ -No Were any procedures done? @ -No Diagnosis/symptom? @ -Thrombophlebitis, rectal pain Acute, or Chronic, or Acute on Chronic? @ -Acute Uncomplicated (without systemic symptoms) or Complicated (systemic symptoms)? @ -Uncomplicated Side effects of treatment? @ -No Exacerbation, Progression, or Severe Exacerbation? @ -No Poses a threat to life or bodily function? How? (Chest pain, [place], [place], pneumonia, PE, COPD, DKA, ARF, appy, cholecystitis, CVA, Diverticulitis, Homicidal, Suicidal, threat to staff... and all critical care pts) @ -No - Lab Data Lab Results 11/15/23 Range/Units 03:34 Urine Color Yellow Urine Appearance Clear (Clear) Urine pH 6.0 (5.0-8.0) Ur Specific [place] 1.023 (1.001-1.035) Urine Protein Negative (Negative) Urine Glucose (UA) Negative (Negative) Urine Ketones Negative (Negative) Urine Blood Negative (Negative) Urine Nitrite Negative (Negative) Urine Bilirubin Negative (Negative) Urine Urobilinogen 3.0 (<2.0) mg/dL Ur Leukocyte Esterase Negative (Negative) Disposition Clinical Impression: Thrombophlebitis, Groin pain Disposition: HOME SELF-CARE Condition: Good Instructions (If sedation given, give patient instructions): High Fiber Diet (ED), Superficial Thrombophlebitis (ED) Additional Instructions: Follow-up with PCP and urology. Report back to ER with any new or worsening symptoms. Is patient prescribed a controlled substance at d/c from ED?: No Referrals: Lon Downs MD [STAFF PHYSICIAN] - 1-2 days Anil Martinez MD [STAFF PHYSICIAN] - 1-2 days Time of Disposition: 04:43
[2023-11-15] MEDS: ORPHENADRINE 30 MG/ML 2 ML VIAL IM STA (05:01)
[2023-11-15 05:21] VITALS: BP 128/87; PULSE 82
== END 2023-11-15 05:10 | disposition home or self-care (01) ==
LOC: EC 02:23
DX: I80.9 Phlebitis and thrombophlebitis of unspecified site (principal); R10.31 Right lower quadrant pain; Z86.59 Personal history of other mental and behavioral disorders; Z88.8 Allergy status to other drugs, medicaments and biological substances
CPT/HCPCS: 81003; 99283; 96372; J1170

== ENCOUNTER 2023-11-17 16:55 | Emergency (ER) | payer OTHER ==
[2023-11-17 17:25] VITALS: BP 151/87; PULSE 95; RESP 20; TEMP 98.4
--- NOTE | 2023-11-17 18:33 | ED ---
General Adult HPI - General Source: patient, RN notes reviewed Mode of arrival: ambulatory Limitations: no limitations <Brayan Raymond - Last Filed: 11/17/23 18:32> <Butch Hall - Last Filed: 11/17/23 20:36> - General Chief complaint: Recheck/Abnormal Lab/Rx Stated complaint: Bowel issues Time Seen by Provider: 11/17/23 18:32 - History of Present Illness Initial comments: 33-year-old male presents emergency department complaint of rectal pain. Patient states this started last day. Patient states it worsened last few hours. Patient dates he does have some lower abdominal pain. Patient states has been an issue with his groin over the last several days (Brayan Raymond) 33-year-old male with a past medical history significant for hemophilia A presenting to the ED with a chief complaint of rectal pain. Patient notes his last "full" bowel movement was 2 weeks ago. Since then, has only had normal sized bowel movements. States was previously seen here for constipation and was provided stool softeners but has since run out. Patient states today he was having a bowel movement when he started to use some abdominal rectal pain. States that he has a sensation that he still needs to have a bowel movement but is unable to. Otherwise no changes in bowel habits. No changes in bladder habits. States some associated nausea no vomiting. No chest pain or shortness of breath. Denies rectal bleeding. No other complaints. (Butch Hall) - Related Data Home Medications Medication Instructions Recorded Confirmed HYDROcodone/APAP 5-325MG [[place] 1 tab PO QID 12/25/22 05/19/23 5-325] Jivi 2800 Iu 2,800 units IV DIRECTED PRN 05/19/23 05/19/23 Jivi 2800 Iu 2,800 units IV MOTH 05/19/23 05/19/23 Previous Rx's Medication Instructions Recorded Azithromycin [Zithromax Z Pack] 1 tab PO DIRECTED #6 tab 07/11/23 Azithromycin [Zithromax Tri-Rl (3 500 mg PO DAILY 3 Days #3 tab 08/13/23 tabs)] Allergies Allergy/AdvReac Type Severity Reaction Status Date / Time aspirin AdvReac contraindicated Verified 11/17/23 17:10 d/t hemophilia NSAIDS (Non-Steroidal AdvReac contraindicated Verified 11/17/23 17:10 Anti-Inflamma d/t hemophilia Review of Systems ROS Other: All systems not noted in ROS Statement are negative. <Brayan Raymond - Last Filed: 11/17/23 18:32> ROS Other: All systems not noted in ROS Statement are negative. <Butch Hall - Last Filed: 11/17/23 20:36> ROS Statement: Those systems with pertinent positive or pertinent negative responses have been documented in the HPI. 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 History of Any Multi-Drug Resistant Organisms: None Reported Past Surgical History: No Surgical Hx Reported Additional Past Surgical History / Comment(s): lithotripsy Past Anesthesia/Blood Transfusion Reactions: No Reported Reaction Additional Past Anesthesia/Blood Transfusion Reaction / Comment(s): Pt has never had anesthesia. He received blood in past without reaction. Past Psychological History: ADD/ADHD, Anxiety, Bipolar, Depression Smoking Status: Current every day smoker Past Alcohol Use History: None Reported, Rare Past Drug Use History: None Reported - Past Family History Father History Unknown: Yes Additional Family Medical History / Comment(s): patient does not know any medical history on him. Mother Family Medical History: Respiratory Disorder Additional Family Medical History / Comment(s): Mother is alive at age 56 with history of pulmonary hypertension. Brother(s) Additional Family Medical History / Comment(s): He has 2 brothers with no major medical problems. He has 6 sisters with no major medical problems. He has a grandfather and cousins with hemophilia. <Brayan Raymond - Last Filed: 11/17/23 18:32> General Exam Limitations: no limitations <Brayan Raymond - Last Filed: 11/17/23 18:32> General appearance: alert, in no apparent distress Eye exam: Present: normal appearance Neck exam: Present: normal inspection Respiratory exam: Present: normal lung sounds bilaterally Cardiovascular Exam: Present: regular rate, normal rhythm GI/Abdominal exam: Present: soft (Some tenderness to palpation diffusely across lower abdomen. No rebound guarding or rigidity. Bowel sounds present.) Rectal exam: Present: other (Stool in rectal vault.) Neurological exam: Present: alert, oriented X3 Skin exam: Present: warm, dry <Butch Hall - Last Filed: 11/17/23 20:36> - General Exam Comments Initial Comments: Visual Physical Exam Vital signs reviewed General: Well-appearing, nontoxic, no acute distress. Head: Normocephalic, atraumatic Eyes: PERRLA, EOMI ENT: Airway patent Chest: Nonlabored breathing Skin: No visual rash, normal skin tone Neuro: Alert and oriented 3 Musculoskeletal: No gross abnormalities (Brayan Raymond) Course Vital Signs 11/17/23 17:09 Temperature 98.4 F Pulse Rate 95 Respiratory 20 Rate Blood Pressure 151/87 O2 Sat by Pulse 99 Oximetry Medical Decision Making <Brayan Raymond - Last Filed: 11/17/23 18:32> - Lab Data Result diagrams: 11/17/23 19:44 11/17/23 19:44 <Butch Hall - Last Filed: 11/17/23 20:36> - Medical Decision Making I completed the quick note portion of this chart signed Brayan Raymond PA-C (Brayan Raymond) Was pt. sent in by a medical professional or institution ([facility], REAL ESTATE RENTAL AGENT, urgent care, hospital, or residential...) When possible be specific @ -No Did you speak to anyone other than the patient for history (EMS, parent, family, police, friend...)? What history was obtained from this source @ -No Did you review nursing and triage notes (agree or disagree)? Why? @ -I reviewed and agree with nursing and triage notes Were old charts reviewed (outside hosp., previous admission, EMS record, old EKG, old radiological studies, urgent care reports/EKG's, residential records)? Report findings @ -No old charts were reviewed Differential Diagnosis (chest pain, altered mental status, abdominal pain women, abdominal pain men, vaginal bleeding, weakness, fever, dyspnea, syncope, headache, dizziness, GI bleed, back pain, seizure, CVA, palpatations, mental health, musculoskeletal)? @ -Differential Abdominal Pain Men: Appendicitis, cholecystitis, diverticulosis, ischemic bowel, pancreatitis, hepatitis, UTI, gastroenteritis, AAA, incarcerated hernia, bowel obstruction, constipation, inflammatory bowel, hepatitis, peptic ulcer disease, splenic infarction, perforated viscus, testicular torsion, this is not meant to be an all-inclusive list EKG interpreted by me (3pts min.). @ -None X-rays interpreted by me (1pt min.). @ -None done CT interpreted by me (1pt min.). @ -None done U/S interpreted by me (1pt. min.). @ -None done What testing was considered but not performed or refused? (CT, X-rays, U/S, labs)? Why? @ -None What meds were considered but not given or refused? Why? @ -None Did you discuss the management of the patient with other professionals (professionals i.e. , PA, REAL ESTATE RENTAL AGENT, lab, RT, psych nurse, criminal justice social worker, pit slagman, teacher, fare enforcement officer, shelter case manager)? Give summary @ -No Was smoking cessation discussed for >3mins.? @ -No Was critical care preformed (if so, how long)? @ -No Were there social determinants of health that impacted care today? How? (Homel essness, low income, unemployed, alcoholism, drug addiction, transportation, low edu. Level, literacy, decrease access to med. care, skilled nursing, rehab)? @ -No Was there de-escalation of care discussed even if they declined (Discuss DNR or withdrawal of care, Hospice)? DNR status @ -No What co-morbidities impacted this encounter? (DM, HTN, Smoking, COPD, CAD, Cancer, CVA, ARF, Chemo, Hep., AIDS, mental health diagnosis, sleep apnea, morbid obesity)? @ -None Was patient admitted / discharged? Hospital course, mention meds given and route, prescriptions, significant lab abnormalities, going to OR and other pertinent info. @ -Left AGAINST MEDICAL ADVICE 33-year-old male presenting to the ED with complaints of constipation rectal pain, abdominal pain nausea. Imaging and lab work was to be obtained however patient left AGAINST MEDICAL ADVICE prior to completion of studies. Undiagnosed new problem with uncertain prognosis? @ -No Drug Therapy requiring intensive monitoring for toxicity (Heparin, Nitro, Insulin, Cardizem)? @ -No Were any procedures done? @ -No Diagnosis/symptom? @ -Abdominal pain, rectal pain, nausea Acute, or Chronic, or Acute on Chronic? @ -Acute Uncomplicated (without systemic symptoms) or Complicated (systemic symptoms)? @ -Uncomplicated Side effects of treatment? @ -No Exacerbation, Progression, or Severe Exacerbation? @ -No Poses a threat to life or bodily function? How? (Chest pain, [place], [place], pneumonia, PE, COPD, DKA, ARF, appy, cholecystitis, CVA, Diverticulitis, Homicidal, Suicidal, threat to staff... and all critical care pts) @ -Possibly (Butch Hall) - Lab Data Lab Results 11/17/23 11/17/23 Range/Units 19:44 19:44 WBC 6.6 (3.8-10.6) k/uL RBC 4.47 (4.30-5.90) m/uL Hgb 14.2 (13.0-17.5) gm/dL Hct 41.3 (39.0-53.0) % MCV 92.4 (80.0-100.0) fL MCH 31.8 (25.0-35.0) pg MCHC 34.4 (31.0-37.0) g/dL RDW 13.0 (11.5-15.5) % Plt Count 159 (150-450) k/uL MPV 7.6 Neutrophils % 46 % Lymphocytes % 46 % Monocytes % 5 % Eosinophils % 2 % Basophils % 0 % Neutrophils # 3.0 (1.3-7.7) k/uL Lymphocytes # 3.0 (1.0-4.8) k/uL Monocytes # 0.3 (0-1.0) k/uL Eosinophils # 0.1 (0-0.7) k/uL Basophils # 0.0 (0-0.2) k/uL Sodium 140 (137-145) mmol/L Potassium 4.0 (3.5-5.1) mmol/L Chloride 107 (98-107) mmol/L Carbon Dioxide 28 (22-30) mmol/L Anion Gap 5 mmol/L BUN 14 (9-20) mg/dL Creatinine 0.77 (0.66-1.25) mg/dL Est GFR (CKD-EPI)AfAm >90 (>60 ml/min/1.73 sqM) Est GFR (CKD-EPI)NonAf >90 (>60 ml/min/1.73 sqM) Glucose 105 H (74-99) mg/dL Calcium 9.0 (8.4-10.2) mg/dL Total Bilirubin 0.8 (0.2-1.3) mg/dL AST 31 (17-59) U/L ALT 41 (4-49) U/L Alkaline Phosphatase 58 (38-126) U/L Total Protein 7.1 (6.3-8.2) g/dL Albumin 4.2 (3.5-5.0) g/dL Amylase 60 (30-110) U/L Lipase 57 (23-300) U/L Disposition <Brayan Raymond - Last Filed: 11/17/23 18:32> <Butch Hall - Last Filed: 11/17/23 20:36> Clinical Impression: Abdominal pain Disposition: LEFT AGAINST MEDICAL ADVICE Condition: Undetermined Referrals: None,Stated [Primary Care Provider] - 1-2 days
[2023-11-17] MEDS ORDERED: ACETAMINOPHEN TAB 500 MG TAB PO STA (19:37)
[2023-11-17 20:00] LABS: Basophils % (A) 0 %; Eosinophils # (A) 0.1 k/uL (0-0.7); Eosinophils % (A) 2 %; HCT 41.3 % (39.0-53.0); HGB 14.2 gm/dL (13.0-17.5); Lymphocytes % (A) 46 %; MCH 31.8 pg (25.0-35.0); MCHC 34.4 g/dL (31.0-37.0); MCV 92.4 fL (80.0-100.0); Mean Platelet Volume 7.6; Monocytes # (A) 0.3 k/uL (0-1.0); Monocytes % (A) 5 %; Neutrophils % (A) 46 %; Platelet Count 159 k/uL (150-450); RBC 4.47 m/uL (4.30-5.90); WBC 6.6 k/uL (3.8-10.6)
[2023-11-17 20:09] LABS: ALT 41 U/L (4-49); AST 31 U/L (17-59); African American GFR (CKD) >90 (>60 ml/min/1.73 sqM); Albumin 4.2 g/dL (3.5-5.0); Alkaline Phosphatase 58 U/L (38-126); Amylase 60 U/L (30-110); Anion Gap 5 mmol/L; Blood Urea Nitrogen 14 mg/dL (9-20); Carbon Dioxide 28 mmol/L (22-30); Chloride 107 mmol/L (98-107); Glucose 105 mg/dL (74-99); Lipase 57 U/L (23-300); Non-African American GFR(CKD) >90 (>60 ml/min/1.73 sqM); Sodium 140 mmol/L (137-145); Total Bilirubin 0.8 mg/dL (0.2-1.3); Total Protein 7.1 g/dL (6.3-8.2)
[2023-11-17 20:38] LABS: INR 1.1 (<1.2); Prothrombin Time 11.5 sec (10.0-12.5)
[2023-11-17 20:43] LABS: Partial Thromboplastin Time 62.6 sec (22.0-30.0)
== END 2023-11-17 20:25 | disposition left against medical advice (07) ==
LOC: EC 16:55
DX: K62.89 Other specified diseases of anus and rectum (principal); F17.200 Nicotine dependence, unspecified, uncomplicated; Z86.59 Personal history of other mental and behavioral disorders; Z88.6 Allergy status to analgesic agent; Z91.048 Other nonmedicinal substance allergy status; Z53.29 Procedure and treatment not carried out because of patient's decision for other reasons
CPT/HCPCS: 36415; 80053; 82150; 83690; 85025; 85610; 85730; 99283

== ENCOUNTER 2024-02-03 19:46 | Emergency (ER) | payer OTHER ==
--- NOTE | 2024-02-03 20:17 | ED ---
ENT HPI - General Source: patient Mode of arrival: ambulatory Limitations: no limitations <Butch Hall - Last Filed: 02/03/24 20:37> <Jennifer Arthur - Last Filed: 02/08/24 23:37> - General Chief complaint: ENT Stated complaint: throat pain infection Time Seen by Provider: 02/03/24 20:16 - History of Present Illness Initial comments: 33-year-old male with a past medical history significant for hemophilia A presen ts to the ED with a chief complaint of sore throat. Patient reports that he was sitting on the couch when he heard a pop on the left side of his neck. Since then he reports that his voice changed and he has been having left-sided neck and facial pain. Also reports feeling "off balance". (Butch Hall) 33-year-old male presents to the emergency department for evaluation of sore throat, neck pain. He states that while sitting on the couch he thought he heard a pop from his neck. He states that he has had anterior neck discomfort. He states this is worse with palpation. He did not try anything at home to help with the pain. Denies fever, chills, nausea, vomiting, headache. (Jennifer Arthur) - Related Data Home Medications Medication Instructions Recorded Confirmed HYDROcodone/APAP 5-325MG [[place] 1 tab PO QID 12/25/22 05/19/23 5-325] Jivi 2800 Iu 2,800 units IV DIRECTED PRN 05/19/23 05/19/23 Jivi 2800 Iu 2,800 units IV MOTH 05/19/23 05/19/23 Previous Rx's Medication Instructions Recorded Azithromycin [Zithromax Z Pack] 1 tab PO DIRECTED #6 tab 07/11/23 Azithromycin [Zithromax Tri-Rl (3 500 mg PO DAILY 3 Days #3 tab 08/13/23 tabs)] Allergies Allergy/AdvReac Type Severity Reaction Status Date / Time aspirin AdvReac contraindicated Verified 02/03/24 20:04 d/t hemophilia NSAIDS (Non-Steroidal AdvReac contraindicated Verified 02/03/24 20:04 Anti-Inflamma d/t hemophilia Review of Systems ROS Other: All systems not noted in ROS Statement are negative. <Butch Hall - Last Filed: 02/03/24 20:37> ROS Other: All systems not noted in ROS Statement are negative. <Jennifer Arthur - Last Filed: 02/08/24 23:37> ROS Statement: Those systems with pertinent positive or pertinent negative responses have been documented in the HPI. 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 History of Any Multi-Drug Resistant Organisms: None Reported Past Surgical History: No Surgical Hx Reported Additional Past Surgical History / Comment(s): lithotripsy Past Anesthesia/Blood Transfusion Reactions: No Reported Reaction Additional Past Anesthesia/Blood Transfusion Reaction / Comment(s): Pt has never had anesthesia. He received blood in past without reaction. Past Psychological History: ADD/ADHD, Anxiety, Bipolar, Depression Smoking Status: Current every day smoker Past Alcohol Use History: None Reported Past Drug Use History: None Reported - Past Family History Father History Unknown: Yes Additional Family Medical History / Comment(s): patient does not know any medical history on him. Mother Family Medical History: Respiratory Disorder Additional Family Medical History / Comment(s): Mother is alive at age 56 with history of pulmonary hypertension. Brother(s) Additional Family Medical History / Comment(s): He has 2 brothers with no major medical problems. He has 6 sisters with no major medical problems. He has a grandfather and cousins with hemophilia. <Butch Hall - Last Filed: 02/03/24 20:37> General Exam Limitations: no limitations <Butch Hall - Last Filed: 02/03/24 20:37> Limitations: no limitations General appearance: alert, in no apparent distress Head exam: Present: atraumatic, normocephalic, normal inspection Eye exam: Present: normal appearance, PERRL, EOMI. Absent: scleral icterus, conjunctival injection, periorbital swelling ENT exam: Present: normal exam, normal oropharynx, mucous membranes moist, TM's normal bilaterally, normal external ear exam Neck exam: Present: normal inspection, tenderness (TTP over anterior neck). Absent: meningismus, lymphadenopathy Respiratory exam: Present: normal lung sounds bilaterally. Absent: respiratory distress, wheezes, rales, rhonchi, stridor Cardiovascular Exam: Present: regular rate, normal rhythm, normal heart sounds. Absent: systolic murmur, diastolic murmur, rubs, gallop, clicks GI/Abdominal exam: Present: soft. Absent: distended, tenderness, guarding, rebound, rigid Extremities exam: Present: normal inspection, full ROM, normal capillary refill. Absent: tenderness, pedal edema, joint swelling, calf tenderness Back exam: Present: normal inspection Neurological exam: Present: alert, oriented X3, CN II-XII intact, normal gait. Absent: motor sensory deficit Psychiatric exam: Present: normal affect, normal mood Skin exam: Present: warm, dry, intact, normal color. Absent: rash <Jennifer Arthur - Last Filed: 02/08/24 23:37> - General Exam Comments Initial Comments: visual Physical Exam Vital signs reviewed General: Well-appearing, nontoxic, no acute distress. Head: Normocephalic, atraumatic Eyes: PERRLA, EOMI ENT: Airway patent Chest: Nonlabored breathing Skin: No visual rash, normal skin tone Neuro: Alert and oriented 3 Musculoskeletal: No gross abnormalities (Butch Hall) Course Vital Signs 02/03/24 02/04/24 19:57 00:16 Temperature 98.5 F 98.6 F Pulse Rate 87 78 Respiratory 18 20 Rate Blood Pressure 155/79 136/70 O2 Sat by Pulse 100 97 Oximetry Medical Decision Making <Butch Hall - Last Filed: 02/03/24 20:37> - Lab Data Result diagrams: 02/03/24 20:46 02/03/24 20:46 <Jennifer Arthur - Last Filed: 02/08/24 23:37> - Medical Decision Making Quicknote portion performed. Signed Butch Hall PA-C (Butch Hall) Was pt. sent in by a medical professional or institution ([facility], CNC ROUTER OPERATOR, urgent care, hospital, or alf...) When possible be specific @ -No Did you speak to anyone other than the patient for history (EMS, parent, family, police, friend...)? What history was obtained from this source @ -No Did you review nursing and triage notes (agree or disagree)? Why? @ -I reviewed and agree with nursing and triage notes Were old charts reviewed (outside hosp., previous admission, EMS record, old EKG, old radiological studies, urgent care reports/EKG's, alf records)? Report findings @ -No old charts were reviewed Differential Diagnosis (chest pain, altered mental status, abdominal pain women, abdominal pain men, vaginal bleeding, weakness, fever, dyspnea, syncope, headache, dizziness, GI bleed, back pain, seizure, CVA, palpatations, mental health, musculoskeletal)? @ -Strep rhinitis, COVID, influenza, RSV, peritonsillar abscess, this list is not all inclusive EKG interpreted by me (3pts min.). @ -None X-rays interpreted by me (1pt min.). @ -None done CT interpreted by me (1pt min.). @ -CT soft tissue neck without contrast shows no acute abnormality U/S interpreted by me (1pt. min.). @ -None done What testing was considered but not performed or refused? (CT, X-rays, U/S, labs)? Why? @ -None What meds were considered but not given or refused? Why? @ -None Did you discuss the management of the patient with other professionals (pr ofessionals i.e. , PA, CNC ROUTER OPERATOR, lab, RT, psych nurse, social service coordinator, associate financial planner, teacher, staff electronic warfare officer, casework manager)? Give summary @ -No Was smoking cessation discussed for >3mins.? @ -No Was critical care preformed (if so, how long)? @ -No Were there social determinants of health that impacted care today? How? (Homelessness, low income, unemployed, alcoholism, drug addiction, transportation, low edu. Level, literacy, decrease access to med. care, shelter, rehab)? @ -No Was there de-escalation of care discussed even if they declined (Discuss DNR or withdrawal of care, Hospice)? DNR status @ -No What co-morbidities impacted this encounter? (DM, HTN, Smoking, COPD, CAD, Cancer, CVA, ARF, Chemo, Hep., AIDS, mental health diagnosis, sleep apnea, morbid obesity)? @ -None Was patient admitted / discharged? Hospital course, mention meds given and route, prescriptions, significant lab abnormalities, going to OR and other pertinent info. @ -Discharged. Patient presented to the emergency department for evaluation of neck pain. Laboratory studies obtained. No significant leukocytosis, hemoglobin stable; UA negative for signs of infectious process; COVID, influenza, RSV negative. Strep negative; CT soft tissue neck without contrast was obtained while patient is in the waiting room. Showed no acute abnormality with mild asymmetric densities in the region of the left fossa of Rosenmuller and left vallecula, likely related to secretions. Advised patient of findings. Advised ENT follow up. Patient understanding and agreeable with plan. Patient stable at time of discharge. Case discussed with Dr. Nicolas Undiagnosed new problem with uncertain prognosis? @ -No Drug Therapy requiring intensive monitoring for toxicity (Heparin, Nitro, Insulin, Cardizem)? @ -No Were any procedures done? @ -No Diagnosis/symptom? @ -Neck pain, sore throat Acute, or Chronic, or Acute on Chronic? @ -acute Uncomplicated (without systemic symptoms) or Complicated (systemic symptoms)? @ -uncomplicated Side effects of treatment? @ -No Exacerbation, Progression, or Severe Exacerbation? @ -No Poses a threat to life or bodily function? How? (Chest pain, USA, OR, pneumonia, PE, COPD, DKA, ARF, appy, cholecystitis, CVA, Diverticulitis, Homicidal, Suicidal, threat to staff... and all critical care pts) @ -No (Jennifer Arthur) - Lab Data Lab Results 02/03/24 02/03/24 02/03/24 Range/Units 20:46 20:46 20:46 WBC 6.1 (3.8-10.6) k/uL RBC 4.90 (4.30-5.90) m/uL Hgb 15.1 (13.0-17.5) gm/dL Hct 46.7 (39.0-53.0) % MCV 95.2 (80.0-100.0) fL MCH 30.8 (25.0-35.0) pg MCHC 32.3 (31.0-37.0) g/dL RDW 12.5 (11.5-15.5) % Plt Count 174 (150-450) k/uL MPV 7.1 Neutrophils % 49 % Lymphocytes % 41 % Monocytes % 5 % Eosinophils % 2 % Basophils % 1 % Neutrophils # 3.0 (1.3-7.7) k/uL Lymphocytes # 2.5 (1.0-4.8) k/uL Monocytes # 0.3 (0-1.0) k/uL Eosinophils # 0.1 (0-0.7) k/uL Basophils # 0.1 (0-0.2) k/uL PT 11.2 (10.0-12.5) sec INR 1.0 (<1.2) APTT 58.0 H (22.0-30.0) sec Sodium 142 (137-145) mmol/L Potassium 4.2 (3.5-5.1) mmol/L Chloride 105 (98-107) mmol/L Carbon Dioxide 28 (22-30) mmol/L Anion Gap 9 mmol/L BUN 11 (9-20) mg/dL Creatinine 0.71 (0.66-1.25) mg/dL Est GFR (CKD-EPI)AfAm >90 (>60 ml/min/1.73 sqM) Est GFR (CKD-EPI)NonAf >90 (>60 ml/min/1.73 sqM) Glucose 113 H (74-99) mg/dL Calcium 9.3 (8.4-10.2) mg/dL Total Bilirubin 1.0 (0.2-1.3) mg/dL AST 37 (17-59) U/L ALT 70 H (4-49) U/L Alkaline Phosphatase 62 (38-126) U/L Total Protein 7.6 (6.3-8.2) g/dL Albumin 4.6 (3.5-5.0) g/dL Urine Color Urine Appearance (Clear) Urine pH (5.0-8.0) Ur Specific Mcdonald (1.001-1.035) Urine Protein (Negative) Urine Glucose (UA) (Negative) Urine Ketones (Negative) Urine Blood (Negative) Urine Nitrite (Negative) Urine Bilirubin (Negative) Urine Urobilinogen (<2.0) mg/dL Ur Leukocyte Esterase (Negative) Influenza Type A (PCR) (Not Detectd) Influenza Type B (PCR) (Not Detectd) RSV (PCR) (Not Detectd) SARS-CoV-2 (PCR) (Not Detectd) Group A Strep (PCR) (Not Detectd) 02/03/24 02/03/24 02/03/24 Range/Units 20:46 20:46 20:53 WBC (3.8-10.6) k/uL RBC (4.30-5.90) m/uL Hgb (13.0-17.5) gm/dL Hct (39.0-53.0) % MCV (80.0-100.0) fL MCH (25.0-35.0) pg MCHC (31.0-37.0) g/dL RDW (11.5-15.5) % Plt Count (150-450) k/uL MPV Neutrophils % % Lymphocytes % % Monocytes % % Eosinophils % % Basophils % % Neutrophils # (1.3-7.7) k/uL Lymphocytes # (1.0-4.8) k/uL Monocytes # (0-1.0) k/uL Eosinophils # (0-0.7) k/uL Basophils # (0-0.2) k/uL PT (10.0-12.5) sec INR (<1.2) APTT (22.0-30.0) sec Sodium (137-145) mmol/L Potassium (3.5-5.1) mmol/L Chloride (98-107) mmol/L Carbon Dioxide (22-30) mmol/L Anion Gap mmol/L BUN (9-20) mg/dL Creatinine (0.66-1.25) mg/dL Est GFR (CKD-EPI)AfAm (>60 ml/min/1.73 sqM) Est GFR (CKD-EPI)NonAf (>60 ml/min/1.73 sqM) Glucose (74-99) mg/dL Calcium (8.4-10.2) mg/dL Total Bilirubin (0.2-1.3) mg/dL AST (17-59) U/L ALT (4-49) U/L Alkaline Phosphatase (38-126) U/L Total Protein (6.3-8.2) g/dL Albumin (3.5-5.0) g/dL Urine Color Light Yellow Urine Appearance Clear (Clear) Urine pH 7.0 (5.0-8.0) Ur Specific Mcdonald 1.015 (1.001-1.035) Urine Protein Negative (Negative) Urine Glucose (UA) Negative (Negative) Urine Ketones Negative (Negative) Urine Blood Negative (Negative) Urine Nitrite Negative (Negative) Urine Bilirubin Negative (Negative) Urine Urobilinogen 6.0 (<2.0) mg/dL Ur Leukocyte Esterase Negative (Negative) Influenza Type A (PCR) Not Detected (Not Detectd) Influenza Type B (PCR) Not Detected (Not Detectd) RSV (PCR) Not Detected (Not Detectd) SARS-CoV-2 (PCR) Not Detected (Not Detectd) Group A Strep (PCR) NOT DETECTED (Not Detectd) Disposition <Butch Hall - Last Filed: 02/03/24 20:37> Is patient prescribed a controlled substance at d/c from ED?: No <Jennifer Arthur - Last Filed: 02/08/24 23:37> Clinical Impression: Throat pain Disposition: HOME SELF-CARE Condition: Stable Instructions (If sedation given, give patient instructions): Neck Pain (ED) Additional Instructions: Please follow up with ENT. Return to the emergency department for new or worsening symptoms. Referrals: None,Stated [Primary Care Provider] - 1-2 days Cristóbal Garces MD [STAFF PHYSICIAN] - 1-2 days Forms: [facility] PCPs
[2024-02-03 20:52] LABS: Basophils # (A) 0.1 k/uL (0-0.2); Basophils % (A) 1 %; Eosinophils # (A) 0.1 k/uL (0-0.7); Eosinophils % (A) 2 %; HCT 46.7 % (39.0-53.0); HGB 15.1 gm/dL (13.0-17.5); Lymphocytes # (A) 2.5 k/uL (1.0-4.8); Lymphocytes % (A) 41 %; MCH 30.8 pg (25.0-35.0); MCHC 32.3 g/dL (31.0-37.0); MCV 95.2 fL (80.0-100.0); Mean Platelet Volume 7.1; Monocytes # (A) 0.3 k/uL (0-1.0); Monocytes % (A) 5 %; Neutrophils % (A) 49 %; Platelet Count 174 k/uL (150-450); RDW 12.5 % (11.5-15.5); WBC 6.1 k/uL (3.8-10.6)
[2024-02-03 21:01] LABS: ALT 70 U/L (4-49); AST 37 U/L (17-59); African American GFR (CKD) >90 (>60 ml/min/1.73 sqM); Albumin 4.6 g/dL (3.5-5.0); Alkaline Phosphatase 62 U/L (38-126); Anion Gap 9 mmol/L; Blood Urea Nitrogen 11 mg/dL (9-20); Calcium 9.3 mg/dL (8.4-10.2); Carbon Dioxide 28 mmol/L (22-30); Chloride 105 mmol/L (98-107); Glucose 113 mg/dL (74-99); Non-African American GFR(CKD) >90 (>60 ml/min/1.73 sqM); Sodium 142 mmol/L (137-145); Total Protein 7.6 g/dL (6.3-8.2)
[2024-02-03 21:25] LABS: Prothrombin Time 11.2 sec (10.0-12.5)
[2024-02-03 21:26] LABS: Potassium 4.2 mmol/L (3.5-5.1)
[2024-02-03 21:46] LABS: Appearance,Urine Clear (Clear); Bilirubin,Urine Negative (Negative); Blood,Urine Negative (Negative); Color,Urine Light Yellow; Glucose,Urine (UA) Negative (Negative); Ketones,Urine Negative (Negative); Leukocyte Esterase,Urine Negative (Negative); Nitrite,Urine Negative (Negative); Protein,Urine Negative (Negative); Specific Gravity,Urine 1.015 (1.001-1.035)
--- NOTE | 2024-02-03 23:34 | CT ---
EXAMINATION TYPE: CT soft tissue neck wo con CT DLP: 238.4 mGycm, Automated exposure control for dose reduction was used. DATE OF EXAM: 02/03/2024 9:12 PM COMPARISON: None. CLINICAL INDICATION:Male, 33 years old with history of left sided headache/neck pain; PHH, Sore throa t, difficulty swallowing and talking. Pain on left side of head and neck. TECHNIQUE: Noncontrast CT of the neck was performed with multiplanar reformats. IV contrast used: None. Oral contrast used: None. FINDINGS: No evidence of radiopaque white this is skeletal foreign body. CT examination of the neck is otherwise markedly limited without IV contrast. Musculoskeletal: No significant degenerative changes of the cervical spine. No evidence of an acute b sravan abnormality. Visualized facial bones appear grossly intact. There is extensive and ongoing evidence of chronic den wendy disease and active dental caries. Several teeth are chronically missing. In the right anterior mandible there is an ovoid fairly circumscribed hypoattenuating structure which abuts and surrounds the roots of multiple teeth, compatible with a periapical lucency, nonspecific f inding. Sinuses: There is minimal mucosal thickening in the ethmoid sinuses. Mastoid air cells are clear. Brain: Visualized portions are grossly unremarkable. Orbits: Unremarkable Spaces of the neck: Clear and symmetric. Pharyngeal mucosal space: Mild asymmetric density in the region of the left fossa of Rosenmuller. Mil d asymmetric density in the region of the left vallecula. Thoracic Inlet/airway: Epiglottis appears within normal limits. Airway is patent. The lung apices are clear. Lymph nodes: No abnormal bulky or necrotic nodes are seen.. Vascular structures: No significant calcifications. Soft tissues/Thyroid: Thyroid and remainder of the soft tissues are unremarkable. Other: None significant. IMPRESSION 1. Limited unenhanced CT of the neck shows no clear evidence of an acute or concerning abnormality. 2. Mild asymmetric densities in the region of the left fossa of Rosenmuller and left vallecula, like ly reflect secretions or other benign asymmetry, however mucosal lesions cannot be entirely excluded. Please correlate clinically with direct visual inspection.
[2024-02-04 01:25] VITALS: BP 136/70; PULSE 78; RESP 20; TEMP 98.6
== END 2024-02-04 00:18 | disposition home or self-care (01) ==
LOC: EC 19:46
DX: R07.0 Pain in throat (principal); M54.2 Cervicalgia; F17.200 Nicotine dependence, unspecified, uncomplicated; Z88.6 Allergy status to analgesic agent
CPT/HCPCS: 36415; 70490; 80053; 81003; 85025; 85610; 85730; 87636; 87651; 99283

== ENCOUNTER 2024-04-25 20:36 | Emergency (ER) | payer OTHER ==
[2024-04-25 20:41] VITALS: TEMP 98.2
--- NOTE | 2024-04-25 21:51 | XR ---
EXAMINATION TYPE: XR chest 2V DATE OF EXAM: 04/25/2024 9:45 PM CLINICAL INDICATION:Male, 33 years old with history of Chest Pain; PHH COMPARISON: None TECHNIQUE: XR chest 2V Frontal view of the chest. FINDINGS: Lungs/Pleura: There is no evidence of pleural effusion, focal consolidation, or pneumothorax. Pulmonary vascularity: Unremarkable. Heart/mediastinum: Cardiomediastinal silhouette is unremarkable. Musculoskeletal: No acute osseous pathology. IMPRESSION: No acute cardiopulmonary disease/process.
--- NOTE | 2024-04-25 22:30 | ED ---
General Adult HPI - General Source: patient Mode of arrival: ambulatory Limitations: no limitations <Jennifer Arthur - Last Filed: 04/25/24 22:22> - General Source: patient, RN notes reviewed, old records reviewed <Eric Gutierrez - Last Filed: 04/26/24 00:40> - General Chief complaint: Chest Pain Stated complaint: chest pain,sob Time Seen by Provider: 04/25/24 21:38 - History of Present Illness Initial comments: Quick note: 33-year-old male presents to the emergency department for evaluation of shortness of breath and palpitations. Patient states that this started today. He also reports that he had some discomfort in his throat which is fernando ng it feel like it is difficult to breathe. (Jennifer Arthur) Patient is a 33-year-old male with past medical history markable for hemophilia, anxiety presents emergency department complaining of chest pain. States the pain has been on and off for days to weeks. Describes the pain as hard heartbeats in his chest. Currently does not have the pain. States he felt like his throat was tight at that time as well. Does have a history of anxiety. Denies any drug or alcohol use. Denies any cardiac history. Denies any other acute complaints. Currently is resting comfortably at this time. Does have a history of chronic pain for which he takes [place] and is asking for some morphine for that. Denies any current chest pain or shortness of breath. Presents for further evaluation. Once again, these are not acute complaints but has been ongoing for multiple days recently but on and off for weeks to months. The "chest pain" seems to be more heart palpitations. (Eric Gutierrez) - Related Data Home Medications Medication Instructions Recorded Confirmed HYDROcodone/APAP 5-325MG [[place] 1 tab PO QID 12/25/22 05/19/23 5-325] Jivi 2800 Iu 2,800 units IV DIRECTED PRN 05/19/23 05/19/23 Jivi 2800 Iu 2,800 units IV MOTH 05/19/23 05/19/23 Previous Rx's Medication Instructions Recorded Azithromycin [Zithromax Z Pack] 1 tab PO DIRECTED #6 tab 07/11/23 Azithromycin [Zithromax Tri-Rl (3 500 mg PO DAILY 3 Days #3 tab 08/13/23 tabs)] Allergies Allergy/AdvReac Type Severity Reaction Status Date / Time aspirin AdvReac contraindicated Verified 04/25/24 20:40 d/t hemophilia NSAIDS (Non-Steroidal AdvReac contraindicated Verified 04/25/24 20:40 Anti-Inflamma d/t hemophilia Review of Systems ROS Other: All systems not noted in ROS Statement are negative. <Jennifer Arthur - Last Filed: 04/25/24 22:22> ROS Other: All systems not noted in ROS Statement are negative. <Eric Gutierrez - Last Filed: 04/26/24 00:40> ROS Statement: Those systems with pertinent positive or pertinent negative responses have been documented in the HPI. Review of Systems: CONST: Denies fever EYES: Denies blurry vision ENT: Denies nasal congestion C/V: Denies Chest pain RESP: Denies shortness of breath GI: Denies abdominal pain : Denies dysuria SKIN: Denies rash. MSK: Denies joint pain. 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 History of Any Multi-Drug Resistant Organisms: None Reported Past Surgical History: No Surgical Hx Reported Additional Past Surgical History / Comment(s): lithotripsy Past Anesthesia/Blood Transfusion Reactions: No Reported Reaction Additional Past Anesthesia/Blood Transfusion Reaction / Comment(s): Pt has never had anesthesia. He received blood in past without reaction. Past Psychological History: ADD/ADHD, Anxiety, Bipolar, Depression Smoking Status: Current every day smoker Past Alcohol Use History: None Reported Past Drug Use History: None Reported - Past Family History Father History Unknown: Yes Additional Family Medical History / Comment(s): patient does not know any medical history on him. Mother Family Medical History: Respiratory Disorder Additional Family Medical History / Comment(s): Mother is alive at age 56 with history of pulmonary hypertension. Brother(s) Additional Family Medical History / Comment(s): He has 2 brothers with no major medical problems. He has 6 sisters with no major medical problems. He has a grandfather and cousins with hemophilia. <Jennifer Arthur - Last Filed: 04/25/24 22:22> General Exam Limitations: no limitations <Jennifer Arthur - Last Filed: 04/25/24 22:22> <Eric Gutierrez - Last Filed: 04/26/24 00:40> - General Exam Comments Initial Comments: Visual Physical Exam Vital signs reviewed General: Well-appearing, nontoxic, no acute distress. Head: Normocephalic, atraumatic Eyes: PERRLA, EOMI ENT: Airway patent Chest: Nonlabored breathing Skin: No visual rash, normal skin tone Neuro: Alert and oriented 3 Musculoskeletal: No gross abnormalities (Jennifer Arthur) General: Appears in no acute distress. HEAD: Normal with no signs of head trauma. EYES: PERRLA, EOMI, conjunctiva normal, no discharge. ENT: Hearing grossly intact, normal oropharynx. No stridor. Normal oropharynx. RESPIRATORY: Clear breath sounds bilaterally. No wheezes, rales, or rhonchi. C/V: Regular rate and rhythm. S1 and S2 auscultated, no edema, peripheral pulses 2+ and intact throughout ABD: Abd is soft, nontender, nondistended EXT: Normal range of motion, no obvious deformity SKIN: No rashes or lesions observed on exposed skin. NEURO: Alert and oriented x 4. Cranial nerves II-XII intact. No focal sensory or strength deficits. (Eric Gutierrez) Course Vital Signs 04/25/24 04/25/24 20:38 23:40 Temperature 98.2 F Pulse Rate 75 58 L Respiratory 16 18 Rate Blood Pressure 147/84 125/86 O2 Sat by Pulse 99 100 Oximetry Medical Decision Making <Jennifer Arthur - Last Filed: 04/25/24 22:22> - Lab Data Result diagrams: 04/25/24 23:08 04/25/24 23:08 - EKG Data -: EKG Interpreted by Ga <Eric Gutierrez - Last Filed: 04/26/24 00:40> - Medical Decision Making Quick note preformed and electronically signed by Jennifer Arthur PA-C (Jennifer Arthur) Was pt. sent in by a medical professional or institution (ANTONY Wise, RETAIL SECURITY PROFESSIONAL, urgent care, hospital, or half-way...) When possible be specific @ -No Did you speak to anyone other than the patient for history (EMS, parent, family, police, friend...)? What history was obtained from this source @ -No Did you review nursing and triage notes (agree or disagree)? Why? @ -I reviewed and agree with nursing and triage notes Were old charts reviewed (outside hosp., previous admission, EMS record, old EKG, old radiological studies, urgent care reports/EKG's, half-way records)? Report findings @ -No old charts were reviewed Differential Diagnosis (chest pain, altered mental status, abdominal pain women, abdominal pain men, vaginal bleeding, weakness, fever, dyspnea, syncope, headache, dizziness, GI bleed, back pain, seizure, CVA, palpatations, mental health, musculoskeletal)? @ -Differential Palpitations Ventricular arrhythmias, atrial arrhythmias, myocardial infarction, anemia, thyrotoxicosis, electrolyte imbalance, hypokalemia, pulmonary embolism, pulmonary disease, drugs, alcohol, anxiety, stress.... This is not meant to be an all-inclusive list. EKG interpreted by me (3pts min.). @ -As above X-rays interpreted by me (1pt min.). @ -Chest x-ray reveals no obvious acute cardiopulmonary process. CT interpreted by me (1pt min.). @ -None done U/S interpreted by me (1pt. min.). @ -None done What testing was considered but not performed or refused? (CT, X-rays, U/S, labs)? Why? @ -None What meds were considered but not given or refused? Why? @ -None Did you discuss the management of the patient with other professionals (professionals i.e. ANTONY Wise, RETAIL SECURITY PROFESSIONAL, lab, RT, psych nurse, social service technician, asset protection greeter, te acher, house officer, bus company manager)? Give summary @ -No Was smoking cessation discussed for >3mins.? @ -No Was critical care preformed (if so, how long)? @ -No Were there social determinants of health that impacted care today? How? (Homelessness, low income, unemployed, alcoholism, drug addiction, transportation, low edu. Level, literacy, decrease access to med. care, correction, rehab)? @ -No Was there de-escalation of care discussed even if they declined (Discuss DNR or withdrawal of care, Hospice)? DNR status @ -No What co-morbidities impacted this encounter? (DM, HTN, Smoking, COPD, CAD, C ancer, CVA, ARF, Chemo, Hep., AIDS, mental health diagnosis, sleep apnea, morbid obesity)? @ -None Was patient admitted / discharged? Hospital course, mention meds given and route, prescriptions, significant lab abnormalities, going to OR and other pertinent info. @ -Patient presents with what seems to be mostly anxiety but also complaining of generalized joint pain. Had an episode of chest pain earlier today. However when he describes it, seems to be more heart palpitations. This has been on and off for last few days as well as chronically for the last few weeks to months. May be slightly worse today which is why presents for further evaluation. He will be given a dose of Ativan as well as a dose of morphine for his chronic generalized joint pain. Will obtain cardiac workup. Originally seen as a quick note. Vital signs within acceptable limits. No current heart palpitations or chest pain. He was in agreement this plan. EKG shows no signs of acute ischemia. Repeat shows no dynamic changes. Chest x-ray unremarkable. Laboratory studies unremarkable. On reevaluation, he remains asymptomatic and feels improved in terms of his joint pain and the Ativan seem to help with some mild anxiety. I discussed results of his workup. Heart score is low. He will be discharged home at this time. He was in agreement this plan. I instructed the patient to follow up with their PCP in the next 1-3 days. I explained that the patient should return to the emergency department if they experience any worsening symptoms. Strict return precautions were discussed with the patient. The patient expressed understanding of these instructions. I answered all questions that the patient had. The patient was discharged home in good condition with their prescriptions and follow up information. Undiagnosed new problem with uncertain prognosis? @ -No Drug Therapy requiring intensive monitoring for toxicity (Heparin, Nitro, Insulin, Cardizem)? @ -No Were any procedures done? @ -No Diagnosis/symptom? @ -Heart palpitations, anxiety Acute, or Chronic, or Acute on Chronic? @ -Acute on chronic Uncomplicated (without systemic symptoms) or Complicated (systemic symptoms)? @ -Uncomplicated Side effects of treatment? @ -No Exacerbation, Progression, or Severe Exacerbation? @ -No Poses a threat to life or bodily function? How? (Chest pain, [place], [place], pneumonia, PE, COPD, DKA, ARF, appy, cholecystitis, CVA, Diverticulitis, Homicidal, Suicidal, threat to staff... and all critical care pts) @ -Unlikely (Eric Gutierrez) - Lab Data Lab Results 04/25/24 04/25/24 04/25/24 Range/Units 23:08 23:08 23:08 WBC 6.6 (3.8-10.6) k/uL RBC 4.61 (4.30-5.90) m/uL Hgb 14.6 (13.0-17.5) gm/dL Hct 43.6 (39.0-53.0) % MCV 94.6 (80.0-100.0) fL MCH 31.6 (25.0-35.0) pg MCHC 33.4 (31.0-37.0) g/dL RDW 12.5 (11.5-15.5) % Plt Count 131 L (150-450) k/uL MPV 7.9 Neutrophils % 36 % Lymphocytes % 55 % Monocytes % 5 % Eosinophils % 2 % Basophils % 0 % Neutrophils # 2.3 (1.3-7.7) k/uL Lymphocytes # 3.6 (1.0-4.8) k/uL Monocytes # 0.4 (0-1.0) k/uL Eosinophils # 0.2 (0-0.7) k/uL Basophils # 0.0 (0-0.2) k/uL PT 12.0 (10.0-12.5) sec INR 1.1 (<1.2) APTT 30.8 H (22.0-30.0) sec Sodium 137 (137-145) mmol/L Potassium 4.1 (3.5-5.1) mmol/L Chloride 104 (98-107) mmol/L Carbon Dioxide 28 (22-30) mmol/L Anion Gap 5 mmol/L BUN 12 (9-20) mg/dL Creatinine 0.71 (0.66-1.25) mg/dL Est GFR (CKD-EPI)AfAm >90 (>60 ml/min/1.73 sqM) Est GFR (CKD-EPI)NonAf >90 (>60 ml/min/1.73 sqM) Glucose 83 (74-99) mg/dL Calcium 9.4 (8.4-10.2) mg/dL Magnesium 1.7 (1.6-2.3) mg/dL Total Bilirubin 1.1 (0.2-1.3) mg/dL AST 33 (17-59) U/L ALT 48 (4-49) U/L Alkaline Phosphatase 47 (38-126) U/L Troponin I (0.000-0.034) ng/mL Total Protein 7.0 (6.3-8.2) g/dL Albumin 4.3 (3.5-5.0) g/dL 04/25/24 Range/Units 23:08 WBC (3.8-10.6) k/uL RBC (4.30-5.90) m/uL Hgb (13.0-17.5) gm/dL Hct (39.0-53.0) % MCV (80.0-100.0) fL MCH (25.0-35.0) pg MCHC (31.0-37.0) g/dL RDW (11.5-15.5) % Plt Count (150-450) k/uL MPV Neutrophils % % Lymphocytes % % Monocytes % % Eosinophils % % Basophils % % Neutrophils # (1.3-7.7) k/uL Lymphocytes # (1.0-4.8) k/uL Monocytes # (0-1.0) k/uL Eosinophils # (0-0.7) k/uL Basophils # (0-0.2) k/uL PT (10.0-12.5) sec INR (<1.2) APTT (22.0-30.0) sec Sodium (137-145) mmol/L Potassium (3.5-5.1) mmol/L Chloride (98-107) mmol/L Carbon Dioxide (22-30) mmol/L Anion Gap mmol/L BUN (9-20) mg/dL Creatinine (0.66-1.25) mg/dL Est GFR (CKD-EPI)AfAm (>60 ml/min/1.73 sqM) Est GFR (CKD-EPI)NonAf (>60 ml/min/1.73 sqM) Glucose (74-99) mg/dL Calcium (8.4-10.2) mg/dL Magnesium (1.6-2.3) mg/dL Total Bilirubin (0.2-1.3) mg/dL AST (17-59) U/L ALT (4-49) U/L Alkaline Phosphatase (38-126) U/L Troponin I 0.018 (0.000-0.034) ng/mL Total Protein (6.3-8.2) g/dL Albumin (3.5-5.0) g/dL - EKG Data EKG Comments: 12-lead Electrocardiogram Interpretation Note EKG was reviewed and interpreted by myself. 12-lead ECG performed at 4 is interpreted by me as revealing normal sinus rhythm at a rate of 71 beats per minute. [place] is normal. [place] interval is 130 ms, QRS durations 105 ms, QTc is 378 ms.. There were no ST or T wave abnormalities to suggest myocardial ischemia or injury. R wave progression across the precordium was satisfactory. By my interpretation this EKG is non-diagnostic for acute ischemia. 12-lead Electrocardiogram Interpretation Note EKG was reviewed and interpreted by myself. 12-lead ECG performed at 7 is interpreted by me as revealing sinus bradycardia at a rate of 58 beats per minute. [place] is normal. [place] interval is 153 ms, QRS duration is 106 ms, QTc is 375 ms.. There were no ST or T wave abnormalities to suggest myocardial ischemia or injury. R wave progression across the precordium was satisfactory. By my interpretation this EKG is non-diagnostic for acute ischemia. (Eric Gutierrez) Disposition <Jennifer Arthur - Last Filed: 04/25/24 22:22> Is patient prescribed a controlled substance at d/c from ED?: No Time of Disposition: 00:28 <Eric Gutierrez - Last Filed: 04/26/24 00:40> Clinical Impression: Heart palpitations, Acute anxiety Disposition: HOME SELF-CARE Condition: Good Instructions (If sedation given, give patient instructions): Heart Palpitations (ED) Referrals: None,Stated [Primary Care Provider] - 1-2 days Forms: Area PCPs
[2024-04-25] MEDS: LORazepam 0.5 MG TAB PO STA (23:34)
[2024-04-25 23:35] LABS: ALT 48 U/L (4-49); AST 33 U/L (17-59); African American GFR (CKD) >90 (>60 ml/min/1.73 sqM); Albumin 4.3 g/dL (3.5-5.0); Alkaline Phosphatase 47 U/L (38-126); Anion Gap 5 mmol/L; Blood Urea Nitrogen 12 mg/dL (9-20); Calcium 9.4 mg/dL (8.4-10.2); Carbon Dioxide 28 mmol/L (22-30); Chloride 104 mmol/L (98-107); Glucose 83 mg/dL (74-99); Magnesium 1.7 mg/dL (1.6-2.3); Non-African American GFR(CKD) >90 (>60 ml/min/1.73 sqM); Potassium 4.1 mmol/L (3.5-5.1); Sodium 137 mmol/L (137-145); Total Bilirubin 1.1 mg/dL (0.2-1.3)
[2024-04-25] MEDS: MORPHINE SULFATE 4 MG/ML SYRINGE IVP STA (23:35)
[2024-04-25 23:39] LABS: Basophils % (A) 0 %; Eosinophils # (A) 0.2 k/uL (0-0.7); Eosinophils % (A) 2 %; HCT 43.6 % (39.0-53.0); HGB 14.6 gm/dL (13.0-17.5); Lymphocytes # (A) 3.6 k/uL (1.0-4.8); Lymphocytes % (A) 55 %; MCH 31.6 pg (25.0-35.0); MCHC 33.4 g/dL (31.0-37.0); MCV 94.6 fL (80.0-100.0); Mean Platelet Volume 7.9; Monocytes # (A) 0.4 k/uL (0-1.0); Monocytes % (A) 5 %; Neutrophils # (A) 2.3 k/uL (1.3-7.7); Neutrophils % (A) 36 %; Platelet Count 131 k/uL (150-450); RBC 4.61 m/uL (4.30-5.90); RDW 12.5 % (11.5-15.5); WBC 6.6 k/uL (3.8-10.6)
[2024-04-25 23:41] VITALS: BP 125/86; PULSE 58; RESP 18
[2024-04-25 23:42] LABS: INR 1.1 (<1.2); Partial Thromboplastin Time 30.8 sec (22.0-30.0)
== END 2024-04-26 00:42 | disposition home or self-care (01) ==
LOC: EC 20:36
DX: F41.9 Anxiety disorder, unspecified (principal); R00.1 Bradycardia, unspecified; F17.200 Nicotine dependence, unspecified, uncomplicated; Z88.6 Allergy status to analgesic agent
CPT/HCPCS: 36415; 93005; 80053; 83735; 84484; 85025; 85610; 85730; 71046; 99285; 96374; J2270

== ENCOUNTER 2024-12-24 12:34 | Emergency (ER) | payer OTHER ==
--- NOTE | 2024-12-24 12:53 | ED ---
ENT HPI - General Source: patient, RN notes reviewed Mode of arrival: wheelchair Limitations: no limitations <Yonatan Keating - Last Filed: 12/24/24 12:52> <Andrei Cuevas - Last Filed: 12/30/24 14:23> - General Stated complaint: dizziness, dental issue Time Seen by Provider: 12/24/24 12:48 - History of Present Illness Initial comments: Quick note: This is a 34-year-old male with history of hemophilia presenting for tooth bleeding x 2 weeks. The patient states an upper left tooth has been bleeding for the past several weeks and has recently been experiencing nausea, dizziness and increased heart rate. Patient states he has had blood transfusions in the past and would like to have his hemoglobin checked due to the uncontrolled bleeding. Endorses history of poor dentition but denies concern for tooth infection today. (Yonatan Keating) - Related Data Home Medications Medication Instructions Recorded Confirmed HYDROcodone/APAP 5-325MG [[place] 1 tab PO QID 12/25/22 05/19/23 5-325] Jivi 2800 Iu 2,800 units IV DIRECTED PRN 05/19/23 05/19/23 Jivi 2800 Iu 2,800 units IV MOTH 05/19/23 05/19/23 Previous Rx's Medication Instructions Recorded Azithromycin [Zithromax Z Pack] 1 tab PO DIRECTED #6 tab 07/11/23 Azithromycin [Zithromax Tri-Rl (3 500 mg PO DAILY 3 Days #3 tab 08/13/23 tabs)] Allergies Allergy/AdvReac Type Severity Reaction Status Date / Time aspirin AdvReac contraindicated Verified 12/24/24 13:10 d/t hemophilia NSAIDS (Non-Steroidal AdvReac contraindicated Verified 12/24/24 13:10 Anti-Inflamma d/t hemophilia Review of Systems ROS Other: All systems not noted in ROS Statement are negative. <Yonatan Keating - Last Filed: 12/24/24 12:52> ROS Other: All systems not noted in ROS Statement are negative. <Andrei Cuevas - Last Filed: 12/30/24 14:23> ROS Statement: Those systems with pertinent positive or pertinent negative responses have been documented in the HPI. 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 History of Any Multi-Drug Resistant Organisms: None Reported Past Surgical History: No Surgical Hx Reported Additional Past Surgical History / Comment(s): lithotripsy Past Anesthesia/Blood Transfusion Reactions: No Reported Reaction Additional Past Anesthesia/Blood Transfusion Reaction / Comment(s): Pt has never had anesthesia. He received blood in past without reaction. Past Psychological History: ADD/ADHD, Anxiety, Bipolar, Depression Smoking Status: Current every day smoker Past Alcohol Use History: None Reported Past Drug Use History: None Reported - Past Family History Father History Unknown: Yes Additional Family Medical History / Comment(s): patient does not know any medical history on him. Mother Family Medical History: Respiratory Disorder Additional Family Medical History / Comment(s): Mother is alive at age 56 with history of pulmonary hypertension. Brother(s) Additional Family Medical History / Comment(s): He has 2 brothers with no major medical problems. He has 6 sisters with no major medical problems. He has a grandfather and cousins with hemophilia. <Yonatan Keating - Last Filed: 12/24/24 12:52> General Exam <Yonatan Keating - Last Filed: 12/24/24 12:52> - General Exam Comments Initial Comments: Visual Physical Exam Vital signs reviewed General: Well-appearing, nontoxic, no acute distress. Head: Normocephalic, atraumatic Eyes: PERRLA, EOMI ENT: Airway patent Chest: Nonlabored breathing Skin: No visual rash, normal skin tone Neuro: Alert and oriented 3 Musculoskeletal: No gross abnormalities (Yonatan Keating) Course Vital Signs 12/24/24 13:07 Temperature 98.2 F Pulse Rate 109 H Respiratory 18 Rate Blood Pressure 134/79 O2 Sat by Pulse 98 Oximetry Medical Decision Making <Yonatan Keating - Last Filed: 12/24/24 12:52> - Lab Data Result diagrams: 12/24/24 13:21 12/24/24 13:21 <Andrei Cuevas - Last Filed: 12/30/24 14:23> - Medical Decision Making I completed the quick note portion of this chart signed MALINI Tillman (Yonatan Keating) - Lab Data Lab Results 12/24/24 12/24/24 Range/Units 13:21 13:21 WBC 4.7 (3.8-10.6) k/uL RBC 4.67 (4.30-5.90) m/uL Hgb 14.3 (13.0-17.5) gm/dL Hct 44.8 (39.0-53.0) % MCV 95.8 (80.0-100.0) fL MCH 30.6 (25.0-35.0) pg MCHC 31.9 (31.0-37.0) g/dL RDW 12.7 (11.5-15.5) % Plt Count 168 (150-450) k/uL MPV 7.0 Neutrophils % 47 % Lymphocytes % 44 % Monocytes % 4 % Eosinophils % 2 % Basophils % 1 % Neutrophils # 2.2 (1.3-7.7) k/uL Lymphocytes # 2.1 (1.0-4.8) k/uL Monocytes # 0.2 (0-1.0) k/uL Eosinophils # 0.1 (0-0.7) k/uL Basophils # 0.0 (0-0.2) k/uL Sodium 138 (137-145) mmol/L Potassium 4.0 (3.5-5.1) mmol/L Chloride 102 (98-107) mmol/L Carbon Dioxide 30 (22-30) mmol/L Anion Gap 6 mmol/L BUN 13 (9-20) mg/dL Creatinine 0.68 (0.66-1.25) mg/dL Est GFR (CKD-EPI)AfAm >90 (>60 ml/min/1.73 sqM) Est GFR (CKD-EPI)NonAf >90 (>60 ml/min/1.73 sqM) Glucose 179 H (74-99) mg/dL Calcium 9.1 (8.4-10.2) mg/dL Total Bilirubin 1.2 (0.2-1.3) mg/dL AST 111 H (17-59) U/L ALT 248 H (4-49) U/L Alkaline Phosphatase 62 (38-126) U/L Total Protein 6.8 (6.3-8.2) g/dL Albumin 4.1 (3.5-5.0) g/dL Disposition <Yonatan Keating - Last Filed: 12/24/24 12:52> <Andrei Cuevas - Last Filed: 12/30/24 14:23> Clinical Impression: Hemophilia, Bleeding gums Disposition: LEFT AGAINST MEDICAL ADVICE Referrals: Marc Covarrubias DO [Primary Care Provider] - 1-2 days
[2024-12-24 13:10] VITALS: BP 134/79; PULSE 109; RESP 18; TEMP 98.2
[2024-12-24 13:40] LABS: Basophils % (A) 1 %; Eosinophils # (A) 0.1 k/uL (0-0.7); Eosinophils % (A) 2 %; HCT 44.8 % (39.0-53.0); HGB 14.3 gm/dL (13.0-17.5); Lymphocytes # (A) 2.1 k/uL (1.0-4.8); Lymphocytes % (A) 44 %; MCH 30.6 pg (25.0-35.0); MCHC 31.9 g/dL (31.0-37.0); MCV 95.8 fL (80.0-100.0); Monocytes # (A) 0.2 k/uL (0-1.0); Monocytes % (A) 4 %; Neutrophils # (A) 2.2 k/uL (1.3-7.7); Neutrophils % (A) 47 %; Platelet Count 168 k/uL (150-450); RBC 4.67 m/uL (4.30-5.90); RDW 12.7 % (11.5-15.5); WBC 4.7 k/uL (3.8-10.6)
[2024-12-24 14:01] LABS: ALT 248 U/L (4-49); AST 111 U/L (17-59); African American GFR (CKD) >90 (>60 ml/min/1.73 sqM); Albumin 4.1 g/dL (3.5-5.0); Alkaline Phosphatase 62 U/L (38-126); Anion Gap 6 mmol/L; Blood Urea Nitrogen 13 mg/dL (9-20); Calcium 9.1 mg/dL (8.4-10.2); Carbon Dioxide 30 mmol/L (22-30); Chloride 102 mmol/L (98-107); Glucose 179 mg/dL (74-99); Non-African American GFR(CKD) >90 (>60 ml/min/1.73 sqM); Sodium 138 mmol/L (137-145); Total Bilirubin 1.2 mg/dL (0.2-1.3); Total Protein 6.8 g/dL (6.3-8.2)
== END 2024-12-24 14:40 | disposition left against medical advice (07) ==
LOC: EC 12:34
DX: K06.8 Other specified disorders of gingiva and edentulous alveolar ridge (principal); D66 Hereditary factor VIII deficiency; F17.200 Nicotine dependence, unspecified, uncomplicated; Z88.6 Allergy status to analgesic agent; Z53.29 Procedure and treatment not carried out because of patient's decision for other reasons
CPT/HCPCS: 36415; 80053; 85025; 99283

== ENCOUNTER 2025-03-28 20:22 | Emergency (ER) | payer OTHER ==
[2025-03-28 20:27] VITALS: RESP 18
--- NOTE | 2025-03-28 22:10 | XR ---
EXAMINATION TYPE: XR cervical spine comp DATE OF EXAM: 03/28/2025 TECHNIQUE: Frontal, lateral, oblique, and open mouth view of the cervical spine are obtained. CLINICAL INDICATION: Male, 34 years old with history of neck pain, pain COMPARISON: CT neck February 03, 2024 FINDINGS: The cervical spine is visualized from C1 thru the inferior C7 level, it is satisfactory in alignment without evidence of acute fracture or dislocation. The pre-vertebral soft tissue appears within normal limits. The C1-C2 articulation is within normal limits on the open mouth view. Vertebr al body heights and disc space heights are within normal limits. The oblique images are within normal limits. Overlying soft tissue is unremarkable. IMPRESSION: No acute findings are seen in the cervical spine. [facility], , 03/28/2025 10:08 PM
--- NOTE | 2025-03-28 22:42 | ED ---
Neck Injury/Pain HPI - General Chief Complaint: Neck Pain/Injury Stated Complaint: Neck Pain Time Seen by Provider: 03/28/25 21:05 Source: patient, RN notes reviewed, old records reviewed Mode of arrival: ambulatory Limitations: no limitations - History of Present Illness Initial Comments: 34-year-old male presents with complaints of neck pain. States for the last 5 to 6 days he has been having centralized upper neck pain. Reports he was outside using a weed Dotty cutting the grass, with his head turned down and swinging his arms [id number] while holding the weed Dotty when he felt a pop in his upper neck near where his top of the spine connects with the space of the skull and since then he has been unable to move his neck without significant amounts of pain. Denies having any numbness loss of sensation in any part of the body after this incident, denies any loss of bowel or loss of urine as well. States he normally takes hydrocodone 7.5 for chronic pain in his joints. Patient has no other symptoms at this time. - Related Data Home Medications Medication Instructions Recorded Confirmed HYDROcodone/APAP 5-325MG [Jber 1 tab PO QID 12/25/22 05/19/23 5-325] Jivi 2800 Iu 2,800 units IV DIRECTED PRN 05/19/23 05/19/23 Jivi 2800 Iu 2,800 units IV MOTH 05/19/23 05/19/23 Previous Rx's Medication Instructions Recorded Azithromycin [Zithromax Z Pack] 1 tab PO DIRECTED #6 tab 07/11/23 Azithromycin [Zithromax Tri-Rl (3 500 mg PO DAILY 3 Days #3 tab 08/13/23 tabs)] methylPREDNISolone Dose Pack 4 mg PO DIRECTED #21 tab 03/29/25 [Medrol Dose Pack] Allergies Allergy/AdvReac Type Severity Reaction Status Date / Time aspirin AdvReac contraindicated Verified 03/28/25 20:27 d/t hemophilia NSAIDS (Non-Steroidal AdvReac contraindicated Verified 03/28/25 20:27 Anti-Inflamma d/t hemophilia Review of Systems ROS Statement: Those systems with pertinent positive or pertinent negative responses have been documented in the HPI. ROS Other: All systems not noted in ROS Statement are negative. 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 History of Any Multi-Drug Resistant Organisms: None Reported Past Surgical History: No Surgical Hx Reported Additional Past Surgical History / Comment(s): lithotripsy Past Anesthesia/Blood Transfusion Reactions: No Reported Reaction Additional Past Anesthesia/Blood Transfusion Reaction / Comment(s): Pt has never had anesthesia. He received blood in past without reaction. Past Psychological History: ADD/ADHD, Anxiety, Bipolar, Depression Smoking Status: Current every day smoker Past Alcohol Use History: None Reported Past Drug Use History: None Reported - Past Family History Father History Unknown: Yes Additional Family Medical History / Comment(s): patient does not know any medical history on him. Mother Family Medical History: Respiratory Disorder Additional Family Medical History / Comment(s): Mother is alive at age 56 with history of pulmonary hypertension. Brother(s) Additional Family Medical History / Comment(s): He has 2 brothers with no major medical problems. He has 6 sisters with no major medical problems. He has a grandfather and cousins with hemophilia. General Exam - General Exam Comments Initial Comments: GENERAL: In no apparent distress at the time of examination. Pleasant and cooperative. HEENT: Head is atraumatic, normocephalic. Pupils are equal, round, and reactive to light. Sclerae anicteric. Conjunctivae are clear. Mucus membranes of the mouth are moist. Neck is supple. RESPIRATORY: Clear to auscultation. No wheezes, rales, or rhonchi. No use of accessory muscles. Patient maintaining oxygen saturation greater than 92%. No chest wall tenderness is noted on palpation or with deep breathing. CARDIOVASCULAR: Regular rate and rhythm. S1 and S2 noted. No systolic or diastolic murmur auscultated. No JVD noted. No S3 or S4 noted. GASTROINTESTINAL: No distention noted. Abdomen soft and round. Normal active bowel sounds auscultated x 4 quadrants. No pain or tenderness noted upon palpation. INTEGUMENTARY: No cyanosis. No jaundice. No rashes noted. No cellulitis noted. EXTREMITIES: 2+ peripheral pulses. No evidence of peripheral edema. No calf tenderness noted. MSK: Point tenderness to palpation of posterior cervical spine around C2-C3, no palpable step-offs appreciated. NEUROLOGIC: Cranial nerves II-XII intact. PSYCHIATRIC: Awake, alert, and oriented X 3. Appropriate affect. Intact judgement and insight. Limitations: no limitations Course Vital Signs 03/28/25 03/28/25 20:24 23:00 Temperature 98.4 F Pulse Rate 107 H 71 Respiratory 18 18 Rate Blood Pressure 146/93 112/86 O2 Sat by Pulse 99 97 Oximetry Medical Decision Making - Medical Decision Making Was pt. sent in by a medical professional or institution (, ANTON[employer], [employer] MECH[employer]IC, urgent care, hospital, or long-term...) When possible be specific @ -No Did you speak to anyone other than the patient for history (EMS, parent, family, police, friend...)? What history was obtained from this source @ -No Did you review nursing and triage notes (agree or disagree)? Why? @ -I reviewed and agree with nursing and triage notes Were old charts reviewed (outside hosp., previous admission, EMS record, old EKG, old radiological studies, urgent care reports/EKG's, long-term records)? Report findings @ -No old charts were reviewed Differential Diagnosis? @ -Differential Back Pain: Strain, zoster, epidural abscess, vertebral osteomyelitis, discitis, fracture, subluxation, disc herniation, DJD, spinal stenosis, this is not meant to be an all-inclusive list. EKG interpreted by me (3pts min.). @ -As above X-rays interpreted by me (1pt min.). @ -Complete x-ray of the cervical spine shows no acute fracture, facet spaces appear within normal limits, no herniation appreciated this was interpreted by myself CT interpreted by me (1pt min.). @ -None done U/S interpreted by me (1pt. min.). @ -None done What testing was considered but not performed or refused? (CT, X-rays, U/S, labs)? Why? @ -None What meds were considered but not given or refused? Why? @ -Norflex refused by the patient, states "I have tried this in the past and it made my heart skip and did not help my pain " Did you discuss the management of the patient with other professionals (professionals i.e. , ANTONY, E[employer]ICAL [employer]FT MECHANIC, lab, RT, psych nurse, social work administrator, spiral runner, teacher, traffic control officer, showcase maker)? Give summary @ -No Was smoking cessation discussed for >3mins.? @ -No Was critical care preformed (if so, how long)? @ -No Were there social determinants of health that impacted care today? How? (Homelessness, low income, unemployed, alcoholism, drug addiction, transportation, low edu. Level, literacy, decrease access to med. care, penitentiary, rehab)? @ -No Was there de-escalation of care discussed even if they declined (Discuss DNR or withdrawal of care, Hospice)? DNR status @ -No What co-morbidities impacted this encounter? (DM, HTN, Smoking, COPD, CAD, Cancer, CVA, ARF, Chemo, Hep., AIDS, mental health diagnosis, sleep apnea, morbid obesity)? @ -None Was patient admitted / discharged? Hospital course, mention meds given and route, prescriptions, significant lab abnormalities, going to OR and other pertinent info. @ -Discharged, 34-year-old male presenting with complaints of neck pain. Patient received a complete x-ray of the cervical spine which showed no acute fracture, facet spaces appeared within normal limits and no herniation was appreciated and this x-ray was interpreted by myself. Patient also received pain medication and after getting that his neck pain started to subside a bit. At time of discharge she states he still has some neck pain but is feeling better. Patient will have a short course of steroids sent to his pharmacy and is advised to follow-up with his PCP in 1 to 2 days. Undiagnosed new problem with uncertain prognosis? @ -No Drug Therapy requiring intensive monitoring for toxicity (Heparin, Nitro, Insulin, Cardizem)? @ -No Were any procedures done? @ -No Diagnosis/symptom? @ -Neck muscle strain Acute, or Chronic, or Acute on Chronic? @ -Default Uncomplicated (without systemic symptoms) or Complicated (systemic symptoms)? @ -Default Side effects of treatment? @ -No Exacerbation, Progression, or Severe Exacerbation? @ -No Poses a threat to life or bodily function? How? (Chest pain, [place], [place], pneumonia, PE, COPD, DKA, ARF, appy, cholecystitis, CVA, Diverticulitis, Homicidal, Suicidal, threat to staff... and all critical care pts) @ -No Disposition Clinical Impression: Strain of neck muscle Disposition: HOME SELF-CARE Instructions (If sedation given, give patient instructions): Cervical Strain (ED) Prescriptions: methylPREDNISolone Dose Pack [Medrol Dose Pack] 4 mg PO DIRECTED #21 tab Is patient prescribed a controlled substance at d/c from ED?: No Referrals: Marc Covarrubias DO [Primary Care Provider] - 1-2 days
[2025-03-28] MEDS: HYDROcodone/APAP 7.5-325MG 1 EACH TAB PO ONE (22:59)
[2025-03-28] MEDS: ORPHENADRINE 30 MG/ML 2 ML VIAL IM STA (23:20)
[2025-03-28] MEDS: HYDROmorphone 1 MG/ML 1 ML SYRINGE IM STA (23:43)
[2025-03-29] MEDS: HYDROmorphone 1 MG/ML 1 ML SYRINGE IM STA (00:55)
[2025-03-29 01:30] VITALS: BP 115/87; PULSE 70; TEMP 98.2
== END 2025-03-29 01:22 | disposition home or self-care (01) ==
LOC: EC 20:22
DX: S16.1XXA Strain of muscle, fascia and tendon at neck level, initial encounter (principal); F17.200 Nicotine dependence, unspecified, uncomplicated; Z88.6 Allergy status to analgesic agent; X50.0XXA Overexertion from strenuous movement or load, initial encounter
CPT/HCPCS: 72050; 99283; 96372 ×2; J1171

== ENCOUNTER 2025-04-17 19:36 | Emergency (ER) | payer OTHER ==
--- NOTE | 2025-04-17 21:01 | XR ---
EXAMINATION TYPE: XR foot complete RT, XR ankle complete RT DATE OF EXAM: 04/17/2025 8:56 PM COMPARISON: None. CLINICAL INDICATION: Male, 34 years old with history of right foot injury, pain TECHNIQUE: XR foot complete RT, XR ankle complete RT XX views were obtained. FINDINGS: There is no acute fracture/dislocation evident. Severe degenerative narrowing tibiotalar joint space. The overlying soft tissue appears unremarkable. IMPRESSION: No acute fracture or dislocation. [facility], , 04/17/2025 8:58 PM
[2025-04-17] MEDS: MORPHINE SULFATE 4 MG/ML SYRINGE IM STA (21:45)
--- NOTE | 2025-04-17 22:04 | ED ---
Lower Extremity Injury HPI - General Chief Complaint: Extremity Injury, Lower Stated Complaint: R foot pain Time Seen by Provider: 04/17/25 21:00 Source: patient, RN notes reviewed Mode of arrival: ambulatory Limitations: no limitations - History of Present Illness Initial Comments: 34-year-old male presenting for right foot injury 9 hours ago. States at noon today he accidentally dropped a 14 pound dumbbell on his right foot. States he is having pain to his right great toe, the top of his right foot and into the ankle. He is able to weight-bear. No other injuries. Denies blood thinners. - Related Data Home Medications Medication Instructions Recorded Confirmed HYDROcodone/APAP 5-325MG [Wendel 1 tab PO QID 12/25/22 05/19/23 5-325] Jivi 2800 Iu 2,800 units IV DIRECTED PRN 05/19/23 05/19/23 Jivi 2800 Iu 2,800 units IV MOTH 05/19/23 05/19/23 Previous Rx's Medication Instructions Recorded Azithromycin [Zithromax Z Pack] 1 tab PO DIRECTED #6 tab 07/11/23 Azithromycin [Zithromax Tri-Rl (3 500 mg PO DAILY 3 Days #3 tab 08/13/23 tabs)] methylPREDNISolone Dose Pack 4 mg PO DIRECTED #21 tab 03/29/25 [Medrol Dose Pack] Allergies Allergy/AdvReac Type Severity Reaction Status Date / Time aspirin AdvReac contraindicated Verified 03/28/25 20:27 d/t hemophilia NSAIDS (Non-Steroidal AdvReac contraindicated Verified 03/28/25 20:27 Anti-Inflamma d/t hemophilia Review of Systems ROS Statement: Those systems with pertinent positive or pertinent negative responses have been documented in the HPI. ROS Other: All systems not noted in ROS Statement are negative. 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 History of Any Multi-Drug Resistant Organisms: None Reported Past Surgical History: No Surgical Hx Reported Additional Past Surgical History / Comment(s): lithotripsy Past Anesthesia/Blood Transfusion Reactions: No Reported Reaction Additional Past Anesthesia/Blood Transfusion Reaction / Comment(s): Pt has never had anesthesia. He received blood in past without reaction. Past Psychological History: ADD/ADHD, Anxiety, Bipolar, Depression Smoking Status: Current every day smoker Past Alcohol Use History: None Reported Past Drug Use History: None Reported - Past Family History Father History Unknown: Yes Additional Family Medical History / Comment(s): patient does not know any medical history on him. Mother Family Medical History: Respiratory Disorder Additional Family Medical History / Comment(s): Mother is alive at age 56 with history of pulmonary hypertension. Brother(s) Additional Family Medical History / Comment(s): He has 2 brothers with no major medical problems. He has 6 sisters with no major medical problems. He has a grandfather and cousins with hemophilia. General Exam Limitations: no limitations General appearance: alert, in no apparent distress Head exam: Present: atraumatic, normocephalic, normal inspection Eye exam: Present: normal appearance, PERRL, EOMI. Absent: scleral icterus, conjunctival injection, periorbital swelling Right Lower Leg exam: Present: normal inspection, full ROM. Absent: tenderness, swelling Ankle exam: Present: full ROM, tenderness, swelling. Absent: normal inspection (Mild edema) Foot/Toe exam: Present: full ROM, tenderness, swelling. Absent: normal inspection (Mild edema and tenderness over right great toe, dorsal aspect of right foot, and over medial malleolus) Neurovascular tendon exam: Present: no vascular compromise. Absent: pulse deficit, abnormal cap refill, motor deficit Neurological exam: Present: alert, oriented X3 Psychiatric exam: Present: normal affect, normal mood Skin exam: Present: warm, dry, intact, normal color. Absent: rash Course Vital Signs 04/17/25 19:38 Temperature 98.4 F Pulse Rate 94 Respiratory 18 Rate Blood Pressure 130/81 O2 Sat by Pulse 99 Oximetry Medical Decision Making - Medical Decision Making Was pt. sent in by a medical professional or institution (ANTONY Wise, CONCRET[employer] M[employer]ER LOADER TRUCK MOUNTED, urgent care, hospital, or fdc...) When possible be specific @ -No Did you speak to anyone other than the patient for history (EMS, parent, family, police, friend...)? What history was obtained from this source @ -No Did you review nursing and triage notes (agree or disagree)? Why? @ -I reviewed and agree with nursing and triage notes Were old charts reviewed (outside hosp., previous admission, EMS record, old EKG, old radiological studies, urgent care reports/EKG's, fdc records)? Report findings @ -No old charts were reviewed Differential Diagnosis (chest pain, altered mental status, abdominal pain women, abdominal pain men, vaginal bleeding, weakness, fever, dyspnea, syncope, headache, dizziness, GI bleed, back pain, seizure, CVA, palpatations, mental health, musculoskeletal)? @ -Differential Musculoskeletal Muscular strain, contusion, ligament sprain, fracture, arthritis, septic arthritis, bursitis, cellulitis, muscle spasm, nerve compression, DVT, arterial occlusion, herpes zoster, electrolyte abnormality, tumor.... This is not meant to be in all inclusive list EKG interpreted by me (3pts min.). @ -None X-rays interpreted by me (1pt min.). @ -X-ray right foot and ankle reveals no acute osseous abnormality CT interpreted by me (1pt min.). @ -None done U/S interpreted by me (1pt. min.). @ -None done What testing was considered but not performed or refused? (CT, X-rays, U/S, labs)? Why? @ -None What meds were considered but not given or refused? Why? @ -None Did you discuss the management of the patient with other professionals (professionals i.e. , PA, CONCRETE M[employer] LO[employer]ER TRUCK MOUNTED, lab, RT, psych nurse, criminal justice social worker, bearingizer, teacher, chief juvenile probation officer, skilled nursing case manager)? Give summary @ -No Was smoking cessation discussed for >3mins.? @ -No Was critical care preformed (if so, how long)? @ -No Were there social determinants of health that impacted care today? How? (Homelessness, low income, unemployed, alcoholism, drug addiction, transportation, low edu. Level, literacy, decrease access to med. care, intermediate, rehab)? @ -No Was there de-escalation of care discussed even if they declined (Discuss DNR or withdrawal of care, Hospice)? DNR status @ -No What co-morbidities impacted this encounter? (DM, HTN, Smoking, COPD, CAD, Cancer, CVA, ARF, Chemo, Hep., AIDS, mental health diagnosis, sleep apnea, morbid obesity)? @ -None Was patient admitted / discharged? Hospital course, mention meds given and route, prescriptions, significant lab abnormalities, going to OR and other pertinent info. @ -Discharge. 34-year-old male presenting for right foot injury. Neurovascularly intact. Able to ambulate. Patient was provided with ice and analgesics. X-ray right foot and ankle reveals no acute osseous abnormality. Discussed results with patient. Appropriate return precautions and supportive care discussed. Case was discussed with my ED attending Dr. Nicolas Undiagnosed new problem with uncertain prognosis? @ -No Drug Therapy requiring intensive monitoring for toxicity (Heparin, Nitro, Insulin, Cardizem)? @ -No Were any procedures done? @ -No Diagnosis/symptom? @ -Right foot strain Acute, or Chronic, or Acute on Chronic? @ -Acute Uncomplicated (without systemic symptoms) or Complicated (systemic symptoms)? @ -Uncomplicated Side effects of treatment? @ -No Exacerbation, Progression, or Severe Exacerbation? @ -No Poses a threat to life or bodily function? How? (Chest pain, [place], [place], pneumonia, PE, COPD, DKA, ARF, appy, cholecystitis, CVA, Diverticulitis, Homicidal, Suicidal, threat to staff... and all critical care pts) @ -No Disposition Clinical Impression: Right foot strain Disposition: HOME SELF-CARE Condition: Stable Instructions (If sedation given, give patient instructions): Foot Contusion (ED) Additional Instructions: Rest, ice, and elevate the right foot. Please return to the Emergency Department if symptoms worsen or any other concerns. Is patient prescribed a controlled substance at d/c from ED?: No Referrals: None,Stated [Primary Care Provider] - 1-2 days Time of Disposition: 22:04
[2025-04-17 22:26] VITALS: BP 130/83; PULSE 74; RESP 16; TEMP 98.3
== END 2025-04-17 22:17 | disposition home or self-care (01) ==
LOC: EC 19:36
DX: S96.911A Strain of unspecified muscle and tendon at ankle and foot level, right foot, initial encounter (principal); F17.200 Nicotine dependence, unspecified, uncomplicated; Z88.6 Allergy status to analgesic agent; Z88.8 Allergy status to other drugs, medicaments and biological substances; W20.8XXA Other cause of strike by thrown, projected or falling object, initial encounter
CPT/HCPCS: 73610; 73630; 99283; 96372; J2270